=== PATIENT | female | born 1950 | race Caucasian/White ===

== ENCOUNTER 2017-05-05 04:56 | Inpatient (IN) | payer BC, OTHER ==
[2017-05-05 05:31] VITALS: BMI 32.3
--- NOTE | 2017-05-05 05:32 | PDOC ---
Attending Attestation - Resident Resident Name: Adin Stewart - ED Attending Attestation I have performed the following: I have examined & evaluated the patient, The case was reviewed & discussed with the resident, I agree w/resident's findings & plan, Exceptions are as noted - HPI HPI: 05/05/17 05:26 66 yo F h/o HTN, HLD, CAD s/p stent (most recent one several weeks ago) presenting to the ER with a complaint of shortness of breath PT s/p recent drive to [place] from [place] While admitted, pt reported leg pain 05/05/17 05:32 - Physicial Exam PE: 05/05/17 05:26 Intermittently tachycardiac CTA No abd tenderness to palpation - Medical Decision Making 05/05/17 05:27 A/P Chest pain, shortness of breath Will do labs, EKG, CXR Will plan to admit
--- NOTE | 2017-05-05 05:36 | PDOC ---
History of Present Illness - General Chief Complaint: Shortness of Breath Stated Complaint: DIFFICULTY BREATHING, CHEST PAIN Time Seen by Provider: 05/05/17 05:02 History Source: Patient Exam Limitations: No Limitations - History of Present Illness Initial Comments: 05/05/17 05:30 Patient is a 66F who has history of SC s/p stenting in [place] 3 wks ago , CHF, non-insulin dependent diabetes, HTN, and HLD here today complaining of shortness of breath. She's had increased shortness of breath since her SC, but has been worse the past two days. She states that she drove 15 hours from [place] yesterday, and that she had leg cramping in her legs. She denies recent estrogen use. She denies chest pain, hemoptysis, nausea, vomiting, fevers and abdominal pain. Former smoker. Past History - Past Medical History Allergies/Adverse Reactions: Allergies Allergy/AdvReac Type Severity Reaction Status Date / Time No Known Allergies Allergy Verified 05/05/17 05:20 - Psycho/Social/Smoking Cessation Hx Suicidal Ideation: No Smoking History: Never smoked Have you smoked in the past 12 months: No Information on smoking cessation initiated: No Hx Alcohol Use: No Drug/Substance Use Hx: No Review of Systems - Review of Systems Comments:: 05/05/17 05:33 GENERAL/CONSTITUTIONAL: No fever. Positive for weakness and chills. HEAD, EYES, EARS, NOSE AND THROAT: No change in vision. No ear pain or discharge. No sore throat. CARDIOVASCULAR: No chest pain. Positive for shortness of breath. RESPIRATORY: No cough, wheezing, or hemoptysis. GASTROINTESTINAL: No nausea, vomiting, diarrhea or constipation. GENITOURINARY: No dysuria, frequency, or change in urination. NEUROLOGIC: No headache, loss of consciousness, or change in strength/sensation. HEMATOLOGIC/LYMPHATIC: No anemia, easy bleeding, or history of blood clots. ALLERGIC/IMMUNOLOGIC: No hives or skin allergy. *Physical Exam - Vital Signs Last Vital Signs Temp Pulse Resp BP Pulse Ox 97.1 F L 76 20 128/77 97 05/05/17 05:02 05/05/17 05:02 05/05/17 05:02 05/05/17 05:02 05/05/17 05:02 - Physical Exam Comments: 05/05/17 05:36 GENERAL: Awake, alert, and fully oriented, in no acute distress HEAD: No signs of trauma, normocephalic, atraumatic EYES: PERRLA, EOMI, sclera anicteric, conjunctiva clear ENT: Auricles normal inspection, hearing grossly normal, nares patent, oropharynx clear without exudates. Moist mucosa LUNGS: No distress, speaks full sentences, clear to auscultation bilaterally HEART: Tachycardic with rate fluctuating between 70 and 120 in <1 min, normal S1 and S2, no murmurs, rubs or gallops, peripheral pulses normal and equal bilaterally. ABDOMEN: Soft, nontender, normoactive bowel sounds. No guarding, no rebound. No masses EXTREMITIES: Normal inspection, Normal range of motion, no edema. No clubbing or cyanosis. NEUROLOGICAL: Cranial nerves II through XII grossly intact. Normal speech, no focal sensorimotor deficits SKIN: Warm, Dry, normal turgor, no rashes or lesions noted. Heart Score/ECG Review - History History: Slightly suspicious - Electrocardiogram EKG: Significant ST-depression - Risk Factors Risk Factors Heart Score: Yes Hx Hypertension, Yes Hx Diabetes, Yes Smoking History Based on the list above the patient has:: >/=3 risk factors or Hx atherosclerotic disease ED Treatment Course - LABORATORY CBC & Chemistry Diagram: 05/05/17 05:29 05/05/17 05:29 - RADIOLOGY Radiology Studies Ordered: Category Date Time Status CHEST X-RAY PORTABLE* [RAD] Stat Radiology 05/05/17 05:16 Ordered Medical Decision Making - Medical Decision Making 05/05/17 05:37 Patient is 66F who was recently hospitalized for SC s/p stenting, CHF, DM, HTN, and HLD here today complaining of shortness of breath. Vital signs show tachycardia and satting 93%. Vital signs otherwise stable and normal. Patient has multiple PE risk factors. Differential diagnosis includes: PE, ACS, arrhythmia, COPD exacerbation, CHF exacerbation. Workup includes ACS workup plus BNP and CTA Chest. 05/05/17 05:43 EKG shows sinus tachycardia with 1st av block. Left axis. ST depressions in I, avL. Flattened t-waves. QTc = 609. QRS = 140 05/05/17 06:44 Patient has a known discordance in BP between arms. Right arm shows SBP of 88. Left arm shows SBP of 111. This is pre-existing per patient. 05/05/17 06:49 Laboratory Tests 05/05/17 05/05/17 05:29 05:29 WBC 9.8 Hgb 13.1 Hct 40.1 Plt Count 275 BUN 49 H Creatinine 1.3 H Troponin I 0.11 H B-Natriuretic Peptide 3078.34 H CBC unremarkable. CMP shows BUN 49, Cr 1.3. Trop .11, BNP 3k. Will order CTA Chest. CXR shows cardiomegaly with right sided lung opacity. *DC/Admit/Observation/Transfer Diagnosis at time of Disposition: Shortness of breath
[2017-05-05 05:39] LABS: BASOPHIL 1.2 % (0-2.0); MCH 29.1 pg (25.7-33.7); MCHC 32.7 g/dl (32.0-36.0); MEAN CELL VOLUME 89.2 fl (80-96); MEAN PLT VOLUME 10.2 fl (7.5-11.1); PLATELET COUNT 275 K/MM3 (134-434); RDW 15.4 % (11.6-15.6); WHITE BLOOD COUNT 9.8 K/mm3 (4.0-10.0)
[2017-05-05 05:57] LABS: INR 1.14 (0.82-1.09); PROTHROMBIN TIME (PATIENT) 12.6 SEC (9.98-11.88)
[2017-05-05] MEDS ORDERED: SODIUM CHLORIDE 0.9% 1000 ML INFUS.BAG IV ONE (06:13)
[2017-05-05 06:37] LABS: ANION GAP 13 (8-16); CO2 26 mmol/L (21-32); CREATININE 1.3 mg/dL (0.55-1.02); GLUCOSE,RANDOM 128 mg/dL (74-106)
[2017-05-05 06:38] LABS: ALBUMIN 3.2 g/dl (3.4-5.0); BILIRUBIN,TOTAL 0.6 mg/dL (0.2-1.0); CALCIUM 8.9 mg/dL (8.5-10.1); SGOT/AST 15 U/L (15-37); TOT PROT 6.5 g/dl (6.4-8.2)
[2017-05-05 06:39] LABS: ALK PHOS 75 U/L (45-117); CPK 48 IU/L (26-192); SGPT/ALT 31 U/L (12-78); TROPONIN I 0.11 ng/ml (0.00-0.05)
[2017-05-05 06:57] LABS: MAGNESIUM 2.1 mg/dL (1.8-2.4)
--- NOTE | 2017-05-05 07:21 | PDOC ---
*Physical Exam - Vital Signs Last Vital Signs Temp Pulse Resp BP Pulse Ox 97.1 F L 76 20 128/77 97 05/05/17 05:02 05/05/17 05:02 05/05/17 05:02 05/05/17 05:02 05/05/17 05:02 <ChristopherDeep - Last Filed: 05/05/17 09:09> - Vital Signs Last Vital Signs Temp Pulse Resp BP Pulse Ox 97.1 F L 76 20 128/77 97 05/05/17 05:02 05/05/17 05:02 05/05/17 05:02 05/05/17 05:02 05/05/17 05:02 - Physical Exam Comments: 05/05/17 09:11 pt with recent AL, recent hospitalization in [facility]. No with dyspnea and orthopnea and PND. 05/05/17 09:12 pt signed out pending CT chest General Appearance: Yes: Nourished, Appropriately Dressed HEENT: positive: EOMI Neck: positive: Supple Respiratory/Chest: positive: Crackles Cardiovascular: positive: S1, S2, Tachycardia Vascular Pulses: Dorsalis-Pedis (R): 2+, Doralis-Pedis (L): 2+ Gastrointestinal/Abdominal: positive: Normal Bowel Sounds, Soft. negative: Tender Musculoskeletal: positive: Normal Inspection. negative: Decreased Range of Motion Extremity: positive: Normal Capillary Refill, Normal Range of Motion. negative : Pedal Edema, Swelling, Calf Tenderness Integumentary: positive: Normal Color, Dry, Warm Neurologic: positive: mail inserter II-XII NML intact, Fully Oriented, Alert, Normal Mood/ Affect, Normal Response, Motor Strength 5/5 <Bridget Dominguez - Last Filed: 05/05/17 09:17> Heart Score/ECG Review - ECG Intrepretation Comment:: 05/05/17 09:13 repeat ekg: sinus kat at 50, t wave inversions V2-v6, I, avl with intermittent interventricular conduction delay <Bridget Dominguez - Last Filed: 05/05/17 09:17> ED Treatment Course - LABORATORY CBC & Chemistry Diagram: 05/05/17 05:29 05/05/17 05:29 - ADDITIONAL ORDERS Additional order review: Laboratory Results 05/05/17 05/05/17 05:29 05:29 INR 1.14 Sodium 141 Potassium 3.8 Chloride 102 Carbon Dioxide 26 Anion Gap 13 BUN 49 H Creatinine 1.3 H Creat Clearance w eGFR 41.24 Random Glucose 128 H Calcium 8.9 Magnesium 2.1 Total Bilirubin 0.6 AST 15 ALT 31 Alkaline Phosphatase 75 Creatine Kinase 48 Troponin I 0.11 H B-Natriuretic Peptide 3078.34 H Total Protein 6.5 Albumin 3.2 L 05/05/17 05:29 RBC 4.49 MCV 89.2 MCHC 32.7 RDW 15.4 MPV 10.2 Neutrophils % 59.0 Lymphocytes % 30.4 Monocytes % 6.4 Eosinophils % 3.0 Basophils % 1.2 - Medications Given in the ED: ED Medications Discontinued Medications Generic Name Dose Route Start Last Admin Trade Name Freq PRN Reason Stop Dose Admin Sodium Chloride 250 ml 05/05/17 06:13 05/05/17 06:41 Normal Saline - IV 05/05/17 06:14 250 ml ONCE ONE Administration <Deep White - Last Filed: 05/05/17 09:09> - LABORATORY CBC & Chemistry Diagram: 05/05/17 05:29 05/05/17 05:29 - ADDITIONAL ORDERS Additional order review: Laboratory Results 05/05/17 05/05/17 05:29 05:29 INR 1.14 Sodium 141 Potassium 3.8 Chloride 102 Carbon Dioxide 26 Anion Gap 13 BUN 49 H Creatinine 1.3 H Creat Clearance w eGFR 41.24 Random Glucose 128 H Calcium 8.9 Magnesium 2.1 Total Bilirubin 0.6 AST 15 ALT 31 Alkaline Phosphatase 75 Creatine Kinase 48 Troponin I 0.11 H B-Natriuretic Peptide 3078.34 H Total Protein 6.5 Albumin 3.2 L 05/05/17 05:29 RBC 4.49 MCV 89.2 MCHC 32.7 RDW 15.4 MPV 10.2 Neutrophils % 59.0 Lymphocytes % 30.4 Monocytes % 6.4 Eosinophils % 3.0 Basophils % 1.2 - Medications Given in the ED: ED Medications Discontinued Medications Generic Name Dose Route Start Last Admin Trade Name Freq PRN Reason Stop Dose Admin Sodium Chloride 250 ml 05/05/17 06:13 05/05/17 06:41 Normal Saline - IV 05/05/17 06:14 250 ml ONCE ONE Administration <Bridget Dominguez - Last Filed: 05/05/17 09:17> Medical Decision Making - Medical Decision Making 05/05/17 09:02 Called Hospitalist production support analyst DR. Grimes @8:58am. Case discussed. Called Dr. Douglass. Dr. Lopez richard @9:06am. Awaiting Call back. <Deep White - Last Filed: 05/05/17 09:09> - Medical Decision Making 05/05/17 09:14 pt signed out pending cta chest and elevated trop. 05/05/17 09:14 pt with pulmonary edema on cxr 05/05/17 09:14 cta negative for PE 05/05/17 09:[address] Grimes who accepts pt to service Pt updated on status and agrees to stay for further eval. Call placed to Dr. Douglass cardiology - case discussed with Dr. Moss who will see the patient in consult. <Bridget Dominguez - Last Filed: 05/05/17 09:17> *DC/Admit/Observation/Transfer - Attestations Scribe Attestion: 05/05/17 09:02 Documentation prepared by Deep White, acting as quality engineer medical device for Bridget Dominguez DO, MD. <Deep White - Last Filed: 05/05/17 09:09> - Discharge Dispostion Admit: Yes <Bridget Dominguez - Last Filed: 05/05/17 09:17> Diagnosis at time of Disposition: Shortness of breath Congestive heart failure Qualifiers: Congestive heart failure chronicity: unspecified congestive heart failure chronicity
[2017-05-05] MEDS ORDERED: FUROSEMIDE 40 MG/4 ML INJECTABLE VIAL IVPUSH ONE ×2 (09:17→10:20)
[2017-05-05] MEDS ORDERED: FUROSEMIDE 40 MG/4 ML INJECTABLE VIAL ONE (09:36)
--- NOTE | 2017-05-05 10:29 | CON.CARD ---
Cardiology Consult (text) - Consultation Consultation Note: cc: sob hpi: 66 f hx dm, htn, hld, cad s/p NV 04/2017 with pci x2 (osh in [place]), chf here with sob. Pt was in [place] and feeling well until about 4 days ago when had sob and went to hospital there. Was told she had chf and given iv lasix for a few days and discharged yesterday. She drove back up to [place] and this AM noticed same type of sob again. No chest pain/pressure like she had with recent NV. No dizzy, loc, palps, pnd, orthopnea, le edema. pmh: per hpi psh: pci social: ex tob fam: no premature cad/scd ros: per hpi; no nvd, fever, esparza, vision changes, rash, gib, hematuria, dysuria, muscle pains meds: Home Medications Medication Instructions Recorded Aspirin [Aspirin EC] 81 mg PO DAILY 05/05/17 Atorvastatin Ca [Lipitor] 40 mg PO HS 05/05/17 Chlorthalidone 25 mg PO DAILY 05/05/17 Diazepam 2 mg PO BID PRN 05/05/17 Lisinopril 10 mg PO DAILY 05/05/17 Metformin HCl [Metformin HCl ER] 500 mg PO TID 05/05/17 Metoprolol Tartrate 12.5 mg PO BID 05/05/17 Nicotine Patch [Nicoderm Patch -] 1 patch TD DAILY 05/05/17 Omeprazole 40 mg PO DAILY 05/05/17 Ticagrelor [Brilinta] 90 mg PO BID 05/05/17 Zolpidem Tartrate [Ambien] 10 mg PO HS 05/05/17 pe: Vital Signs Period Temp Pulse Resp BP Sys/Raymond Pulse Ox Last 24 Hr 97.1 F 76-110 16-20 92-128/77-79 95-97 nad no jvd rrr s1s2 no mrg cta bl nl eff aaox3 no le edema c/c abd nt nd pos bs no jaundice diaphoresis pos dp pt no carotid bruits Laboratory Last Values WBC 9.8 K/mm3 (4.0-10.0) 05/05/17 05:29 RBC 4.49 M/mm3 (3.60-5.2) 05/05/17 05:29 Hgb 13.1 GM/dL (10.7-15.3) 05/05/17 05:29 Hct 40.1 % (32.4-45.2) 05/05/17 05:29 MCV 89.2 fl (80-96) 05/05/17 05:29 MCH 29.1 pg (25.7-33.7) 05/05/17 05:29 MCHC 32.7 g/dl (32.0-36.0) 05/05/17 05:29 RDW 15.4 % (11.6-15.6) 05/05/17 05:29 Plt Count 275 K/MM3 (134-434) 05/05/17 05:29 MPV 10.2 fl (7.5-11.1) 05/05/17 05:29 Neutrophils % 59.0 % (42.8-82.8) 05/05/17 05:29 Lymphocytes % 30.4 % (8-40) 05/05/17 05:29 Monocytes % 6.4 % (3.8-10.2) 05/05/17 05:29 Eosinophils % 3.0 % (0-4.5) 05/05/17 05:29 Basophils % 1.2 % (0-2.0) 05/05/17 05:29 INR 1.14 (0.82-1.09) 05/05/17 05:29 Sodium 141 mmol/L (136-145) 05/05/17 05:29 Potassium 3.8 mmol/L (3.5-5.1) 05/05/17 05:29 Chloride 102 mmol/L (98-107) 05/05/17 05:29 Carbon Dioxide 26 mmol/L (21-32) 05/05/17 05:29 Anion Gap 13 (8-16) 05/05/17 05:29 BUN 49 mg/dL (7-18) H 05/05/17 05:29 Creatinine 1.3 mg/dL (0.55-1.02) H 05/05/17 05:29 Creat Clearance w eGFR 41.24 (>60) 05/05/17 05:29 Random Glucose 128 mg/dL (74-106) H 05/05/17 05:29 Calcium 8.9 mg/dL (8.5-10.1) 05/05/17 05:29 Magnesium 2.1 mg/dL (1.8-2.4) 05/05/17 05:29 Total Bilirubin 0.6 mg/dL (0.2-1.0) 05/05/17 05:29 AST 15 U/L (15-37) 05/05/17 05:29 ALT 31 U/L (12-78) 05/05/17 05:29 Alkaline Phosphatase 75 U/L (45-117) 05/05/17 05:29 Creatine Kinase 48 IU/L (26-192) 05/05/17 05:29 Troponin I 0.11 ng/ml (0.00-0.05) H 05/05/17 05:29 B-Natriuretic Peptide 3078.34 pg/ml (5-125) H 05/05/17 05:29 Total Protein 6.5 g/dl (6.4-8.2) 05/05/17 05:29 Albumin 3.2 g/dl (3.4-5.0) L 05/05/17 05:29 cta chest: no pe, no chf, ?infiltrates vs atx ecg 05/05/17: sr 113, 1st avb, nonspec IVCD with nonspec st-tw changes, no amber a/p: 66 f hx dm, htn, hld, cad s/p NV 04/2017 with pci x2 (osh in [place]), chf here with sob. sob, acute chf: -unclear if dchf or syst chf, will check echo -pt with elevated bnp and mild chf symptoms, would start lasix 40 iv qd and monitor daily chem7, wt, sxs -no signs acs thus far, continue julio, monitor on tele htn: -cont home chichi, bb hld: -cont home statin cad s/p mi, pci: -recent mi/pci, cont asa, brilinta uninterrupted -cont chichi, bb, statin -check echo to see lvef -finish julio -ecg with nonspecific IVCD, no baseline to compare, but currently no cp symptoms which she had with her recent NV
[2017-05-05 10:33] LABS: TROPONIN I 0.09 ng/ml (0.00-0.05)
--- NOTE | 2017-05-05 11:04 | HP ---
CHIEF COMPLAINT: SOB PCP: Dr. Reagan (Douglas) HISTORY OF PRESENT ILLNESS: 66 y/o F w/PMH of HTN, HLD, DM, CAD s/p stent placement x2 (04/18/2017), recent hospitalization (in [place] - discharged Saturday05/03/17 for SOB) presents to the ER w/SOB that woke her up this AM. She immediately called her niece to bring her to the hospital. Pt is unsure if exertion worsens SOB as she did not try to exert herself after she had the SOB. She recently travelled up from [place] via car and during her hospitalization in [place] she had a chest CT , echo, and CXR done all of which she remembers being negative. She denies any cough, sputum production, chest congestion, chest pain, palpitations, N/V/F/C, light-headedness, dizziness, swelling in legs, pain in legs, pain with ambulating, dysuria, diarrhea, loss of appetite, blood in stool, black stool. Recent sick contact with niece who has a cold but pt denies any cold symptoms herself. She is currently trying to quit smoking by using patch but had quit once in the past and started smoking again in December 2016 and smoked 1/2 ppd until attempting to quit again recently. ER course was notable for: (1) EKG, Lasix, CXR, Chest CTA (2) (3) Recent Travel: Car trip from [place] to [place] 1-2 days ago PAST MEDICAL HISTORY: HTN, HLD,DM, CAD s/p stent placement x2 (04/18/2017) PAST SURGICAL HISTORY: x2, Wrist surgery, cardiac cath w/stent placement 04/18/17 Social History: Smoking: Currently on patch, has hx of smoking - most recently restarted smoking in December 2016 (1/2 ppd) until trying to quit recently. Alcohol: Social Drugs: Denies Family History: Mother passed from LA at 60. Sister had LA. Father had LA. Allergies No Known Allergies Allergy (Verified 05/05/17 05:20) HOME MEDICATIONS: Home Medications Medication Instructions Recorded Aspirin [Aspirin EC] 81 mg PO DAILY 05/05/17 Atorvastatin Ca [Lipitor] 40 mg PO HS 05/05/17 Chlorthalidone 25 mg PO DAILY 05/05/17 Diazepam 2 mg PO BID PRN 05/05/17 Lisinopril 10 mg PO DAILY 05/05/17 Metformin HCl [Metformin HCl ER] 500 mg PO TID 05/05/17 Metoprolol Tartrate 12.5 mg PO BID 05/05/17 Nicotine Patch [Nicoderm Patch -] 1 patch TD DAILY 05/05/17 Omeprazole 40 mg PO DAILY 05/05/17 Ticagrelor [Brilinta] 90 mg PO BID 05/05/17 Zolpidem Tartrate [Ambien] 10 mg PO HS 05/05/17 REVIEW OF SYSTEMS CONSTITUTIONAL: Absent: fever, chills, loss of appetite, weight change HEENT: Absent: rhinorrhea, nasal congestion CARDIOVASCULAR: Absent: chest pain, palpitations, irregular heart rate, lightheadedness, peripheral edema RESPIRATORY: +SOB Absent: cough, orthopnea, wheezing GASTROINTESTINAL: Absent: abdominal pain, abdominal distension, nausea, vomiting, diarrhea, melena , hematochezia GENITOURINARY: Absent: dysuria ENDOCRINE: Absent: unexplained weight gain, unexplained weight loss NEUROLOGIC: Absent: headache, dizziness, unsteady gait PHYSICAL EXAMINATION Vital Signs - 24 hr 05/05/17 05/05/17 09:32 09:35 Pulse Rate [ 110 H Apical] Respiratory 16 Rate Blood Pressure 92/78 [Left Arm] Blood Pressure 98/79 [Right Arm] O2 Sat by Pulse 95 Oximetry (%) GENERAL: Awake, alert, and fully oriented, in no acute distress. HEAD: Normal with no signs of trauma. EYES: extraocular movements intact, sclera anicteric, conjunctiva clear. No lid lag. EARS, NOSE, THROAT: Ears normal, nares patent NECK: Normal range of motion, supple LUNGS: Breath sounds equal, clear to auscultation bilaterally. No wheezes, and no crackles. No accessory muscle use. HEART: Alternating Arley and Tachy, normal S1 and S2 ABDOMEN: Soft, obese, nontender, not distended, normoactive bowel sounds, no guarding LOWER EXTREMITIES: 2+ pulses, warm, well-perfused. No peripheral edema. NEUROLOGICAL: Normal speech. Gait not observed. PSYCHIATRIC: Cooperative. Good eye contact. Appropriate mood and affect. SKIN: Warm, dry, no rashes or lesions noted CBCD WBC 9.8 K/mm3 (4.0-10.0) 05/05/17 05:29 RBC 4.49 M/mm3 (3.60-5.2) 05/05/17 05:29 Hgb 13.1 GM/dL (10.7-15.3) 05/05/17 05:29 Hct 40.1 % (32.4-45.2) 05/05/17 05:29 MCV 89.2 fl (80-96) 05/05/17 05:29 MCHC 32.7 g/dl (32.0-36.0) 05/05/17 05:29 RDW 15.4 % (11.6-15.6) 05/05/17 05:29 Plt Count 275 K/MM3 (134-434) 05/05/17 05:29 MPV 10.2 fl (7.5-11.1) 05/05/17 05:29 CMP Sodium 141 mmol/L (136-145) 05/05/17 05:29 Potassium 3.8 mmol/L (3.5-5.1) 05/05/17 05:29 Chloride 102 mmol/L (98-107) 05/05/17 05:29 Carbon Dioxide 26 mmol/L (21-32) 05/05/17 05:29 Anion Gap 13 (8-16) 05/05/17 05:29 BUN 49 mg/dL (7-18) H 05/05/17 05:29 Creatinine 1.3 mg/dL (0.55-1.02) H 05/05/17 05:29 Creat Clearance w eGFR 41.24 (>60) 05/05/17 05:29 Random Glucose 128 mg/dL (74-106) H 05/05/17 05:29 Calcium 8.9 mg/dL (8.5-10.1) 05/05/17 05:29 Total Bilirubin 0.6 mg/dL (0.2-1.0) 05/05/17 05:29 AST 15 U/L (15-37) 05/05/17 05:29 ALT 31 U/L (12-78) 05/05/17 05:29 Alkaline Phosphatase 75 U/L (45-117) 05/05/17 05:29 Total Protein 6.5 g/dl (6.4-8.2) 05/05/17 05:29 Albumin 3.2 g/dl (3.4-5.0) L 05/05/17 05:29 CARDIAC ENZYMES Creatine Kinase 48 IU/L (26-192) 05/05/17 05:29 Troponin I 0.11 ng/ml (0.00-0.05) H 05/05/17 05:29 Laboratory Tests 05/05/17 05:29 B-Natriuretic Peptide 3078.34 H Laboratory Tests 05/05/17 05:29 Magnesium 2.1 EKG: sinus tachycardia with 1st av block. Left axis. ST depressions in I, avL. Flattened t-waves. QTc = 609. QRS = 140 Imaging: CXR: Impression: Large heart. Degenerative changes. Congestive changes. Chest CTA: Impression: No evidence of PE w/in the main pulmonary artery and its proximal branches bilaterally. B/L airspace opacities suggestive of atelectasis . Cannot rule out superimposed pna infiltrates. ASSESSMENT/PLAN: 66 y/o F w/PMH of HTN, HLD, DM, CAD s/p stent placement (04/18/2017), recent hospitalization (in [place] - discharged Saturday05/03/17 for chest pain) presents to the ER w/SOB that woke her up this AM. Found to have alternating bradycardia and wide QRS tachycardia. Admitted for SOB due to most likely cardiac etiology. -SOB secondary to Acute CHF exacerbation vs other cardiac etiology vs less likely PNA -Pt given lasix in ER -Pt with no clinical signs of respiratory infection at this time. No fevers, cough, sputum production, pleuritic chest pain. Will monitor -Tele monitoring shows alternation of bradycardia and wide complex QRS tachycardia. -Cardiology consulted -will place on lasix 40 mg iv qd for CHF exacerbation. Monitor daily weights. -Will need to get previous hospitalization records. Pt states niece will bring them in today. (ECHO, Chest CT) -I have also sent a request to [facility] medical requests for medical records and cardiac cath and stent records. -CAD -w/recent hx of stent placement x2 (04/18/17) -c/w asa 81 mg po qd, ticagrelor 90 mg po bid, lipitor 40 mg po qhs, metoprolol 12.5 mg po bid -CARITO vs CKD -Cr 1.3, no baseline Cr, will monitor -DM -ISS, BGMs -HTN -c/w lisinopril 10 mg po qd, chlorthalidone 25 mg po qd, metoprolol 12.5 mg po bid -HLD -c/w lipitor 40 mg po qhs -GERD -protonix 40 mg po qd -Nicotine dependance -Nicotine patch 14 mg TD qd -Insomonia -ambien 10 mg po qhs prn for insomnia -DVT ppx -Heparin 5000 units SQ TID -FEN -No fluids -monitor lytes -Cardiac/Diabetic/Low sodium diet -Dispo: -Admit to tele Visit type - Emergency Visit Emergency Visit: Yes ED Registration Date: 05/05/17 Care time: The patient presented to the Emergency Department on the above date and was hospitalized for further evaluation of their emergent condition. - New Patient This patient is new to me today: Yes Date on this admission: 05/06/17 - Critical Care Critical Care patient: No
--- NOTE | 2017-05-05 11:24 | PN ---
Teaching Attending Note Name of Resident: Hong Garcia ATTENDING PHYSICIAN STATEMENT I saw and evaluated the patient. I reviewed the resident's note and discussed the case with the resident. I agree with the resident's findings and plan as documented. SUBJECTIVE: This is a 66 year old woman with a history of HTN, hyperlipidemia, CAD, type 2 DM who comes to the ER complaining of SOB. She has a history of CAD and underwent stent placement on 04/18 at [facility] in [place]. She was doing well after and went to [place] last week for vacation. While there, she was hospitalized for SOB. She says she was told she was being treated for CHF. She was discharged yesterday and was driven back to [place]. She says she got home around 1 am and at 4 am she was awakened from sleep by SOB. She denies chest pain, palpitations. OBJECTIVE: Vital Signs Period Temp Pulse Resp BP Sys/Raymond Pulse Ox Last 24 Hr 97.1 F 58-110 16-20 92-128/72-79 95-97 HEART: S1S2, tachycardic LUNGS: Clear ABDOMEN: Obese, soft, non-tender, non-distended, normal BS EXTREMITIES: No edema ASSESSMENT AND PLAN: This is a 66 year old woman with a history of HTN, hyperlipidemia, CAD, recent PCI/stents, type 2 DM who presented to the ER with SOB that awoke her from sleep after returning to [place] from [place] by car. 1. Acute heart failure, unclear if systolic or diastolic - Lasix given in ER - Monitor on telemetry - Chest CTA negative for PE - Serial troponins - Echocardiogram - Continue Lasix iV - Low sodium diet - Monitor I&O, weight - Obtain records from recent hospitalizations - Cardiology consult 2. Cardiac arrhythmia - Sinus bradycardia and wide complex tachycardia noted on monitor and EKG - Monitor on telemetry - Cardiology consult 3. Probable stage 3 CKD - Monitor creatinine (baseline unknown) 4. CAD, recent PCI/stents - Continue aspirin, Brilinta, Lopressor, Lisinopril, Lipitor 5. HTN - Continue Lopressor, Lisinopril, Chlorthalidone - Lasix started for CHF 6. Hyperlipidemia - Continue Lipitor 7. Type 2 DM - Hold Metformin - Fingersticks with Novolog sliding scale 8. Nicotine dependence - Continue nicotine patch
[2017-05-05] MEDS ORDERED: ZOLPIDEM TARTRATE 5 MG TABLET PO PRN (12:19)
--- NOTE | 2017-05-05 12:39 | EKG ---
Test Reason : Blood Pressure : / mmHG Vent. Rate : 050 BPM Atrial Rate : 050 BPM P-R Int : 166 ms QRS Dur : 078 ms QT Int : 442 ms P-R-T Axes : 031 -04 176 degrees QTc Int : 402 ms SINUS BRADYCARDIA ACUTE AND/OR RECENT INFERIOR MYOCARDIAL INFARCTION NEEDS TO BE EXCLUDED DIFFUSE ST-T ABNORMALITIES COMPATIBLE WITH ISCHEMIA OR NSTEMI CLINICAL CORRELATION AND FOLLOW UP TRACING IS RECOMMENDED 4S STAFF [id number] Confirmed by JANNETTE BELTRAN MD ([id number]) on 05/05/2017 12:39:12 PM Referred By: Confirmed By:JANNETTE BELTRAN MD
--- NOTE | 2017-05-05 12:52 | EKG ---
Test Reason : Blood Pressure : / mmHG Vent. Rate : 097 BPM Atrial Rate : 093 BPM P-R Int : 000 ms QRS Dur : 132 ms QT Int : 438 ms P-R-T Axes : 000 -18 161 degrees QTc Int : 556 ms WIDE COMPLEX RHYTHM COMPATIBLE WITH ACCELERATED IDIOVENTRICULAR RHYTHM WITH VA CONDUCTION. RHYTHM REVERTS TO SINUS BRADYCARDIA AFTER A PREMATURE WIDE COMPLEX BEAT FOLLOWED BY A COMPENSATORY PAUSE IN LEADS V4-V6 AND LL II DIFUSE ST-T ABNORMALITIES INLL II,V4-V6 FOLLOW UP TRACING ARE RECOMMENDED Confirmed by JANNETTE BELTRAN MD ([id number]) on 05/05/2017 12:52:08 PM Referred By: Confirmed By:JANNETTE BELTRAN MD
--- NOTE | 2017-05-05 13:00 | EKG ---
Test Reason : Blood Pressure : / mmHG Vent. Rate : 115 BPM Atrial Rate : 053 BPM P-R Int : 000 ms QRS Dur : 132 ms QT Int : 436 ms P-R-T Axes : 000 -20 162 degrees QTc Int : 603 ms WIDE COMPLEX TACHYCARDIA WITH VA CONDUCTION COMPATIBLE WITH ACCELERATED IDIOVENTRICULA RHYTHM DIFFUSE ST-T ABNORMALITIES INFERIOR INFARCT , AGE UNDETERMINED ABNORMAL ECG WHEN COMPARED WITH ECG OF 05-MAY-2017 05:25, RHYTHM REMAINS UNCHANGED STAFF ON 4S WAS NOTIFIED AND ADVISED TO NOTIFY PCP. Confirmed by JANNETTE BELTRAN MD ([id number]) on 05/05/2017 1:00:10 PM Referred By: Confirmed By:JANNETTE BELTRAN MD
--- NOTE | 2017-05-05 13:06 | EKG ---
Test Reason : Blood Pressure : / mmHG Vent. Rate : 113 BPM Atrial Rate : 113 BPM P-R Int : 000 ms QRS Dur : 140 ms QT Int : 444 ms P-R-T Axes : 000 -17 169 degrees QTc Int : 609 ms WIDE COMPLEX TACHYCARDIA WITH PROBABLEVA CONDUCTION,SUGGESTING ACCELERATED IDIOVENTRICULAR RTYTHM. DIFFUSE ST-T ABNORMALITIES NO PREVIOUS TRACING IS AVAILABLE CLINICAL CORRELATION AND FOLLOW UP TRACING IS RECOMMENDED 4S STAFF NOTIFIED Confirmed by JANNETTE BELTRAN MD ([id number]) on 05/05/2017 1:06:13 PM Referred By: Confirmed By:JANNETTE BELTRAN MD
[2017-05-05] MEDS: CHLORTHALIDONE 25 MG TABLET PO SCH (17:01)
[2017-05-05] MEDS: INSULIN SLIDING SCALE (NOVOLOG) 1 VIAL SQ SCH ×2 (17:02→22:15)
[2017-05-05 18:39] LABS: TROPONIN I 0.08 ng/ml (0.00-0.05)
[2017-05-05] MEDS ORDERED: PT OWN MED DRAWER 7, Y5N ONE ×2 (19:29→21:38)
[2017-05-05] MEDS: TICAGRELOR 90 MG TABLET PO SCH (22:15)
[2017-05-05] MEDS: HEPARIN NA (PORCINE) 5,000 UNITS/ML 1ML VIAL SQ SCH (22:15)
[2017-05-05] MEDS: ATORVASTATIN CA 40 MG TABLET (FP) PO SCH (22:15)
[2017-05-06] MEDS: HEPARIN NA (PORCINE) 5,000 UNITS/ML 1ML VIAL SQ SCH ×3 (06:37→22:58)
[2017-05-06] MEDS: INSULIN SLIDING SCALE (NOVOLOG) 1 VIAL SQ SCH ×4 (06:37→22:59)
[2017-05-06] MEDS: METOPROLOL TARTRATE 25 MG TABLET (FP) PO SCH ×2 (07:22→22:57)
[2017-05-06 07:54] LABS: BASOPHIL 0.6 % (0-2.0); EOSINOPHIL 3.4 % (0-4.5); MCHC 32.3 g/dl (32.0-36.0); MEAN CELL VOLUME 89.7 fl (80-96); MEAN PLT VOLUME 10.4 fl (7.5-11.1); NEUTROPHILS 59.4 % (42.8-82.8); PLATELET COUNT 200 K/MM3 (134-434); RDW 15.7 % (11.6-15.6); WHITE BLOOD COUNT 6.6 K/mm3 (4.0-10.0)
[2017-05-06 08:55] LABS: ALBUMIN 2.9 g/dl (3.4-5.0); ANION GAP 8 (8-16); CALCIUM 8.7 mg/dL (8.5-10.1); CO2 30 mmol/L (21-32); CREATININE 1.1 mg/dL (0.55-1.02); GLUCOSE,RANDOM 119 mg/dL (74-106); MAGNESIUM 2.1 mg/dL (1.8-2.4)
[2017-05-06 08:59] LABS: TROPONIN I 0.07 ng/ml (0.00-0.05)
--- NOTE | 2017-05-06 09:16 | PN ---
Progress Note (short form) - Note Progress Note: s: feeling better, less sob, almost at baseline. no cp palps dizzy o: Vital Signs Period Temp Pulse Resp BP Sys/Raymond Pulse Ox Last 24 Hr 97.5 F-98.6 F 56-128 16-19 92-136/53-83 4-100 nad no jvd rrr s1s2 no mrg cta bl nl eff aaox3 no le edema c/c abd nt nd pos bs no jaundice diaphoresis Current Medications Generic Name Dose Route Start Last Admin Trade Name Freq PRN Reason Stop Dose Admin Aspirin 81 mg 05/06/17 10:00 Ecotrin - PO DAILY [facility] Atorvastatin Calcium 40 mg 05/05/17 22:00 05/05/17 22:15 Lipitor - PO 40 mg HS [facility] Administration Chlorthalidone 25 mg 05/05/17 12:15 05/05/17 17:01 Hygroton - PO 25 mg DAILY [facility] Administration Furosemide 40 mg 05/06/17 10:00 Lasix Injection - IVPUSH DAILY [facility] Heparin Sodium (Porcine) 5,000 unit 05/05/17 22:00 05/06/17 06:37 Heparin - SQ 5,000 unit TID [facility] Administration Insulin Aspart 1 vial 05/05/17 16:30 05/06/17 06:37 Novolog Vial Sliding Scale - SQ Not Given ACHS [facility] Protocol Lisinopril 10 mg 05/06/17 10:00 Prinivil PO DAILY [facility] Metoprolol Tartrate 12.5 mg 05/05/17 22:00 05/06/17 07:22 Lopressor - PO 12.5 mg BID [facility] Administration Nicotine 14 mg 05/06/17 10:00 Nicoderm Patch - TD DAILY [facility] Pantoprazole Sodium 20 mg 05/06/17 10:00 Protonix - PO DAILY [facility] Ticagrelor 90 mg 05/05/17 22:00 05/05/17 22:15 Brilinta - PO 90 mg BID [facility] Administration Zolpidem Tartrate 10 mg 05/05/17 12:19 Ambien - PO HS PRN INSOMNIA CBC, BMP 05/06/17 06:00 05/06/17 06:00 cta chest: no pe, no chf, ?infiltrates vs atx ecg 05/05/17: sr 113, 1st avb, nonspec IVCD with nonspec st-tw changes, no amber tele: sr, brief svt 120s, likely PAT a/p: 66 f hx dm, htn, hld, cad s/p [place] 04/2017 with pci x2 (osh in [place]), chf here with sob. sob, acute chf: -unclear if dchf or syst chf, will check echo -pt with elevated bnp and mild chf symptoms, cont with lasix 40 iv qd and monitor daily chem7, wt, sxs -no signs acs, ce's negx3, -will likely need po lasix upon dc to maintain vol status htn: -cont home chichi, bb hld: -cont home statin cad s/p mi, pci: -recent mi/pci, cont asa, brilinta uninterrupted -cont chichi, bb, statin -check echo to see lvef -no signs acs -ecg with nonspecific IVCD, no baseline to compare, but currently no cp symptoms which she had with her recent [place] and ce's negx3.
[2017-05-06] MEDS ORDERED: PT OWN MED DRAWER 7, Y5N ONE ×2 (09:18→22:56)
[2017-05-06] MEDS: ASPIRIN COATED 81 MG TABLET.EC PO SCH (09:18)
[2017-05-06] MEDS: FUROSEMIDE 40 MG/4 ML INJECTABLE VIAL IVPUSH SCH (09:18)
[2017-05-06] MEDS: CHLORTHALIDONE 25 MG TABLET PO SCH (09:19)
[2017-05-06] MEDS: LISINOPRIL 10 MG TABLET (FP) PO SCH (09:19)
[2017-05-06] MEDS: NICOTINE 14 MG/24 HOURS TOPICAL PATCH TD SCH (09:19)
[2017-05-06] MEDS: PANTOPRAZOLE 20 MG TABLET (FP) PO SCH (09:19)
[2017-05-06] MEDS: TICAGRELOR 90 MG TABLET PO SCH ×2 (09:20→22:58)
--- NOTE | 2017-05-06 11:48 | PN ---
Physical Exam: SUBJECTIVE: Patient seen and examined. She feels better. Ambulating without SOB. OBJECTIVE: Vital Signs Period Temp Pulse Resp BP Sys/Raymond Pulse Ox Last 24 Hr 97.5 F-99.1 F 54-130 16-20 105-134/53-73 4-100 GENERAL: The patient is awake, alert, and fully oriented, in no acute distress. LUNGS: Breath sounds equal, clear to auscultation bilaterally, no wheezes, no crackles, no accessory muscle use. HEART: Regular rate and rhythm, S1, S2 without murmur, rub or gallop. ABDOMEN: Soft, nontender, nondistended, normoactive bowel sounds, no guarding, no rebound, no hepatosplenomegaly, no masses. EXTREMITIES: 2+ pulses, warm, well-perfused, no edema. Laboratory Results - last 24 hr 05/05/17 05/05/17 05/05/17 17:01 17:50 21:14 WBC RBC Hgb Hct MCV MCH MCHC RDW Plt Count MPV Neutrophils % Lymphocytes % Monocytes % Eosinophils % Basophils % Sodium Potassium Chloride Carbon Dioxide Anion Gap BUN Creatinine POC Glucometer 116 115 Random Glucose Calcium Magnesium Creatine Kinase 36 Troponin I 0.08 H Albumin 05/06/17 05/06/17 05/06/17 06:00 06:00 06:00 WBC 6.6 D RBC 4.12 Hgb 12.0 Hct 37.0 MCV 89.7 MCH 29.0 MCHC 32.3 RDW 15.7 H Plt Count 200 D MPV 10.4 Neutrophils % 59.4 Lymphocytes % 30.2 Monocytes % 6.4 Eosinophils % 3.4 Basophils % 0.6 Sodium 141 Potassium 3.7 Chloride 103 Carbon Dioxide 30 Anion Gap 8 BUN 41 H Creatinine 1.1 H POC Glucometer Random Glucose 119 H Calcium 8.7 Magnesium 2.1 Creatine Kinase 27 Troponin I 0.07 H Albumin 2.9 L 05/06/17 06:23 WBC RBC Hgb Hct MCV MCH MCHC RDW Plt Count MPV Neutrophils % Lymphocytes % Monocytes % Eosinophils % Basophils % Sodium Potassium Chloride Carbon Dioxide Anion Gap BUN Creatinine POC Glucometer 129 Random Glucose Calcium Magnesium Creatine Kinase Troponin I Albumin Active Medications Generic Name Dose Route Start Last Admin Trade Name Freq PRN Reason Stop Dose Admin Aspirin 81 mg 05/06/17 10:00 05/06/17 09:18 Ecotrin - PO 81 mg DAILY [facility] Administration Atorvastatin Calcium 40 mg 05/05/17 22:00 05/05/17 22:15 Lipitor - PO 40 mg HS [facility] Administration Chlorthalidone 25 mg 05/05/17 12:15 05/06/17 09:19 Hygroton - PO 25 mg DAILY [facility] Administration Furosemide 40 mg 05/06/17 10:00 05/06/17 09:18 Lasix Injection - IVPUSH 40 mg DAILY [facility] Administration Heparin Sodium (Porcine) 5,000 unit 05/05/17 22:00 05/06/17 06:37 Heparin - SQ 5,000 unit TID [facility] Administration Insulin Aspart 1 vial 05/05/17 16:30 05/06/17 06:37 Novolog Vial Sliding Scale - SQ Not Given ACHS [facility] Protocol Lisinopril 10 mg 05/06/17 10:00 05/06/17 09:19 Prinivil PO 10 mg DAILY [facility] Administration Metoprolol Tartrate 12.5 mg 05/05/17 22:00 05/06/17 07:22 Lopressor - PO 12.5 mg BID [facility] Administration Nicotine 14 mg 05/06/17 10:00 05/06/17 09:19 Nicoderm Patch - TD 14 mg DAILY [facility] Administration Pantoprazole Sodium 20 mg 05/06/17 10:00 05/06/17 09:19 Protonix - PO 20 mg DAILY [facility] Administration Ticagrelor 90 mg 05/05/17 22:00 05/06/17 09:20 Brilinta - PO 90 mg BID [facility] Administration Zolpidem Tartrate 10 mg 05/05/17 12:19 Ambien - PO HS PRN INSOMNIA ASSESSMENT/PLAN: This is a 66 year old woman with a history of HTN, hyperlipidemia, CAD, recent PCI/stents, type 2 DM who presented to the ER with SOB that awoke her from sleep after returning to [place] from [place] by car. 1. Acute on chronic diastolic heart failure - Patient's discharge papers from [place] show she was treated for acute diastolic heart and NSTEMI (troponin 0.9) - Continue Lasix IV, discontinue Chlorthalidone - Troponin 0.11 -> 0.09 -> 0.08 -> 0.07 - Echocardiogram ordered - Low sodium diet - Monitor I&O, weight 2. Cardiac arrhythmia - sinus bradycardia, SVT likely PAT - Continue to monitor on telemetry 3. Probable stage 3 CKD - Continue to monitor creatinine (baseline unknown) 4. CAD, recent NSTEMI, PCI/stents (04/18/2017) - Continue aspirin, Brilinta, Lopressor, Lisinopril, Lipitor - Awaiting records from [facility] 5. HTN - Continue Lopressor, Lisinopril, Lasix 6. Hyperlipidemia - Continue Lipitor 7. Type 2 DM - Metformin held - Continue Novolog sliding scale 8. Nicotine dependence - Continue nicotine patch Visit type - Emergency Visit Emergency Visit: Yes ED Registration Date: 05/05/17 Care time: The patient presented to the Emergency Department on the above date and was hospitalized for further evaluation of their emergent condition. - New Patient This patient is new to me today: No - Critical Care Critical Care patient: No - Discharge Referral Referred to [facility] No
--- NOTE | 2017-05-06 22:01 | EKG ---
Test Reason : Blood Pressure : / mmHG Vent. Rate : 057 BPM Atrial Rate : 057 BPM P-R Int : 130 ms QRS Dur : 086 ms QT Int : 478 ms P-R-T Axes : 042 013 268 degrees QTc Int : 465 ms SINUS BRADYCARDIA T WAVE ABNORMALITY, CONSIDER INFERIOR ISCHEMIA T WAVE ABNORMALITY, CONSIDER ANTEROLATERAL ISCHEMIA ABNORMAL ECG WHEN COMPARED WITH ECG OF 06-MAY-2017 07:17, SINUS RHYTHM HAS REPLACED WIDE QRS TACHYCARDIA VENT. RATE HAS DECREASED BY 78 BPM Confirmed by AMERICA DYE MD ([id number]) on 05/06/2017 10:00:30 PM Referred By: Josh SOFIA Confirmed By:AMERICA DYE MD
--- NOTE | 2017-05-06 22:09 | EKG ---
Test Reason : Blood Pressure : / mmHG Vent. Rate : 135 BPM Atrial Rate : 138 BPM P-R Int : 000 ms QRS Dur : 138 ms QT Int : 404 ms P-R-T Axes : 000 -20 160 degrees QTc Int : 606 ms WIDE QRS TACHYCARDIA CANNOT RULE OUT ACCELERATED IDIOVENTRICULAR RHYTHM VS. SVT WITH ABERRANCY ABNORMAL ECG WHEN COMPARED WITH ECG OF 05-MAY-2017 08:57, WIDE QRS TACHYCARDIA HAS REPLACED SINUS RHYTHM VENT. RATE HAS INCREASED BY 85 BPM CLINICAL CORRELATION IS RECOMMENDED Confirmed by AMERICA DYE MD ([id number]) on 05/06/2017 10:08:49 PM Referred By: Confirmed By:AMERICA DYE MD
[2017-05-06] MEDS ORDERED: CALAMINE 8% TOPICAL LOTION 177 ML BOTTLE TP PRN (22:10)
[2017-05-06] MEDS: ATORVASTATIN CA 40 MG TABLET (FP) PO SCH (22:57)
[2017-05-07] MEDS: HEPARIN NA (PORCINE) 5,000 UNITS/ML 1ML VIAL SQ SCH ×3 (06:50→21:07)
[2017-05-07] MEDS: INSULIN SLIDING SCALE (NOVOLOG) 1 VIAL SQ SCH ×4 (06:51→21:07)
[2017-05-07 07:27] LABS: ANION GAP 10 (8-16); CALCIUM 9.2 mg/dL (8.5-10.1); CO2 29 mmol/L (21-32); CREATININE 1.3 mg/dL (0.55-1.02); GLUCOSE,RANDOM 134 mg/dL (74-106); MAGNESIUM 2.2 mg/dL (1.8-2.4)
[2017-05-07] MEDS ORDERED: PT OWN MED DRAWER 7, Y5N ONE ×2 (10:02→21:00)
[2017-05-07] MEDS: METOPROLOL TARTRATE 25 MG TABLET (FP) PO SCH ×2 (10:09→21:06)
[2017-05-07] MEDS: NICOTINE 14 MG/24 HOURS TOPICAL PATCH TD SCH (10:09)
[2017-05-07] MEDS: ASPIRIN COATED 81 MG TABLET.EC PO SCH (10:10)
[2017-05-07] MEDS: FUROSEMIDE 40 MG/4 ML INJECTABLE VIAL IVPUSH SCH (10:10)
[2017-05-07] MEDS: PANTOPRAZOLE 20 MG TABLET (FP) PO SCH (10:10)
[2017-05-07] MEDS: TICAGRELOR 90 MG TABLET PO SCH ×2 (10:10→21:07)
[2017-05-07] MEDS: LISINOPRIL 10 MG TABLET (FP) PO SCH (10:10)
[2017-05-07] MEDS ORDERED: INSULIN (NOVOLOG) ASPART 100 UNITS/ML 10ML VIAL ONE (11:48)
--- NOTE | 2017-05-07 11:52 | PN ---
Progress Note (short form) - Note Progress Note: CC: sob s: feeling better, no cp palps sob dizzy. complaining of pruritis. wants to take a shower. o: Current Medications Aspirin (Ecotrin -) 81 mg PO DAILY [facility] Last Admin: 05/07/17 10:10 Dose: 81 mg Atorvastatin Calcium (Lipitor -) 40 mg PO HS [facility] Last Admin: 05/06/17 22:57 Dose: 40 mg Calamine (Calamine 8% Topical Lotion -) 1 applic TP DAILY PRN PRN Reason: FOR ITCHING Last Admin: 05/06/17 23:52 Dose: 1 applic Furosemide (Lasix Injection -) 40 mg IVPUSH DAILY [facility] Last Admin: 05/07/17 10:10 Dose: 40 mg Heparin Sodium (Porcine) (Heparin -) 5,000 unit SQ TID [facility] Last Admin: 05/07/17 06:50 Dose: 5,000 unit Insulin Aspart (Novolog Vial Sliding Scale -) 1 vial SQ ACHS [facility] PRN Reason: Protocol Last Admin: 05/07/17 06:51 Dose: Not Given Lisinopril (Prinivil) 10 mg PO DAILY [facility] Last Admin: 05/07/17 10:10 Dose: 10 mg Metoprolol Tartrate (Lopressor -) 12.5 mg PO BID [facility] Last Admin: 05/07/17 10:09 Dose: 12.5 mg Nicotine (Nicoderm Patch -) 14 mg TD DAILY [facility] Last Admin: 05/07/17 10:09 Dose: 14 mg Pantoprazole Sodium (Protonix -) 20 mg PO DAILY [facility] Last Admin: 05/07/17 10:10 Dose: 20 mg Ticagrelor (Brilinta -) 90 mg PO BID [facility] Last Admin: 05/07/17 10:10 Dose: 90 mg Zolpidem Tartrate (Ambien -) 10 mg PO HS PRN PRN Reason: INSOMNIA Vital Signs - 24 hr 05/06/17 05/06/17 05/06/17 13:30 14:30 17:55 Temperature 98.2 F 96.7 F L Pulse Rate 108 H 51 L 60 Respiratory 20 20 18 Rate Blood Pressure 92/50 95/55 100/47 O2 Sat by Pulse Oximetry (%) 05/06/17 05/07/17 05/07/17 21:00 02:00 06:42 Temperature 98.8 F 98.0 F 97.8 F Pulse Rate 60 54 L 51 L Respiratory 18 18 18 Rate Blood Pressure 146/78 117/66 131/75 O2 Sat by Pulse 93 L Oximetry (%) 05/07/17 10:05 Temperature 98.1 F Pulse Rate 61 Respiratory 17 Rate Blood Pressure 105/59 O2 Sat by Pulse Oximetry (%) Intake & Output 05/05/17 05/06/17 05/07/17 05/08/17 07:59 07:59 07:59 07:59 Intake Total 400 120 Balance 400 120 Weight 160 lb 159 lb 159 lb 3.2 oz nad no jvd rrr s1s2 no mrg cta bl nl eff aaox3 no le edema c/c abd nt nd pos bs no jaundice diaphoresis BMP 05/07/17 06:30 cta chest: no pe, no chf, ?infiltrates vs atx ecg 05/05/17: sr 113, 1st avb, nonspec IVCD with nonspec st-tw changes, no amber tele: sr, intermittent wide complex rhythm consistent with SVT with aberrancy. a/p: 66 f hx dm, htn, hld, cad s/p [place] 04/2017 with pci x2 (osh in [place]), chf here with sob. sob, acute chf: -unclear if dchf or syst chf, echo pending -pt with elevated bnp and mild chf symptoms, initially diuresed with lasix 40 iv qd -no signs acs, ce's negx3, -will likely need po lasix instead of chlorthalidone upon dc to maintain vol status - 9/5 Cr bump today. repeat cxr today without signs of congestion. will transition to po regimen tomorrow or the day after, once Cr trends back down. monitor daily chem7, wt, sxs. echo pending. htn: -cont home chichi, bb. bp labile/running low, will lower dose of acei to make room to uptitrate bb. hld: -cont home statin cad s/p mi, pci: -recent mi/pci this month, cont asa, brilinta uninterrupted -cont chichi, bb, statin -check echo to see lvef --> pending -no signs acs -ecg with nonspecific IVCD, no baseline to compare, but currently no cp symptoms which she had with her recent NH and ce's negx3. - wide complex rhythm with features most consistent with svt with aberrancy, not likely to be 2/2 ischemia. SVT - wide complex rhythm with features most consistent with svt with aberrancy. Discussed with Dr. Lewis who felt rhythm over the weekend also consistent with aberrancy. Pt asx. Can uptitrate BB when there is bp room. - lyte repletion prn. - echo pending.
[2017-05-07] MEDS ORDERED: POTASSIUM CHLORIDE TABS 20 MEQ TABLET.ER (FP) PO ONE ×2 (11:53→15:07)
--- NOTE | 2017-05-07 19:11 | PN ---
Teaching Attending Note Name of Resident: Ty Trevino ATTENDING PHYSICIAN STATEMENT I saw and evaluated the patient. I reviewed the resident's note and discussed the case with the resident. I agree with the resident's findings and plan as documented. SUBJECTIVE:c/o intermittent cough for several weeks, non productive can not relate to certain position or time of day. states she experiences no symptoms during bradycardia or tachycardia. denies CP, fever, chills, N/V/C/D, orthopnea OBJECTIVE: Last Vital Signs Temp Pulse Resp BP Pulse Ox 98.4 F 57 L 18 110/69 93 L 05/07/17 14:24 05/07/17 14:24 05/07/17 14:24 05/07/17 14:24 05/07/17 10:00 General NAD CV S1 S2 RRR no murmur/rub/gallop Lungs CTA B/L no wheezing/rales/rhonchi Extremities no pedal edema ASSESSMENT AND PLAN: 66 yo F with PMH HTN, hyperlipidemia, CAD, recent PCI/stents, type 2 DM who presented to the ER with SOB that awoke her from sleep after returning to [place] from [place] by car. 1. Acute on chronic diastolic heart failure- no known hx of CHF. does not appear volume overloaded. echo done showing normal EF. EF during recent hospital stay showed depressed EF of 40% but no longer present. will hold off on starting lasix po at this time due to kidney function and no signs of volume overload. will need lasix po on discharge. strict I&O, daily weights. 2. Tropnin leak vs trending down from STEMI from recent hospitalization last month- 0.11 on admission and trending down. awaiting reports to be faxed from [facility]. Continue aspirin, Brilinta, Lopressor, Lisinopril, Lipitor 3. Cardiac arrhythmia -wide complex tachycardia with periods of bradycardia. remains asymptomatic. spoke with cardiology. will increase lopressor and monitor to see how HR tolerates. d/c acei. no indication for EP study at this time per cardio as pt is asymptomatic. will need to re-consider if becomes symptomatic. cardiology on board 4. CARITO- possible medication induced. baseline Cr 1.2-1.3. will hold lasix and monitor. avoid nephrotoxic agents. 5. HTN-controlled. acei d/c. Continue Lopressor, 6. Hyperlipidemia- Continue Lipitor 7. Type 2 DM- controlled. hold oral agents. iss, bgm 8. Nicotine dependence- Continue nicotine patch 9. DVT ppx- hep sq
--- NOTE | 2017-05-07 20:43 | PN ---
Physical Exam: SUBJECTIVE: Patient seen and examined OBJECTIVE: Vital Signs Period Temp Pulse Resp BP Sys/Raymond Pulse Ox Last 24 Hr 97.8 F-98.8 F 51-61 17-18 105-146/59-78 93-93 GENERAL: The patient is awake, alert, and fully oriented, in no acute distress. HEAD: Normal with no signs of trauma. EYES: PERRL, extraocular movements intact, sclera anicteric, conjunctiva clear. No ptosis. ENT: Ears normal, nares patent, oropharynx clear without exudates, moist mucous membranes. NECK: Trachea midline, full range of motion, supple. LUNGS: Breath sounds equal, clear to auscultation bilaterally, no wheezes, no crackles, no accessory muscle use. HEART: Regular rate and rhythm, S1, S2 without murmur, rub or gallop. ABDOMEN: Soft, nontender, nondistended, normoactive bowel sounds, no guarding, no rebound, no hepatosplenomegaly, no masses. EXTREMITIES: 2+ pulses, warm, well-perfused, no edema. NEUROLOGICAL: Cranial nerves II through XII grossly intact. Normal speech, gait not observed. PSYCH: Normal mood, normal affect. SKIN: Warm, dry, normal turgor, no rashes or lesions noted Laboratory Results - last 24 hr 05/06/17 05/07/17 05/07/17 20:55 05:52 06:30 Sodium 139 Potassium 3.4 L Chloride 100 Carbon Dioxide 29 Anion Gap 10 BUN 42 H Creatinine 1.3 H POC Glucometer 127 127 Random Glucose 134 H Calcium 9.2 Magnesium 2.2 05/07/17 05/07/17 05/07/17 11:40 16:43 18:50 Sodium Potassium 5.0 D Chloride Carbon Dioxide Anion Gap BUN Creatinine POC Glucometer 152 129 Random Glucose Calcium Magnesium Active Medications Generic Name Dose Route Start Last Admin Trade Name Freq PRN Reason Stop Dose Admin Aspirin 81 mg 05/06/17 10:00 05/07/17 10:10 Ecotrin - PO 81 mg DAILY [facility] Administration Atorvastatin Calcium 40 mg 05/05/17 22:00 05/06/17 22:57 Lipitor - PO 40 mg HS [facility] Administration Calamine 1 applic 05/06/17 22:10 05/06/17 23:52 Calamine 8% Topical Lotion - TP 1 applic DAILY PRN Administration FOR ITCHING Heparin Sodium (Porcine) 5,000 unit 05/05/17 22:00 05/07/17 13:50 Heparin - SQ 5,000 unit TID [facility] Administration Insulin Aspart 1 vial 05/05/17 16:30 05/07/17 16:53 Novolog Vial Sliding Scale - SQ Not Given ACHS [facility] Protocol Lisinopril 5 mg 05/08/17 10:00 Prinivil PO DAILY [facility] Metoprolol Tartrate 12.5 mg 05/05/17 22:00 05/07/17 10:09 Lopressor - PO 12.5 mg BID [facility] Administration Nicotine 14 mg 05/06/17 10:00 05/07/17 10:09 Nicoderm Patch - TD 14 mg DAILY [facility] Administration Pantoprazole Sodium 20 mg 05/06/17 10:00 05/07/17 10:10 Protonix - PO 20 mg DAILY [facility] Administration Ticagrelor 90 mg 05/05/17 22:00 05/07/17 10:10 Brilinta - PO 90 mg BID [facility] Administration Zolpidem Tartrate 10 mg 05/05/17 12:19 Ambien - PO HS PRN INSOMNIA ASSESSMENT/PLAN: 66 y/o F w/PMH of HTN, HLD, DM, CAD s/p stent placement (04/18/2017), recent hospitalization (in [place] - discharged Saturday05/03/17 for chest pain) presents to the ER w/SOB that woke her up this AM. Found to have alternating bradycardia and wide QRS tachycardia. Admitted for SOB due to most likely cardiac etiology. #SOB secondary to Acute CHF exacerbation vs other cardiac etiology vs less likely PNA -Pt with no clinical signs of respiratory infection at this time. -Tele monitoring shows alternation of bradycardia and wide complex QRS tachycardia. -Cardiology awaiting Echo results to guide further management. -d/c'd lasix as patient's lungs are clear to auscultation and CXR improving. #hypokalemia- resolved -repleted with 40meq KCl; rpt K 5 #CARITO vs CKD -Cr 1.3 -as per primary, patient's baseline is around 1.3 -will monitor -d/c'd lasix; avoid nephrotoxic agents #CAD -w/recent hx of stent placement x2 (04/18/17) -c/w asa 81 mg po qd, ticagrelor 90 mg po bid, lipitor 40 mg po qhs, metoprolol 12.5 mg po bid #DM -ISS, BGMs #HTN -c/w lisinopril 10 mg po qd, chlorthalidone 25 mg po qd, metoprolol 12.5 mg po bid #HLD -c/w lipitor 40 mg po qhs #GERD -protonix 40 mg po qd #Nicotine dependance -Nicotine patch 14 mg TD qd #Insomonia -ambien 10 mg po qhs prn for insomnia #DVT ppx -Heparin 5000 units SQ TID #FEN -No fluids -monitor lytes -Cardiac/Diabetic/Low sodium diet #Dispo: -Admit to tele Problem List - Problems (1) CHF (congestive heart failure) Code(s): I50.9 - HEART FAILURE, UNSPECIFIED Qualifiers: Congestive heart failure chronicity: unspecified congestive heart failure chronicity (2) Tachyarrhythmia Code(s): R00.0 - TACHYCARDIA, UNSPECIFIED Visit type - Emergency Visit Emergency Visit: Yes ED Registration Date: 05/05/17 Care time: The patient presented to the Emergency Department on the above date and was hospitalized for further evaluation of their emergent condition. - New Patient This patient is new to me today: No - Critical Care Critical Care patient: No
[2017-05-07] MEDS: ATORVASTATIN CA 40 MG TABLET (FP) PO SCH (21:06)
[2017-05-08] MEDS ORDERED: PT OWN MED DRAWER 7, Y5N ONE ×7 (05:57→22:36)
[2017-05-08] MEDS: HEPARIN NA (PORCINE) 5,000 UNITS/ML 1ML VIAL SQ SCH ×3 (06:14→22:44)
[2017-05-08] MEDS: INSULIN SLIDING SCALE (NOVOLOG) 1 VIAL SQ SCH ×4 (06:15→22:52)
[2017-05-08 09:18] LABS: ANION GAP 8 (8-16); CALCIUM 9.6 mg/dL (8.5-10.1); CO2 31 mmol/L (21-32); CREATININE 1.4 mg/dL (0.55-1.02); GLUCOSE,RANDOM 131 mg/dL (74-106)
[2017-05-08] MEDS: NICOTINE 14 MG/24 HOURS TOPICAL PATCH TD SCH (09:42)
[2017-05-08] MEDS: ASPIRIN COATED 81 MG TABLET.EC PO SCH (09:43)
[2017-05-08] MEDS: TICAGRELOR 90 MG TABLET PO SCH ×2 (09:43→22:44)
[2017-05-08] MEDS: METOPROLOL TARTRATE 25 MG TABLET (FP) PO SCH ×3 (09:43→23:30)
[2017-05-08] MEDS: PANTOPRAZOLE 20 MG TABLET (FP) PO SCH (09:43)
[2017-05-08] MEDS ORDERED: LISINOPRIL 5 MG TABLET (FP) PO SCH (10:00)
--- NOTE | 2017-05-08 10:35 | PN ---
Progress Note (short form) - Note Progress Note: s: no sob, cp palps dizzy o: Vital Signs Period Temp Pulse Resp BP Sys/Raymond Pulse Ox Last 24 Hr 97.4 F-98.6 F 52-130 18-20 94-133/61-69 90-94 nad no jvd rrr s1s2 no mrg cta bl nl eff aaox3 no le edema c/c abd nt nd pos bs no jaundice diaphoresis Current Medications Generic Name Dose Route Start Last Admin Trade Name Freq PRN Reason Stop Dose Admin Aspirin 81 mg 05/06/17 10:00 05/08/17 09:43 Ecotrin - PO 81 mg DAILY [facility] Administration Atorvastatin Calcium 40 mg 05/05/17 22:00 05/07/17 21:06 Lipitor - PO 40 mg HS [facility] Administration Calamine 1 applic 05/06/17 22:10 05/06/17 23:52 Calamine 8% Topical Lotion - TP 1 applic DAILY PRN Administration FOR ITCHING Heparin Sodium (Porcine) 5,000 unit 05/05/17 22:00 05/08/17 06:14 Heparin - SQ 5,000 unit TID [facility] Administration Insulin Aspart 1 vial 05/05/17 16:30 05/08/17 06:15 Novolog Vial Sliding Scale - SQ 2 units ACHS [facility] Administration Protocol Lisinopril 5 mg 05/08/17 10:00 05/08/17 09:42 Prinivil PO 5 mg DAILY [facility] Administration Metoprolol Tartrate 12.5 mg 05/05/17 22:00 05/08/17 09:43 Lopressor - PO 12.5 mg BID [facility] Administration Nicotine 14 mg 05/06/17 10:00 05/08/17 09:42 Nicoderm Patch - TD 14 mg DAILY [facility] Administration Pantoprazole Sodium 20 mg 05/06/17 10:00 05/08/17 09:43 Protonix - PO 20 mg DAILY [facility] Administration Ticagrelor 90 mg 05/05/17 22:00 05/08/17 09:43 Brilinta - PO 90 mg BID [facility] Administration Zolpidem Tartrate 10 mg 05/05/17 12:19 Ambien - PO HS PRN INSOMNIA CBC, BMP 05/06/17 06:00 05/08/17 08:15 cta chest: no pe, no chf, ?infiltrates vs atx ecg 05/05/17: sr 113, 1st avb, nonspec IVCD with nonspec st-tw changes, no amber tele: sr, brief runs of svt 120s, likely PAT with aberrancy a/p: 66 f hx dm, htn, hld, cad s/p [place] 04/2017 with pci x2 (osh in [place]), chf here with sob. sob, acute chf: -unclear if dchf or syst chf, echo pending -pt with elevated bnp and mild chf symptoms, initially diuresed with lasix 40 iv qd -no signs acs, ce's negx3, -will likely need po lasix instead of chlorthalidone upon dc to maintain vol status - 05/07 Cr bump today. repeat cxr today without signs of congestion. will transition to po regimen tomorrow or the day after, once Cr trends back down. -05/08: vol stable, cr still up so will hold off on resuming po lasix until tomorrow. monitor daily chem7, wt, sxs. echo done, results pending. htn: -cont home chichi, bb. hld: -cont home statin cad s/p mi, pci: -recent mi/pci 04/2017, cont asa, brilinta uninterrupted -cont chichi, bb, statin -check echo to see lvef --> pending -no signs acs -ecg with nonspecific IVCD, no baseline to compare, but currently no cp symptoms which she had with her recent NE and ce's negx3. -wide complex rhythm with features most consistent with svt with aberrancy, not likely to be 2/2 ischemia. SVT - wide complex rhythm with features most consistent with svt with aberrancy. Pt asx. - echo pending, if lvef normal would consider holding chichi to allow for bp room to increase bb to suppress svt.
[2017-05-08] MEDS ORDERED: INSULIN (NOVOLOG) ASPART 100 UNITS/ML 10ML VIAL ONE ×4 (11:42→17:15)
--- NOTE | 2017-05-08 13:36 | MSN ---
Progress Note (SOAP) - Subjective Chief Complaint: SOB History of Present Illness: No overnight events. Pt states that she feels "ok" and has not experienced SOB. She reports a slight cough and sneezing for the past 2 days. Cough is intermittent and nonproductive. Pt denies fever, nausea, vomiting, headache, chest pain, palpitations, pain on inspiration, wheezing, dysuria, and urinary urgency. - Current Medications Current Medications: Active Medications Aspirin (Ecotrin -) 81 mg PO DAILY [facility] Last Admin: 05/08/17 09:43 Dose: 81 mg Atorvastatin Calcium (Lipitor -) 40 mg PO HS [facility] Last Admin: 05/07/17 21:06 Dose: 40 mg Calamine (Calamine 8% Topical Lotion -) 1 applic TP DAILY PRN PRN Reason: FOR ITCHING Last Admin: 05/06/17 23:52 Dose: 1 applic Heparin Sodium (Porcine) (Heparin -) 5,000 unit SQ TID [facility] Last Admin: 05/08/17 06:14 Dose: 5,000 unit Insulin Aspart (Novolog Vial Sliding Scale -) 1 vial SQ ACHS [facility] PRN Reason: Protocol Last Admin: 05/08/17 11:43 Dose: 2 units Metoprolol Tartrate (Lopressor -) 25 mg PO BID [facility] Nicotine (Nicoderm Patch -) 14 mg TD DAILY [facility] Last Admin: 05/08/17 09:42 Dose: 14 mg Pantoprazole Sodium (Protonix -) 20 mg PO DAILY [facility] Last Admin: 05/08/17 09:43 Dose: 20 mg Ticagrelor (Brilinta -) 90 mg PO BID [facility] Last Admin: 05/08/17 09:43 Dose: 90 mg - Objective Vital Signs: Vital Signs Temperature 97.4 F L 05/08/17 10:00 Pulse Rate 130 H 05/08/17 10:00 Respiratory Rate 20 05/08/17 10:00 Blood Pressure 110/61 05/08/17 10:00 O2 Sat by Pulse Oximetry (%) 90 L 05/08/17 10:26 Constitutional: Yes: Well Nourished, No Distress, Calm HENT: Yes: WNL, Atraumatic, Normocephalic Cardiovascular: Yes: WNL, Tachycardia Respiratory: Yes: WNL, Regular, CTA Bilaterally Gastrointestinal: Yes: WNL, Soft Extremities: Yes: WNL Neurological: Yes: WNL, Alert, Oriented Labs Lab Results: CBC, BMP 05/06/17 06:00 05/08/17 08:15 Assessment/Plan 67 y/o female with PMH of HTN, HLD, DM, CAD s/p placement of 2 stents on presented to the ER with SOB. #SVT - cont. monitor HR - increase lopressor #CARITO - baseline Cr 1.2-1.3 - hold Lasix - repeat Cr #SOB - resolved #CAD - cont. asa 81 mg po qd, ticagrelor 90 mg po bid, lipitor 40 mg po qhs, metoprolol 12.5 mg po bid #DM -BGMs #HTN - cont. lisinopril 10 mg po qd, chorthalidone 25 mg po qd, metoprolol 12.5 mg po bid #HLD - cont. lipitor 40 mg po qhs #GERD - cont. protonix 40 mg po qd #Nicotine dependence - nicotine patch 14 mg td qd #Insomnia - ambien 10 mg po qhs for insomnia #DVT ppx - heparin 5000 units sq tid Ruth Mayer, OMS-III
--- NOTE | 2017-05-08 14:43 | PN ---
Physical Exam: SUBJECTIVE: Patient seen and examined at bedside. No new complaints. Monitor showed continued runs of Tachy and kat arrhythmias alternating overnight. Patient denies shortness of breath, chest pain, abdominal pain. OBJECTIVE: Vital Signs Period Temp Pulse Resp BP Sys/Raymond Pulse Ox Last 24 Hr 97.4 F-98.6 F 52-130 18-20 94-133/61-68 90-94 GENERAL: The patient is awake, alert, and fully oriented, in no acute distress. HEAD: Normal with no signs of trauma. EYES: extraocular movements intact, sclera anicteric, conjunctiva clear. No ptosis. NECK: Trachea midline, full range of motion, supple. LUNGS: Breath sounds equal, clear to auscultation bilaterally, no wheezes, no crackles, no accessory muscle use. HEART: Regular rate and rhythm, S1, S2 without murmur, rub or gallop. ABDOMEN: Soft, nontender, nondistended, normoactive bowel sounds, no guarding, no rebound. EXTREMITIES: 2+ pulses, warm, well-perfused, no edema. NEUROLOGICAL: Cranial nerves II through X grossly intact. Normal speech, gait not observed. PSYCH: Normal mood, normal affect. SKIN: Warm, dry, normal turgor, no rashes or lesions noted Laboratory Results - last 24 hr 05/07/17 05/07/17 05/07/17 16:43 18:50 20:54 Sodium Potassium 5.0 D Chloride Carbon Dioxide Anion Gap BUN Creatinine POC Glucometer 129 201 Random Glucose Calcium 05/08/17 05/08/17 05/08/17 05:47 08:15 11:35 Sodium 137 Potassium 4.0 Chloride 98 Carbon Dioxide 31 Anion Gap 8 BUN 48 H Creatinine 1.4 H POC Glucometer 151 186 Random Glucose 131 H Calcium 9.6 Active Medications Generic Name Dose Route Start Last Admin Trade Name Freq PRN Reason Stop Dose Admin Aspirin 81 mg 05/06/17 10:00 05/08/17 09:43 Ecotrin - PO 81 mg DAILY [facility] Administration Atorvastatin Calcium 40 mg 05/05/17 22:00 05/07/17 21:06 Lipitor - PO 40 mg HS [facility] Administration Calamine 1 applic 05/06/17 22:10 05/06/17 23:52 Calamine 8% Topical Lotion - TP 1 applic DAILY PRN Administration FOR ITCHING Heparin Sodium (Porcine) 5,000 unit 05/05/17 22:00 05/08/17 13:40 Heparin - SQ 5,000 unit TID [facility] Administration Insulin Aspart 1 vial 05/05/17 16:30 05/08/17 11:43 Novolog Vial Sliding Scale - SQ 2 units ACHS [facility] Administration Protocol Metoprolol Tartrate 25 mg 05/08/17 22:00 Lopressor - PO BID [facility] Nicotine 14 mg 05/06/17 10:00 05/08/17 09:42 Nicoderm Patch - TD 14 mg DAILY [facility] Administration Pantoprazole Sodium 20 mg 05/06/17 10:00 05/08/17 09:43 Protonix - PO 20 mg DAILY [facility] Administration Ticagrelor 90 mg 05/05/17 22:00 05/08/17 09:43 Brilinta - PO 90 mg BID [facility] Administration ASSESSMENT/PLAN: 66 y/o F w/PMH of HTN, HLD, DM, CAD s/p stent placement (04/18/2017), presents to the ER w/SOB that woke her up this AM. Found to have alternating bradycardia and wide QRS tachycardia. Admitted for SOB due to most likely cardiac etiology. #SOB 2/2 Acute fluid overload likely 2/2 tachyarrythmia -Tele monitoring shows alternation of bradycardia and wide complex QRS tachycardia. -Echo WNL; Cardiology increased the metoprolol to 25mg BID and d/c'd the lisinopril. -attempting rate control with d/c of ACEI to allow for increase of betablocker dose while maintaining BP -d/c'd lasix as patient's lungs are clear to auscultation and CXR improving. -repeat BMP in AM #hypokalemia- resolved -repleted with 40meq KCl; rpt K 5 #CARITO vs CKD -Cr 1.4 today -as per primary, patient's baseline is around 1.3 -will monitor -d/c'd lasix; avoid nephrotoxic agents #CAD -w/recent hx of stent placement x2 (04/18/17) -c/w asa 81 mg po qd, ticagrelor 90 mg po bid, lipitor 40 mg po qhs #DM -ISS, BGMs #HTN -c/w chlorthalidone 25 mg po qd, #HLD -c/w lipitor 40 mg po qhs #GERD -protonix 40 mg po qd #Nicotine dependance -Nicotine patch 14 mg TD qd #Insomonia -ambien 10 mg po qhs prn for insomnia #Prophylaxsis -Heparin 5000 units SQ TID -incentive spirometry #FEN -No fluids -monitor lytes -Cardiac/Diabetic/Low sodium diet #Dispo: -Admitted for rate control; possible discharge tomorrow if patient remains stable on current medications Problem List - Problems (1) CHF (congestive heart failure) Code(s): I50.9 - HEART FAILURE, UNSPECIFIED Qualifiers: Congestive heart failure chronicity: unspecified congestive heart failure chronicity (2) Tachyarrhythmia Code(s): R00.0 - TACHYCARDIA, UNSPECIFIED Visit type - Emergency Visit Emergency Visit: Yes ED Registration Date: 05/05/17 Care time: The patient presented to the Emergency Department on the above date and was hospitalized for further evaluation of their emergent condition. - New Patient This patient is new to me today: No - Critical Care Critical Care patient: No
[2017-05-08] MEDS: ATORVASTATIN CA 40 MG TABLET (FP) PO SCH (22:44)
[2017-05-09] MEDS: HEPARIN NA (PORCINE) 5,000 UNITS/ML 1ML VIAL SQ SCH (06:54)
[2017-05-09] MEDS: INSULIN SLIDING SCALE (NOVOLOG) 1 VIAL SQ SCH ×2 (06:54→11:57)
[2017-05-09 07:27] LABS: ANION GAP 9 (8-16); CALCIUM 8.8 mg/dL (8.5-10.1); CO2 28 mmol/L (21-32); CREATININE 1.3 mg/dL (0.55-1.02); GLUCOSE,RANDOM 119 mg/dL (74-106); MAGNESIUM 2.1 mg/dL (1.8-2.4)
[2017-05-09] MEDS ORDERED: PT OWN MED DRAWER 7, Y5N ONE (09:35)
[2017-05-09] MEDS: TICAGRELOR 90 MG TABLET PO SCH (09:43)
[2017-05-09] MEDS: METOPROLOL TARTRATE 25 MG TABLET (FP) PO SCH (09:44)
[2017-05-09] MEDS: PANTOPRAZOLE 20 MG TABLET (FP) PO SCH (09:44)
[2017-05-09] MEDS: NICOTINE 14 MG/24 HOURS TOPICAL PATCH TD SCH (09:44)
[2017-05-09] MEDS: ASPIRIN COATED 81 MG TABLET.EC PO SCH (09:44)
[2017-05-09] MEDS ORDERED: FUROSEMIDE 40 MG TABLET (FP) PO SCH (10:00)
--- NOTE | 2017-05-09 10:22 | PN ---
Progress Note (short form) - Note Progress Note: s: no sob, cp palps dizzy, feels back to baseline, ready to go home o: Vital Signs Period Temp Pulse Resp BP Sys/Raymond Pulse Ox Last 24 Hr 97.8 F-98.6 F 54-63 20-20 101-142/51-69 90-94 nad no jvd rrr s1s2 no mrg cta bl nl eff aaox3 no le edema c/c abd nt nd pos bs no jaundice diaphoresis Current Medications Generic Name Dose Route Start Last Admin Trade Name Freq PRN Reason Stop Dose Admin Aspirin 81 mg 05/06/17 10:00 05/09/17 09:44 Ecotrin - PO 81 mg DAILY [facility] Administration Atorvastatin Calcium 40 mg 05/05/17 22:00 05/08/17 22:44 Lipitor - PO 40 mg HS [facility] Administration Calamine 1 applic 05/06/17 22:10 05/06/17 23:52 Calamine 8% Topical Lotion - TP 1 applic DAILY PRN Administration FOR ITCHING Furosemide 40 mg 05/09/17 10:00 Lasix - PO DAILY [facility] Heparin Sodium (Porcine) 5,000 unit 05/05/17 22:00 05/09/17 06:54 Heparin - SQ 5,000 unit TID [facility] Administration Insulin Aspart 1 vial 05/05/17 16:30 05/09/17 06:54 Novolog Vial Sliding Scale - SQ Not Given ACHS [facility] Protocol Metoprolol Tartrate 25 mg 05/08/17 22:00 05/09/17 09:44 Lopressor - PO 25 mg BID [facility] Administration Nicotine 14 mg 05/06/17 10:00 05/09/17 09:44 Nicoderm Patch - TD 14 mg DAILY [facility] Administration Pantoprazole Sodium 20 mg 05/06/17 10:00 05/09/17 09:44 Protonix - PO 20 mg DAILY [facility] Administration Ticagrelor 90 mg 05/05/17 22:00 05/09/17 09:43 Brilinta - PO 90 mg BID [facility] Administration CBC, BMP 05/06/17 06:00 05/09/17 06:00 cta chest: no pe, no chf, ?infiltrates vs atx ecg 05/05/17: sr 113, 1st avb, nonspec IVCD with nonspec st-tw changes, no amber tele: sr/sb, no pathologic bradycardia, only one brief episode svt last night. echo 05/2017: nl lv/rv, no sig valve path a/p: 66 f hx dm, htn, hld, cad s/p [place] 04/2017 with pci x2 (osh in [place]), chf here with sob. sob, acute diastolic chf: -echo here unremarkable -no signs acs, ce's negx3 -pt with elevated bnp and mild chf symptoms, initially diuresed with lasix 40 iv qd, now vol status improved and cr at baseline so will start lasix 40 po qd for maintenance (prior chlorthalidone has been stopped). htn: -cont bb. chichi stopped due to low bp and need to increase bb for svt. hld: -cont home statin cad s/p mi, pci: -recent mi/pci 04/2017, cont asa, brilinta uninterrupted -cont bb, statin -echo here unremarkable -no signs acs -ecg with nonspecific IVCD, no baseline to compare, but currently no cp symptoms which she had with her recent [place] and ce's negx3. -wide complex rhythm with features most consistent with svt with aberrancy, not likely to be 2/2 ischemia. SVT - wide complex rhythm with features most consistent with svt with aberrancy. Pt asx. - bb dose was increased for svt suppression and overnight has had much less episodes. Has resting sinus bradycardia with this bb dose but she is asymptomatic with normal bp and adequate HR rise with minimal exertion in her room. cardiac flores stable for dc, should have outpt f/u 2 weeks
[2017-05-09 11:00] VITALS: TEMP 97.5
[2017-05-09 12:23] VITALS: BP 136/52; PULSE 50
--- NOTE | 2017-05-09 12:58 | PN ---
Teaching Attending Note Name of Resident: Ty Trevino ATTENDING PHYSICIAN STATEMENT I saw and evaluated the patient. I reviewed the resident's note and discussed the case with the resident. I agree with the resident's findings and plan as documented. SUBJECTIVE:asymptomatic. continues to not experience any symptoms assoc with bradycardia. HR improves with exertion. denies CP, SOB, fever, chills, N/V/C?D OBJECTIVE: Last Vital Signs Temp Pulse Resp BP Pulse Ox 97.5 F L 50 L 20 136/52 94 L 05/09/17 10:00 05/09/17 12:22 05/09/17 10:00 05/09/17 12:22 05/08/17 22:58 General NAD CV S1 S2 RRR no murmur/rub/gallop Lungs CTA B/L no wheezing/rales/rhonchi Extremities no pedal edema ASSESSMENT AND PLAN: 66 yo F with PMH HTN, hyperlipidemia, CAD, recent PCI/stents, type 2 DM who presented to the ER with SOB that awoke her from sleep after returning to [place] from [place] by car. 1. Acute on chronic diastolic heart failure- no known hx of CHF. does not appear volume overloaded. appears chlorthiadone was on previously was not sufficient to maintain euvolemia. will d/c on lasix 40mg. informed pt she should weight herself daily to monitor for fluid flucuations. inform cardio if she gains >2lbs. 2. Tropnin leak vs trending down from STEMI from recent hospitalization last month- . Continue aspirin, Brilinta, Lopressor, Lisinopril, Lipitor 3. Cardiac arrhythmia -wide complex tachycardia with periods of bradycardia. remains asymptomatic. increase betablocker with suppression of tachycardia. asympatomatic bradycardia. will need close monitoring with cardio. 4. CARITO- possible medication induced. baseline Cr 1.2-1.3. will hold lasix and monitor. avoid nephrotoxic agents. 5. HTN-controlled. acei d/c. Continue Lopressor, 6. Hyperlipidemia- Continue Lipitor 7. Type 2 DM- controlled. hold oral agents. iss, bgm 8. Nicotine dependence- Continue nicotine patch 9. DVT ppx- hep sq 10. d/c home with close cardiology follow up. originally from [place] but will be staying in [facility]. As per daniel will be establishing primary care with Dr Mccartney
--- NOTE | 2017-05-09 21:39 | DS ---
Physical Exam: SUBJECTIVE: Patient seen and examined. no more runs of tachycardia overnight. Patient with HR in 50's and asymptomatic. OBJECTIVE: Vital Signs Period Temp Pulse Resp BP Sys/Raymond Pulse Ox Last 24 Hr 97.5 F-98.6 F 50-63 20-20 121-142/52-69 94 PHYSICAL EXAM GENERAL: The patient is awake, alert, and fully oriented, in no acute distress. HEAD: Normal with no signs of trauma. EYES: extraocular movements intact, sclera anicteric, conjunctiva clear. NECK: Trachea midline, full range of motion, supple. LUNGS: Breath sounds equal, clear to auscultation bilaterally, no wheezes, no crackles, no accessory muscle use. HEART: Regular rate and rhythm, S1, S2 without murmur, rub or gallop. ABDOMEN: Soft, nontender, nondistended, normoactive bowel sounds, no guarding, no rebound. EXTREMITIES: 2+ pulses, warm, well-perfused, no edema. NEUROLOGICAL: Cranial nerves II through X grossly intact. Normal speech, gait not observed. PSYCH: Normal mood, normal affect. SKIN: Warm, dry, normal turgor, no rashes or lesions noted. LABS Laboratory Results - last 24 hr 05/08/17 05/08/17 05/09/17 16:42 22:50 06:00 Sodium 140 Potassium 4.1 Chloride 103 Carbon Dioxide 28 Anion Gap 9 BUN 46 H Creatinine 1.3 H POC Glucometer 162 152 Random Glucose 119 H Calcium 8.8 Magnesium 2.1 05/09/17 05/09/17 06:52 11:40 Sodium Potassium Chloride Carbon Dioxide Anion Gap BUN Creatinine POC Glucometer 126 107 Random Glucose Calcium Magnesium HOSPITAL COURSE: Date of Admission:05/05/17 66 y/o F w/PMH of HTN, HLD, DM, CAD s/p stent placement x2 (04/18/2017), recent hospitalization (in [place] - discharged Saturday05/03/17 for SOB) presented to the ER w/SOB that woke her up this AM. The patient was unsure if exertion worsened her SOB as she did not try to exert herself. She had recently travelled up from [place] via car and during her hospitalization in [place] she had a chest CT, echo, and CXR done all of which she remembered being negative. She denied any cough, sputum production, chest congestion, chest pain , palpitations, N/V/F/C, light-headedness, dizziness, swelling in legs, pain in legs, pain with ambulating, dysuria, diarrhea, loss of appetite, blood in stool , black stool. In the ED, she was afebrile with a stable blood pressure and a heart rate fluctuating between bradycardia in the 50's to tachycardia to the 110 's. A chest xray showed a large heart and congestive changes. An EKG showed a wide complex tachycardia. A CTA of the chest was negative for pulmonary embolus. The patient was given lasix in the ED. She was admitted to the telemetry unit for volume overload and a persistent wide complex tachyarrythmia. Dr. Lewis from cardiology was consulted. She was treated with lasix, metoprolol and an insulin sliding scale. Her home medications were continued. She improved clinically and a repeat chest xray showed clearing of the congestive changes. Her heart rate continued to fluctuate between bradycardia and tachycardia throughout her admission. An echocardiogram was conducted which showed normal movement of all 4 heart chambers. Her metoprolol was increased to 25mg BID and her lisinopril was discontinued. She was monitored for 24 hours on the new medications without any more runs of tachycardia. Her vital signs remained stable with a heart rate in the 50's. She was discharged home on the increased metoprolol dose of 25mg BID and Lasix 40mg daily. She was instructed to stop taking her lisinopril and her chlorthalidone, but to continue all of her other home medications. She was advised to follow up with Dr. Lewis within one week of discharge and to also follow up with her primary care doctor, Dr. Mccartney. She was instructed to call her doctor or to come back to the ER if she experienced fever, chills, dizziness, lightheadedness or if any of her symptoms got worse. Date of Discharge: 05/09/17 Minutes to complete discharge: 40 Discharge Summary Reason For Visit: SOB CHF Condition: Improved - Instructions Diet, Activity, Other Instructions: You may resume activities as tolerated. Some of your home medications have changed. You should stop taking your lisinopril and your chlorthalidone. We have given you a new medication, Lasix. You should take 40mg of this medication every day. We have also increased your dose of metoprolol. You should take 25 mg of this medicine twice a day for a total of 50 mg. You should resume all of your other medications starting tomorrow. You should follow up with a tile setter supervisor, Dr. Lewis, within one week of going home. You should also follow up with a primary care doctor within one week, Dr Mccartney. If you experience fever, chills, dizziness, lightheadedness or if any of your symptoms get worse, please call your doctor or return to the ER. Referrals: John Lewis MD [Staff Physician] - Karyn Mccartney MD [Non Staff, Medical] - Disposition: HOME - Home Medications Comprehensive Discharge Medication List: Ambulatory Orders Aspirin [Aspirin EC] 81 mg PO DAILY 05/05/17 Atorvastatin Ca [Lipitor] 40 mg PO HS 05/05/17 Diazepam 2 mg PO BID PRN 05/05/17 Metformin HCl [Metformin HCl ER] 500 mg PO TID 05/05/17 Omeprazole 40 mg PO DAILY 05/05/17 Ticagrelor [Brilinta -] 90 mg PO BID 05/05/17 Zolpidem Tartrate [Ambien] 10 mg PO HS 05/05/17 Furosemide [Lasix] 40 mg PO DAILY #30 tablet 05/09/17 Metoprolol Tartrate [Lopressor -] 25 mg PO BID #60 tablet 05/09/17 Problem List - Problems (1) CHF (congestive heart failure) Code(s): I50.9 - HEART FAILURE, UNSPECIFIED Qualifiers: Congestive heart failure chronicity: unspecified congestive heart failure chronicity (2) Tachyarrhythmia Code(s): R00.0 - TACHYCARDIA, UNSPECIFIED This patient is new to me today: No Emergency Visit: Yes ED Registration Date: 05/05/17 Care time: The patient presented to the Emergency Department on the above date and was hospitalized for further evaluation of their emergent condition. Critical Care patient: No - Discharge Referral Referred to [facility] No
[2017-05-14] MEDS ORDERED: diazePAM 2 MG TABLET PO PRN (18:41)
== END 2017-05-09 13:55 | disposition home or self-care (01) | DRG 291 ==
LOC: JER 04:56 → JERBED 09:23 → J4S 12:40
PROVIDERS: ADMIT Internal Medicine; ATTEND Internal Medicine
DX: I13.0 Hypertensive heart and chronic kidney disease with heart failure and stage 1 through stage 4 chronic kidney disease, or unspecified chronic kidney disease (principal); I50.33 Acute on chronic diastolic (congestive) heart failure; I47.1 Supraventricular tachycardia; N17.9 Acute kidney failure, unspecified; I25.10 Atherosclerotic heart disease of native coronary artery without angina pectoris; E78.5 Hyperlipidemia, unspecified; F17.210 Nicotine dependence, cigarettes, uncomplicated; G47.00 Insomnia, unspecified; E11.22 Type 2 diabetes mellitus with diabetic chronic kidney disease; N18.3 Chronic kidney disease, stage 3 (moderate); Z79.84 Long term (current) use of oral hypoglycemic drugs; I25.2 Old myocardial infarction; Z95.5 Presence of coronary angioplasty implant and graft; E87.6 Hypokalemia
CPT/HCPCS: 36415; 71010-TC; 71020-TC; 71275-TC; 80048; 80053; 82040; 83735; 83880; 84132; 84484; 85025; 85610; 93005; 93010; 93306-TC; 94010; 97116-GP; 97161-GP; 99285-25; J1644; Q9967

== ENCOUNTER 2017-05-14 13:19 | Observation (INO) | payer BC ==
--- NOTE | 2017-05-14 15:10 | PDOC ---
Attending Attestation - HPI HPI: 05/14/17 15:48 The patient is a 67 year old female, with a significant past medical history of CAD (s/p cardiac stent in Apr 2017), [place], CHF, DM who presents to the emergency department with 3 lb weight gain. Patient states she was seen by VNS who noted weight increase. Patient was advised by Sales Support Administrator to come to ED for this issue. Patient was seen in the ED earlier this month and had negative workup for PE. Patient was admitted and her medications were reconciled. She denies chest pain, headache or dizziness. She denies fever, chills, abdominal pain, nausea, vomit, diarrhea or constipation. She denies dysuria, frequency, urgency or hematuria. - Physicial Exam PE: 05/14/17 15:48 GENERAL: Awake, alert, and fully oriented, in no acute distress HEAD: No signs of trauma EYES: PERRLA, EOMI, sclera anicteric, conjunctiva clear ENT: Auricles normal inspection, hearing grossly normal, nares patent, oropharynx clear without exudates. Moist mucosa NECK: Normal ROM, supple, no lymphadenopathy, JVD, or masses LUNGS: Breath sounds equal, clear to auscultation bilaterally. No wheezes, and no crackles HEART: Regular rate and rhythm, normal S1 and S2, no murmurs, rubs or gallops ABDOMEN: Soft, nontender, normoactive bowel sounds. No guarding, no rebound. No masses EXTREMITIES: Normal range of motion, no edema. No clubbing or cyanosis. No cords, erythema, or tenderness NEUROLOGICAL: Cranial nerves II through XII grossly intact. Normal speech, normal gait SKIN: Warm, Dry, normal turgor, no rashes or lesions noted. - Medical Decision Making 05/14/17 15:48 Documentation prepared by Celsa Morocho, acting as medical imaging technologist for Jacobo Dover MD <Celsa Morocho - Last Filed: 05/14/17 15:48> - Resident Resident Name: Adin Stewart - ED Attending Attestation I have performed the following: I have examined & evaluated the patient, The case was reviewed & discussed with the resident, I agree w/resident's findings & plan, Exceptions are as noted - Medical Decision Making 05/14/17 15:10 A portion of this note was written by my scribe, under my supervision. Vital Signs Temp Pulse Resp BP Pulse Ox 98.4 F 47 L 19 139/72 98 05/14/17 13:21 05/14/17 13:21 05/14/17 13:21 05/14/17 13:21 05/14/17 13:21 67 year old F patient with hx of CAD, CHF, DM, and recent cardiac stent p/w 3 lb weight gain. Pt was recently admitted for CHF exacerbation. Pt has no complaints. Stated that her visiting nurses had instructed her to check her weight daily. If she gained more than 2 lbs, then she is to go to the ER. She weighed herself today and noted a 3 lb weight gain. Denies CP/SOB/palpitations. Denies lower extremities swelling. At this point, will draw labs including trop and BNP. ECG is unchanged. Given no symptoms, less concerning for CHF at this time. If workup is unremarkable, pt can be discharged with PMD and cardiology follow up. Pt's taxi driver is Dr. Harding. 05/14/17 16:26 Chest xray reviewed. Cardiomegaly but no acute changes. CBC, BMP 05/14/17 14:33 05/14/17 14:33 CMP Sodium 140 mmol/L (136-145) 05/14/17 14:33 Potassium 4.0 mmol/L (3.5-5.1) 05/14/17 14:33 Chloride 98 mmol/L (98-107) 05/14/17 14:33 Carbon Dioxide 29 mmol/L (21-32) 05/14/17 14:33 Anion Gap 13 (8-16) 05/14/17 14:33 BUN 36 mg/dL (7-18) H D 05/14/17 14:33 Creatinine 1.3 mg/dL (0.55-1.02) H 05/14/17 14:33 Creat Clearance w eGFR 41.11 (>60) 05/14/17 14:33 Random Glucose 105 mg/dL (74-106) 05/14/17 14:33 Calcium 9.0 mg/dL (8.5-10.1) 05/14/17 14:33 Magnesium 1.6 mg/dL (1.8-2.4) L D 05/14/17 14:33 Total Bilirubin 0.6 mg/dL (0.2-1.0) 05/14/17 14:33 AST 16 U/L (15-37) 05/14/17 14:33 ALT 39 U/L (12-78) D 05/14/17 14:33 Alkaline Phosphatase 88 U/L (45-117) 05/14/17 14:33 Creatine Kinase 50 IU/L (26-192) 05/14/17 14:33 Troponin I 0.19 ng/ml (0.00-0.05) H 05/14/17 14:33 B-Natriuretic Peptide 2514.81 pg/ml (5-125) H 05/14/17 14:33 Total Protein 6.7 g/dl (6.4-8.2) 05/14/17 14:33 Albumin 3.5 g/dl (3.4-5.0) D 05/14/17 14:33 Trop 0.19. Given trop that is more elevated than prior, will admit the patient for further evaluation. <Jacobo Dover - Last Filed: 05/14/17 16:26> Heart Score/ECG Review #1 ECG reviewed & interpreted by me at: 14:50 05/14/17 15:07 NSR 43, TWI II, avF, V3-V6, no std/amber,, QTC 471 msec. <Jacobo Dover - Last Filed: 05/14/17 16:26>
--- NOTE | 2017-05-14 15:16 | PDOC ---
History of Present Illness - General Chief Complaint: Shortness of Breath Stated Complaint: SOB Time Seen by Provider: 05/14/17 14:04 History Source: Patient Exam Limitations: No Limitations - History of Present Illness Initial Comments: 05/14/17 15:05 Patient is a 67F with history of CHF, [place] s/p stenting in March, DM, and anxiety here today complaining of abnormal weight changed. She was seen by myself 9 days ago where she received a thorough workup including heart labs and chest cta. The workup showed an acute CHF exacerbation. She was admitted and her medications were adjusted as an inpatient, then discharged 4 days later. She was told to come in if her weight changed by more than 3 pounds in a day. She states that she took her weight a little bit later time today. She denies now any shortness of breath, chest pain and decreased exercise tolerance. She says that she got really nervous when she saw she had gained weight, which made her short of breath. That has resolved. Past History - Past Medical History Allergies/Adverse Reactions: Allergies Allergy/AdvReac Type Severity Reaction Status Date / Time acetaminophen [From Tylenol] Allergy Verified 05/14/17 13:23 diphenhydramine HCl Allergy Verified 05/14/17 13:23 [From Benadryl] Penicillins Allergy Verified 05/14/17 13:23 Sulfa (Sulfonamide Allergy Verified 05/14/17 13:23 Antibiotics) Home Medications: Ambulatory Orders Aspirin [Aspirin EC] 81 mg PO DAILY 05/05/17 Atorvastatin Ca [Lipitor] 40 mg PO HS 05/05/17 Diazepam 2 mg PO BID PRN 05/05/17 Metformin HCl [Metformin HCl ER] 500 mg PO TID 05/05/17 Omeprazole 40 mg PO DAILY 05/05/17 Ticagrelor [Brilinta -] 90 mg PO BID 05/05/17 Zolpidem Tartrate [Ambien] 10 mg PO HS 05/05/17 Furosemide [Lasix] 40 mg PO DAILY #30 tablet 05/09/17 Metoprolol Tartrate [Lopressor -] 25 mg PO BID #60 tablet 05/09/17 Cardiac Disorders: Yes (2 stents, CHF) Diabetes: Yes HTN: Yes - Surgical History Cardiac Surgery: Yes (2 STENTS) - Immunization History Immunization Up to Date: No - Psycho/Social/Smoking Cessation Hx Anxiety: No Suicidal Ideation: No Smoking History: Never smoked Have you smoked in the past 12 months: No Information on smoking cessation initiated: No Hx Alcohol Use: No Drug/Substance Use Hx: No Substance Use Type: None Review of Systems - Review of Systems Comments:: 05/14/17 15:18 GENERAL/CONSTITUTIONAL: No fever or chills. No weakness. HEAD, EYES, EARS, NOSE AND THROAT: No change in vision. No sore throat. CARDIOVASCULAR: No chest pain or shortness of breath RESPIRATORY: No cough, wheezing, or hemoptysis. GASTROINTESTINAL: No nausea, vomiting, diarrhea or constipation. GENITOURINARY: No dysuria, frequency, or change in urination. SKIN: No rash NEUROLOGIC: No headache, loss of consciousness, or change in strength/sensation. ENDOCRINE: No increased thirst. Positive for 3 pound weight gain in one day HEMATOLOGIC/LYMPHATIC: No anemia, easy bleeding, or history of blood clots. ALLERGIC/IMMUNOLOGIC: No hives or skin allergy. *Physical Exam - Vital Signs Last Vital Signs Temp Pulse Resp BP Pulse Ox 98.4 F 47 L 19 139/72 98 05/14/17 13:21 05/14/17 13:21 05/14/17 13:21 05/14/17 13:21 05/14/17 13:21 - Physical Exam Comments: 05/14/17 15:19 GENERAL: Awake, alert, and fully oriented, in no acute distress HEAD: No signs of trauma, normocephalic, atraumatic EYES: PERRLA, EOMI, sclera anicteric, conjunctiva clear ENT: Auricles normal inspection, hearing grossly normal, nares patent, oropharynx clear without exudates. Moist mucosa LUNGS: No distress, speaks full sentences, clear to auscultation bilaterally HEART: Regular rate and rhythm, normal S1 and S2, no murmurs, rubs or gallops, peripheral pulses normal and equal bilaterally. ABDOMEN: Soft, nontender, normoactive bowel sounds. No guarding, no rebound. No masses EXTREMITIES: Normal inspection, Normal range of motion, no edema. No clubbing or cyanosis. NEUROLOGICAL: Cranial nerves II through XII grossly intact. Normal speech, normal gait, no focal sensorimotor deficits SKIN: Warm, Dry, normal turgor, no rashes or lesions noted. ED Treatment Course - LABORATORY CBC & Chemistry Diagram: 05/14/17 14:33 05/14/17 14:33 - RADIOLOGY Radiology Studies Ordered: Category Date Time Status CHEST - PA [RAD] Stat Radiology 05/14/17 14:16 Completed Medical Decision Making - Medical Decision Making 05/14/17 15:19 Patient is 67F with history of DM, CHF, and CAD s/p stenting here today complaining of 3 pound weight change in one day. Denies any active symptoms now. Appears well. Vital signs notable for bradycardia to 48, but again, asymptomatic. Vital signs otherwise normal and stable. Will evaluate with labs and cxr. After workup will contact museum librarian and most likely discharge. EKG shows bradycardia to 43 bpm, QTc 471, no ST elevations, T wave inversions in V2-V6, II and III, unchanged from prior. 05/14/17 16:40 Laboratory Tests 05/14/17 05/14/17 14:33 14:33 WBC 8.6 D Hgb 12.3 Hct 36.8 Plt Count 179 BUN 36 H D Creatinine 1.3 H Magnesium 1.6 L D Troponin I 0.19 H B-Natriuretic Peptide 2514.81 H CBC normal. BNP elevated but below her initial BNP from her prior admission. Trop of .19 is highest level in the hospital. Will give asa 162. No active chest pain. Cr at baseline. Will admit to symphony. 05/14/17 17:02 Spoke with Candy, will admit to tele obs. *DC/Admit/Observation/Transfer Diagnosis at time of Disposition: Elevated troponin level - Discharge Dispostion Condition at time of disposition: Stable Admit: Yes
[2017-05-14 15:17] LABS: BASOPHIL 0.8 % (0-2.0); EOSINOPHIL 1.9 % (0-4.5); MCHC 33.4 g/dl (32.0-36.0); MEAN CELL VOLUME 89.8 fl (80-96); MEAN PLT VOLUME 11.2 fl (7.5-11.1); NEUTROPHILS 71.5 % (42.8-82.8); PLATELET COUNT 179 K/MM3 (134-434); RDW 15.9 % (11.6-15.6); WHITE BLOOD COUNT 8.6 K/mm3 (4.0-10.0)
[2017-05-14 15:46] LABS: ALBUMIN 3.5 g/dl (3.4-5.0); ANION GAP 13 (8-16); BILIRUBIN,TOTAL 0.6 mg/dL (0.2-1.0); CO2 29 mmol/L (21-32); CREATININE 1.3 mg/dL (0.55-1.02); GLUCOSE,RANDOM 105 mg/dL (74-106); MAGNESIUM 1.6 mg/dL (1.8-2.4); SGOT/AST 16 U/L (15-37); SGPT/ALT 39 U/L (12-78); TOT PROT 6.7 g/dl (6.4-8.2)
[2017-05-14 15:48] LABS: ALK PHOS 88 U/L (45-117); CPK 50 IU/L (26-192); TROPONIN I 0.19 ng/ml (0.00-0.05)
[2017-05-14 15:56] LABS: INR 1.03 (0.82-1.09); PROTHROMBIN TIME (PATIENT) 11.3 SEC (9.98-11.88)
[2017-05-14] MEDS ORDERED: ASPIRIN 81 MG CHEWABLE TABLETS PO ONE (16:35)
--- NOTE | 2017-05-14 17:12 | HP ---
CHIEF COMPLAINT: weight gain, shortness of breath PCP: Dr. Douglass, phytochemistry professor HISTORY OF PRESENT ILLNESS: Patient is a 66 yr old female with a significant past medical history of HTN, HLD, DM, CAD s/p stent placement x2 on 04/18/2017 and anxiety. She was recently admitted between 05/05/2017-05/09/17 for shortness of breath and CHF exacerbation. On this last admission a Chest CTA was performed. She comes to the ED today when she noticed that she gain more than 3 pounds in one day. She stakes that she took her weight at home using the same scale but weight herself at a later time. She denies any shortness of breath, leg edema, chest pain and dyspnea on exertion. She states she became very anxious when she noticed the weight change and came to the ER after her anxiety made her short of breath. On exam in ER she is sitting up eating her dinner in no acute distress. She states her shortness of breath has resolved. In the ED her troponin was also noted to be 0.19 which is higher than her most recent admission. ER course was notable for: (1) trop 0.19 (2) Mag 1.6 (3) BNP 2514 today/BNP 05/05 3078 (4) Chest xray shows cardiomegaly, no significant changes since 05/07/2017 Recent Travel: PAST MEDICAL HISTORY: HTN, HLD, DM, CAD s/p stent placement x2 on 04/18/2017 and anxiety PAST SURGICAL HISTORY: CAD s/p stent placement x2 on 04/18/2017 Social History: Smoking: Currently on patch, has hx of smoking - most recently restarted smoking in December 2016 Alcohol: social Drugs: denies Family History: Allergies acetaminophen [From Tylenol] Allergy (Verified 05/14/17 13:23) diphenhydramine HCl [From Benadryl] Allergy (Verified 05/14/17 13:23) Penicillins Allergy (Verified 05/14/17 13:23) Sulfa (Sulfonamide Antibiotics) Allergy (Verified 05/14/17 13:23) HOME MEDICATIONS: Home Medications Medication Instructions Recorded Aspirin [Aspirin EC] 81 mg PO DAILY 05/05/17 Atorvastatin Ca [Lipitor] 40 mg PO HS 05/05/17 Diazepam 2 mg PO BID PRN 05/05/17 Metformin HCl [Metformin HCl ER] 500 mg PO TID 05/05/17 Omeprazole 40 mg PO DAILY 05/05/17 Ticagrelor [Brilinta -] 90 mg PO BID 05/05/17 Zolpidem Tartrate [Ambien] 10 mg PO HS 05/05/17 Furosemide [Lasix] 40 mg PO DAILY #30 tablet 05/09/17 Metoprolol Tartrate [Lopressor -] 25 mg PO BID #60 tablet 05/09/17 REVIEW OF SYSTEMS CONSTITUTIONAL: Absent: fever, chills, diaphoresis, generalized weakness, malaise, loss of appetite HEENT: Absent: rhinorrhea, nasal congestion, throat pain, throat swelling, difficulty swallowing, mouth swelling, ear pain, eye pain, visual changes CARDIOVASCULAR: Absent: chest pain, syncope, palpitations, irregular heart rate, lightheadedness , peripheral edema RESPIRATORY: Absent: cough, shortness of breath, dyspnea with exertion, orthopnea, wheezing, stridor, hemoptysis GASTROINTESTINAL: Absent: abdominal pain, abdominal distension, nausea, vomiting, diarrhea, constipation, melena, hematochezia GENITOURINARY: Absent: dysuria, frequency, urgency, hesitancy, hematuria, flank pain, genital pain MUSCULOSKELETAL: Absent: myalgia, arthralgia, joint swelling, back pain, neck pain SKIN: Absent: rash, itching, pallor HEMATOLOGIC/IMMUNOLOGIC: Absent: easy bleeding, easy bruising, lymphadenopathy, frequent infections ENDOCRINE: Absent: unexplained weight gain, unexplained weight loss, heat intolerance, cold intolerance NEUROLOGIC: Absent: headache, focal weakness or paresthesias, dizziness, unsteady gait, seizure, mental status changes, bladder or bowel incontinence PSYCHIATRIC: Absent: suicidal or homicidal ideation, hallucinations. PHYSICAL EXAMINATION Vital Signs - 24 hr 05/14/17 13:21 Temperature 98.4 F Pulse Rate 47 L Respiratory 19 Rate Blood Pressure 139/72 O2 Sat by Pulse 98 Oximetry (%) GENERAL: Awake, alert, and fully oriented, in no acute distress. HEAD: Normal with no signs of trauma. EYES: Pupils equal, round and reactive to light, extraocular movements intact, sclera anicteric, conjunctiva clear. No lid lag. EARS, NOSE, THROAT: Ears normal, nares patent, oropharynx clear without exudates. Moist mucous membranes. NECK: Normal range of motion, supple without lymphadenopathy, JVD, or masses. LUNGS: Right lung clear, left lung diminished at the bases, no crackles, no wheezing, no accessory muscle use HEART: Regular rate and rhythm, normal S1 and S2 without murmur, rub or gallop. ABDOMEN: Soft, nontender, not distended, normoactive bowel sounds, no guarding, no rebound, no masses. No hepatomegaly or splenomegaly. MUSCULOSKELETAL: Normal range of motion at all joints. No bony deformities or tenderness. No CVA tenderness. UPPER EXTREMITIES: No peripheral edema. LOWER EXTREMITIES: No peripheral edema. NEUROLOGICAL: Normal speech. Normal gait. PSYCHIATRIC: Cooperative. Good eye contact. Appropriate mood and affect. SKIN: Warm, dry, normal turgor, no rashes or lesions noted, normal capillary refill. Laboratory Results - last 24 hr 05/14/17 05/14/17 05/14/17 14:33 14:33 14:33 WBC 8.6 D RBC 4.10 Hgb 12.3 Hct 36.8 MCV 89.8 MCH 30.0 MCHC 33.4 RDW 15.9 H Plt Count 179 MPV 11.2 H Neutrophils % 71.5 D Lymphocytes % 21.5 D Monocytes % 4.3 Eosinophils % 1.9 Basophils % 0.8 INR 1.03 Sodium 140 Potassium 4.0 Chloride 98 Carbon Dioxide 29 Anion Gap 13 BUN 36 H D Creatinine 1.3 H Creat Clearance w eGFR 41.11 Random Glucose 105 Calcium 9.0 Magnesium 1.6 L D Total Bilirubin 0.6 AST 16 ALT 39 D Alkaline Phosphatase 88 Creatine Kinase 50 Troponin I 0.19 H B-Natriuretic Peptide 2514.81 H Total Protein 6.7 Albumin 3.5 D ASSESSMENT/PLAN: Patient is a 66 yr old female with a significant past medical history of HTN, HLD, DM, CAD s/p stent placement x2 on 04/18/2017 and anxiety. She was recently admitted between 05/05/2017-05/09/17 for shortness of breath and CHF exacerbation. On this last admission a Chest CTA was performed which was negative. She comes to the ED today when she noticed that she gain more than 3 pounds in one day. She states that she took her weight at home using the same scale but weight herself at a later time. She denies any shortness of breath, leg edema, chest pain and dyspnea on exertion. She states she became very anxious when she noticed the weight change and came to the ER after her anxiety made her short of breath. On exam in ER she is sitting up eating her dinner in no acute distress. She states her shortness of breath has resolved. In the ED her troponin was also noted to be 0.19 which is higher than her most recent admission. Cardiology: Elevated Troponin - acute Trop @0.19 which is higher than recent admission Denies chest pain, now denies shortness of breath No edema on bilateral lower ext, lungs mostly clear, diminished on right lung base Trend troponins Reports compliance with home medications Monitor on tele Daily weight Cardiology consult Hypertension: Monitor BP, continue home meds Endocrine: Diabetes Sliding scale, Novolog Pulmonary: Shortness of breath A/P: Denies shortness of breath on exam BNP elevated @ 2514, BNP 3078 on 05/05/2017 Monitor oxygen saturations CTA last admission negative F.E.N. Fluids: tolerating PO Electrolytes: Replete magnesium Nutrition: diabetic diet Disposition: Full code. Observation.
[2017-05-14] MEDS ORDERED: ASPIRIN 81 MG CHEWABLE TABLETS ONE (18:37)
[2017-05-14] MEDS ORDERED: diazePAM 2 MG TABLET PO PRN (18:51)
[2017-05-14] MEDS ORDERED: MAGNESIUM SULF 50% (8.12 MEQ/2 ML-1 GM VIAL) IVPB ONE (19:09)
[2017-05-14] MEDS ORDERED: ATORVASTATIN CA 40 MG TABLET (FP) PO SCH (22:00)
[2017-05-14] MEDS ORDERED: ZOLPIDEM TARTRATE 5 MG TABLET PO PRN (22:00)
--- NOTE | 2017-05-14 22:41 | PDOC ---
*Physical Exam - Vital Signs Last Vital Signs Temp Pulse Resp BP Pulse Ox 98.4 F 49 L 17 147/59 100 05/14/17 13:21 05/14/17 20:08 05/14/17 20:08 05/14/17 20:08 05/14/17 20:08 ED Treatment Course - LABORATORY CBC & Chemistry Diagram: 05/14/17 14:33 05/14/17 14:33 - ADDITIONAL ORDERS Additional order review: Laboratory Results 05/14/17 05/14/17 05/14/17 19:40 14:33 14:33 INR 1.03 Sodium 140 Potassium 4.0 Chloride 98 Carbon Dioxide 29 Anion Gap 13 BUN 36 H D Creatinine 1.3 H Creat Clearance w eGFR 41.11 Random Glucose 105 Calcium 9.0 Magnesium 1.6 L D Total Bilirubin 0.6 AST 16 ALT 39 D Alkaline Phosphatase 88 Creatine Kinase 50 Troponin I 0.20 H 0.19 H B-Natriuretic Peptide 2514.81 H Total Protein 6.7 Albumin 3.5 D 05/14/17 14:33 RBC 4.10 MCV 89.8 MCHC 33.4 RDW 15.9 H MPV 11.2 H Neutrophils % 71.5 D Lymphocytes % 21.5 D Monocytes % 4.3 Eosinophils % 1.9 Basophils % 0.8 - Medications Given in the ED: ED Medications Discontinued Medications Generic Name Dose Route Start Last Admin Trade Name Freq PRN Reason Stop Dose Admin Aspirin 162 mg 05/14/17 16:35 05/14/17 18:37 Asa - PO 05/14/17 16:36 162 mg ONCE ONE Administration *DC/Admit/Observation/Transfer Diagnosis at time of Disposition: Troponin level elevated - Discharge Dispostion Condition at time of disposition: Stable Admit: Yes
[2017-05-14] MEDS ORDERED: metFORMIN HCL 500 MG TABLET (FP) PO ONE (22:47)
[2017-05-14] MEDS ORDERED: TICAGRELOR 90 MG TABLET PO ONE (22:48)
[2017-05-14] MEDS ORDERED: FUROSEMIDE 40 MG TABLET (FP) ONE (22:48)
[2017-05-14] MEDS ORDERED: MAGNESIUM SULF 50% (8.12 MEQ/2 ML-1 GM VIAL) ONE (22:49)
[2017-05-14] MEDS ORDERED: metFORMIN HCL 500 MG TABLET (FP) ONE (22:49)
[2017-05-14] MEDS ORDERED: ATORVASTATIN CA 40 MG TABLET (FP) ONE (22:49)
[2017-05-14] MEDS ORDERED: METOPROLOL TARTRATE 25 MG TABLET (FP) ONE (22:49)
[2017-05-14] MEDS: TICAGRELOR 90 MG TABLET PO SCH (22:59)
[2017-05-14] MEDS: METOPROLOL TARTRATE 25 MG TABLET (FP) PO SCH (23:00)
[2017-05-15] MEDS: INSULIN SLIDING SCALE (NOVOLOG) 1 VIAL SQ SCH ×3 (00:25→12:05)
[2017-05-15 02:09] VITALS: BMI 32.7
[2017-05-15 09:53] LABS: ANION GAP 8 (8-16); CO2 32 mmol/L (21-32); CREATININE 1.4 mg/dL (0.55-1.02); GLUCOSE,RANDOM 196 mg/dL (74-106)
[2017-05-15] MEDS ORDERED: FUROSEMIDE 40 MG TABLET (FP) PO SCH (10:00)
[2017-05-15] MEDS ORDERED: ASPIRIN COATED 81 MG TABLET.EC PO SCH (10:00)
[2017-05-15] MEDS: TICAGRELOR 90 MG TABLET PO SCH (10:23)
[2017-05-15] MEDS: METOPROLOL TARTRATE 25 MG TABLET (FP) PO SCH (10:23)
--- NOTE | 2017-05-15 10:55 | DS ---
Physical Exam: SUBJECTIVE: Patient seen and examined on tele. She denies sob, palpitations, dypsnea on exertion. The only reason she came in is she noted the weight gain OBJECTIVE: Vital Signs Period Temp Pulse Resp BP Sys/Raymond Pulse Ox Last 24 Hr 97.6 F-98.4 F 42-48 18-19 118-128/47-70 98-98 PE Neuro: alert, awake, cn 2-12intact HEENT: no jvd Pulm: CTAB CV: s1 s2 rrr no mrg Abd: s nd nt + bs Ext: no le edema, warm Laboratory Results - last 24 hr 05/15/17 05/15/17 05/15/17 01:49 05:36 08:42 Sodium Potassium Chloride Carbon Dioxide Anion Gap BUN Creatinine POC Glucometer 102 124 Random Glucose Calcium Magnesium Troponin I 0.18 H 05/15/17 09:20 Sodium 139 Potassium 4.2 Chloride 99 Carbon Dioxide 32 Anion Gap 8 BUN 33 H Creatinine 1.4 H POC Glucometer Random Glucose 196 H D Calcium 9.0 Magnesium 2.0 D Troponin I HOSPITAL COURSE: Date of Admission:05/14/17 Date of Discharge: 05/15/17 Minutes to complete discharge: 36 Discharge Summary Reason For Visit: CONGESTIVE HEART FAILURE/ELEVATED TROPONIN LEVEL Current Active Problems Troponin level elevated (Acute) Hospital Course: Initial Hospital Course: Briefly, this is a 67 year old female, with a significant past medical history of CAD (s/p cardiac stent in Apr 2017 [facility]), [place], CHF, DM II presented to the emergency department with 3 lb weight gain. Patient was seen by VNS who noted weight increase. Patient was advised by Material Controller to come to ED for this issue. Patient was seen in the ED earlier this month and had negative workup for PE. Subsequent Hospital Course/Progress Note/Discharge Summary: Plan: Chronic Diastolic CHF - Not in exacerbation - Pt is at dry weight 160lb, per pt she rarely fluctuates - Serial trops negative - Per ECHO unremarkable per cards - Lasix 40mg daily - Instructed to take an additional lasix 20mg po x1 if weight increases up 3lbs and call office with questions, pt aware and agrees CAD, runs of SVT on pervious admission - continue BB current dose - ASA, Brilinta DMII - Metformin 500mg BID Dispo: - Home with above plan Condition: Stable - Instructions Diet, Activity, Other Instructions: Please return to the ED for any new, persistent, or worsening symptoms. Follow up with your PCP in 1 week Take home medications as directed on home medication list Follow up with cardiology in 1 week, if you notice your weight rises you can take an extra dose of Lasix 20mg x1 as discussed with hook tender Referrals: Fausto Douglass MD [Staff Physician] - Disposition: HOME - Home Medications Comprehensive Discharge Medication List: Ambulatory Orders Aspirin [Aspirin EC] 81 mg PO DAILY 05/05/17 Atorvastatin Ca [Lipitor] 40 mg PO HS 05/05/17 Diazepam 2 mg PO BID PRN 05/05/17 Metformin HCl [Metformin HCl ER] 500 mg PO TID 05/05/17 Omeprazole 40 mg PO DAILY 05/05/17 Ticagrelor [Brilinta -] 90 mg PO BID 05/05/17 Zolpidem Tartrate [Ambien] 10 mg PO HS 05/05/17 Furosemide [Lasix] 40 mg PO DAILY #30 tablet 05/09/17 Metoprolol Tartrate [Lopressor -] 25 mg PO BID #60 tablet 05/09/17 This patient is new to me today: Yes Date on this admission: 05/15/17 Emergency Visit: Yes ED Registration Date: 05/14/17 Care time: The patient presented to the Emergency Department on the above date and was hospitalized for further evaluation of their emergent condition. Critical Care patient: No - Discharge Referral Referred to [facility] Med [facility] No
[2017-05-15 11:02] VITALS: BP 112/73; PULSE 48; TEMP 98
--- NOTE | 2017-05-15 11:08 | EKG ---
Test Reason : Blood Pressure : / mmHG Vent. Rate : 043 BPM Atrial Rate : 043 BPM P-R Int : 158 ms QRS Dur : 076 ms QT Int : 558 ms P-R-T Axes : 042 007 -23 degrees QTc Int : 471 ms MARKED SINUS BRADYCARDIA T WAVE ABNORMALITY, CONSIDER INFERIOR ISCHEMIA T WAVE ABNORMALITY, CONSIDER ANTEROLATERAL ISCHEMIA PROLONGED QT ABNORMAL ECG WHEN COMPARED WITH ECG OF 06-MAY-2017 12:45, NO SIGNIFICANT CHANGE WAS FOUND Confirmed by LACEY GOODMAN MD ([id number]) on 05/15/2017 11:08:18 AM Referred By: Confirmed By:LACEY GOODMAN MD
--- NOTE | 2017-05-15 11:13 | CON.CARD ---
Cardiology Consult (text) - Consultation Consultation Note: cc: wt up at home hpi: 67 f hx dm, htn, hld, cad s/p ND 04/2017 with pci x2 (osh in [place]), chf here due to elevated wt at home. Recently admitted here for chf exacerbation, diuresed and sent home on lasix 40 qd. Has vns at home and was noted to have wt increase of 3 lbs and was told to speak with her doctor but instead pt just came to ER. She has no cp, sob, palps, dizzy, loc, pnd, orthopnea, le edema. Feels well. pmh: per hpi psh: pci social: ex tob fam: no premature cad/scd ros: per hpi; no nvd, fever, esparza, vision changes, rash, gib, hematuria, dysuria, muscle pains meds: Home Medications Medication Instructions Recorded Aspirin [Aspirin EC] 81 mg PO DAILY 05/05/17 Atorvastatin Ca [Lipitor] 40 mg PO HS 05/05/17 Diazepam 2 mg PO BID PRN 05/05/17 Omeprazole 40 mg PO DAILY 05/05/17 Ticagrelor [Brilinta -] 90 mg PO BID 05/05/17 Zolpidem Tartrate [Ambien] 10 mg PO HS 05/05/17 Furosemide [Lasix] 40 mg PO DAILY #30 tab 05/15/17 Metformin HCl [Metformin HCl ER] 500 mg PO BID #60 tab 05/15/17 Metoprolol Tartrate [Lopressor -] 25 mg PO BID #60 tab 05/15/17 pe: Vital Signs Period Temp Pulse Resp BP Sys/Raymond Pulse Ox Last 24 Hr 97.6 F-98.4 F 42-49 17-19 112-147/47-73 98-100 nad no jvd rrr s1s2 no mrg cta bl nl eff aaox3 no le edema c/c abd nt nd pos bs no jaundice diaphoresis pos dp pt no carotid bruits Laboratory Last Values WBC 8.6 K/mm3 (4.0-10.0) D 05/14/17 14:33 RBC 4.10 M/mm3 (3.60-5.2) 05/14/17 14:33 Hgb 12.3 GM/dL (10.7-15.3) 05/14/17 14:33 Hct 36.8 % (32.4-45.2) 05/14/17 14:33 MCV 89.8 fl (80-96) 05/14/17 14:33 MCH 30.0 pg (25.7-33.7) 05/14/17 14:33 MCHC 33.4 g/dl (32.0-36.0) 05/14/17 14:33 RDW 15.9 % (11.6-15.6) H 05/14/17 14:33 Plt Count 179 K/MM3 (134-434) 05/14/17 14:33 MPV 11.2 fl (7.5-11.1) H 05/14/17 14:33 Neutrophils % 71.5 % (42.8-82.8) D 05/14/17 14:33 Lymphocytes % 21.5 % (8-40) D 05/14/17 14:33 Monocytes % 4.3 % (3.8-10.2) 05/14/17 14:33 Eosinophils % 1.9 % (0-4.5) 05/14/17 14:33 Basophils % 0.8 % (0-2.0) 05/14/17 14:33 INR 1.03 (0.82-1.09) 05/14/17 14:33 Sodium 139 mmol/L (136-145) 05/15/17 09:20 Potassium 4.2 mmol/L (3.5-5.1) 05/15/17 09:20 Chloride 99 mmol/L (98-107) 05/15/17 09:20 Carbon Dioxide 32 mmol/L (21-32) 05/15/17 09:20 Anion Gap 8 (8-16) 05/15/17 09:20 BUN 33 mg/dL (7-18) H 05/15/17 09:20 Creatinine 1.4 mg/dL (0.55-1.02) H 05/15/17 09:20 Creat Clearance w eGFR 41.11 (>60) 05/14/17 14:33 POC Glucometer 124 UNITS (()) 05/15/17 08:42 Random Glucose 196 mg/dL (74-106) H D 05/15/17 09:20 Calcium 9.0 mg/dL (8.5-10.1) 05/15/17 09:20 Magnesium 2.0 mg/dL (1.8-2.4) D 05/15/17 09:20 Total Bilirubin 0.6 mg/dL (0.2-1.0) 05/14/17 14:33 AST 16 U/L (15-37) 05/14/17 14:33 ALT 39 U/L (12-78) D 05/14/17 14:33 Alkaline Phosphatase 88 U/L (45-117) 05/14/17 14:33 Creatine Kinase 50 IU/L (26-192) 05/14/17 14:33 Troponin I 0.18 ng/ml (0.00-0.05) H 05/15/17 01:49 B-Natriuretic Peptide 2514.81 pg/ml (5-125) H 05/14/17 14:33 Total Protein 6.7 g/dl (6.4-8.2) 05/14/17 14:33 Albumin 3.5 g/dl (3.4-5.0) D 05/14/17 14:33 cta chest 05/2017: no pe, no chf, ?infiltrates vs atx cxr: clear lungs ecg 05/14/17: sb, nl intervals, diff twis, no st changes, similar to prior ecg tele: sr/sb, no pathologic bradycardia echo 05/2017: nl lv/rv, no sig valve path a/p: 67 f hx dm, htn, hld, cad s/p ND 04/2017 with pci x2 (osh in [place]), chf here due to elevated wt at home. chronic diastolic chf: -recent echo unremarkable -no signs acs, ce's negx3 -no signs chf, vol stable, wt at dry wt of 160 lbs -cont same home cardiac meds. cont lasix 40 po qd. Pt instructed to take extra 20 mg qd if wt goes up 3 lbs in a day at home and to call office if has questions. htn: -stable on home meds hld: -cont home statin cad s/p mi, pci: -recent mi/pci 04/2017, cont asa, brilinta uninterrupted -cont bb, statin -echo here unremarkable -no signs acs SVT - on prior admit had wide complex rhythm with features most consistent with svt with aberrancy. Pt asx. - bb dose was increased for svt suppression last visit and has had much less episodes. Has resting sinus bradycardia with this bb dose but she is asymptomatic with normal bp and adequate HR rise with minimal exertion in her room. cardiac flores stable for dc, should have outpt f/u 2 weeks
== END 2017-05-15 13:29 | disposition home or self-care (01) ==
LOC: JER 13:19 → JERBED 22:41 → J4W 05-15 01:40
PROVIDERS: ADMIT Internal Medicine; ATTEND Nurse Practitioner Acute Care
PROC: 3E013VG Introduction of Insulin into Subcutaneous Tissue, Percutaneous Approach (ICD-10-PCS; principal; 2017-05-14)
PROC: 3E033GC Introduction of Other Therapeutic Substance into Peripheral Vein, Percutaneous Approach (ICD-10-PCS; 2017-05-14)
DX: R77.8 Other specified abnormalities of plasma proteins (principal); I50.9 Heart failure, unspecified; I10 Essential (primary) hypertension; I25.10 Atherosclerotic heart disease of native coronary artery without angina pectoris; I25.2 Old myocardial infarction; E11.9 Type 2 diabetes mellitus without complications; E78.5 Hyperlipidemia, unspecified; F41.9 Anxiety disorder, unspecified; Z95.5 Presence of coronary angioplasty implant and graft; Z88.8 Allergy status to other drugs, medicaments and biological substances; Z88.2 Allergy status to sulfonamides; Z88.0 Allergy status to penicillin; Z79.82 Long term (current) use of aspirin; Z79.84 Long term (current) use of oral hypoglycemic drugs; Z87.891 Personal history of nicotine dependence
CPT/HCPCS: 36415; 71010-TC; 80048; 80053; 83735; 83880; 84484; 85025; 85610; 93005; 93010; 99285-25; G0378

== ENCOUNTER 2017-06-03 20:57 | Observation (INO) | payer BC, OTHER ==
--- NOTE | 2017-06-03 21:31 | PDOC ---
History of Present Illness - General History Source: Patient Exam Limitations: No Limitations - History of Present Illness Initial Comments: 06/03/17 21:38 The patient is a 67-year-old female, with a significant past medical history of diabetes, HTN, hyperlipidemia, CHF, cardiac disease (2 stents placed in April) , who presents to the ED with dizziness and shortness of breath that began 2 hours ago. The pt received a phone call from her Cnmt, Dr. Hess, to inform her that she had positive cardiac enzymes. She was advised to have a cardiac workup at [facility] on Saturday to see if one of her stents is out of place. On exam, the pt does not feel dizzy or short of breath. She denies feeling any chest pain at this time. She does report that she is experiencing palpitations and has a nonproductive cough that has been getting progressively worse over the past week. The patient denies any fever, chills, nausea, vomiting, diarrhea, or abdominal pain. PCP: Dr. Leah Mott Cnmt: Dr. Hess <Mary Ortiz - Last Filed: 06/04/17 00:09> <Ana Paula Oakley - Last Filed: 06/04/17 00:19> - General Chief Complaint: Shortness of Breath Stated Complaint: Shortness of Breath Time Seen by Provider: 06/03/17 21:05 Past History <Mary Ortiz - Last Filed: 06/04/17 00:09> - Past Medical History Cardiac Disorders: Yes (2 stents, CHF,[place]) CHF: Yes Diabetes: Yes HTN: Yes - Surgical History Cardiac Surgery: Yes - Immunization History Immunization Up to Date: No - Suicide/Smoking/Psychosocial Hx Smoking History: Never smoked Have you smoked in the past 12 months: No Number of Cigarettes Smoked Daily: 10 If you are a former smoker, when did you quit?: 1month Information on smoking cessation initiated: No 'Breaking Loose' booklet given: 05/15/17 Hx Alcohol Use: No Drug/Substance Use Hx: No Substance Use Type: None Hx Substance Use Treatment: No <Ana Paula Oakley - Last Filed: 06/04/17 00:19> - Past Medical History Allergies/Adverse Reactions: Allergies Allergy/AdvReac Type Severity Reaction Status Date / Time acetaminophen [From Tylenol] Allergy Verified 06/03/17 21:11 diphenhydramine HCl Allergy Verified 06/03/17 21:11 [From Benadryl] Penicillins Allergy Verified 06/03/17 21:11 Sulfa (Sulfonamide Allergy Verified 06/03/17 21:11 Antibiotics) Home Medications: Ambulatory Orders Aspirin [Aspirin EC] 81 mg PO DAILY 05/05/17 Atorvastatin Ca [Lipitor] 40 mg PO HS 05/05/17 Diazepam 2 mg PO BID PRN 05/05/17 Omeprazole 40 mg PO DAILY 05/05/17 Ticagrelor [Brilinta -] 90 mg PO BID 05/05/17 Zolpidem Tartrate [Ambien] 10 mg PO HS 05/05/17 Furosemide [Lasix] 40 mg PO DAILY #30 tab 05/15/17 Metformin HCl [Metformin HCl ER] 500 mg PO BID #60 tab 05/15/17 Metoprolol Tartrate [Lopressor -] 25 mg PO BID #60 tab 05/15/17 Review of Systems - Review of Systems Able to Perform ROS?: Yes Comments:: 06/03/17 21:40 CONSTITUTIONAL: Absent: fever, chills, diaphoresis, generalized weakness, malaise, loss of appetite HEENT: Absent: rhinorrhea, nasal congestion, throat pain, throat swelling, difficulty swallowing, mouth swelling, ear pain, eye pain, visual Changes CARDIOVASCULAR: Present: palpitations Absent: chest pain, syncope, irregular heart rate, lightheadedness, peripheral edema RESPIRATORY: Present: cough Absent: dyspnea with exertion, orthopnea, wheezing, stridor, hemoptysis GASTROINTESTINAL: Absent: abdominal pain, abdominal distension, nausea, vomiting, diarrhea, constipation, melena, hematochezia GENITOURINARY: Absent: dysuria, frequency, urgency, hesitancy, hematuria, flank pain, genital pain MUSCULOSKELETAL: Absent: myalgia, arthralgia, joint swelling SKIN: Absent: rash, itching, pallor HEMATOLOGIC/IMMUNOLOGIC: Absent: easy bleeding, easy bruising, lymphadenopathy, frequent infections ENDOCRINE: Absent: unexplained weight gain, unexplained weight loss, heat intolerance, cold intolerance NEUROLOGIC: Absent: headache, focal weakness or paresthesias, dizziness, unsteady gait, seizure, mental status changes, bladder or bowel incontinence PSYCHIATRIC: Absent: anxiety, depression, suicidal or homicidal ideation, hallucinations. <Mary Ortiz - Last Filed: 06/04/17 00:09> *Physical Exam - Vital Signs Last Vital Signs Temp Pulse Resp BP Pulse Ox 97.1 F L 64 14 121/70 95 06/03/17 21:11 06/03/17 21:11 06/03/17 21:11 06/03/17 21:11 06/03/17 21:11 - Physical Exam Comments: 06/03/17 21:42 GENERAL: Well developed, well nourished. Awake and alert. No acute distress. HEENT: Normocephalic, atraumatic. PERRLA, EOMI. No conjunctival pallor. Sclera are non- icteric. Moist mucous membranes. Oropharynx is clear. NECK: Supple. Full ROM. No JVD. Carotid pulses 2+ and symmetric, without bruits. No thyromegaly. No lymphadenopathy. CARDIOVASCULAR: No chest pain. Regular rate and rhythm. No murmurs, rubs, or gallops. Distal pulses are 2+ and symmetric. PULMONARY: Not hypoxic. No evidence of respiratory distress. Lungs clear to auscultation bilaterally. No wheezing, rales or rhonchi. ABDOMINAL: Soft. Non-tender. Non-distended. No rebound or guarding. No organomegaly. Normoactive bowel sounds. MUSCULOSKELETAL Normal range of motion at all joints. No bony deformities or tenderness. No CVA tenderness. EXTREMITIES: No cyanosis. No clubbing. No pitting edema. No calf tenderness. SKIN: Warm and dry. Normal capillary refill. No rashes. No jaundice. NEUROLOGICAL: Alert, awake, appropriate. PSYCHIATRIC: Cooperative. Good eye contact. Appropriate mood and affect. <Mary Ortiz - Last Filed: 06/04/17 00:09> - Vital Signs Last Vital Signs Temp Pulse Resp BP Pulse Ox 97.1 F L 64 14 121/70 95 06/03/17 21:11 06/03/17 21:11 06/03/17 21:11 06/03/17 21:11 06/03/17 21:11 <Ana Paula Oakley - Last Filed: 06/04/17 00:19> ED Treatment Course - LABORATORY CBC & Chemistry Diagram: 06/03/17 21:50 06/03/17 21:50 - Medications Given in the ED: ED Medications Discontinued Medications Generic Name Dose Route Start Last Admin Trade Name Freq PRN Reason Stop Dose Admin Aspirin 162 mg 06/03/17 21:32 06/03/17 21:35 Asa - PO 06/03/17 21:33 162 mg ONCE ONE Administration <Mary Ortiz - Last Filed: 06/04/17 00:09> - LABORATORY CBC & Chemistry Diagram: 06/03/17 21:50 06/03/17 21:50 <Ana Paula Oakley - Last Filed: 06/04/17 00:19> Medical Decision Making - Medical Decision Making 06/03/17 23:22 Dr. Douglass was paged and notified via phone service. 06/04/17 00:08 Dr. Ferris was paged and notified via phone service. Call was returned by Dr. Ferris at 00:09. <Mary Ortiz - Last Filed: 06/04/17 00:09> - Medical Decision Making 06/04/17 00:14 67-year-old female was told by her mds manager troponin was positive and she needs to be admitted to the hospital. Patient had outpatient labs that were resulted today. Patient brought in by ambulance because she had transient shortness of breath and dizziness. -these symptoms quickly resolved -She denies any nausea, vomiting, fever, anterior chest pain EKG today is normal sinus rhythm without any significant change of her prior EKG of May 2017. There is T-wave abnormality. There was seen on her prior EKG. Patient will be admitted Discussed with Dr. Kapoor covering for Dr. Harding. Patient to be admitted to telemetry Spoke with Dr. Ferris and he is aware of the patient <Ana Paula Oakley - Last Filed: 06/04/17 00:19> *DC/Admit/Observation/Transfer - Attestations Scribe Attestion: 06/03/17 21:43 Documentation prepared by Mary Ortiz, acting as medical secretary teacher for Ana Paula Oakley MD. <Mary Ortiz - Last Filed: 06/04/17 00:09> - Discharge Dispostion Admit: Yes <Ana Paula Oakley - Last Filed: 06/04/17 00:19> Diagnosis at time of Disposition: Troponin level elevated
[2017-06-03] MEDS ORDERED: ASPIRIN 81 MG CHEWABLE TABLETS PO ONE (21:32)
[2017-06-03] MEDS ORDERED: ASPIRIN 81 MG CHEWABLE TABLETS ONE (21:38)
[2017-06-03 22:08] LABS: BASOPHIL 0.2 % (0-2.0); MCH 29.9 pg (25.7-33.7); MCHC 33.3 g/dl (32.0-36.0); MEAN CELL VOLUME 89.8 fl (80-96); NEUTROPHILS 57.1 % (42.8-82.8); PLATELET COUNT 213 K/MM3 (134-434); RDW 15.9 % (11.6-15.6); WHITE BLOOD COUNT 7.7 K/mm3 (4.0-10.0)
[2017-06-03 22:21] LABS: INR 1.05 (0.82-1.09); PROTHROMBIN TIME (PATIENT) 11.6 SEC (9.98-11.88)
[2017-06-03 22:32] LABS: ALBUMIN 3.4 g/dl (3.4-5.0); ANION GAP 6 (8-16); BILIRUBIN,TOTAL 0.3 mg/dL (0.2-1.0); CALCIUM 8.9 mg/dL (8.5-10.1); CO2 32 mmol/L (21-32); CREATININE 1.4 mg/dL (0.55-1.02); GLUCOSE,RANDOM 90 mg/dL (74-106); SGPT/ALT 30 U/L (12-78); TOT PROT 6.8 g/dl (6.4-8.2)
[2017-06-03 22:34] LABS: ALK PHOS 101 U/L (45-117); TROPONIN I 0.13 ng/ml (0.00-0.05)
[2017-06-03 22:44] LABS: CPK 89 IU/L (26-192); MAGNESIUM 1.9 mg/dL (1.8-2.4); SGOT/AST 24 U/L (15-37)
[2017-06-04 06:19] VITALS: BMI 33.1
[2017-06-04] MEDS ORDERED: diazePAM 2 MG TABLET PO PRN (07:18)
[2017-06-04 08:15] LABS: BASOPHIL 0.5 % (0-2.0); EOSINOPHIL 3.3 % (0-4.5); MCH 29.4 pg (25.7-33.7); MCHC 32.8 g/dl (32.0-36.0); MEAN CELL VOLUME 89.8 fl (80-96); MEAN PLT VOLUME 9.7 fl (7.5-11.1); NEUTROPHILS 52.6 % (42.8-82.8); PLATELET COUNT 169 K/MM3 (134-434); RDW 15.5 % (11.6-15.6); WHITE BLOOD COUNT 6.4 K/mm3 (4.0-10.0)
[2017-06-04 08:35] LABS: ANION GAP 6 (8-16); CALCIUM 8.5 mg/dL (8.5-10.1); CO2 31 mmol/L (21-32); GLUCOSE,RANDOM 116 mg/dL (74-106); MAGNESIUM 1.8 mg/dL (1.8-2.4)
[2017-06-04 08:40] LABS: CREATININE 1.1 mg/dL (0.55-1.02); PHOSPHOROUS 3.4 mg/dL (2.5-4.9); TROPONIN I 0.12 ng/ml (0.00-0.05)
[2017-06-04] MEDS ORDERED: ZOLPIDEM TARTRATE 5 MG TABLET PO PRN (09:07)
[2017-06-04] MEDS: ASPIRIN COATED 81 MG TABLET.EC PO SCH (09:47)
[2017-06-04] MEDS: PANTOPRAZOLE 40 MG TABLET (FP) PO SCH (09:47)
--- NOTE | 2017-06-04 09:53 | EKG ---
Test Reason : Blood Pressure : / mmHG Vent. Rate : 055 BPM Atrial Rate : 055 BPM P-R Int : 144 ms QRS Dur : 074 ms QT Int : 460 ms P-R-T Axes : 031 -02 -13 degrees QTc Int : 440 ms SINUS BRADYCARDIA T WAVE ABNORMALITY, CONSIDER ANTERIOR ISCHEMIA ABNORMAL ECG WHEN COMPARED WITH ECG OF 14-MAY-2017 14:49, T WAVE INVERSION APPEARS LESS EVIDENT T WAVE VARIATION Confirmed by AMERICA DYE MD ([id number]) on 06/04/2017 9:52:53 AM Referred By: Confirmed By:AMERICA DYE MD
[2017-06-04] MEDS ORDERED: METOPROLOL TARTRATE 25 MG TABLET (FP) PO SCH (10:00)
[2017-06-04] MEDS ORDERED: TICAGRELOR 90 MG TABLET PO SCH (10:00)
[2017-06-04] MEDS ORDERED: CARVEDILOL 3.125 MG TABLET (FP) PO SCH ×2 (10:00→10:19)
[2017-06-04] MEDS ORDERED: TORSEMIDE 20 MG TABLET (FP) PO SCH (10:00)
[2017-06-04] MEDS ORDERED: LOSARTAN POTASSIUM 50 MG TABLET (FP) PO SCH (10:00)
--- NOTE | 2017-06-04 10:43 | HP ---
Admitting History and Physical - Primary Care Physician PCP: Leah Mott - Admission Chief Complaint: I was not feeling well History of Present Illness: Ms Martins is a 67 year old female who comes in with palpitations. She has a history of CAD with 3 stents placed back in April. She says yesterday she began to have palpitations. She said they lasted "a long time". She also had lightheadedness when she stood up. She did not pass out. She denies fevers, chills, chest pain, shortness of breath, nausea, vomiting, diarrhea, constipation, difficulty or pain on urination, or swelling. Currently the symptoms has resolved. History Source: Patient Limitations to Obtaining History: No Limitations - Past Medical History Cardiovascular: Yes: CAD, CHF, HTN, Hyperlipdemia Endocrine: Yes: Diabetes Mellitus - Past Surgical History Past Surgical History: Yes: - Smoking History Smoking history: Former smoker Have you smoked in the past 12 months: Yes Aproximately how many cigarettes per day: 10 If you are a former smoker, when did you quit?: 1month - Alcohol/Substance Use Hx Alcohol Use: Yes History of Substance Use: reports: None - Social History ADL: Independent History of Recent Travel: No Home Medications - Allergies Allergies/Adverse Reactions: Allergies Allergy/AdvReac Type Severity Reaction Status Date / Time acetaminophen [From Tylenol] Allergy Verified 06/03/17 21:11 diphenhydramine HCl Allergy Verified 06/03/17 21:11 [From Benadryl] Penicillins Allergy Verified 06/03/17 21:11 Sulfa (Sulfonamide Allergy Verified 06/03/17 21:11 Antibiotics) - Home Medications Home Medications: Ambulatory Orders Aspirin [Aspirin EC] 81 mg PO DAILY 05/05/17 Atorvastatin Ca [Lipitor] 40 mg PO HS 05/05/17 Diazepam 2 mg PO BID PRN 05/05/17 Omeprazole 40 mg PO DAILY 05/05/17 Zolpidem Tartrate [Ambien] 10 mg PO HS 05/05/17 Metformin HCl [Metformin HCl ER] 500 mg PO BID #60 tab 05/15/17 Carvedilol [Coreg -] 3.125 mg PO BID 06/04/17 Clopidogrel Bisulfate [Plavix -] 75 mg PO DAILY 06/04/17 Losartan Potassium 100 mg PO DAILY 06/04/17 Torsemide 40 mg PO DAILY 06/04/17 Family Disease History - Family Disease History Other Family History: niece has diabetes Review of Systems Findings/Remarks: Full review of systems obtained, as per HPI and otherwise negative Physical Examination Vital Signs: Vital Signs Temperature 36.6 C 06/04/17 06:01 Pulse Rate 64 06/04/17 06:01 Respiratory Rate 20 06/04/17 06:01 Blood Pressure 153/72 06/04/17 06:01 O2 Sat by Pulse Oximetry (%) 97 06/04/17 06:00 Constitutional: Yes: Well Nourished, No Distress, Calm Eyes: Yes: Conjunctiva Clear, EOM Intact, PERRL HENT: Yes: Atraumatic, Normocephalic Cardiovascular: Yes: Regular Rate and Rhythm. No: Gallop, Murmur, Rub Respiratory: Yes: Regular, CTA Bilaterally. No: Rales, Rhonchi, Wheezes Gastrointestinal: Yes: Normal Bowel Sounds, Soft. No: Distention, Tenderness Extremities: Yes: WNL Edema: No Labs: CBC, BMP 06/04/17 07:40 06/04/17 07:40 Imaging - Results Chest X-ray: Report Reviewed, Image Reviewed EKG: Report Reviewed, Image Reviewed Problem List - Problems (1) Troponin level elevated Assessment/Plan: -patient with borderline troponins -case d/w cardiology, decreased from the outpatient -since was planning on outpatient cath and became symptomatic, plan for transfer to [facility] for cath Code(s): R74.8 - ABNORMAL LEVELS OF OTHER SERUM ENZYMES (2) CAD (coronary artery disease) Assessment/Plan: -with recent stents in April -continue aspirin and plavix -continue coreg and losartan Code(s): I25.10 - ATHSCL HEART DISEASE OF [place] CORONARY ARTERY W/O ANG PCTRS (3) CHF (congestive heart failure) Assessment/Plan: -not in exacerbation -continue torsemide Code(s): I50.9 - HEART FAILURE, UNSPECIFIED Qualifiers: Congestive heart failure type: diastolic Congestive heart failure chronicity: chronic Qualified Code(s): I50.32 - Chronic diastolic ( congestive) heart failure; I50.32 - Chronic diastolic (congestive) heart failure ; I50.32 - Chronic diastolic (congestive) heart failure; I50.32 - Chronic diastolic (congestive) heart failure (4) HTN (hypertension) Assessment/Plan: -elevated today, ? if white coat hypertension -continue coreg, losartan, and torsemide -if remains elevated, may need further adjustment Code(s): I10 - ESSENTIAL (PRIMARY) HYPERTENSION (5) HLD (hyperlipidemia) Assessment/Plan: -continue statin Code(s): E78.5 - HYPERLIPIDEMIA, UNSPECIFIED (6) GERD (gastroesophageal reflux disease) Assessment/Plan: -continue PPI -on omeprazole as an outpatient Code(s): K21.9 - GASTRO-ESOPHAGEAL REFLUX DISEASE WITHOUT ESOPHAGITIS Qualifiers: Esophagitis presence: without esophagitis Qualified Code(s): K21.9 - Gastro-esophageal reflux disease without esophagitis; K21.9 - Gastro- esophageal reflux disease without esophagitis; K21.9 - Gastro-esophageal reflux disease without esophagitis (7) Anxiety Assessment/Plan: -valium bid prn Code(s): F41.9 - ANXIETY DISORDER, UNSPECIFIED (8) Diabetes Assessment/Plan: -on metformin as an outpatient -holding since planning for cath -currently npo as may be transferred today -if not transferred for cath, diabetic diet Code(s): E11.9 - TYPE 2 DIABETES MELLITUS WITHOUT COMPLICATIONS Qualifiers: Diabetes mellitus type: type 2 Diabetes mellitus complication status: with kidney complications Diabetes mellitus complication detail: with chronic kidney disease Diabetes mellitus lobsterman insulin use: without lobsterman use Chronic kidney disease stage: stage 2 (mild) Qualified Code(s): E11.22 - Type 2 diabetes mellitus with diabetic chronic kidney disease ; E11.22 - Type 2 diabetes mellitus with diabetic chronic kidney disease; E11.22 - Type 2 diabetes mellitus with diabetic chronic kidney disease; E11.22 - Type 2 diabetes mellitus with diabetic chronic kidney disease; E11.22 - Type 2 diabetes mellitus with diabetic chronic kidney disease; N18.2 - Chronic kidney disease, stage 2 (mild); N18.2 - Chronic kidney disease, stage 2 (mild)
[2017-06-04] MEDS: CLOPIDOGREL BISULFATE 75 MG TABLET (FP) PO SCH (10:56)
[2017-06-04] MEDS: CARVEDILOL 3.125 MG TABLET (FP) PO SCH ×3 (11:59→21:50)
--- NOTE | 2017-06-04 16:47 | CON.CARD ---
Cardiology Consult (text) - Consultation Consultation Note: cc: palps hpi: 67 f hx dm, htn, hld, cad s/p inferior [place] 04/2017 with pci x2 (osh in [place]), dchf, svt here due to palps. Since last admit ticagrelor replaced with plavix with resolution of sob. lasix changed to torsemide 20 mg/daily and metoprolol switched to coreg in the setting of HR's in 40's. (Also with h/o transient heart block during inferior [place]) Had persistently elevated troponin (up to 0.9 last week) and has had plan for repeat cath as outpatient this saturday. yesterday had acute onset of palpitation, sensation of pounding rapid heart beat. sx's lasted for 3-4 hours. Initially associated with significant weakness and dizziness which improved after 30 min. No recurrence since yesterday. She has no cp, sob, loc, pnd, orthopnea, le edema. pmh: per hpi psh: pci social: ex tob fam: no premature cad/scd ros: per hpi; no nvd, f/c/s, esparza, vision changes, rash, gib, muscle pains meds: Ambulatory Orders Aspirin [Aspirin EC] 81 mg PO DAILY 05/05/17 Atorvastatin Ca [Lipitor] 40 mg PO HS 05/05/17 Diazepam 2 mg PO BID PRN 05/05/17 Omeprazole 40 mg PO DAILY 05/05/17 Zolpidem Tartrate [Ambien] 10 mg PO HS 05/05/17 Metformin HCl [Metformin HCl ER] 500 mg PO BID #60 tab 05/15/17 Carvedilol [Coreg -] 3.125 mg PO BID 06/04/17 Clopidogrel Bisulfate [Plavix -] 75 mg PO DAILY 06/04/17 Losartan Potassium 100 mg PO DAILY 06/04/17 --> on 25 mg/day Torsemide 40 mg PO DAILY 06/04/17 --> on 20 mg/day Current Medications Aspirin (Ecotrin -) 81 mg PO DAILY [facility] Last Admin: 06/04/17 09:47 Dose: 81 mg Atorvastatin Calcium (Lipitor -) 40 mg PO [facility] Carvedilol (Coreg -) 3.125 mg PO BID [facility] Last Admin: 06/04/17 11:59 Dose: Not Given Clopidogrel Bisulfate (Plavix -) 75 mg PO DAILY [facility] Last Admin: 06/04/17 10:56 Dose: 75 mg Diazepam (Valium -) 2 mg PO BID PRN PRN Reason: ANXEITY Losartan Potassium (Cozaar -) 100 mg PO DAILY [facility] Last Admin: 06/04/17 09:47 Dose: 100 mg Pantoprazole Sodium (Protonix -) 40 mg PO DAILY [facility] Last Admin: 06/04/17 09:47 Dose: 40 mg Torsemide (Demadex -) 40 mg PO DAILY [facility] Last Admin: 06/04/17 09:47 Dose: 40 mg Zolpidem Tartrate (Ambien -) 5 mg PO HS PRN Vital Signs - 24 hr 06/03/17 06/04/17 06/04/17 21:11 00:45 06:00 Temperature 97.1 F L 97.8 F Pulse Rate 64 64 Pulse Rate [ 58 L Apical] Respiratory 14 18 20 Rate Blood Pressure 121/70 153/72 Blood Pressure 119/45 [Left Arm] O2 Sat by Pulse 95 96 97 Oximetry (%) 06/04/17 06/04/17 06/04/17 06:01 07:20 14:00 Temperature 97.8 F 98.3 F 97.8 F Pulse Rate 64 58 L 50 L Pulse Rate [ Apical] Respiratory 20 18 Rate Blood Pressure 153/72 154/57 145/81 Blood Pressure [Left Arm] O2 Sat by Pulse 98 Oximetry (%) Intake & Output 06/02/17 06/03/17 06/04/17 06/05/17 07:59 07:59 07:59 07:59 Intake Total 240 Balance 240 Weight 164 lb 2 oz nad no jvd rrr s1s2 no mrg pmi nd cta bl nl eff aaox3 no le edema c/c abd nt nd pos bs no jaundice diaphoresis pos dp pt no carotid bruits CBC, BMP 06/04/17 07:40 06/04/17 07:40 Laboratory Tests 06/03/17 06/03/17 06/04/17 21:50 21:50 07:40 Troponin I 0.13 H 0.12 H B-Natriuretic Peptide 3226.15 H cta chest 05/2017: no pe, no chf, ?infiltrates vs atx ecg SB 55 bpm. diffuse twi, slightly less prominent than priors. tele: sr/sb, 50's-60's echo 05/2017: nl lv/rv, no sig valve path a/p: 67 f hx dm, htn, hld, cad s/p inferior [place] 04/2017 with pci x2 (osh in [place]), dchf, svt here due to palps. SVT - on prior admit had wide complex rhythm with features most consistent with svt with aberrancy. Asx at that time. Now with recurrence of palps - this time with sx's in setting of chronically elevated troponin. - May have been triggered by recently switching metoprolol to coreg (due to SB in the 40s -asx, but patient also with transient heart block during recent inferior [place]) - Would monitor on telemetry for 24 hours to evaluate for recurrence of SVT. If no recurrence, OK to d/c tomorrow am. patient has cath scheduled for Saturday and can be set up to see EP as outpatient. However, if pt shows significant burden of SVT, would recommend continued inpatient mgm't. chronic diastolic chf: -recent echo unremarkable - ticagrelor may have been exacerbating sob on recent admits for chf exacerbation. -currently no signs chf, vol stable. Ok to decrease torsemide dose to outpatient dose of 20 mg. htn: -uptitration of regimen as needed. hld: -cont home statin cad s/p mi, pci: -recent mi/pci 04/2017, cont asa, plavix uninterrupted - recently ticagrelor replaced with plavix with resolution of prior sob sx's. - Despite being asx, has had persistent troponin elevation (up to 0.9 as outpatient last week). Has plan for further evaluation with cath as outpatient on saturday. Currently troponins at baseline and improved in comparison to last week. No acute ischemic changes on ekg. -cont bb, statin -recent echo here unremarkable
[2017-06-04] MEDS ORDERED: METOPROLOL TARTRATE 5 MG/5 ML VIAL IVPUSH PRN (21:59)
[2017-06-04] MEDS ORDERED: ATORVASTATIN CA 40 MG TABLET (FP) PO SCH (22:00)
[2017-06-05 07:18] LABS: EOSINOPHIL 2.8 % (0-4.5); MCH 29.4 pg (25.7-33.7); MCHC 32.7 g/dl (32.0-36.0); MEAN PLT VOLUME 9.6 fl (7.5-11.1); NEUTROPHILS 56.6 % (42.8-82.8); PLATELET COUNT 192 K/MM3 (134-434); RDW 15.4 % (11.6-15.6); WHITE BLOOD COUNT 6.4 K/mm3 (4.0-10.0)
[2017-06-05 07:53] LABS: ANION GAP 7 (8-16); CALCIUM 8.7 mg/dL (8.5-10.1); CO2 32 mmol/L (21-32); CREATININE 1.1 mg/dL (0.55-1.02); GLUCOSE,RANDOM 127 mg/dL (74-106); MAGNESIUM 2.2 mg/dL (1.8-2.4); PHOSPHOROUS 3.5 mg/dL (2.5-4.9)
[2017-06-05] MEDS ORDERED: LOSARTAN POTASSIUM 50 MG TABLET (FP) PO SCH (10:00)
[2017-06-05] MEDS ORDERED: TORSEMIDE 20 MG TABLET (FP) PO SCH (10:00)
[2017-06-05] MEDS: CLOPIDOGREL BISULFATE 75 MG TABLET (FP) PO SCH (10:05)
[2017-06-05] MEDS: CARVEDILOL 3.125 MG TABLET (FP) PO SCH (10:05)
[2017-06-05] MEDS: PANTOPRAZOLE 40 MG TABLET (FP) PO SCH (10:05)
[2017-06-05] MEDS: ASPIRIN COATED 81 MG TABLET.EC PO SCH (10:11)
--- NOTE | 2017-06-05 11:15 | PN ---
Progress Note (short form) - Note Progress Note: s: no cp sob palps dizzy; pt asking to go home today o: Vital Signs Period Temp Pulse Resp BP Sys/Raymond Pulse Ox Last 24 Hr 97.8 F-98.2 F 50-140 14-18 104-150/56-91 93 nad no jvd rrr s1s2 no mrg pmi nd cta bl nl eff aaox3 no le edema c/c abd nt nd pos bs no jaundice diaphoresis Current Medications Generic Name Dose Route Start Last Admin Trade Name Freq PRN Reason Stop Dose Admin Aspirin 81 mg 06/04/17 10:00 06/05/17 10:11 Ecotrin - PO 81 mg DAILY BRADLEY Administration Atorvastatin Calcium 40 mg 06/04/17 22:00 06/04/17 21:24 Lipitor - PO 40 mg HS BRADLEY Administration Carvedilol 3.125 mg 06/04/17 11:00 06/05/17 10:05 Coreg - PO 3.125 mg BID BRADLEY Administration Clopidogrel Bisulfate 75 mg 06/04/17 10:00 06/05/17 10:05 Plavix - PO 75 mg DAILY BRADLEY Administration Diazepam 2 mg 06/04/17 07:18 Valium - PO BID PRN ANXEITY Losartan Potassium 50 mg 06/05/17 10:00 06/05/17 10:06 Cozaar - PO 50 mg DAILY BRADLEY Administration Metoprolol Tartrate 5 mg 06/04/17 21:59 06/04/17 22:59 Lopressor Injection - IVPUSH 5 mg Q4H PRN Administration HR > 130, SBP > 100 Pantoprazole Sodium 40 mg 06/04/17 10:00 06/05/17 10:05 Protonix - PO 40 mg DAILY BRADLEY Administration Torsemide 20 mg 06/05/17 10:00 06/05/17 10:05 Demadex - PO 20 mg DAILY BRADLEY Administration Zolpidem Tartrate 5 mg 06/04/17 09:07 06/05/17 00:00 Ambien - PO 5 mg HS PRN Administration CBC, BMP 06/05/17 05:10 06/05/17 05:10 cta chest 05/2017: no pe, no chf, ?infiltrates vs atx ecg SB 55 bpm. diffuse twi, slightly less prominent than priors. tele: sr/sb, 50's-60's, episode of svt last evening echo 05/2017: nl lv/rv, no sig valve path a/p: 67 f hx dm, htn, hld, cad s/p inferior DC 04/2017 with pci x2 (osh in [place]), dchf, svt here due to palps. SVT - on prior admit had wide complex rhythm with features most consistent with svt with aberrancy. Asx at that time. Now with recurrence of palps and tele showing episodes of svt - May have been triggered by recently switching metoprolol to coreg (due to SB in the 40's -asx, but patient also with transient heart block during recent inferior DC) - Pt had brief episode of svt last night, hemodynamically stable during. Currently in sr. Would monitor on tele today and if no significant svt recurrence ok for dc later today. - patient has cath scheduled for Saturday and can be set up to see EP as outpatient for svt. chronic diastolic chf: -recent echo unremarkable - ticagrelor may have been exacerbating sob on recent admits for chf exacerbation. -currently no signs chf, vol stable. Ok to decrease torsemide dose to outpatient dose of 20 mg. htn: -uptitration of regimen as needed. hld: -cont home statin cad s/p mi, pci: -recent mi/pci 04/2017, cont asa, plavix uninterrupted - recently ticagrelor replaced with plavix with resolution of prior sob sx's. - Despite being asx, has had persistent troponin elevation (up to 0.9 as outpatient last week). Has plan for further evaluation with cath as outpatient on saturday. Currently troponins at baseline and improved in comparison to last week. No acute ischemic changes on ekg. -cont bb, statin -recent echo here unremarkable
--- NOTE | 2017-06-05 12:32 | DS ---
Physical Examination Vital Signs: Vital Signs Temperature 36.6 C 06/05/17 08:10 Pulse Rate 72 06/05/17 08:10 Respiratory Rate 14 06/05/17 11:59 Blood Pressure 104/66 06/05/17 08:10 O2 Sat by Pulse Oximetry (%) 96 06/05/17 11:59 Constitutional: Yes: Well Nourished, No Distress, Calm Cardiovascular: Yes: Regular Rate and Rhythm. No: Gallop, Murmur, Rub Respiratory: Yes: Regular, CTA Bilaterally. No: Rales, Rhonchi, Wheezes Gastrointestinal: Yes: Normal Bowel Sounds, Soft. No: Distention, Tenderness Extremities: Yes: WNL Edema: No Labs: CBC, BMP 06/05/17 05:10 06/05/17 05:10 Discharge Summary Reason For Visit: TROPONIN LEVEL ELEVATED Current Active Problems Anxiety (Acute) CAD (coronary artery disease) (Acute) Diabetes (Acute) GERD (gastroesophageal reflux disease) (Acute) HLD (hyperlipidemia) (Acute) HTN (hypertension) (Acute) Troponin level elevated (Acute) Hospital Course: Ms Martins is a very pleasant 67 year old female who comes in with palpitations. She was admitted for observation and possible transfer. She had cardiac enzymes checked, her troponin was elevated but lower than when last checked as an outpatient. Her losartan and torsemide were decreased this admission. She is currently asymptomatic and safe for discharge. She has outpatient cardiac catheterization scheduled for Saturday. Condition: Good - Instructions Diet, Activity, Other Instructions: resume previous diet and activity Referrals: Leah Mott MD [Non Staff, Medical] - Alia Hess MD [Staff Physician] - Disposition: HOME - Home Medications Comprehensive Discharge Medication List: Ambulatory Orders Aspirin [Aspirin EC] 81 mg PO DAILY 05/05/17 Atorvastatin Ca [Lipitor] 40 mg PO HS 05/05/17 Diazepam 2 mg PO BID PRN 05/05/17 Omeprazole 40 mg PO DAILY 05/05/17 Zolpidem Tartrate [Ambien] 10 mg PO HS 05/05/17 Metformin HCl [Metformin HCl ER] 500 mg PO BID #60 tab 05/15/17 Carvedilol [Coreg -] 3.125 mg PO BID 06/04/17 Clopidogrel Bisulfate [Plavix -] 75 mg PO DAILY 06/04/17 Losartan Potassium [Cozaar -] 50 mg PO DAILY #30 tablet 06/05/17 Torsemide [Demadex -] 20 mg PO DAILY #30 tablet 06/05/17
[2017-06-05 15:09] VITALS: BP 129/69; PULSE 76; TEMP 98.6
== END 2017-06-05 17:14 | disposition home or self-care (01) ==
LOC: JER 20:57 → INTOOBSV 06-04 00:19 → JERBED 06-04 00:19 → UNDOADMOB 06-04 00:19 → JERBED 06-04 00:26 → UNDOADMIN 06-04 00:26 → JERBED 06-04 03:58 → J4W 06-04 03:58 → JERBED 06-04 07:19 → J4W 06-04 07:19
PROVIDERS: ADMIT Internal Medicine; ATTEND Internal Medicine
DX: R77.8 Other specified abnormalities of plasma proteins (principal); I25.10 Atherosclerotic heart disease of native coronary artery without angina pectoris; I50.32 Chronic diastolic (congestive) heart failure; I25.2 Old myocardial infarction; E78.5 Hyperlipidemia, unspecified; I12.9 Hypertensive chronic kidney disease with stage 1 through stage 4 chronic kidney disease, or unspecified chronic kidney disease; E11.22 Type 2 diabetes mellitus with diabetic chronic kidney disease; N18.2 Chronic kidney disease, stage 2 (mild); K21.9 Gastro-esophageal reflux disease without esophagitis; F41.9 Anxiety disorder, unspecified; Z87.891 Personal history of nicotine dependence; Z79.84 Long term (current) use of oral hypoglycemic drugs; Z88.0 Allergy status to penicillin; Z88.2 Allergy status to sulfonamides; Z88.6 Allergy status to analgesic agent; Z95.5 Presence of coronary angioplasty implant and graft; Z79.82 Long term (current) use of aspirin
CPT/HCPCS: 36415; 71010-TC; 80048; 80053; 83735; 83880; 84100; 84484; 85025; 85610; 93005; 93010; 99285-25; G0378

== ENCOUNTER 2018-02-05 04:05 | Emergency (ER) | payer BC, OTHER ==
[2018-02-05 04:29] VITALS: BMI 36.8
[2018-02-05] MEDS ORDERED: SODIUM CHLORIDE 1,000 ML IV STA (04:36)
[2018-02-05 04:50] LABS: BASO % 0.6 % (0-2.0); EOS % 3.9 % (0-4.5); HEMATOCRIT 38.2 % (32.4-45.2); HEMOGLOBIN 12.8 GM/dL (10.7-15.3); LYMPH % 23.1 % (8-40); MCH 29.4 pg (25.7-33.7); MCHC 33.4 g/dl (32.0-36.0); MEAN PLT VOLUME 9.7 fl (7.5-11.1); NEUT % 65.4 % (42.8-82.8); PLATELET COUNT 244 K/MM3 (134-434); RBC 4.34 M/mm3 (3.60-5.2); RDW 14.5 % (11.6-15.6); WHITE BLOOD COUNT 9.1 K/mm3 (4.0-10.0)
--- NOTE | 2018-02-05 04:51 | PDOC ---
History of Present Illness - General Chief Complaint: Irregular Heart Beat Stated Complaint: RAPID HEART RATE Time Seen by Provider: 02/05/18 04:14 History Source: Patient - History of Present Illness Presenting Symptoms: Other (palpitations) Timing/Duration: reports: constant Past History - Past Medical History Allergies/Adverse Reactions: Allergies Allergy/AdvReac Type Severity Reaction Status Date / Time acetaminophen [From Tylenol] Allergy Verified 02/05/18 04:22 diphenhydramine HCl Allergy Verified 02/05/18 04:22 [From Benadryl] Penicillins Allergy Verified 02/05/18 04:22 Sulfa (Sulfonamide Allergy Verified 02/05/18 04:22 Antibiotics) Home Medications: Ambulatory Orders Aspirin [Aspirin EC] 81 mg PO DAILY 05/05/17 Diazepam 2 mg PO BID PRN 05/05/17 Omeprazole 40 mg PO DAILY 05/05/17 Carvedilol [Coreg -] 3.125 mg PO BID 06/04/17 Clopidogrel Bisulfate [Plavix -] 75 mg PO DAILY 06/04/17 Atorvastatin Ca [Lipitor] 40 mg PO HS #30 tab 06/05/17 Torsemide [Demadex -] 20 mg PO DAILY #30 tablet 06/05/17 Amlodipine Besylate [Norvasc -] 5 mg PO DAILY 02/05/18 Losartan Potassium [Cozaar -] 50 mg PO BID 02/05/18 Metformin HCl [Metformin HCl ER] 1,000 mg PO BID 02/05/18 Metoprolol Succinate [Toprol Xl -] 25 mg PO DAILY 02/05/18 traZODone HCL [Desyrel -] 50 mg PO HS 02/05/18 Cardiac Disorders: Yes (2 stents, CHF,[place]) COPD: No CHF: Yes Diabetes: Yes HTN: Yes - Surgical History Cardiac Surgery: Yes - Immunization History Immunization Up to Date: No - Suicide/Smoking/Psychosocial Hx Smoking History: Never smoked Have you smoked in the past 12 months: No Number of Cigarettes Smoked Daily: 10 If you are a former smoker, when did you quit?: 1month Information on smoking cessation initiated: No 'Breaking Loose' booklet given: 05/15/17 Hx Alcohol Use: No Drug/Substance Use Hx: No Substance Use Type: None Hx Substance Use Treatment: No Review of Systems - Review of Systems Constitutional: No: Chills, Fever Respiratory: No: Shortness of Breath Cardiac (ROS): No: Chest Pain, Lightheadedness, Palpitations, Syncope ABD/GI: No: Nausea, Vomiting *Physical Exam - Vital Signs Last Vital Signs Temp Pulse Resp BP Pulse Ox 97.9 F 60 21 100/70 99 02/05/18 04:22 02/05/18 06:17 02/05/18 06:17 02/05/18 06:17 02/05/18 06:17 - Physical Exam General Appearance: Yes: Appropriately Dressed. No: Apparent Distress HEENT: positive: Normal Voice Neck: positive: Supple Respiratory/Chest: positive: Lungs Clear, Normal Breath Sounds Cardiovascular: positive: Tachycardia Gastrointestinal/Abdominal: positive: Soft. negative: Tender Extremity: negative: Pedal Edema Integumentary: positive: Dry, Warm Neurologic: positive: Fully Oriented, Alert, Normal Mood/Affect ED Treatment Course - LABORATORY CBC & Chemistry Diagram: 02/05/18 04:42 02/05/18 04:42 - ADDITIONAL ORDERS Additional order review: Laboratory Results 02/05/18 02/05/18 04:42 04:42 Sodium 140 Potassium 3.6 Chloride 103 Carbon Dioxide 27 Anion Gap 10 BUN 32 H Creatinine 1.4 H Creat Clearance w eGFR 37.74 Random Glucose 156 H Calcium 8.7 Total Bilirubin 0.3 AST 24 ALT 51 Alkaline Phosphatase 128 H Creatine Kinase 152 Creatine Kinase Index 0.6 CK-MB (CK-2) 0.93 Troponin I < 0.02 B-Natriuretic Peptide 232.64 H Total Protein 6.7 Albumin 3.4 02/05/18 04:42 RBC 4.34 MCV 88.0 MCHC 33.4 RDW 14.5 MPV 9.7 Neutrophils % 65.4 Lymphocytes % 23.1 D Monocytes % 7.0 Eosinophils % 3.9 Basophils % 0.6 - RADIOLOGY Radiology Studies Ordered: Category Date Time Status CHEST X-RAY PORTABLE* [RAD] Stat Radiology 02/05/18 04:35 Ordered - Medications Given in the ED: ED Medications Discontinued Medications Generic Name Dose Route Start Last Admin Trade Name Freq PRN Reason Stop Dose Admin Adenosine 12 mg 02/05/18 05:06 02/05/18 05:08 Adenocard - IVPUSH 02/05/18 05:07 12 mg ONCE ONE Administration Adenosine 12 mg 02/05/18 05:18 02/05/18 05:35 Adenocard - IVPUSH 02/05/18 05:19 12 mg ONCE ONE Administration Sodium Chloride 1,000 mls @ 1,000 mls/hr 02/05/18 04:36 02/05/18 05:00 Normal Saline - IV 02/05/18 05:35 1,000 mls/hr ASDIR STA Administration Labetalol HCl 5 mg 02/05/18 05:40 02/05/18 05:51 Normodyne Injection - IVPUSH 02/05/18 05:41 Not Given ONCE ONE Medical Decision Making - Medical Decision Making 02/05/18 04:47 67 yo F, h/o anxiety, DM, HTN, HLD, CAD s/p inferior [place] (04/18) w/ PCI x 2 (in [place] ), CHF on torsemide, SVT on coreg, ?failed ablation a year ago at [facility] per pt and states she refused a 2nd procedure at [facility], p/w palpitations and sensation of "heart pounding in my throat" this am. States sxs began this am. No sob, CP, dizziness or syncope See exam SVT H/o same On coreg Tachy to 160s on monitor w/ SVT on ekg Vagal maneuver attempted and failed per ED attg -adenosine,reassess -cxr -labs -cars c/s -admit 02/05/18 05:38 Pt s/p 2nd dose of 12mg adenosine and converted to sinus rhythm at 68 BPM. Pt reports feeling better at this time. Labs unremarkable. Will discuss dispo w/ Dr Hess 02/05/18 06:10 02/05/18 06:50 Pt signed out to TAY Zelaya pending call back from Dr. Hess to discuss disposition *DC/Admit/Observation/Transfer Diagnosis at time of Disposition: SVT (supraventricular tachycardia) - Referrals Referrals: Georgia Erwin MD [Primary Care Provider] - - Patient Instructions - Post Discharge Activity
[2018-02-05] MEDS ORDERED: ADENOSINE 6 MG/2 ML VIAL IVPUSH ONE ×4 (05:05→05:22)
[2018-02-05 05:12] LABS: ALBUMIN 3.4 g/dl (3.4-5.0); ANION GAP 10 (8-16); BILIRUBIN,TOTAL 0.3 mg/dL (0.2-1.0); BLOOD UREA NITROGEN 32 mg/dL (7-18); CALCIUM 8.7 mg/dL (8.5-10.1); CHLORIDE 103 mmol/L (98-107); CO2 27 mmol/L (21-32); CREATININE 1.4 mg/dL (0.55-1.02); GLUCOSE,RANDOM 156 mg/dL (74-106); POTASSIUM 3.6 mmol/L (3.5-5.1); SGOT/AST 24 U/L (15-37); SGPT/ALT 51 U/L (12-78); SODIUM 140 mmol/L (136-145); TOT PROT 6.7 g/dl (6.4-8.2)
[2018-02-05 05:14] LABS: ALK PHOS 128 U/L (45-117)
[2018-02-05] MEDS ORDERED: METOPROLOL TARTRATE 5 MG/5 ML VIAL ONE (05:36)
[2018-02-05] MEDS ORDERED: LABETALOL HCL 5 MG/1 ML (100MG/20 ML VIAL) IVPUSH ONE (05:40)
--- NOTE | 2018-02-05 07:35 | PDOC ---
ED Treatment Course - LABORATORY CBC & Chemistry Diagram: 02/05/18 04:42 02/05/18 04:42 - ADDITIONAL ORDERS Additional order review: Laboratory Results 02/05/18 02/05/18 04:42 04:42 Sodium 140 Potassium 3.6 Chloride 103 Carbon Dioxide 27 Anion Gap 10 BUN 32 H Creatinine 1.4 H Creat Clearance w eGFR 37.74 Random Glucose 156 H Calcium 8.7 Total Bilirubin 0.3 AST 24 ALT 51 Alkaline Phosphatase 128 H Creatine Kinase 152 Creatine Kinase Index 0.6 CK-MB (CK-2) 0.93 Troponin I < 0.02 B-Natriuretic Peptide 232.64 H Total Protein 6.7 Albumin 3.4 02/05/18 04:42 RBC 4.34 MCV 88.0 MCHC 33.4 RDW 14.5 MPV 9.7 Neutrophils % 65.4 Lymphocytes % 23.1 D Monocytes % 7.0 Eosinophils % 3.9 Basophils % 0.6 - Medications Given in the ED: ED Medications Discontinued Medications Generic Name Dose Route Start Last Admin Trade Name Freq PRN Reason Stop Dose Admin Adenosine 12 mg 02/05/18 05:06 02/05/18 05:08 Adenocard - IVPUSH 02/05/18 05:07 12 mg ONCE ONE Administration Adenosine 12 mg 02/05/18 05:18 02/05/18 05:35 Adenocard - IVPUSH 02/05/18 05:19 12 mg ONCE ONE Administration Sodium Chloride 1,000 mls @ 1,000 mls/hr 02/05/18 04:36 02/05/18 05:00 Normal Saline - IV 02/05/18 05:35 1,000 mls/hr ASDIR STA Administration Labetalol HCl 5 mg 02/05/18 05:40 02/05/18 05:51 Normodyne Injection - IVPUSH 02/05/18 05:41 Not Given ONCE ONE Progress Note - Progress Note Progress Note: I have received report from TAY Hernandez regarding this patient. Pt's initial chief complaint: palpitations Pt's work up completed prior to sign out: labs, EKG Pt treatment given from prior staff: Adenosine Pt plan to be completed: Call back from Dr. Hess to discuss disposition Dispo: Pending Medical Decision Making - Medical Decision Making A/P: 67 y/o female with PMH anxiety, DM, HTN, HLD, CAD s/p inferior [place] (04/18) with PCI x 2, CHF on torsemide, SVT on coreg with failed ablation c/o palpitations. The patient has been examined by TAY Hernandez. She was in SVT and was given 2 doses of adenosine and SVT was finally broken. Patient is now in NSR. Awaiting for call back from Dr. Hess to discuss disposition. Spoke with Dr. Douglass, certified professional coder for Dr. eHss. He does not feel there is any reason to keep the patient in the hospital, given she has a history of SVT and cannot increase her Coreg dose secondary to low BP issues. She has been in NSR for almost 3 hours now. he suggests she be discharged and call the office this morning to schedule follow up appointment. The patient was given the instructions and is ok with the plan. She states she will call the office today. Patient instructed to continue taking her Coreg and all medications as prescribed and return to the ER with any worsening or concerning symptoms. The patient verbalizes understanding of all instructions, has no further questions and is awaiting discharge. *DC/Admit/Observation/Transfer Diagnosis at time of Disposition: SVT (supraventricular tachycardia) - Discharge Dispostion Disposition: HOME Condition at time of disposition: Improved - Referrals Referrals: Georgia Erwin MD [Primary Care Provider] - Alia Hess MD [Staff Physician] - (Please call the office this morning and schedule a follow up appointment) - Patient Instructions Printed Discharge Instructions: DI for Arrhythmias Additional Instructions: Discharge Instructions: -Continue taking all of your medications as prescribed -Please call Dr. Hess's office THIS MORNING to schedule a follow up appointment -return to the ER immediately with any worsening or concerning symptoms - Post Discharge Activity
[2018-02-05 08:32] VITALS: BP 107/66; PULSE 66; TEMP 98.6
--- NOTE | 2018-02-05 11:52 | EKG ---
Test Reason : Blood Pressure : / mmHG Vent. Rate : 158 BPM Atrial Rate : 082 BPM P-R Int : 000 ms QRS Dur : 130 ms QT Int : 338 ms P-R-T Axes : 000 -06 158 degrees QTc Int : 548 ms UNDETERMINED RHYTHM wide complex tachycardia CANNOT RULE OUT ANTERIOR INFARCT , AGE UNDETERMINED MARKED T-WAVE ABNORMALITY, CONSIDER INFEROLATERAL ISCHEMIA ABNORMAL ECG WHEN COMPARED WITH ECG OF 03-JUN-2017 23:55, SIGNIFICANT CHANGES HAVE OCCURRED Confirmed by MAXINE ROSALES, LACEY ([id number]) on 02/05/2018 11:52:41 AM Referred By: Confirmed By:LACEY GOODMAN MD
--- NOTE | 2018-02-05 11:53 | EKG ---
Test Reason : Blood Pressure : / mmHG Vent. Rate : 068 BPM Atrial Rate : 068 BPM P-R Int : 148 ms QRS Dur : 074 ms QT Int : 396 ms P-R-T Axes : 050 008 069 degrees QTc Int : 421 ms NORMAL SINUS RHYTHM LOW VOLTAGE QRS NONSPECIFIC ST ABNORMALITY ABNORMAL ECG WHEN COMPARED WITH ECG OF 05-FEB-2018 04:25, PREVIOUS ECG HAS UNDETERMINED RHYTHM, NEEDS REVIEW QRS DURATION HAS DECREASED ST NO LONGER DEPRESSED IN LATERAL LEADS T WAVE INVERSION NO LONGER EVIDENT IN LATERAL LEADS Confirmed by MAXINE ROSALES, LACEY ([id number]) on 02/05/2018 11:52:52 AM Referred By: Confirmed By:LACEY GOODMAN MD
== END 2018-02-05 08:29 | disposition home or self-care (01) ==
LOC: JER 04:05
PROC: 3E033GC Introduction of Other Therapeutic Substance into Peripheral Vein, Percutaneous Approach (ICD-10-PCS; principal; 2018-02-05)
PROC: 3E0337Z Introduction of Electrolytic and Water Balance Substance into Peripheral Vein, Percutaneous Approach (ICD-10-PCS; 2018-02-05)
DX: I47.1 Supraventricular tachycardia (principal); E11.9 Type 2 diabetes mellitus without complications; I10 Essential (primary) hypertension; E78.5 Hyperlipidemia, unspecified; I25.10 Atherosclerotic heart disease of native coronary artery without angina pectoris; I25.2 Old myocardial infarction
CPT/HCPCS: 36415; 80053; 82550; 82553; 83880; 84484; 85025; 93005; 93010; 96361; 96374; 96376; 99285-25; J7030

== ENCOUNTER 2018-02-14 23:31 | Inpatient (IN) | payer BC, OTHER ==
[2018-02-14] MEDS ORDERED: SODIUM CHLORIDE 1,000 ML IV STA (23:58)
[2018-02-15 00:22] LABS: BASO % 1.1 % (0-2.0); EOS % 2.1 % (0-4.5); HEMATOCRIT 38.3 % (32.4-45.2); HEMOGLOBIN 12.7 GM/dL (10.7-15.3); LYMPH % 32.4 % (8-40); MCH 29.3 pg (25.7-33.7); MCHC 33.3 g/dl (32.0-36.0); MEAN CELL VOLUME 88.2 fl (80-96); MEAN PLT VOLUME 9.8 fl (7.5-11.1); MONO % 6.6 % (3.8-10.2); NEUT % 57.8 % (42.8-82.8); PLATELET COUNT 234 K/MM3 (134-434); RBC 4.35 M/mm3 (3.60-5.2); RDW 14.6 % (11.6-15.6); WHITE BLOOD COUNT 8.7 K/mm3 (4.0-10.0)
[2018-02-15] MEDS ORDERED: METOPROLOL TARTRATE 5 MG/5 ML VIAL IVPUSH ONE (00:29)
[2018-02-15] MEDS ORDERED: METOPROLOL TARTRATE 50 MG TABLET (FP) PO ONE (00:31)
[2018-02-15 00:33] LABS: INR 1.11 (0.82-1.09); PROTHROMBIN TIME (PATIENT) 12.5 SEC (9.7-13.0)
[2018-02-15 00:42] LABS: ANION GAP 7 (8-16); BLOOD UREA NITROGEN 37 mg/dL (7-18); CALCIUM 8.9 mg/dL (8.5-10.1); CHLORIDE 103 mmol/L (98-107); CO2 31 mmol/L (21-32); CREATININE 2.3 mg/dL (0.55-1.02); GLUCOSE,RANDOM 101 mg/dL (74-106); POTASSIUM 3.8 mmol/L (3.5-5.1); SODIUM 141 mmol/L (136-145)
[2018-02-15 00:43] LABS: N-TERMINAL BNP 2088.25 pg/ml (5-125)
[2018-02-15] MEDS ORDERED: METOPROLOL TARTRATE 5 MG/5 ML VIAL ONE (00:44)
[2018-02-15] MEDS ORDERED: METOPROLOL TARTRATE 50 MG TABLET (FP) ONE (00:44)
--- NOTE | 2018-02-15 00:53 | PDOC ---
History of Present Illness - General History Source: Patient Exam Limitations: No Limitations - History of Present Illness Initial Comments: 02/15/18 00:57 The patient is a 67 year old female with a significant PMH of diabetes, hypertension, hyperlipidemia, CHF, and cardiac disease who presents to the emergency department via EMS with an irregular heartbeat since earlier today. The patient reports that she had an onset of fast heartbeat earlier today when she was at home. She denies any symptoms associated with her fast heartbeat. The patient reports that she has had an issue with black mold in her bathroom at home. She is concerned that this may be the cause of her symptom. The patient denies any chest pain, shortness of breath, headache and dizziness. She denies any fever, chills, nausea, vomit, diarrhea, constipation or urinary symptoms. The patient denies any other complaints. PCP:Dr. Erwin <Giulia Zheng - Last Filed: 02/15/18 00:57> <Angelic Matthews - Last Filed: 02/15/18 02:22> - General Chief Complaint: Irregular Heart Beat Stated Complaint: DIFF. BREATHING Time Seen by Provider: 02/14/18 23:55 Past History <Giulia Zheng - Last Filed: 02/15/18 00:57> - Past Medical History Cardiac Disorders: Yes (2 stents, CHF,[place]) COPD: No CHF: Yes Diabetes: Yes HTN: Yes - Surgical History Cardiac Surgery: Yes - Immunization History Immunization Up to Date: No - Suicide/Smoking/Psychosocial Hx Smoking History: Former smoker Have you smoked in the past 12 months: No Number of Cigarettes Smoked Daily: 10 If you are a former smoker, when did you quit?: 1month Information on smoking cessation initiated: No 'Breaking Loose' booklet given: 05/15/17 Hx Alcohol Use: No Drug/Substance Use Hx: No Substance Use Type: None Hx Substance Use Treatment: No <Angelic Matthews - Last Filed: 02/15/18 02:22> - Past Medical History Allergies/Adverse Reactions: Allergies Allergy/AdvReac Type Severity Reaction Status Date / Time acetaminophen [From Tylenol] Allergy Verified 02/14/18 23:40 diphenhydramine HCl Allergy Verified 02/14/18 23:40 [From Benadryl] Penicillins Allergy Verified 02/14/18 23:40 Sulfa (Sulfonamide Allergy Verified 02/14/18 23:40 Antibiotics) Home Medications: Ambulatory Orders Aspirin [Aspirin EC] 81 mg PO DAILY 05/05/17 Diazepam 2 mg PO BID PRN 05/05/17 Omeprazole 40 mg PO DAILY 05/05/17 Carvedilol [Coreg -] 3.125 mg PO BID 06/04/17 Clopidogrel Bisulfate [Plavix -] 75 mg PO DAILY 06/04/17 Atorvastatin Ca [Lipitor] 40 mg PO HS #30 tab 06/05/17 Torsemide [Demadex -] 20 mg PO DAILY #30 tablet 06/05/17 Amlodipine Besylate [Norvasc -] 5 mg PO DAILY 02/05/18 Losartan Potassium [Cozaar -] 50 mg PO BID 02/05/18 Metformin HCl [Metformin HCl ER] 1,000 mg PO BID 02/05/18 Metoprolol Succinate [Toprol Xl -] 100 mg PO BID 02/05/18 traZODone HCL [Desyrel -] 50 mg PO HS 02/05/18 Review of Systems - Review of Systems Able to Perform ROS?: Yes Comments:: 02/15/18 00:57 See HPI. All other systems reviewed and unremarkable <Giulia Zheng - Last Filed: 02/15/18 00:57> *Physical Exam - Vital Signs Last Vital Signs Temp Pulse Resp BP Pulse Ox 97.5 F L 156 H 22 109/91 97 02/14/18 23:42 02/14/18 23:42 02/14/18 23:42 02/14/18 23:42 02/14/18 23:42 - Physical Exam Comments: 02/15/18 00:58 General Physical Exam: NAD EOMI, KIRSTIE MMM, OP WNL NCAT, no midline cervical tenderness (+) mild crackles at base. RRR, nl s1/s2, no m/r/g CTABL, no w/r/r Soft, NTND No edema, WWP, no rash Neuro grossly intact, gait WNL, moving all 4 A&O x 3, mood/affect WNL. <Giulia Zheng - Last Filed: 02/15/18 00:57> - Vital Signs Last Vital Signs Temp Pulse Resp BP Pulse Ox 97.5 F L 156 H 22 109/91 97 02/14/18 23:42 02/14/18 23:42 02/14/18 23:42 02/14/18 23:42 02/14/18 23:42 <Angelic Matthews - Last Filed: 02/15/18 02:22> Heart Score/ECG Review - ECG Intrepretation Rhythm: Regular Rhythm - Warren Warren: Normal - P and MN Delta Wave(s) Present: No WPW: No - QRS Comment:: 02/15/18 00:49 wide complex regular tachycardia, QRS 126 seconds. regular lacking clear pwaves - ST and T Non Specific ST-T Wave changes: Yes - ECG Impressions Tachycardia: PSVT WPW: No Comment:: 02/15/18 00:51 SVT w/ aberrancy 02/15/18 00:51 <Angelic Matthews - Last Filed: 02/15/18 02:22> ED Treatment Course - LABORATORY CBC & Chemistry Diagram: 02/15/18 00:04 02/15/18 00:04 - ADDITIONAL ORDERS Additional order review: Laboratory Results 02/15/18 02/15/18 00:04 00:04 PT with INR 12.50 INR 1.11 PTT (Actin FS) 33.0 Sodium 141 Potassium 3.8 Chloride 103 Carbon Dioxide 31 Anion Gap 7 L BUN 37 H Creatinine 2.3 H Creat Clearance w eGFR 21.28 Random Glucose 101 Calcium 8.9 Creatine Kinase 92 Troponin I < 0.02 B-Natriuretic Peptide 2088.25 H 02/15/18 00:04 RBC 4.35 MCV 88.2 MCHC 33.3 RDW 14.6 MPV 9.8 Neutrophils % 57.8 Lymphocytes % 32.4 D Monocytes % 6.6 Eosinophils % 2.1 Basophils % 1.1 - Medications Given in the ED: ED Medications Discontinued Medications Generic Name Dose Route Start Last Admin Trade Name Freq PRN Reason Stop Dose Admin Sodium Chloride 1,000 mls @ 1,000 mls/hr 02/14/18 23:58 02/15/18 00:19 Normal Saline - IV 02/15/18 00:57 1,000 mls/hr ASDIR STA Administration Metoprolol Tartrate 100 mg 02/15/18 00:31 02/15/18 00:48 Lopressor - PO 02/15/18 00:32 100 mg ONCE ONE Administration <Giulia Zheng - Last Filed: 02/15/18 00:57> - LABORATORY CBC & Chemistry Diagram: 02/15/18 00:04 02/15/18 00:04 - ADDITIONAL ORDERS Additional order review: Laboratory Results 02/15/18 02/15/18 00:04 00:04 PT with INR 12.50 INR 1.11 PTT (Actin FS) 33.0 Sodium 141 Potassium 3.8 Chloride 103 Carbon Dioxide 31 Anion Gap 7 L BUN 37 H Creatinine 2.3 H Creat Clearance w eGFR 21.28 Random Glucose 101 Calcium 8.9 Creatine Kinase 92 Troponin I < 0.02 B-Natriuretic Peptide 2088.25 H 02/15/18 00:04 RBC 4.35 MCV 88.2 MCHC 33.3 RDW 14.6 MPV 9.8 Neutrophils % 57.8 Lymphocytes % 32.4 D Monocytes % 6.6 Eosinophils % 2.1 Basophils % 1.1 02/15/18 01:55 CARITO CHF exacerbation Laboratory Tests 02/05/18 02/05/18 02/15/18 04:42 04:42 00:04 BUN 32 H 37 H Creatinine 1.4 H 2.3 H Troponin I < 0.02 < 0.02 B-Natriuretic Peptide 232.64 H 2088.25 H - RADIOLOGY Radiology Studies Ordered: Category Date Time Status CHEST X-RAY PORTABLE* [RAD] Stat Radiology 02/14/18 23:58 Ordered - Medications Given in the ED: ED Medications Discontinued Medications Generic Name Dose Route Start Last Admin Trade Name Freq PRN Reason Stop Dose Admin Metoprolol Tartrate 100 mg 02/15/18 00:31 02/15/18 00:48 Lopressor - PO 02/15/18 00:32 100 mg ONCE ONE Administration <Angelic Matthews - Last Filed: 02/15/18 02:22> Medical Decision Making - Medical Decision Making 02/15/18 00:51 67yoF hx of recurrent presnetations for SVT w/ aberrancy, no hx of WPW, presnes w/ SOB all day today. Pt was surprised to learn that her HR was in the 150's. Pt is fixated on "black mold" in her bathroom causing SOB, does not believe that her tachycardia and CHF hx could be causing her SOB. After resolution of tachycardia in setting of home metoprolol administration, pt's SOB also resolved. - labs - ekg - cxr - laboratory monitor - home medications - hold IV metop for now as SVT broke - repeat EKG - likely admit 02/15/18 00:53 02/15/18 01:57 Pt w/ CARITO volume overload admit hospitalist. 02/15/18 02:08 repeat EKG after rate control: NSR, narrow complex, normal axis, normal intervals, TWI inferiorly without ischemic changes. <Angelic Matthews - Last Filed: 02/15/18 02:22> *DC/Admit/Observation/Transfer - Attestations Physician Attestion: 02/15/18 00:58 Documentation prepared by Giulia Zheng, acting as medical esthetician for Angelic Matthews MD. <Giulia Zheng - Last Filed: 02/15/18 00:57> - Discharge Dispostion Decision to Admit order: Yes <Angelic Matthews - Last Filed: 02/15/18 02:22> Diagnosis at time of Disposition: Shortness of breath, CHF (congestive heart failure), CARITO (acute kidney injury) - Referrals Referrals: Georgia Erwin MD [Primary Care Provider] - - Patient Instructions - Post Discharge Activity
[2018-02-15 00:56] LABS: URINE APPEARANCE CLEAR; URINE BILIRUBIN NEGATIVE (<2.0 mg/dL); URINE COLOR LTYELLOW; URINE GLUCOSE (UA) NEGATIVE (NEGATIVE); URINE KETONE NEGATIVE (NEGATIVE); URINE LEUK ESTERASE NEGATIVE (NEGATIVE); URINE NITRITE NEGATIVE (NEGATIVE); URINE PROTEIN NEGATIVE (NEGATIVE); URINE UROBILINOGEN NEGATIVE mg/dL (0.2-1.0)
--- NOTE | 2018-02-15 03:13 | HP ---
CHIEF COMPLAINT: Difficulty breathing x 1 day PCP: Dr Mccormick Cardiol: Dr Hess/ Dr Valdes HISTORY OF PRESENT ILLNESS: Pt is a 67 yo F with a signif PMHx of DM, HTN, HLD, CHF, and CAD (2 stents- apr 2017), BIBEMS with SOB and and racing heartbeat today. Pt does not use home oxygen, has no background lung dx, but noticed SOB after using her mouldy bathroom. She became anxious and noticed her heart racing. She has had racing heart beats in the past for which she takes metoprolol 50mg as needed. Pt usually takes metoprolol bid and as needed. She took her am dose but did not take a PRN dose prior to coming to the ED. In the ED she was noted to have an EKG showing likely SVT (154bpm) with abberancy. Prior to administration of her home metoprolol, the arrythmias broke and the patient returned to sinus bradycardia.Pt said last Au she had SOB with racing heart and ended up with 2 stents placed at [facility] in [place]. Pt denies cough, but endorses orthopnea and VALDEZ. She does not recall CHF in the past. No fevers, chest pain, dysuria or ER course was notable for: (1) (2) (3) Recent Travel: PAST MEDICAL HISTORY: PAST SURGICAL HISTORY: Social History: Smoking: Alcohol: Drugs: Family History: Allergies acetaminophen [From Tylenol] Allergy (Verified 02/14/18 23:40) diphenhydramine HCl [From Benadryl] Allergy (Verified 02/14/18 23:40) Penicillins Allergy (Verified 02/14/18 23:40) Sulfa (Sulfonamide Antibiotics) Allergy (Verified 02/14/18 23:40) HOME MEDICATIONS: Home Medications Medication Instructions Recorded Aspirin [Aspirin EC] 81 mg PO DAILY 05/05/17 Diazepam 2 mg PO BID PRN 05/05/17 Omeprazole 40 mg PO DAILY 05/05/17 Carvedilol [Coreg -] 3.125 mg PO BID 06/04/17 Clopidogrel Bisulfate [Plavix -] 75 mg PO DAILY 06/04/17 Atorvastatin Ca [Lipitor] 40 mg PO HS #30 tab 06/05/17 Torsemide [Demadex -] 20 mg PO DAILY #30 tablet 06/05/17 Amlodipine Besylate [Norvasc -] 5 mg PO DAILY 02/05/18 Losartan Potassium [Cozaar -] 50 mg PO BID 02/05/18 Metformin HCl [Metformin HCl ER] 1,000 mg PO BID 02/05/18 Metoprolol Succinate [Toprol Xl -] 100 mg PO BID 02/05/18 traZODone HCL [Desyrel -] 50 mg PO HS 02/05/18 REVIEW OF SYSTEMS CONSTITUTIONAL: Absent: fever, chills, diaphoresis, generalized weakness, malaise, loss of appetite, weight change HEENT: Absent: rhinorrhea, nasal congestion, throat pain, throat swelling, difficulty swallowing, mouth swelling, ear pain, eye pain, visual changes CARDIOVASCULAR: Absent: chest pain, syncope, palpitations, irregular heart rate, lightheadedness , peripheral edema RESPIRATORY: Absent: cough, shortness of breath, dyspnea with exertion, orthopnea, wheezing, stridor, hemoptysis GASTROINTESTINAL: Absent: abdominal pain, abdominal distension, nausea, vomiting, diarrhea, constipation, melena, hematochezia GENITOURINARY: Absent: dysuria, frequency, urgency, hesitancy, hematuria, flank pain, genital pain MUSCULOSKELETAL: Absent: myalgia, arthralgia, joint swelling, back pain, neck pain SKIN: Absent: rash, itching, pallor HEMATOLOGIC/IMMUNOLOGIC: Absent: easy bleeding, easy bruising, lymphadenopathy, frequent infections ENDOCRINE: Absent: unexplained weight gain, unexplained weight loss, heat intolerance, cold intolerance NEUROLOGIC: Absent: headache, focal weakness or paresthesias, dizziness, unsteady gait, seizure, mental status changes, bladder or bowel incontinence PSYCHIATRIC: Absent: anxiety, depression, suicidal or homicidal ideation, hallucinations. PHYSICAL EXAMINATION Vital Signs - 24 hr 02/14/18 02/14/18 02/15/18 23:38 23:42 01:14 Temperature 97.5 F L Pulse Rate 156 H Pulse Rate [ 58 L Apical] Respiratory 22 18 Rate Blood Pressure 109/91 Blood Pressure 94/60 [Right Arm] O2 Sat by Pulse 100 97 99 Oximetry (%) GENERAL: Awake, alert, and fully oriented, in no acute distress. HEAD: Normal with no signs of trauma. EYES: Pupils equal, round and reactive to light, extraocular movements intact, sclera anicteric, conjunctiva clear. No lid lag. EARS, NOSE, THROAT: Ears normal, nares patent, oropharynx clear without exudates. Moist mucous membranes. NECK: Normal range of motion, supple without lymphadenopathy, JVD, or masses. LUNGS: Breath sounds equal, clear to auscultation bilaterally. No wheezes, and no crackles. No accessory muscle use. HEART: Regular rate and rhythm, normal S1 and S2 without murmur, rub or gallop. ABDOMEN: Soft, nontender, not distended, normoactive bowel sounds, no guarding, no rebound, no masses. No hepatomegaly or splenomegaly. MUSCULOSKELETAL: Normal range of motion at all joints. No bony deformities or tenderness. No CVA tenderness. UPPER EXTREMITIES: 2+ pulses, warm, well-perfused. No cyanosis. No clubbing. No peripheral edema. LOWER EXTREMITIES: 2+ pulses, warm, well-perfused. No calf tenderness. No peripheral edema. NEUROLOGICAL: Cranial nerves II-XII intact. Normal speech. Normal gait. PSYCHIATRIC: Cooperative. Good eye contact. Appropriate mood and affect. SKIN: Warm, dry, normal turgor, no rashes or lesions noted, normal capillary refill. Laboratory Results - last 24 hr 02/15/18 02/15/18 02/15/18 00:04 00:04 00:04 WBC 8.7 RBC 4.35 Hgb 12.7 Hct 38.3 MCV 88.2 MCH 29.3 MCHC 33.3 RDW 14.6 Plt Count 234 MPV 9.8 Absolute Neuts (auto) 5.0 Neutrophils % 57.8 Lymphocytes % 32.4 D Monocytes % 6.6 Eosinophils % 2.1 Basophils % 1.1 Nucleated RBC % 0 PT with INR 12.50 INR 1.11 PTT (Actin FS) 33.0 Sodium 141 Potassium 3.8 Chloride 103 Carbon Dioxide 31 Anion Gap 7 L BUN 37 H Creatinine 2.3 H Creat Clearance w eGFR 21.28 Random Glucose 101 Calcium 8.9 Creatine Kinase 92 Troponin I < 0.02 B-Natriuretic Peptide 2088.25 H Urine Color Urine Appearance Urine pH Ur Specific [place] Urine Protein Urine Glucose (UA) Urine Ketones Urine Blood Urine Nitrite Urine Bilirubin Urine Urobilinogen Ur Leukocyte Esterase 02/15/18 00:45 WBC RBC Hgb Hct MCV MCH MCHC RDW Plt Count MPV Absolute Neuts (auto) Neutrophils % Lymphocytes % Monocytes % Eosinophils % Basophils % Nucleated RBC % PT with INR INR PTT (Actin FS) Sodium Potassium Chloride Carbon Dioxide Anion Gap BUN Creatinine Creat Clearance w eGFR Random Glucose Calcium Creatine Kinase Troponin I B-Natriuretic Peptide Urine Color Ltyellow Urine Appearance Clear Urine pH 6.0 Ur Specific [place] 1.021 Urine Protein Negative Urine Glucose (UA) Negative Urine Ketones Negative Urine Blood Negative Urine Nitrite Negative Urine Bilirubin Negative Urine Urobilinogen Negative Ur Leukocyte Esterase Negative ASSESSMENT/PLAN: Hospitalist Screening - Colonoscopy Questionnaire Colonoscopy Questionnaire: Colonoscopy Questionnaire
--- NOTE | 2018-02-15 03:23 | PDOC ---
*Physical Exam - Vital Signs Last Vital Signs Temp Pulse Resp BP Pulse Ox 97.5 F L 58 L 18 94/60 99 02/14/18 23:42 02/15/18 01:14 02/15/18 01:14 02/15/18 01:14 02/15/18 01:14 ED Treatment Course - LABORATORY CBC & Chemistry Diagram: 02/15/18 00:04 02/15/18 00:04 - ADDITIONAL ORDERS Additional order review: Laboratory Results 02/15/18 02/15/18 02/15/18 00:45 00:04 00:04 WBC RBC Hgb Hct MCV MCH MCHC RDW Plt Count MPV Absolute Neuts (auto) Neutrophils % Lymphocytes % Monocytes % Eosinophils % Basophils % Nucleated RBC % PT with INR 12.50 INR 1.11 PTT (Actin FS) 33.0 Sodium 141 Potassium 3.8 Chloride 103 Carbon Dioxide 31 Anion Gap 7 L BUN 37 H Creatinine 2.3 H Creat Clearance w eGFR 21.28 Random Glucose 101 Calcium 8.9 Creatine Kinase 92 Troponin I < 0.02 B-Natriuretic Peptide 2088.25 H Urine Color Ltyellow Urine Appearance Clear Urine pH 6.0 Ur Specific [place] 1.021 Urine Protein Negative Urine Glucose (UA) Negative Urine Ketones Negative Urine Blood Negative Urine Nitrite Negative Urine Bilirubin Negative Urine Urobilinogen Negative Ur Leukocyte Esterase Negative 02/15/18 00:04 WBC 8.7 RBC 4.35 Hgb 12.7 Hct 38.3 MCV 88.2 MCH 29.3 MCHC 33.3 RDW 14.6 Plt Count 234 MPV 9.8 Absolute Neuts (auto) 5.0 Neutrophils % 57.8 Lymphocytes % 32.4 D Monocytes % 6.6 Eosinophils % 2.1 Basophils % 1.1 Nucleated RBC % 0 PT with INR INR PTT (Actin FS) Sodium Potassium Chloride Carbon Dioxide Anion Gap BUN Creatinine Creat Clearance w eGFR Random Glucose Calcium Creatine Kinase Troponin I B-Natriuretic Peptide Urine Color Urine Appearance Urine pH Ur Specific [place] Urine Protein Urine Glucose (UA) Urine Ketones Urine Blood Urine Nitrite Urine Bilirubin Urine Urobilinogen Ur Leukocyte Esterase 02/15/18 00:04 RBC 4.35 MCV 88.2 MCHC 33.3 RDW 14.6 MPV 9.8 Neutrophils % 57.8 Lymphocytes % 32.4 D Monocytes % 6.6 Eosinophils % 2.1 Basophils % 1.1 - Medications Given in the ED: ED Medications Discontinued Medications Generic Name Dose Route Start Last Admin Trade Name Eden PRN Reason Stop Dose Admin Sodium Chloride 1,000 mls @ 1,000 mls/hr 02/14/18 23:58 02/15/18 00:19 Normal Saline - IV 02/15/18 00:57 1,000 mls/hr ASDIR STA Administration Metoprolol Tartrate 5 mg 02/15/18 00:29 02/15/18 01:11 Lopressor Injection - IVPUSH 02/15/18 00:30 Not Given ONCE ONE Metoprolol Tartrate 100 mg 02/15/18 00:31 02/15/18 00:48 Lopressor - PO 02/15/18 00:32 100 mg ONCE ONE Administration Medical Decision Making - Medical Decision Making 02/15/18 03:21 Ms Martins was admitted to the hospitalist service Pt is followed by Dr Erwin Case reviewed with dr damon Will admit to tele Clinical impression: SVT, initial presentation CHF, initial presentation CARITO, initial presentation *DC/Admit/Observation/Transfer Diagnosis at time of Disposition: Shortness of breath, CARITO (acute kidney injury) CHF (congestive heart failure) Qualifiers: Heart failure type: other Qualified Code(s): I50.9 - Heart failure, unspecified - Discharge Dispostion Condition at time of disposition: Stable Decision to Admit order: Yes - Referrals Referrals: Georgia Erwin MD [Primary Care Provider] - - Patient Instructions - Post Discharge Activity
[2018-02-15] MEDS ORDERED: diazePAM 2 MG TABLET PO PRN (03:30)
[2018-02-15 05:41] VITALS: BMI 38.4
--- NOTE | 2018-02-15 08:15 | CON.CARD ---
Consult Consult Specialty:: cardio - History of Present Illness Chief Complaint: irregular heart beat History of Present Illness: 67 yo female presented with sob. denies any palpitations (prior events she felt heart beating in her throat). just felt fairly sudden onset of sob with mild LH (no presyncope or syncope). the sob was prominent sx of prior SVT she says. no chest pain. no leg swelling initial SBP 109, dropped to 94 one to two hrs later in ER. ER tx included NS and received lopressor [address] sanz, pt's metoprolol (note: succinate = TOPROL) was increased to 50 bid early this month for SVT control pt in ER 02/05 with wide complex tach felt SVT with aberrancy, apparently broke with adenosine. per dr sanz, her previous EP study (dr landin, [facility]) showed multiple electrical substrates for arrhythmia generation. PMH: CAD ([place] and PCI) diast chf PSVT HTN HPL DM - Past Medical History Cardio/Vascular: Yes: CAD, CHF, HTN, Hyperlipdemia ...: No Endocrine: Yes: Diabetes Mellitus - Past Surgical History Past Surgical History: Yes: - Alcohol/Substance Use Hx Alcohol Use: No History of Substance Use: reports: None - Smoking History Smoking history: Former smoker Have you smoked in the past 12 months: No Aproximately how many cigarettes per day: 10 If you are a former smoker, when did you quit?: 1month - Social History ADL: Independent History of Recent Travel: No Home Medications - Allergies Allergies/Adverse Reactions: Allergies Allergy/AdvReac Type Severity Reaction Status Date / Time acetaminophen [From Tylenol] Allergy Verified 02/14/18 23:40 diphenhydramine HCl Allergy Verified 02/14/18 23:40 [From Benadryl] Penicillins Allergy Verified 02/14/18 23:40 Sulfa (Sulfonamide Allergy Verified 02/14/18 23:40 Antibiotics) - Home Medications Home Medications: Ambulatory Orders Aspirin [Aspirin EC] 81 mg PO DAILY 05/05/17 Diazepam 2 mg PO BID PRN 05/05/17 Omeprazole 40 mg PO DAILY 05/05/17 Carvedilol [Coreg -] 3.125 mg PO BID 06/04/17 Clopidogrel Bisulfate [Plavix -] 75 mg PO DAILY 06/04/17 Atorvastatin Ca [Lipitor] 40 mg PO HS #30 tab 06/05/17 Torsemide [Demadex -] 20 mg PO DAILY #30 tablet 06/05/17 Amlodipine Besylate [Norvasc -] 5 mg PO DAILY 02/05/18 Losartan Potassium [Cozaar -] 50 mg PO BID 02/05/18 Metformin HCl [Metformin HCl ER] 1,000 mg PO BID 02/05/18 Metoprolol Succinate [Toprol Xl -] 50 mg PO BID 02/05/18 traZODone HCL [Desyrel -] 50 mg PO HS 02/05/18 Family Disease History - Family Disease History Family History: Denies (no known CMP) Review of Systems - Review of Systems Constitutional: denies: Chills, Fever Eyes: denies: Eye Pain HENT: denies: Nasal Congestion Neck: denies: Stiffness Cardiovascular: denies: Palpitations Respiratory: denies: Orthopnea, PND Gastrointestinal: denies: Diarrhea, Rectal Bleeding Genitourinary: denies: Burning, Hematuria Musculoskeletal: denies: Muscle Pain Integumentary: denies: Rash Neurological: denies: Numbness, Seizure, Syncope Endocrine: denies: Excessive Sweating Hematology/Lymphatic: denies: Excessive Bleeding Vital Signs: Vital Signs Temperature 98.1 F 02/15/18 05:00 Pulse Rate 58 L 02/15/18 05:00 Respiratory Rate 18 02/15/18 05:00 Blood Pressure 137/64 02/15/18 05:00 O2 Sat by Pulse Oximetry (%) 98 02/15/18 05:00 Constitutional: Yes: No Distress, Obese Eyes: No: Sclera Icterus HENT: No: Nasal Congestion Neck: No: Decreased ROM Respiratory: Yes: CTA Bilaterally. No: Accessory Muscle Use, Rales, Wheezes Gastrointestinal: Yes: Normal Bowel Sounds. No: Distention, Hepatomegaly, Palpable Mass, Tenderness Cardiovascular: Yes: Regular Rate and Rhythm (decr intensity) JVD: Yes Carotid Bruit: No PMI: Non-Displaced Heart Sounds: Yes: S1, S2. No: Gallop Murmur: No: Systolic Murmur, Diastolic Murmur Musculoskeletal: Yes: Other (No kyphosis) Extremities: No: Cold, Cyanosis Edema: No Peripheral Pulses: 2+ Left Carotid, 2+ Right Carotid, 2+ Left Doralis Pedis, 2+ Right Dorsalis Pedis Integumentary: No: Jaundice Neurological: Yes: Alert, Oriented (x3) Psychiatric: No: Agitated - Other Data Labs, Other Data: CBC, BMP 02/15/18 00:04 02/15/18 00:04 INR, PTT INR 1.11 (0.82-1.09) 02/15/18 00:04 Troponin, BNP 02/15/18 00:04 Troponin I < 0.02 B-Natriuretic Peptide 2088.25 H Troponin, BNP 02/15/18 00:04 Troponin I < 0.02 B-Natriuretic Peptide 2088.25 H Laboratory Tests 06/05/17 02/15/18 02/15/18 05:10 00:04 00:04 WBC 8.7 Hgb 12.7 Plt Count 234 Sodium 141 Potassium 3.8 Carbon Dioxide 31 BUN 33 H 37 H Creatinine 1.1 H 2.3 H Creatine Kinase 92 Troponin I < 0.02 B-Natriuretic Peptide 2088.25 H Assessment/Plan ECG 02/14 (23:48): wide complex tachycardia, regular, left bundle morphology. similar morphology to 02/05/ ECB, ? fusion beat present then??? ECG 02/15: NSR, nons TWAs (similar to 06/18) CXR--central congestive changes stable vs prior reported. images reviewed: diffuse reticulonodular pattern c/w interstitial markings which are similar to prior films. no cephalization or lainey b lines, no effusions. Echo 05/2017: nl lv/rv, no sig valve path a/p: 67 f hx dm, htn, hld, cad s/p inferior [place] 04/2017 with pci x2 (osh in [place]), dchf, svt here due to palps. 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 - had 2 recurrences of PSVT in past 4 wks--dr sanz increased toprol to 50 bid after last episode - EKG here similar to prior--reviewed with EP who confirms this is all c/w her PSVT (not VT) - will start with incr metoprolol 100 bid - monitor tele - doubt she is a candidate for flecainide given h/o [place], on the young side for amio but not unreasonable to consider. per EP, not great candidate for curative ablation. will rec EP f/u after hosp discharge CARITO: - creat 2.3 (baseline 06/18 was 1.1) - will check EHR later today for more recent office values (? if had repeat contrast studies since 06/18) - suspect transient renal hypoperfusion during SVT, with low bp at home. - less likely decompensated chf with cardiorenal syndrome. - rec defer lasix and defer fluids for now--allow pt to equilibrate and repeat creatinine in am chronic diastolic chf: -has been well compensated on torsemide 20 mg qd as outpt -CXR here unchanged and more consistent with chronic interstitial changes than fluid/congestion -note BNP 2K is meaningless in setting of significant CARITO -possible JVD on exam though tds sec to thick neck. she is having no sx's of chf (sob only during SVT yesterday--resolved). -defer lasix, as above cad s/p mi, pci: -s/p mi/pci 04/2017 -echo 05/2017 with normal LVSF -had rpt cath 2 mo later, details not available to me--will check EHR later today -ECG here with no isch change vs prior (nonsp ST-Ts old) -trop neg x 2 -no suspected acute ischemic sx's (acute sob is typical of her prior SVT sx) -cont home regimen: asa, plavix, bb, statin -observe htn: -bp well controlled here, at times 100s -hold losartan for now, observe bp trend while uptitrating metopr dose
--- NOTE | 2018-02-15 09:22 | EKG ---
Test Reason : Blood Pressure : / mmHG Vent. Rate : 154 BPM Atrial Rate : 078 BPM P-R Int : 000 ms QRS Dur : 126 ms QT Int : 338 ms P-R-T Axes : 000 -15 151 degrees QTc Int : 541 ms WIDE COMPLEX TACHYCARDIA most likely ventricular tachycardia ABNORMAL ECG WHEN COMPARED WITH ECG OF 05-FEB-2018 05:42, WIDE COMPLEX TACHYCARDIA replaced NSR Confirmed by MAXINE ROSALES, LACEY ([id number]) on 02/15/2018 9:21:58 AM Referred By: Confirmed By:LACEY GOODMAN MD
[2018-02-15] MEDS ORDERED: FUROSEMIDE 40 MG/4 ML INJECTABLE VIAL IVPUSH SCH (10:00)
[2018-02-15] MEDS ORDERED: ENOXAPARIN NA (PORCINE) 30 MG/0.3 ML DISP.SYRIN SQ SCH (10:00)
[2018-02-15] MEDS ORDERED: METOPROLOL TARTRATE 50 MG TABLET (FP) PO SCH (10:00)
[2018-02-15] MEDS ORDERED: LOSARTAN POTASSIUM 50 MG TABLET (FP) PO SCH (10:00)
[2018-02-15] MEDS: CLOPIDOGREL BISULFATE 75 MG TABLET (FP) PO SCH (10:20)
[2018-02-15] MEDS: ASPIRIN COATED 81 MG TABLET.EC PO SCH (10:20)
[2018-02-15] MEDS: HEPARIN NA (PORCINE) 5,000 UNITS/ML 1ML VIAL SQ SCH ×2 (10:20→21:32)
[2018-02-15] MEDS: PANTOPRAZOLE 40 MG TABLET (FP) PO SCH (10:20)
--- NOTE | 2018-02-15 12:01 | HP ---
Admitting History and Physical - Admission Chief Complaint: fast heart rate History of Present Illness: 67 yo F presented to hospital with fast, irregular heart rate. Was found to have a wide complex tachycardia in ED, which seemed to slow down with adenosine. Patient does have a history of SVT, for which she was studied wth EP at [facility]. She was on toprol as outpatient, with recent increase in dose ( ED chart lists Coreg as betablocker). In ED given metoprolol IV and PO and rates overnight were in 40's sinus rhythm, narrow complex. Denies any chest pain now. Has black mold in her bathroom at home, so thought that this may be affecting her. History Source: Patient, Medical Record Limitations to Obtaining History: No Limitations - Past Medical History Cardiovascular: Yes: CAD, CHF, HTN, Hyperlipdemia ...: No Endocrine: Yes: Diabetes Mellitus - Past Surgical History Past Surgical History: Yes: - Smoking History Smoking history: Former smoker Have you smoked in the past 12 months: No Aproximately how many cigarettes per day: 10 If you are a former smoker, when did you quit?: 1month - Alcohol/Substance Use Hx Alcohol Use: No History of Substance Use: reports: None - Social History ADL: Independent History of Recent Travel: No Home Medications - Allergies Allergies/Adverse Reactions: Allergies Allergy/AdvReac Type Severity Reaction Status Date / Time acetaminophen [From Tylenol] Allergy Verified 02/14/18 23:40 diphenhydramine HCl Allergy Verified 02/14/18 23:40 [From Benadryl] Penicillins Allergy Verified 02/14/18 23:40 Sulfa (Sulfonamide Allergy Verified 02/14/18 23:40 Antibiotics) - Home Medications Home Medications: Ambulatory Orders Aspirin [Aspirin EC] 81 mg PO DAILY 05/05/17 Diazepam 2 mg PO BID PRN 05/05/17 Omeprazole 40 mg PO DAILY 05/05/17 Carvedilol [Coreg -] 3.125 mg PO BID 06/04/17 Clopidogrel Bisulfate [Plavix -] 75 mg PO DAILY 06/04/17 Atorvastatin Ca [Lipitor] 40 mg PO HS #30 tab 06/05/17 Torsemide [Demadex -] 20 mg PO DAILY #30 tablet 06/05/17 Amlodipine Besylate [Norvasc -] 5 mg PO DAILY 02/05/18 Losartan Potassium [Cozaar -] 50 mg PO BID 02/05/18 Metformin HCl [Metformin HCl ER] 1,000 mg PO BID 02/05/18 Metoprolol Succinate [Toprol Xl -] 50 mg PO BID 02/05/18 traZODone HCL [Desyrel -] 50 mg PO HS 02/05/18 Family Disease History - Family Disease History Family History: Unremarkable Review of Systems - Review of Systems Constitutional: denies: Chills, Fever Eyes: reports: No Symptoms HENT: reports: Epistaxis. denies: Difficult Swallowing Neck: denies: Decreased ROM, Stiffness, Tenderness Cardiovascular: reports: Palpitations Respiratory: denies: Cough, Hemoptysis, Wheezing Gastrointestinal: denies: Abdominal Pain, Constipation, Diarrhea Genitourinary: denies: Burning, Discharge, Dysuria Physical Examination Vital Signs: Vital Signs Temperature 98 F 02/15/18 07:35 Pulse Rate 53 L 02/15/18 07:35 Respiratory Rate 18 02/15/18 07:35 Blood Pressure 105/60 02/15/18 07:35 O2 Sat by Pulse Oximetry (%) 99 02/15/18 08:42 Constitutional: Yes: Well Nourished, No Distress, Calm Eyes: Yes: Conjunctiva Clear, EOM Intact HENT: Yes: Atraumatic, Normocephalic Neck: Yes: Supple, Trachea Midline Cardiovascular: Yes: Regular Rate and Rhythm, Murmur, S1, S2 Respiratory: Yes: Regular, CTA Bilaterally. No: Rales, Rhonchi, Wheezes Gastrointestinal: Yes: Normal Bowel Sounds, Soft, Abdomen, Obese. No: Distention, Tenderness Edema: No Neurological: Yes: Alert, Oriented Labs: CBC, BMP 02/15/18 00:04 02/15/18 00:04 Imaging - Results Chest X-ray: Report Reviewed (central chest congestion with prominent mediastinum (no change from prior)) Problem List - Problems (1) SVT (supraventricular tachycardia) Assessment/Plan: back in sinus rhythm now, to be on toprol for rate control, cardio following) Code(s): I47.1 - SUPRAVENTRICULAR TACHYCARDIA (2) CARITO (acute kidney injury) Assessment/Plan: -may have been hypoperfusing at home if BP was low -as appears to be not in CHF currently, lasix to be stopped and renal funciton followed -renal consult if creatinine remains elevated Code(s): N17.9 - ACUTE KIDNEY FAILURE, UNSPECIFIED (3) CHF (congestive heart failure) Assessment/Plan: -appears improved -may have gone in to CHF from SVT, but appears to have resolved now Code(s): I50.9 - HEART FAILURE, UNSPECIFIED Qualifiers: (4) Diabetes Assessment/Plan: -follow blood sugar, sliding scale if glucose elevates -as creatinine eleated currently will have to hold metformin Code(s): E11.9 - TYPE 2 DIABETES MELLITUS WITHOUT COMPLICATIONS Qualifiers: Diabetes mellitus type: type 2 Diabetes mellitus senior living insulin use: without senior living use Diabetes mellitus complication status: with kidney complications Diabetes mellitus complication detail: with chronic kidney disease Chronic kidney disease stage: stage 2 (mild) Qualified Code(s): E11.22 - Type 2 diabetes mellitus with diabetic chronic kidney disease (5) HLD (hyperlipidemia) Assessment/Plan: -cont statin Code(s): E78.5 - HYPERLIPIDEMIA, UNSPECIFIED (6) HTN (hypertension) Assessment/Plan: -on metoprolol Code(s): I10 - ESSENTIAL (PRIMARY) HYPERTENSION
--- NOTE | 2018-02-15 17:48 | EKG ---
Test Reason : Blood Pressure : / mmHG Vent. Rate : 057 BPM Atrial Rate : 057 BPM P-R Int : 160 ms QRS Dur : 074 ms QT Int : 424 ms P-R-T Axes : 013 030 -15 degrees QTc Int : 412 ms SINUS BRADYCARDIA NONSPECIFIC T WAVE ABNORMALITY ABNORMAL ECG WHEN COMPARED WITH ECG OF 14-FEB-2018 23:48, PREVIOUS ECG HAS UNDETERMINED RHYTHM, NEEDS REVIEW QRS DURATION HAS DECREASED ST NO LONGER DEPRESSED IN ANTEROLATERAL LEADS T WAVE INVERSION MORE EVIDENT IN INFERIOR LEADS T WAVE INVERSION NO LONGER EVIDENT IN ANTEROLATERAL LEADS Confirmed by MAXINE ROSALES, LACEY ([id number]) on 02/15/2018 5:48:19 PM Referred By: Confirmed By:LACEY GOODMAN MD
[2018-02-15] MEDS: INSULIN SLIDING SCALE (NOVOLOG) 1 VIAL SQ SCH ×2 (17:51→21:32)
[2018-02-15] MEDS ORDERED: traZODone HCL 50 MG TABLET (FP) PO SCH (22:00)
[2018-02-15] MEDS ORDERED: ATORVASTATIN CA 40 MG TABLET (FP) PO SCH (22:00)
[2018-02-16] MEDS: INSULIN SLIDING SCALE (NOVOLOG) 1 VIAL SQ SCH ×2 (06:49→11:01)
[2018-02-16 07:39] LABS: BASO % 0.3 % (0-2.0); EOS % 3.3 % (0-4.5); HEMATOCRIT 33.4 % (32.4-45.2); HEMOGLOBIN 11.2 GM/dL (10.7-15.3); LYMPH % 37.1 % (8-40); MCH 29.5 pg (25.7-33.7); MCHC 33.5 g/dl (32.0-36.0); MEAN CELL VOLUME 88.3 fl (80-96); MEAN PLT VOLUME 9.8 fl (7.5-11.1); MONO % 6.4 % (3.8-10.2); NEUT % 52.9 % (42.8-82.8); PLATELET COUNT 167 K/MM3 (134-434); RBC 3.78 M/mm3 (3.60-5.2); RDW 14.6 % (11.6-15.6); WHITE BLOOD COUNT 5.3 K/mm3 (4.0-10.0)
[2018-02-16 07:59] LABS: ALBUMIN 2.9 g/dl (3.4-5.0); ANION GAP 6 (8-16); BLOOD UREA NITROGEN 29 mg/dL (7-18); CALCIUM 8.7 mg/dL (8.5-10.1); CHLORIDE 108 mmol/L (98-107); CO2 29 mmol/L (21-32); GLUCOSE,RANDOM 99 mg/dL (74-106); POTASSIUM 4.4 mmol/L (3.5-5.1); SODIUM 143 mmol/L (136-145)
[2018-02-16 08:03] LABS: ALK PHOS 73 U/L (45-117); BILIRUBIN,TOTAL 0.3 mg/dL (0.2-1.0); CREATININE 0.9 mg/dL (0.55-1.02); SGOT/AST 14 U/L (15-37); SGPT/ALT 30 U/L (12-78); TOT PROT 5.8 g/dl (6.4-8.2)
--- NOTE | 2018-02-16 08:05 | PN ---
Progress Note, Physician Chief Complaint: sob History of Present Illness: no palpitations no sob no LH/woozy/dizzy (including walking halls) no cp ex cigs - Current Medication List Current Medications: Active Medications Aspirin (Ecotrin -) 81 mg PO DAILY [facility] Last Admin: 02/15/18 10:20 Dose: 81 mg Atorvastatin Calcium (Lipitor -) 40 mg PO HS [facility] Last Admin: 02/15/18 21:32 Dose: 40 mg Clopidogrel Bisulfate (Plavix -) 75 mg PO DAILY [facility] Last Admin: 02/15/18 10:20 Dose: 75 mg Diazepam (Valium -) 2 mg PO Q12H PRN PRN Reason: ANXEITY Heparin Sodium (Porcine) (Heparin -) 5,000 unit SQ BID [facility] Last Admin: 02/15/18 21:32 Dose: 5,000 unit Insulin Aspart (Novolog Vial Sliding Scale -) 1 vial SQ [facility]; Protocol Last Admin: 02/16/18 06:49 Dose: Not Given Metoprolol Succinate (Toprol Xl -) 75 mg PO BID [facility] Last Admin: 02/15/18 22:00 Dose: Not Given Pantoprazole Sodium (Protonix -) 40 mg PO DAILY [facility] Last Admin: 02/15/18 10:20 Dose: 40 mg Trazodone HCl (Desyrel -) 50 mg PO [facility] Last Admin: 02/15/18 21:32 Dose: 50 mg - Objective Vital Signs: Vital Signs Temperature 98.3 F 02/16/18 05:13 Pulse Rate 54 L 02/16/18 05:13 Respiratory Rate 18 02/16/18 05:13 Blood Pressure 131/73 02/16/18 05:13 O2 Sat by Pulse Oximetry (%) 97 02/15/18 22:00 Constitutional: Yes: No Distress, Calm, Obese Eyes: No: Sclera Icterus HENT: No: Nasal Congestion Cardiovascular: Yes: Regular Rate and Rhythm, S1, S2, Other (PMI non diplaced). No: Gallop, Murmur Respiratory: Yes: CTA Bilaterally. No: Accessory Muscle Use, Rales, Wheezes Gastrointestinal: Yes: Normal Bowel Sounds, Soft. No: Tenderness Musculoskeletal: Yes: Other (No kyphosis) Extremities: No: Cold Edema: No Integumentary: No: Jaundice Neurological: Yes: Alert, Oriented (x3) Psychiatric: No: Agitated Labs: CBC, BMP 02/16/18 06:00 02/16/18 06:00 INR, PTT INR 1.11 (0.82-1.09) 02/15/18 00:04 Assessment/Plan ECG 02/14 (23:48): wide complex tachycardia, regular, left bundle morphology. similar morphology to 02/05/ ECB, ? fusion beat present then??? ECG 02/15: NSR, nons TWAs (similar to 06/18) CXR--"central congestive changes stable vs prior" reported. images reviewed: diffuse reticulonodular pattern c/w interstitial markings which are similar to prior films. no cephalization or lainey b lines, no effusions. 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 she confirms to me she was in bed almost entire day. habitus very hi risk for ANA MARIA/obesity- hypoventilation with hi vagal tone. - pt ambulated along with me today in halls, felt well without dizzy/weak and manual pulse increases appropriately (78 bpm). - ok for discharge - cont toprol 75 bid. to see me in 2-4 weeks. pt advised to call office if any dizzy/LH or weakness - not a candidate for flecainide given h/o AL. she is on the young side for amio but not unreasonable to consider. could also consider PPM with higher doses of AVN blockers in future. however, if refractory PSVT, will rec AT ablation as most best first line option for efficacy vs risks CARITO: - creat 2.3 (baseline 06/18 was 1.1) - suspect erroneous value given creat down to 0.9 today, did not get signif amt of IVF chronic diastolic chf: -has been well compensated on torsemide 20 mg qd as outpt -CXR here unchanged and more consistent with chronic interstitial changes than fluid/congestion -note BNP 2K is meaningless in setting of significant CARITO -possible JVD on exam though tds sec to thick neck. she is having no sx's of chf (sob only during SVT yesterday--resolved). -creat elevation was likely spurious--normalized. -ok to resume home lasix dose cad s/p mi, pci: -s/p mi/pci 04/2017 -echo 05/2017 with normal LVSF -ECG here with no isch change vs prior (nonsp ST-Ts old) -trop neg x 2 -no suspected acute ischemic sx's (acute sob is typical of her prior SVT sx) -cont home regimen: asa, plavix, bb, statin -observe htn: -bp well controlled here, at times 100s -bb dose incr'd for SVT prophylasix -bp's mostly 110s-120s -would not resume losartan at home, as this is not indicated for DM nephropathy prevention if BP remains normal--reconsider on outpt f/u if bp trends up >130 later
[2018-02-16 09:15] VITALS: BP 114/56; PULSE 53; TEMP 97.7
[2018-02-16] MEDS: ASPIRIN COATED 81 MG TABLET.EC PO SCH (09:16)
[2018-02-16] MEDS: HEPARIN NA (PORCINE) 5,000 UNITS/ML 1ML VIAL SQ SCH (09:17)
[2018-02-16] MEDS: CLOPIDOGREL BISULFATE 75 MG TABLET (FP) PO SCH (09:18)
[2018-02-16] MEDS: PANTOPRAZOLE 40 MG TABLET (FP) PO SCH (09:18)
[2018-02-16] MEDS ORDERED: TORSEMIDE 20 MG TABLET (FP) PO SCH (10:00)
[2018-02-16] MEDS ORDERED: LOSARTAN POTASSIUM 25 MG TABLET PO SCH (10:00)
--- NOTE | 2018-02-16 11:21 | DS ---
Physical Examination Vital Signs: Vital Signs Temperature 97.7 F 02/16/18 09:15 Pulse Rate 53 L 02/16/18 09:15 Respiratory Rate 18 02/16/18 09:15 Blood Pressure 114/56 02/16/18 09:15 O2 Sat by Pulse Oximetry (%) 97 02/15/18 22:00 Constitutional: Yes: Well Nourished, No Distress Eyes: Yes: Conjunctiva Clear, EOM Intact, PERRL HENT: Yes: Atraumatic, Normocephalic Neck: Yes: Supple, Trachea Midline Cardiovascular: Yes: Regular Rate and Rhythm, S1, S2. No: Murmur Respiratory: Yes: Regular, CTA Bilaterally. No: Rales, Rhonchi, Wheezes Gastrointestinal: Yes: Normal Bowel Sounds, Soft. No: Distention, Tenderness Edema: No Neurological: Yes: Alert, Oriented Labs: CBC, BMP 02/16/18 06:00 02/16/18 06:00 Discharge Summary Reason For Visit: CHF ACUTE KIDNEY INJURY Current Active Problems CARITO (acute kidney injury) (Acute) CHF (congestive heart failure) (Acute) Shortness of breath (Acute) Hospital Course: 67 yo F, h/o SVT, presented with rapid heart rate, palpitations to ED. Found to be in SVT with abberancy. Given metoprolol (dose adjusted than from what she had gotten at home) and heart rate normalized, decreasing even into 40's. BP was low, so cozaar dose was held to tolerate higher dose metoprolol. Today patient feeling fine. She had elevated Creatinine yesterday, which then was normal today (0.9). She will be discharged on 75mg toprol and to hold off cozaar. (other medications the same). Condition: Stable - Instructions Diet, Activity, Other Instructions: diabetic Referrals: Georgia Erwin MD [Primary Care Provider] - Disposition: HOME - Home Medications Comprehensive Discharge Medication List: Ambulatory Orders Aspirin [Aspirin EC] 81 mg PO DAILY 05/05/17 Diazepam 2 mg PO BID PRN 05/05/17 Omeprazole 40 mg PO DAILY 05/05/17 Carvedilol [Coreg -] 3.125 mg PO BID 06/04/17 Clopidogrel Bisulfate [Plavix -] 75 mg PO DAILY 06/04/17 Atorvastatin Ca [Lipitor] 40 mg PO HS #30 tab 06/05/17 Torsemide [Demadex -] 20 mg PO DAILY #30 tablet 06/05/17 Amlodipine Besylate [Norvasc -] 5 mg PO DAILY 02/05/18 Losartan Potassium [Cozaar -] 50 mg PO BID 02/05/18 Metformin HCl [Metformin HCl ER] 1,000 mg PO BID 02/05/18 Metoprolol Succinate [Toprol Xl -] 50 mg PO BID 02/05/18 traZODone HCL [Desyrel -] 50 mg PO HS 02/05/18
== END 2018-02-16 12:19 | disposition home or self-care (01) | DRG 309 ==
LOC: JER 23:31 → JERBED 02-15 03:23 → J4W 02-15 05:20
PROVIDERS: ADMIT Internal Medicine; ATTEND Internal Medicine
DX: I47.1 Supraventricular tachycardia (principal); N17.9 Acute kidney failure, unspecified; I50.32 Chronic diastolic (congestive) heart failure; E11.9 Type 2 diabetes mellitus without complications; E78.5 Hyperlipidemia, unspecified; I11.0 Hypertensive heart disease with heart failure; Z88.0 Allergy status to penicillin; Z79.84 Long term (current) use of oral hypoglycemic drugs; I25.10 Atherosclerotic heart disease of native coronary artery without angina pectoris; Z98.61 Coronary angioplasty status; Z87.891 Personal history of nicotine dependence; E66.9 Obesity, unspecified; Z68.38 Body mass index [BMI] 38.0-38.9, adult
CPT/HCPCS: 36415; 71045-TC-FY; 80048; 80053; 81003; 82550; 82962; 83880; 84484; 85025; 85610; 85730; 86850; 86900; 86901; 93005; 93010; 99285-25; J1644; J7030

== ENCOUNTER 2019-05-26 18:26 | Inpatient (IN) | payer OTHER ==
--- NOTE | 2019-05-26 20:38 | PDOC ---
Attending Attestation - Resident Resident Name: Ronald Nugentian - ED Attending Attestation I have performed the following: I have examined & evaluated the patient, The case was reviewed & discussed with the resident, I agree w/resident's findings & plan - HPI HPI: 05/27/19 20:05 see resident hpi - Physicial Exam PE: 05/27/19 20:05 GENERAL: Awake, mild distress due to pain HEAD: No signs of trauma NECK: Normal ROM, LUNGS:. Normal work of breathing. HEART: Regular rate and rhythm, ABDOMEN: Soft, nondistended CHEST WALL: BACK: tenderness right PVM low lumbar region NEUROLOGICAL: Alert, SKIN: Warm, Dry 05/27/19 20:07 - Medical Decision Making 05/27/19 20:06 69-year-old female with right low back pain CT scan performed with no significant findings Urinalysis consistent with mild urinary tract infection Patient suddenly went into a rapid atrial fibrillation all in the emergency department Patient sent back for a CTA of the abdomen and pelvis which again showed no significant acute findings There is a small abdominal aneurysm which had no signs of rupture or dissection patient admitted that she forgot to take herbeta blockers, she was given her normal by mouth dose in the emergency department postmedication patient's rate was controlled Patient admitted for observation due to multiple symptoms and persistent pain
--- NOTE | 2019-05-26 20:44 | PDOC ---
History of Present Illness - General Chief Complaint: Back Pain Stated Complaint: BACK PAIN Time Seen by Provider: 05/26/19 20:36 History Source: Patient Exam Limitations: No Limitations - History of Present Illness Initial Comments: Veronica Martins is a 69 yo F w a pmh of CAD, HTN, HLD, and NIDDM who presents to the [facility] er BIBEMS with right flank pain for two days. The patient states that her pain is awful, rated 8/10, feels like a burning sensation, does not radiate to the groin, and is not associated with any fevers, chills, nausea or vomiting. Patient states that walking, bending or pushing on her lower back makes the pain much worse. PCP: Georgia Martinez PSH: Allergies: penicillins, sulfa Social Hx: Denies smoking, drinking, or other substance usage. Lives home alone and is independent in ADL. Past History - Past Medical History Allergies/Adverse Reactions: Allergies Allergy/AdvReac Type Severity Reaction Status Date / Time acetaminophen [From Tylenol] Allergy Verified 06/02/18 12:28 diphenhydramine HCl Allergy Verified 06/02/18 12:28 [From Benadryl] Penicillins Allergy Verified 06/02/18 12:28 Sulfa (Sulfonamide Allergy Verified 06/02/18 12:28 Antibiotics) Home Medications: Ambulatory Orders Aspirin [Aspirin EC] 81 mg PO DAILY 05/05/17 Diazepam 2 mg PO BID PRN 05/05/17 Omeprazole 40 mg PO DAILY 05/05/17 Clopidogrel Bisulfate [Plavix -] 75 mg PO DAILY 06/04/17 Atorvastatin Ca [Lipitor] 40 mg PO HS #30 tab 06/05/17 metFORMIN HCL [Metformin ER Osmotic] 1,000 mg PO BID 02/05/18 traZODone HCL [Desyrel -] 50 mg PO HS 02/05/18 Metoprolol Succinate [Toprol XL -] 50 mg PO BID #90 tab.sr.24h 02/16/18 Torsemide [Demadex -] 20 mg PO DAILY #30 tablet 02/16/18 Cardiac Disorders: Yes (2 stents, CHF,[place]) COPD: No CHF: Yes Diabetes: Yes HTN: Yes - Surgical History Cardiac Surgery: Yes Orthopedic Surgery: Yes (WRIST) - Immunization History Immunization Up to Date: No - Psycho Social/Smoking Cessation Hx Smoking History: Never smoked Have you smoked in the past 12 months: No Number of Cigarettes Smoked Daily: 10 If you are a former smoker, when did you quit?: 1month Information on smoking cessation initiated: No 'Breaking Loose' booklet given: 05/15/17 Hx Alcohol Use: No Drug/Substance Use Hx: No Substance Use Type: None Hx Substance Use Treatment: No Review of Systems - Review of Systems Able to Perform ROS?: Yes Comments:: CONSTITUTIONAL: Absent: fever, no chills, no fatigue EYES: Absent: visual changes ENT: Absent: ear pain, no sore throat CARDIOVASCULAR: Absent: chest pain, no palpitations RESPIRATORY: Absent: cough, no SOB GI: Absent: abdominal pain, no nausea, no vomiting, no constipation, no diarrhea GENITOURINARY: Present: frequency Absent: dysuria, no hematuria MUSKULOSKELETAL: Present: flank pain Absent: no arthralgia, no myalgia SKIN: Absent: rash NEURO: Absent: headache *Physical Exam - Vital Signs Last Vital Signs Temp Pulse Resp BP Pulse Ox 97.8 F 61 18 168/85 100 05/26/19 18:44 05/26/19 18:44 05/26/19 18:44 05/26/19 18:44 05/26/19 18:44 - Physical Exam Comments: GENERAL: Well-appearing, well-nourished. No apparent distress. HEENT: Normocephalic, atraumatic. PERRL, EOM intact. CARDIOVASCULAR: Tachycardic rate. Normal S1, S2. Regular rhythm. PULMONARY: No evidence of respiratory distress. Lungs clear to auscultation bilaterally. No wheezing, rales or rhonchi. ABDOMEN: Soft, non-distended, non-tender. BACK: There is significant right sided CVA TTP. EXTREMITIES: Normal ROM in all four extremities. No gross deformities. SKIN: Warm, dry. No rash NEUROLOGICAL: No focal neurological deficits. ED Treatment Course - LABORATORY CBC & Chemistry Diagram: 05/26/19 21:07 05/26/19 21:07 - RADIOLOGY Radiograph Interpretation: CTAP: EXAM: ABDOMEN \T\ PELVIS CT W/O CONTR HISTORY: Right flank pain COMPARISON: None. FINDINGS: There is patchy mosaic attenuation in the visualized lower lungs which may be related to air trapping. 4 mm nodule in the right middle lobe, not completely imaged The heart is mildly enlarged. There are coronary artery calcifications The kidneys are normal in size without hydronephrosis or nephrolithiasis. There are no stones seen along the course of the ureters or within the bladder. No perinephric stranding Bilateral renal cortical defects compatible with scarring with cortical calcification in the right kidney The unenhanced liver, spleen and adrenal glands are grossly normal. There are fatty changes of the pancreas Likely sludge in the gallbladder without evidence of acute cholecystitis Small infrarenal abdominal aortic aneurysm measuring 2.8 x 2.8 cm in greatest AP and transverse dimension There is no bowel distention. The appendix is normal Colonic diverticulosis predominantly left colon without evidence of acute diverticulitis No intra-abdominal free air or free fluid CTA: EXAM: ABDOMEN/PELVIS CTA W/WO CONTR HISTORY: Right ruptured aneurysm versus bowel ischemia COMPARISON: Unenhanced exam dated 05/26/19 FINDINGS: Lung bases are clear. The heart is mildly enlarged. Mild bilateral renal scarring is noted with small right renal stone. Normal liver, gallbladder, pancreas, spleen , adrenal glands . The stomach and abdominal small and large bowel are normal. There is a fusiform 2.6 cm infrarenal aortic aneurysm without dissection or leak. There is no significant retroperitoneal lymphadenopathy. The pelvic small and large bowel are normal. The appendix is normal. There is a slightly lobulated, suggesting fibroids. No adnexal masses. Urinary bladder is unremarkable. There is no pelvic free fluid. No discrete pelvic lymphadenopathy is identified. IMPRESSION: 2.6 cm infrarenal aortic aneurysm without dissection or leak. No bowel inflammation. Mild bilateral renal scarring. Probable small fibroids. Medical Decision Making - Medical Decision Making Veronica Martins is a 69 yo F w a pmh of CAD, HTN, HLD, and NIDDM who presents to the [facility] er BIB[facility]S with right flank pain for two days. The patient states that her pain is awful, rated 8/10, feels like a burning sensation, does not radiate to the groin, and is not associated with any fevers, chills, nausea or vomiting. Patient states that walking, bending or pushing on her lower back makes the pain much worse. Vital Signs Temp Pulse Resp BP Pulse Ox 97.8 F 61 18 168/85 100 05/26/19 18:44 05/26/19 18:44 05/26/19 18:44 05/26/19 18:44 05/26/19 18:44 DDx IBNLT: UTI/pylenophritis, renal colic, herniated disc/sciatica, electrolyte/ metabolic disturbance, AAA Plan: Labs, Urine, Analgesia, CT, re-assess Labs: Elevated BUN - Hydrating patient Urine: Suggests UTI - Will treat w Abx - Macrobid CT: FINDINGS: There is patchy mosaic attenuation in the visualized lower lungs which may be related to air trapping. 4 mm nodule in the right middle lobe, not completely imaged The heart is mildly enlarged. There are coronary artery calcifications The kidneys are normal in size without hydronephrosis or nephrolithiasis. There are no stones seen along the course of the ureters or within the bladder. No perinephric stranding Bilateral renal cortical defects compatible with scarring with cortical calcification in the right kidney The unenhanced liver, spleen and adrenal glands are grossly normal. There are fatty changes of the pancreas Likely sludge in the gallbladder without evidence of acute cholecystitis Small infrarenal abdominal aortic aneurysm measuring 2.8 x 2.8 cm in greatest AP and transverse dimension There is no bowel distention. The appendix is normal Colonic diverticulosis predominantly left colon without evidence of acute diverticulitis No intra-abdominal free air or free fluid Re-assessment: We have handed her a copy of her CT and told her to make sure to discuss these findings with her PCP and to schedule a follow up appointment in the next 3 to 5 days to make sure she is getting better. On re-assessment the patient is leaning over in severe pain and crying because morphine and lidoderm patches have not helped her. She states she is usually able to walk around her house and is self sufficent in her ADL. Tonight she could not even take out frozen food from the freezer. Patient noted to be tachycardic in the 140's - Given her aneurysm and AFIB we decided to obtain a CTA abdomen and pelvis to r /o AAA rupture vs mesenteric ischemia HR normalized after 75 mg of metoprolol PO Patient achieved mild analgesia after toradol but patient is very scared bc she has never felt pain like this in the past. Disposition: Admit for intractable pain. *DC/Admit/Observation/Transfer Diagnosis at time of Disposition: Intractable pain UTI (urinary tract infection) Qualifiers: Urinary tract infection type: acute cystitis Hematuria presence: without hematuria Qualified Code(s): N30.00 - Acute cystitis without hematuria - Discharge Dispostion Condition at time of disposition: Stable Decision to Admit order: Yes - Referrals - Patient Instructions - Post Discharge Activity Discharge - Discharge Information Problems reviewed: Yes Clinical Impression/Diagnosis: Intractable pain UTI (urinary tract infection) Qualifiers: Urinary tract infection type: acute cystitis Hematuria presence: without hematuria Qualified Code(s): N30.00 - Acute cystitis without hematuria Condition: Stable
[2019-05-26] MEDS ORDERED: SODIUM CHLORIDE 0.9% 500 ML INFUS.BAG IV ONE (20:46)
[2019-05-26] MEDS ORDERED: LIDOCAINE 5% TOPICAL PATCH TP ONE (20:46)
[2019-05-26] MEDS ORDERED: LIDOCAINE 5% TOPICAL PATCH ONE (20:55)
[2019-05-26 21:21] LABS: EOS % 1.3 % (0-4.5); HEMATOCRIT 39.1 % (32.4-45.2); HEMOGLOBIN 12.5 GM/dL (10.7-15.3); LYMPH % 20.8 % (8-40); MCH 27.9 pg (25.7-33.7); MEAN CELL VOLUME 87.2 fl (80-96); MEAN PLT VOLUME 10.2 fl (7.5-11.1); MONO % 5.9 % (3.8-10.2); PLATELET COUNT 209 K/MM3 (134-434); RBC 4.48 M/mm3 (3.60-5.2); RDW 16.9 % (11.6-15.6); WHITE BLOOD COUNT 9.4 K/mm3 (4.0-10.0)
[2019-05-26] MEDS ORDERED: ONDANSETRON 4 MG/2 ML VIAL IVPUSH ONE (21:36)
[2019-05-26] MEDS ORDERED: morphine CARPU-JECT 4 MG/1 ML DISP.SYRIN IVPUSH ONE (21:36)
[2019-05-26] MEDS ORDERED: morphine SULFATE 4 MG/ML VIAL ONE (21:37)
[2019-05-26] MEDS ORDERED: ONDANSETRON 4 MG/2 ML VIAL ONE (21:37)
[2019-05-26 21:55] LABS: ALBUMIN 3.6 g/dl (3.4-5.0); BILIRUBIN,TOTAL 0.5 mg/dL (0.2-1); BLOOD UREA NITROGEN 22.8 mg/dL (7-18); CALCIUM 9.5 mg/dL (8.5-10.1); CREATININE 0.9 mg/dL (0.55-1.3); TOT PROT 6.8 g/dl (6.4-8.2)
[2019-05-26 21:56] LABS: POTASSIUM 4.3 mmol/L (3.5-5.1)
[2019-05-26] MEDS ORDERED: LIDOCAINE PATCH REMOVAL MC SCH (22:00)
[2019-05-26 22:17] LABS: EPI CELLS 3.1 /HPF (0-5/HPF); HYALINE CASTS 7 /lpf (0-8); PH,URINE 5.5 (5.0-8.0); URINE APPEARANCE CLEAR; URINE BILIRUBIN NEGATIVE (NEGATIVE); URINE COLOR YELLOW; URINE GLUCOSE (UA) NEGATIVE (NEGATIVE); URINE KETONE NEGATIVE (NEGATIVE); URINE LEUK ESTERASE 1+ (NEGATIVE); URINE NITRITE NEGATIVE (NEGATIVE); URINE PROTEIN TRACE (NEGATIVE); URINE RBC 2 /hpf (0-4); URINE WBC 36 /hpf (0-5)
[2019-05-27] MEDS ORDERED: KETOROLAC TROMETHAMINE 60 MG/2 ML VIAL IM ONE (00:50)
[2019-05-27] MEDS ORDERED: KETOROLAC TROMETHAMINE 60 MG/2 ML VIAL ONE (00:51)
--- NOTE | 2019-05-27 04:56 | PN ---
Teaching Attending Note Name of Resident: Ilana Osei ATTENDING PHYSICIAN STATEMENT I saw and evaluated the patient. I reviewed the resident's note and discussed the case with the resident. I agree with the resident's findings and plan as documented. SUBJECTIVE: 69 yo F w/ cad s/p inferior CA 04/2017 with pci x2, HTN, HLD, and NIDDM BIBEMS with right flank pain for two days. Pain is 8/10, feels like burning does not radiate to the groin. Patient stated that walking, bending or pushing on her lower back makes the pain much worse. OBJECTIVE: Last Vital Signs Temp Pulse Resp BP Pulse Ox 97.8 F 52 L 18 97/62 98 05/26/19 18:44 05/27/19 03:58 05/27/19 03:58 05/27/19 03:08 05/27/19 03:58 general -nad, aaox3 heent- moist mucous membranes neck supple cv-s1+s2+rrr chest clear abd - soft ext - no pedal edema Abnormal Lab Results 05/26/19 05/26/19 05/26/19 19:55 21:07 21:07 RDW 16.9 H Anion Gap 7 L BUN 22.8 H Lactic Acid Ur Leukocyte Esterase 1+ H 05/27/19 02:32 RDW Anion Gap BUN Lactic Acid 2.1 H Ur Leukocyte Esterase imaging reviewed ct -abd/pelvis There is patchy mosaic attenuation in the visualized lower lungs which may be related to air trapping. 4 mm nodule in the right middle lobe, not completely imaged The heart is mildly enlarged. There are coronary artery calcifications The kidneys are normal in size without hydronephrosis or nephrolithiasis. There are no stones seen along the course of the ureters or within the bladder. No perinephric stranding Bilateral renal cortical defects compatible with scarring with cortical calcification in the right kidney The unenhanced liver, spleen and adrenal glands are grossly normal. There are fatty changes of the pancreas Likely sludge in the gallbladder without evidence of acute cholecystitis Small infrarenal abdominal aortic aneurysm measuring 2.8 x 2.8 cm in greatest AP and transverse dimension There is no bowel distention. The appendix is normal Colonic diverticulosis predominantly left colon without evidence of acute diverticulitis No intra-abdominal free air or free fluid ASSESSMENT AND PLAN: #right flank intractable pain -probably musculoskeletal- possible muscle spasm? No pyelo on imaging of abdomen, no evidence of diverticulitis, appendicitis, renal stone, or choelcystitis. #small infrarenal abdominal aortic aneurysm #lactic acidosis - improved #SVT? wide qrs tachycardia #CAD #HTN #DLP -med/surg -flexeril -ibuprofen prn -iv fluids -metoprolol for rate control -asa, plavix, statin metoprolol for cad -monitor infrarenal aortic anneurysm as outpatient -insulin sliding scale -dvt ppx
--- NOTE | 2019-05-27 05:03 | HP ---
CHIEF COMPLAINT: PCP: Dr. Martinez HISTORY OF PRESENT ILLNESS: 69 y/o/f here for right sided lower back pain for the last 2 days. Patient states the pain has been worsening since it started. The pain is currently a 6/ 10 and does not radiate. She denies any numbness or tingling in her leg. Patient denies any falls or trauma. The pain is worse with movement. She has been having normal bowel movements and denies any dysuria. She can normally do her own daily activities at home but today she states she had difficulty walking and cooking. She denies any chest pain, N/V/D, headache, lightheadedness , fever, cough, abd pain, SOB or other symptoms. ER course was notable for: (1) Multiple attempts at pain control, only medication with documented success was Toradol. (2) CT, CTA done. Renal stone noted on CTA. (3) Recent Travel: PAST MEDICAL HISTORY: HTN, HLD, CAD s/p stents, ?CHF, NIDDM PAST SURGICAL HISTORY: 2 c-sections, right wrist surgery Social History: Smoking: quit in 2017 Alcohol: social EtOH Drugs: denies Allergies acetaminophen [From Tylenol] Allergy (Verified 06/02/18 12:28) diphenhydramine HCl [From Benadryl] Allergy (Verified 06/02/18 12:28) Penicillins Allergy (Verified 06/02/18 12:28) Sulfa (Sulfonamide Antibiotics) Allergy (Verified 06/02/18 12:28) HOME MEDICATIONS: Home Medications Medication Instructions Recorded Aspirin [Aspirin EC] 81 mg PO DAILY 05/05/17 Diazepam 2 mg PO BID PRN 05/05/17 Omeprazole 40 mg PO DAILY 05/05/17 Clopidogrel Bisulfate [Plavix -] 75 mg PO DAILY 06/04/17 Atorvastatin Ca [Lipitor] 40 mg PO HS #30 tab 06/05/17 metFORMIN HCL [Metformin ER 1,000 mg PO BID 02/05/18 Osmotic] traZODone HCL [Desyrel -] 50 mg PO HS 02/05/18 Metoprolol Succinate [Toprol XL -] 50 mg PO BID #90 tab.sr.24h 02/16/18 Torsemide [Demadex -] 20 mg PO DAILY #30 tablet 02/16/18 REVIEW OF SYSTEMS CONSTITUTIONAL: chills Absent: fever HEENT: Absent: rhinorrhea, nasal congestion, throat pain CARDIOVASCULAR: Absent: chest pain, syncope, palpitations RESPIRATORY: Absent: cough, shortness of breath, dyspnea with exertion GASTROINTESTINAL: Absent: abdominal pain, abdominal distension, nausea, vomiting, diarrhea, constipation GENITOURINARY: Absent: dysuria, frequency, urgency, hesitancy, hematuria, flank pain, genital pain MUSCULOSKELETAL: right lower back pain Absent: myalgia, arthralgia, joint swelling SKIN: Absent: rash, itching, pallor Absent: headache, focal weakness or paresthesias, dizziness, unsteady gait, seizure, bladder or bowel incontinence PHYSICAL EXAMINATION Vital Signs - 24 hr 05/26/19 05/27/19 05/27/19 18:44 01:44 03:07 Temperature 97.8 F Pulse Rate 61 136 H Pulse Rate [ 61 126 H Apical] Respiratory 18 22 H Rate Blood Pressure 168/85 Blood Pressure 168/85 151/65 [Left Arm] O2 Sat by Pulse 100 94 L 98 Oximetry (%) 05/27/19 05/27/19 03:08 03:58 Temperature Pulse Rate Pulse Rate [ 136 H 52 L Apical] Respiratory 18 18 Rate Blood Pressure Blood Pressure 97/62 [Left Arm] O2 Sat by Pulse 98 98 Oximetry (%) GENERAL: Awake, alert, and fully oriented, in no acute distress. HEAD: Normal with no signs of trauma. EYES: extraocular movements intact EARS, NOSE, THROAT: nares patent Moist mucous membranes. NECK: Normal range of motion, supple without lymphadenopathy LUNGS: Breath sounds equal, clear to auscultation bilaterally. No wheezes, and no crackles. No accessory muscle use. HEART: Regular rate and rhythm, normal S1 and S2 without murmur, rub or gallop. ABDOMEN: Soft, nontender, not distended, normoactive bowel sounds, no guarding, no rebound, no masses. MUSCULOSKELETAL: tenderness to palpation over right iliosacral region, positive straight leg raise test on the right. Normal range of motion at all joints. No bony deformities or tenderness. No CVA tenderness. UPPER EXTREMITIES: 2+ pulses, warm, well-perfused. No cyanosis. No clubbing. No peripheral edema. LOWER EXTREMITIES: 2+ pulses, warm, well-perfused. No calf tenderness. No peripheral edema. NEUROLOGICAL: Normal speech. Normal gait. Normal sensation. Fully oriented PSYCHIATRIC: Cooperative. Good eye contact. Appropriate mood and affect SKIN: Warm, dry, normal turgor, no rashes or lesions noted, normal capillary refill. Laboratory Results - last 24 hr 05/26/19 05/26/19 05/26/19 19:55 21:07 21:07 WBC 9.4 RBC 4.48 Hgb 12.5 Hct 39.1 D MCV 87.2 MCH 27.9 MCHC 32.0 RDW 16.9 H Plt Count 209 D MPV 10.2 Absolute Neuts (auto) 6.6 Neutrophils % 71.0 D Lymphocytes % 20.8 D Monocytes % 5.9 Eosinophils % 1.3 Basophils % 1.0 D Nucleated RBC % 0 Sodium 140 Potassium 4.3 Chloride 104 Carbon Dioxide 29 Anion Gap 7 L BUN 22.8 H Creatinine 0.9 Est GFR (CKD-EPI)AfAm 76.68 Est GFR (CKD-EPI)NonAf 66.16 Random Glucose 106 Lactic Acid Calcium 9.5 Total Bilirubin 0.5 AST 20 ALT 23 Alkaline Phosphatase 78 Troponin I Total Protein 6.8 Albumin 3.6 Urine Color Yellow Urine Appearance Clear Urine pH 5.5 Ur Specific [place] 1.024 Urine Protein Trace Urine Glucose (UA) Negative Urine Ketones Negative Urine Blood Negative Urine Nitrite Negative Urine Bilirubin Negative Urine Urobilinogen 1.0 Ur Leukocyte Esterase 1+ H Urine WBC (Auto) 36 Urine RBC (Auto) 2 Urine Casts (Auto) 7 U Epithel Cells (Auto) 3.1 Urine Bacteria (Auto) 43.0 05/27/19 05/27/19 02:32 02:32 WBC RBC Hgb Hct MCV MCH MCHC RDW Plt Count MPV Absolute Neuts (auto) Neutrophils % Lymphocytes % Monocytes % Eosinophils % Basophils % Nucleated RBC % Sodium Potassium Chloride Carbon Dioxide Anion Gap BUN Creatinine Est GFR (CKD-EPI)AfAm Est GFR (CKD-EPI)NonAf Random Glucose Lactic Acid 2.1 H Calcium Total Bilirubin AST ALT Alkaline Phosphatase Troponin I < 0.02 Total Protein Albumin Urine Color Urine Appearance Urine pH Ur Specific [place] Urine Protein Urine Glucose (UA) Urine Ketones Urine Blood Urine Nitrite Urine Bilirubin Urine Urobilinogen Ur Leukocyte Esterase Urine WBC (Auto) Urine RBC (Auto) Urine Casts (Auto) U Epithel Cells (Auto) Urine Bacteria (Auto) ASSESSMENT/PLAN: 69 y/o/f with HTN, HLD, CAD s/p stents, ?CHF, NIDDM here for right sided lower back pain for the last 2 days 1) Iliosacral back pain - possibly secondary to nephrolithiasis vs. MSK pain -Flexeril, Ibuprofen for pain control -Physical therapy 2) A fib - patient has history of a fib controlled with medication -Metoprolol for rate control -Repeat EKG 3)CAD -Aspirin, plavix, Metoprolol 4)Diabetes - patient on Metformin at home -Insulin sliding scale -Will hold Metformin due to recent CT scan with contrast 5)FEN -IVF 6)Prophylaxis -Lovenox 7)Disposition -Admitted to med/surg Visit type - Emergency Visit Emergency Visit: Yes ED Registration Date: 05/27/19 Care time: The patient presented to the Emergency Department on the above date and was hospitalized for further evaluation of their emergent condition. - New Patient This patient is new to me today: Yes Date on this admission: 05/27/19 - Critical Care Critical Care patient: No ATTENDING PHYSICIAN STATEMENT I saw and evaluated the patient. I reviewed the resident's note and discussed the case with the resident. I agree with the resident's findings and plan as documented. SUBJECTIVE: OBJECTIVE: ASSESSMENT AND PLAN:
[2019-05-27] MEDS ORDERED: IBUPROFEN 400 MG TABLET (FP) PO PRN (06:10)
[2019-05-27] MEDS ORDERED: CYCLOBENZAPRINE HCL 10 MG TABLET (FP) PO PRN (06:10)
[2019-05-27] MEDS ORDERED: SODIUM CHLORIDE 1,000 ML IV SCH (06:15)
[2019-05-27] MEDS ORDERED: NITROFURANTOIN MACROCRYSTAL 50 MG CAPSULE (FP) ONE (06:21)
[2019-05-27] MEDS: NITROFURANTOIN MACROCRYSTAL 50 MG CAPSULE (FP) PO SCH (06:24)
[2019-05-27] MEDS: INSULIN SLIDING SCALE (NOVOLOG) 1 VIAL SQ SCH ×4 (07:23→23:13)
[2019-05-27 07:45] LABS: BASO % 0.8 % (0-2.0); EOS % 1.8 % (0-4.5); HEMATOCRIT 34.1 % (32.4-45.2); HEMOGLOBIN 11.2 GM/dL (10.7-15.3); LYMPH % 25.1 % (8-40); MCH 28.2 pg (25.7-33.7); MCHC 32.9 g/dl (32.0-36.0); MEAN CELL VOLUME 85.9 fl (80-96); MEAN PLT VOLUME 9.9 fl (7.5-11.1); MONO % 7.3 % (3.8-10.2); PLATELET COUNT 171 K/MM3 (134-434); RBC 3.97 M/mm3 (3.60-5.2); RDW 16.8 % (11.6-15.6); WHITE BLOOD COUNT 6.4 K/mm3 (4.0-10.0)
[2019-05-27] MEDS: PANTOPRAZOLE 40 MG TABLET (FP) PO SCH (07:50)
[2019-05-27 07:52] LABS: ALBUMIN 2.9 g/dl (3.4-5.0); ALK PHOS 64 U/L (45-117); ANION GAP 6 MMOL/L (8-16); BILIRUBIN,TOTAL 0.3 mg/dL (0.2-1); BLOOD UREA NITROGEN 24.8 mg/dL (7-18); CALCIUM 8.3 mg/dL (8.5-10.1); CHLORIDE 106 mmol/L (98-107); CO2 27 mmol/L (21-32); GLUCOSE,RANDOM 95 mg/dL (74-106); PHOSPHOROUS 4.1 mg/dL (2.5-4.9); POTASSIUM 4.2 mmol/L (3.5-5.1); SGOT/AST 10 U/L (15-37); SGPT/ALT 18 U/L (13-61); SODIUM 139 mmol/L (136-145); TOT PROT 5.4 g/dl (6.4-8.2)
[2019-05-27] MEDS ORDERED: PANTOPRAZOLE 40 MG TABLET (FP) ONE (08:00)
[2019-05-27] MEDS ORDERED: METOPROLOL TARTRATE 50 MG TABLET (FP) PO SCH (10:00)
[2019-05-27] MEDS ORDERED: PATIENT'S OWN MEDICATION (NON-FORMULARY) (Omeprazole [Omeprazole] 40 MG) PO SCH (10:00)
[2019-05-27] MEDS ORDERED: PT OWN MED DRAWER 7, Y5N ONE (10:09)
--- NOTE | 2019-05-27 11:01 | EKG ---
Test Reason : Blood Pressure : / mmHG Vent. Rate : 049 BPM Atrial Rate : 049 BPM P-R Int : 160 ms QRS Dur : 070 ms QT Int : 458 ms P-R-T Axes : -14 -21 003 degrees QTc Int : 413 ms SINUS BRADYCARDIA NONSPECIFIC T WAVE ABNORMALITY ABNORMAL ECG Confirmed by LACEY GOODMAN MD ([id number]) on 05/27/2019 11:00:58 AM Referred By: Confirmed By:LACEY GOODMAN MD
--- NOTE | 2019-05-27 11:02 | EKG ---
Test Reason : Blood Pressure : / mmHG Vent. Rate : 118 BPM Atrial Rate : 111 BPM P-R Int : 000 ms QRS Dur : 072 ms QT Int : 348 ms P-R-T Axes : 048 050 -04 degrees QTc Int : 487 ms NORMAL SINUS RHYTHM Frequent episodes of Non sustained Ventricular tachycardia ABNORMAL ECG Confirmed by MAXINE ROSALES, LACEY ([id number]) on 05/27/2019 11:02:20 AM Referred By: Confirmed By:LACEY GOODMAN MD
[2019-05-27] MEDS: ASPIRIN 81 MG CHEWABLE TABLETS PO SCH (11:24)
[2019-05-27] MEDS: TORSEMIDE 20 MG TABLET (FP) PO SCH (11:24)
[2019-05-27] MEDS: CLOPIDOGREL BISULFATE 75 MG TABLET (FP) PO SCH (11:24)
[2019-05-27] MEDS: ENOXAPARIN NA (PORCINE) 40 MG/0.4 ML DISP.SYRIN SQ SCH (13:45)
--- NOTE | 2019-05-27 15:50 | PN ---
Progress Note (short form) - Note Progress Note: HPI: 69yo F who initially presented with 2 days of worsening R lower back pain with some slight radiation down her leg. Pt denies any trauma to the area or any interspinal procedure (epidural, etc.). Pt reports the pain is better witht he medications today, however it is still present. She denies any lightheadedness, fever/chills, shortness of breath, chest pain, palpitations, abdominal pain, dysuria, hematuria, constipation, diarrhea, edema of the legs. Pt has only had previous fracture of wrist 2/2 to mechanical fall which was resolved 3 years ago Vital Signs Period Temp Pulse Resp BP Sys/Raymond Pulse Ox Last 24 Hr 97.5 F-97.8 F 52-136 18-22 97-168/51-85 94-100 CBC, BMP 05/27/19 07:00 05/27/19 07:00 Active Medications Aspirin (Asa -) 81 mg PO DAILY [facility] Last Admin: 05/27/19 11:24 Dose: 81 mg Atorvastatin Calcium (Lipitor -) 40 mg PO HS [facility] Clopidogrel Bisulfate (Plavix -) 75 mg PO DAILY [facility] Last Admin: 05/27/19 11:24 Dose: 75 mg Cyclobenzaprine HCl (Flexeril -) 10 mg PO TID PRN PRN Reason: MUSCLE SPASMS Enoxaparin Sodium (Lovenox -) 40 mg SQ DAILY [facility] Last Admin: 05/27/19 13:45 Dose: Not Given Sodium Chloride (Normal Saline -) 1,000 mls @ 75 mls/hr IV ASDIR [facility] Last Admin: 05/27/19 06:24 Dose: 75 mls/hr Ibuprofen (Motrin -) 400 mg PO Q6H PRN PRN Reason: FEVER Insulin Aspart (Novolog Vial Sliding Scale -) 1 vial SQ ACHS [facility]; Protocol Last Admin: 05/27/19 12:30 Dose: Not Given Metoprolol Tartrate (Lopressor -) 50 mg PO BID [facility] Last Admin: 05/27/19 11:24 Dose: 50 mg Miscellaneous (Lidoderm Patch Removal) 1 each MC DAILY@2200 [facility] Last Admin: 05/27/19 07:15 Dose: 1 each Nitrofurantoin Macrocrystals (Macrodantin -) 100 mg PO ONCE [facility] Last Admin: 05/27/19 06:24 Dose: 100 mg Pantoprazole Sodium (Protonix -) 40 mg PO ACBK [facility] Last Admin: 05/27/19 07:50 Dose: 40 mg Torsemide (Demadex -) 20 mg PO DAILY [facility] Last Admin: 05/27/19 11:24 Dose: Not Given PE: Gen: NAD, awake, alert, oriented x3 HEENT: NC/AT, LUIS, EOMI, sclera anicteric, MMM, Neck: No TTP of cervical spinous processes, no ROM deficits LUNGS: CTA b/l without any wheezing or rales. On RA CARD: RRR no murmurs appreciated ABD: Soft, obese, Nt/ND, normoactive BS, no hepatomegaly, no suprapubic tenderness BACK: R lower left paraspinal tenderness noted at level of L2-4. No spinous process tenderness. No erythema or skin changes. No warmth noted. No CVA tenderness EXT: No edema noted A/P Back pain likely musculoskeletal Aortic fusiform aneurysm Aortic thrombus Episode of SVT CAD s/p PCI stenting Type 2 DM --Continue with Lidocaine patch and flexeril --Avoid NSAIDS due to dual AP therapy --Physical therapy evaluation --Vascular surgery consulted due to aortic thrombus --Interval monitoring of fusiform aneurysm recommended in outpatient setting --Cardiology consulted due to SVT seen on admission by ER/Night team --Continue ASA 81mg qdaily, Plavix 75mg qdaily --Continue Lopressor 50mg BID --Can stop IVF --BGM ACHS with ISS coverage FEN: Fluids: D/c; PO Electrolyte abnormalities: None Nutrition: Sodium controlled diet PPX: DVT - Lovenox SQ daily GI - PPI already per home meds Dispo: monitor on Tele for SVT Case discussed with Dr. Efra Garduno, DO - IM PGY-3
--- NOTE | 2019-05-27 16:57 | CON.CARD ---
Cardiology Consult (text) - Consultation Consultation Note: Chief Complaint: right flank/back pain History of Present Illness: 69 yo female here with right flank pain/back pain. Present past few days. Worse when pushes on area or bends. No cp sob palps dizzy loc pnd orthopnea le edema. Sees dr orozco for cardio. PMH: CAD (CO and PCI) diast chf PSVT s/p avnrt ablation HTN HPL DM - Past Medical History Cardio/Vascular: Yes: CAD, CHF, HTN, Hyperlipdemia ...: No Endocrine: Yes: Diabetes Mellitus - Past Surgical History Past Surgical History: Yes: - Alcohol/Substance Use Hx Alcohol Use: No History of Substance Use: reports: None - Smoking History Smoking history: Former smoker Have you smoked in the past 12 months: No Aproximately how many cigarettes per day: 10 If you are a former smoker, when did you quit?: 1month - Social History ADL: Independent History of Recent Travel: No Home Medications - Allergies Allergies/Adverse Reactions: Allergies Allergy/AdvReac Type Severity Reaction Status Date / Time acetaminophen [From Tylenol] Allergy Verified 06/02/18 12:28 diphenhydramine HCl Allergy Verified 06/02/18 12:28 [From Benadryl] Penicillins Allergy Verified 06/02/18 12:28 Sulfa (Sulfonamide Allergy Verified 06/02/18 12:28 Antibiotics) - Home Medications Home Medications Medication Instructions Recorded Aspirin [Aspirin EC] 81 mg PO DAILY 05/05/17 Diazepam 2 mg PO BID PRN 05/05/17 Omeprazole 40 mg PO DAILY 05/05/17 Clopidogrel Bisulfate [Plavix -] 75 mg PO DAILY 06/04/17 Atorvastatin Ca [Lipitor] 40 mg PO HS #30 tab 06/05/17 metFORMIN HCL [Metformin ER 1,000 mg PO BID 02/05/18 Osmotic] traZODone HCL [Desyrel -] 50 mg PO HS 02/05/18 Metoprolol Succinate [Toprol XL -] 50 mg PO BID #90 tab.sr.24h 02/16/18 Torsemide [Demadex -] 20 mg PO DAILY #30 tablet 02/16/18 Amlodipine Besylate [Norvasc -] 1 tab PO DAILY 05/27/19 Losartan Potassium 50 mg PO BID 05/27/19 Family Disease History - Family Disease History Family History: Denies (no known CMP) Review of Systems - Review of Systems per hpi, all others nl Vital Signs Vital Signs Period Temp Pulse Resp BP Sys/Raymond Pulse Ox Last 24 Hr 97.5 F-97.8 F 52-136 18-22 97-168/51-85 94-100 Constitutional: Yes: No Distress, Obese Eyes: No: Sclera Icterus HENT: No: Nasal Congestion Neck: No: Decreased ROM Respiratory: Yes: CTA Bilaterally. No: Accessory Muscle Use, Rales, Wheezes Gastrointestinal: Yes: Normal Bowel Sounds. No: Distention, Hepatomegaly, Palpable Mass, Tenderness Cardiovascular: Yes: Regular Rate and Rhythm JVD: no Carotid Bruit: No PMI: Non-Displaced Heart Sounds: Yes: S1, S2. No: Gallop Murmur: No: Systolic Murmur, Diastolic Murmur Musculoskeletal: Yes: Other (No kyphosis) Extremities: No: Cold, Cyanosis Edema: No Peripheral Pulses: 2+ Left Carotid, 2+ Right Carotid, 2+ Left Doralis Pedis, 2+ Right Dorsalis Pedis Integumentary: No: Jaundice Neurological: Yes: Alert, Oriented (x3) Psychiatric: No: Agitated - Other Data Labs, Other Data: Laboratory Last Values WBC 6.4 K/mm3 (4.0-10.0) 05/27/19 07:00 RBC 3.97 M/mm3 (3.60-5.2) 05/27/19 07:00 Hgb 11.2 GM/dL (10.7-15.3) 05/27/19 07:00 Hct 34.1 % (32.4-45.2) 05/27/19 07:00 MCV 85.9 fl (80-96) 05/27/19 07:00 MCH 28.2 pg (25.7-33.7) 05/27/19 07:00 MCHC 32.9 g/dl (32.0-36.0) 05/27/19 07:00 RDW 16.8 % (11.6-15.6) H 05/27/19 07:00 Plt Count 171 K/MM3 (134-434) 05/27/19 07:00 MPV 9.9 fl (7.5-11.1) 05/27/19 07:00 Absolute Neuts (auto) 4.2 K/mm3 (1.5-8.0) 05/27/19 07:00 Neutrophils % 65.0 % (42.8-82.8) 05/27/19 07:00 Lymphocytes % 25.1 % (8-40) D 05/27/19 07:00 Monocytes % 7.3 % (3.8-10.2) 05/27/19 07:00 Eosinophils % 1.8 % (0-4.5) 05/27/19 07:00 Basophils % 0.8 % (0-2.0) 05/27/19 07:00 Nucleated RBC % 0 % (0-0) 05/27/19 07:00 Sodium 139 mmol/L (136-145) 05/27/19 07:00 Potassium 4.2 mmol/L (3.5-5.1) 05/27/19 07:00 Chloride 106 mmol/L (98-107) 05/27/19 07:00 Carbon Dioxide 27 mmol/L (21-32) 05/27/19 07:00 Anion Gap 6 MMOL/L (8-16) L 05/27/19 07:00 BUN 24.8 mg/dL (7-18) H 05/27/19 07:00 Creatinine 1.0 mg/dL (0.55-1.3) 05/27/19 07:00 Est GFR (CKD-EPI)AfAm 67.51 05/27/19 07:00 Est GFR (CKD-EPI)NonAf 58.25 05/27/19 07:00 POC Glucometer 114 UNITS (80-120) 05/27/19 16:53 Random Glucose 95 mg/dL (74-106) 05/27/19 07:00 Lactic Acid 1.3 mmol/L (0.4-2.0) 05/27/19 04:45 Calcium 8.3 mg/dL (8.5-10.1) L 05/27/19 07:00 Phosphorus 4.1 mg/dL (2.5-4.9) 05/27/19 07:00 Magnesium 2.0 mg/dL (1.8-2.4) 05/27/19 07:00 Total Bilirubin 0.3 mg/dL (0.2-1) 05/27/19 07:00 AST 10 U/L (15-37) L 05/27/19 07:00 ALT 18 U/L (13-61) 05/27/19 07:00 Alkaline Phosphatase 64 U/L (45-117) 05/27/19 07:00 Creatine Kinase 47 U/L (26-192) 05/27/19 07:00 Troponin I < 0.02 ng/ml (0.00-0.05) 05/27/19 07:00 Total Protein 5.4 g/dl (6.4-8.2) L 05/27/19 07:00 Albumin 2.9 g/dl (3.4-5.0) L 05/27/19 07:00 Urine Color Yellow 05/26/19 19:55 Urine Appearance Clear 05/26/19 19:55 Urine pH 5.5 (5.0-8.0) 05/26/19 19:55 Ur Specific [place] 1.024 (1.010-1.035) 05/26/19 19:55 Urine Protein Trace (NEGATIVE) 05/26/19 19:55 Urine Glucose (UA) Negative (NEGATIVE) 05/26/19 19:55 Urine Ketones Negative (NEGATIVE) 05/26/19 19:55 Urine Blood Negative (NEGATIVE) 05/26/19 19:55 Urine Nitrite Negative (NEGATIVE) 05/26/19 19:55 Urine Bilirubin Negative (NEGATIVE) 05/26/19 19:55 Urine Urobilinogen 1.0 mg/dL (0.2-1.0) 05/26/19 19:55 Ur Leukocyte Esterase 1+ (NEGATIVE) H 05/26/19 19:55 Urine WBC (Auto) 36 /hpf (0-5) 05/26/19 19:55 Urine RBC (Auto) 2 /hpf (0-4) 05/26/19 19:55 Urine Casts (Auto) 7 /lpf (0-8) 05/26/19 19:55 U Epithel Cells (Auto) 3.1 /HPF (0-5/HPF) 05/26/19 19:55 Urine Bacteria (Auto) 43.0 /hpf (NEGATIVE) 05/26/19 19:55 Assessment/Plan ecg: sr/sb, nl intervals, no ischemic changes ecg: sr with episodes of svt with aberrant conduction, similar to 01/2018 ecgs Echo 05/2017: nl lv/rv, no sig valve path PSVT: - per dr landin ([place] [facility]), she had complicated EP study results: (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 has been taking toprol 75 bid as outpt, cont same here -pt has hx of sinus kat 40s-50s, asymptomatic, and has tolerated toprol 75 bid in past. - EKG here similar to prior, c/w AT with aberrant conduction chronic diastolic chf: -stable, cont home po torsemide cad s/p mi, pci: -s/p mi/pci 04/2017 -echo 05/2017 with normal LVSF -no signs acs, no anginal sxs -cont home regimen: asa, plavix, bb, statin htn: -cont bb
--- NOTE | 2019-05-27 18:16 | PN ---
Progress Note (short form) - Note Progress Note: [facility] CTA images reviewed. Nomal aorta with incidental thrombus. No need for any intervention. Medical management. Tramaine Garcia DO
--- NOTE | 2019-05-27 18:18 | PN ---
Teaching Attending Note Name of Resident: Leif Garduno ATTENDING PHYSICIAN STATEMENT I saw and evaluated the patient. I reviewed the resident's note and discussed the case with the resident. I agree with the resident's findings and plan as documented with exceptions below. SUBJECTIVE: patient seen and examined. right flank/back pain x 3days, no urinary symptoms. No new leg weakness/tingling/numbness. reports sharp pain radiating down the thigh, worse with standing and ambulation. OBJECTIVE: Vital Signs Period Temp Pulse Resp BP Sys/Raymond Pulse Ox Last 24 Hr 97.5 F-97.8 F 52-136 18-22 97-168/51-85 94-100 Intake & Output 05/24/19 05/25/19 05/26/19 05/27/19 23:59 23:59 23:59 23:59 Weight 168 lb General: lying in bed in no acute distress neck: soft, supple Chest: CTAB, no rales or wheezing Abdomen: soft, obese, NT Extremities: no edema Musculoskeletal: right paraspinal spasm, LE power 5/5, SLR neg, no point spinal tenderness Home Medications Medication Instructions Recorded Aspirin [Aspirin EC] 81 mg PO DAILY 05/05/17 Diazepam 2 mg PO BID PRN 05/05/17 Omeprazole 40 mg PO DAILY 05/05/17 Clopidogrel Bisulfate [Plavix -] 75 mg PO DAILY 06/04/17 Atorvastatin Ca [Lipitor] 40 mg PO HS #30 tab 06/05/17 metFORMIN HCL [Metformin ER 1,000 mg PO BID 02/05/18 Osmotic] traZODone HCL [Desyrel -] 50 mg PO HS 02/05/18 Metoprolol Succinate [Toprol XL -] 50 mg PO BID #90 tab.sr.24h 02/16/18 Torsemide [Demadex -] 20 mg PO DAILY #30 tablet 02/16/18 Amlodipine Besylate [Norvasc -] 1 tab PO DAILY 05/27/19 Losartan Potassium 50 mg PO BID 05/27/19 Active Medications Aspirin (Asa -) 81 mg PO DAILY [facility] Last Admin: 05/27/19 11:24 Dose: 81 mg Atorvastatin Calcium (Lipitor -) 40 mg PO HS [facility] Clopidogrel Bisulfate (Plavix -) 75 mg PO DAILY [facility] Last Admin: 05/27/19 11:24 Dose: 75 mg Cyclobenzaprine HCl (Flexeril -) 10 mg PO TID PRN PRN Reason: MUSCLE SPASMS Last Admin: 05/27/19 17:18 Dose: 10 mg Enoxaparin Sodium (Lovenox -) 40 mg SQ DAILY [facility] Last Admin: 05/27/19 13:45 Dose: Not Given Sodium Chloride (Normal Saline -) 1,000 mls @ 75 mls/hr IV ASDIR [facility] Last Admin: 05/27/19 06:24 Dose: 75 mls/hr Insulin Aspart (Novolog Vial Sliding Scale -) 1 vial SQ ACHS [facility]; Protocol Last Admin: 05/27/19 17:07 Dose: Not Given Metoprolol Succinate (Toprol Xl -) 75 mg PO BID [facility] Miscellaneous (Lidoderm Patch Removal) 1 each MC DAILY@2200 [facility] Last Admin: 05/27/19 07:15 Dose: 1 each Nitrofurantoin Macrocrystals (Macrodantin -) 100 mg PO ONCE [facility] Last Admin: 05/27/19 06:24 Dose: 100 mg Pantoprazole Sodium (Protonix -) 40 mg PO ACBK [facility] Last Admin: 05/27/19 07:50 Dose: 40 mg Torsemide (Demadex -) 20 mg PO DAILY [facility] Last Admin: 05/27/19 11:24 Dose: Not Given Laboratory Results - last 24 hr 05/26/19 05/26/19 05/26/19 19:55 21:07 21:07 WBC 9.4 RBC 4.48 Hgb 12.5 Hct 39.1 D MCV 87.2 MCH 27.9 MCHC 32.0 RDW 16.9 H Plt Count 209 D MPV 10.2 Absolute Neuts (auto) 6.6 Neutrophils % 71.0 D Lymphocytes % 20.8 D Monocytes % 5.9 Eosinophils % 1.3 Basophils % 1.0 D Nucleated RBC % 0 Sodium 140 Potassium 4.3 Chloride 104 Carbon Dioxide 29 Anion Gap 7 L BUN 22.8 H Creatinine 0.9 Est GFR (CKD-EPI)AfAm 76.68 Est GFR (CKD-EPI)NonAf 66.16 POC Glucometer Random Glucose 106 Lactic Acid Calcium 9.5 Phosphorus Magnesium Total Bilirubin 0.5 AST 20 ALT 23 Alkaline Phosphatase 78 Creatine Kinase Troponin I Total Protein 6.8 Albumin 3.6 Urine Color Yellow Urine Appearance Clear Urine pH 5.5 Ur Specific [place] 1.024 Urine Protein Trace Urine Glucose (UA) Negative Urine Ketones Negative Urine Blood Negative Urine Nitrite Negative Urine Bilirubin Negative Urine Urobilinogen 1.0 Ur Leukocyte Esterase 1+ H Urine WBC (Auto) 36 Urine RBC (Auto) 2 Urine Casts (Auto) 7 U Epithel Cells (Auto) 3.1 Urine Bacteria (Auto) 43.0 05/27/19 05/27/19 05/27/19 02:32 02:32 04:45 WBC RBC Hgb Hct MCV MCH MCHC RDW Plt Count MPV Absolute Neuts (auto) Neutrophils % Lymphocytes % Monocytes % Eosinophils % Basophils % Nucleated RBC % Sodium Potassium Chloride Carbon Dioxide Anion Gap BUN Creatinine Est GFR (CKD-EPI)AfAm Est GFR (CKD-EPI)NonAf POC Glucometer Random Glucose Lactic Acid 2.1 H 1.3 Calcium Phosphorus Magnesium Total Bilirubin AST ALT Alkaline Phosphatase Creatine Kinase Troponin I < 0.02 Total Protein Albumin Urine Color Urine Appearance Urine pH Ur Specific [place] Urine Protein Urine Glucose (UA) Urine Ketones Urine Blood Urine Nitrite Urine Bilirubin Urine Urobilinogen Ur Leukocyte Esterase Urine WBC (Auto) Urine RBC (Auto) Urine Casts (Auto) U Epithel Cells (Auto) Urine Bacteria (Auto) 05/27/19 05/27/19 05/27/19 07:00 07:00 07:19 WBC 6.4 RBC 3.97 Hgb 11.2 Hct 34.1 MCV 85.9 MCH 28.2 MCHC 32.9 RDW 16.8 H Plt Count 171 MPV 9.9 Absolute Neuts (auto) 4.2 Neutrophils % 65.0 Lymphocytes % 25.1 D Monocytes % 7.3 Eosinophils % 1.8 Basophils % 0.8 Nucleated RBC % 0 Sodium 139 Potassium 4.2 Chloride 106 Carbon Dioxide 27 Anion Gap 6 L BUN 24.8 H Creatinine 1.0 Est GFR (CKD-EPI)AfAm 67.51 Est GFR (CKD-EPI)NonAf 58.25 POC Glucometer 92 Random Glucose 95 Lactic Acid Calcium 8.3 L Phosphorus 4.1 Magnesium 2.0 Total Bilirubin 0.3 AST 10 L ALT 18 Alkaline Phosphatase 64 Creatine Kinase 47 Troponin I < 0.02 Total Protein 5.4 L Albumin 2.9 L Urine Color Urine Appearance Urine pH Ur Specific [place] Urine Protein Urine Glucose (UA) Urine Ketones Urine Blood Urine Nitrite Urine Bilirubin Urine Urobilinogen Ur Leukocyte Esterase Urine WBC (Auto) Urine RBC (Auto) Urine Casts (Auto) U Epithel Cells (Auto) Urine Bacteria (Auto) 05/27/19 05/27/19 12:02 16:53 WBC RBC Hgb Hct MCV MCH MCHC RDW Plt Count MPV Absolute Neuts (auto) Neutrophils % Lymphocytes % Monocytes % Eosinophils % Basophils % Nucleated RBC % Sodium Potassium Chloride Carbon Dioxide Anion Gap BUN Creatinine Est GFR (CKD-EPI)AfAm Est GFR (CKD-EPI)NonAf POC Glucometer 84 114 Random Glucose Lactic Acid Calcium Phosphorus Magnesium Total Bilirubin AST ALT Alkaline Phosphatase Creatine Kinase Troponin I Total Protein Albumin Urine Color Urine Appearance Urine pH Ur Specific [place] Urine Protein Urine Glucose (UA) Urine Ketones Urine Blood Urine Nitrite Urine Bilirubin Urine Urobilinogen Ur Leukocyte Esterase Urine WBC (Auto) Urine RBC (Auto) Urine Casts (Auto) U Epithel Cells (Auto) Urine Bacteria (Auto) CTA Abdomen/Pelvis results reviewed ASSESSMENT AND PLAN: 69 yof with PMHx of HTN, HLD, NIDDM, CAD s/p stent placement x2 on 04/18/2017 and anxiety, SVT/AT s/p EP study admitted with right flank/back pain and incidentally found with aortic aneurysm/thrombus -Right low back pain, lumbar radiculopathy vs right paraspinal spasm, unlikely abdominal etiology -SVT with aberrancy -Abdominal aortic aneurysm with incidental thrombus -CAD s/p PCI x 2 04/2017 -HTN -HLD -NIDDM -Anxiety Plan: D/c NSAIDs. lidocaine patch/flexeril, PT eval Short trial with prednisone if fails to improve. Vascular surgery input noted. Outpatient follow up. Cardiology input noted. continue metoprolol 75 mg BID. Continue ASA/plavix/statin. resume losartan D/c IVF. No urinary symptoms, no concerns for UTi Dispo pending PT eval and clinical improvement. Discussed with patient.
[2019-05-27] MEDS: LIDOCAINE PATCH REMOVAL MC SCH (23:06)
[2019-05-27] MEDS: ATORVASTATIN CA 40 MG TABLET (FP) PO SCH (23:06)
[2019-05-27] MEDS: LOSARTAN POTASSIUM 50 MG TABLET (FP) PO SCH (23:07)
[2019-05-27 23:17] VITALS: BMI 38.7
[2019-05-28] MEDS: metoPROLOL SUCCINATE 25 MG TAB.SR.24H (FP) PO SCH ×3 (00:14→21:44)
[2019-05-28] MEDS: NITROFURANTOIN MACROCRYSTAL 50 MG CAPSULE (FP) PO SCH (04:19)
[2019-05-28] MEDS ORDERED: LOSARTAN POTASSIUM 50 MG TABLET (FP) PO ONE (06:14)
[2019-05-28] MEDS: PANTOPRAZOLE 40 MG TABLET (FP) PO SCH (06:23)
[2019-05-28] MEDS: INSULIN SLIDING SCALE (NOVOLOG) 1 VIAL SQ SCH ×4 (06:23→21:45)
--- NOTE | 2019-05-28 06:32 | PN ---
Progress Note (short form) - Note Progress Note: UPDATE: Pt noted to have better controlled BP (154/72) and pain is well improved. On monitor pt noted to have intermittent runs of wide-complex monomorphic VT and has gotten her Toprol XL for the day. Discussed with cardiology and if she has no symptoms can watch for stability. Will r/o electrolyte abnormalities at this time --Rpt BMP showing no abnormalities on electrolytes; pt remains asymptomatic HPI: Pt has increased pain, however is able to move more freely without any accompanying pain. Complaining of shortness of breath with BP elevation of 190' s systolic. Given her Cozaar morning dose (50mg) given at 0632h today. Vital Signs Period Temp Pulse Resp BP Sys/Raymond Pulse Ox Last 24 Hr 97.5 F-97.8 F 52-136 18-22 97-168/51-85 94-100 CBC, BMP 05/27/19 07:00 05/27/19 07:00 PE: Gen: NAD, awake, alert, oriented x3 HEENT: NC/AT, LUIS, sclera anicteric, MMM, Neck: No TTP of cervical spinous processes, no ROM deficits LUNGS: CTA b/l without any wheezing or rales. On RA CARD: RRR with premature beats no murmurs appreciated ABD: Soft, obese, Nt/ND, normoactive BS, no hepatomegaly BACK: Improved left paraspinal tenderness noted at level of L4. No spinous process tenderness. No erythema or skin changes. 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 with constipation patterning of tissues --Will add colace --Vascular surgery consulted due to aortic thrombus: no intervention at this time --Interval monitoring of fusiform aneurysm recommended in outpatient setting --Cardiology recommendations appreciated: bystander nodo-fascicular bypass tract --Continue ASA 81mg qdaily, Plavix 75mg qdaily --Continue Toprol XL 75mg qdaily --BGM ACHS with ISS coverage --Torsemide 10mg qdaily (pt now remembers taking only HALF a pill per day) FEN: Fluids: PO Electrolyte abnormalities: Lab vacation Nutrition: Sodium controlled diet PPX: DVT - Lovenox SQ daily GI - PPI already per home meds Dispo: Continue monitoring and f/u PT and LXR Case discussed with Dr. Efra Garduno, DO - IM PGY-3
[2019-05-28] MEDS ORDERED: hydrALAZINE HCL 25 MG TABLET (FP) PO ONE (08:51)
[2019-05-28] MEDS: TORSEMIDE 20 MG TABLET (FP) PO SCH ×2 (09:17→10:03)
[2019-05-28] MEDS: ASPIRIN 81 MG CHEWABLE TABLETS PO SCH (09:21)
[2019-05-28] MEDS: CLOPIDOGREL BISULFATE 75 MG TABLET (FP) PO SCH (09:21)
[2019-05-28] MEDS: ENOXAPARIN NA (PORCINE) 40 MG/0.4 ML DISP.SYRIN SQ SCH (09:21)
[2019-05-28] MEDS: LIDOCAINE 5% TOPICAL PATCH TP SCH (09:22)
--- NOTE | 2019-05-28 11:25 | PN ---
Progress Note (short form) - Note Progress Note: s: no cp sob palps dizzy Current Medications Generic Name Dose Route Start Last Admin Trade Name Freq PRN Reason Stop Dose Admin Aspirin 81 mg 05/27/19 10:00 05/28/19 09:21 Asa - PO 81 mg DAILY [facility] Administration Atorvastatin Calcium 40 mg 05/27/19 22:00 05/27/19 23:06 Lipitor - PO 40 mg HS [facility] Administration Clopidogrel Bisulfate 75 mg 05/27/19 10:00 05/28/19 09:21 Plavix - PO 75 mg DAILY [facility] Administration Cyclobenzaprine HCl 10 mg 05/27/19 06:10 05/27/19 17:18 Flexeril - PO 10 mg TID PRN Administration MUSCLE SPASMS Enoxaparin Sodium 40 mg 05/27/19 10:00 05/28/19 09:21 Lovenox - SQ 40 mg DAILY [facility] Administration Insulin Aspart 1 vial 05/27/19 07:00 05/28/19 06:23 Novolog Vial Sliding Scale - SQ Not Given ACHS [facility] Protocol Lidocaine 1 patch 05/28/19 10:00 05/28/19 09:22 Lidoderm Patch - TP Not Given DAILY [facility] Losartan Potassium 50 mg 05/27/19 22:00 05/27/19 23:07 Cozaar - PO 50 mg BID [facility] Administration Metoprolol Succinate 75 mg 05/27/19 22:00 05/28/19 10:03 Toprol Xl - PO 75 mg BID [facility] Administration Miscellaneous 1 each 05/27/19 22:00 05/27/19 23:06 Lidoderm Patch Removal MC Not Given DAILY@2200 [facility] Nitrofurantoin Macrocrystals 100 mg 05/27/19 04:30 05/28/19 04:19 Macrodantin - PO 100 mg ONCE [facility] Administration Pantoprazole Sodium 40 mg 05/27/19 07:00 05/28/19 06:23 Protonix - PO 40 mg ACBK [facility] Administration Torsemide 20 mg 05/27/19 10:00 05/28/19 10:03 Demadex - PO 20 mg DAILY [facility] Administration Vital Signs Period Temp Pulse Resp BP Sys/Raymond Pulse Ox Last 24 Hr 97.2 F-98.7 F 50-54 18-20 141-195/57-94 95-96 Constitutional: Yes: No Distress, Obese Eyes: No: Sclera Icterus HENT: No: Nasal Congestion Neck: No: Decreased ROM Respiratory: Yes: CTA Bilaterally. No: Accessory Muscle Use, Rales, Wheezes Gastrointestinal: Yes: Normal Bowel Sounds. No: Distention, Hepatomegaly, Palpable Mass, Tenderness Cardiovascular: Yes: Regular Rate and Rhythm JVD: no Carotid Bruit: No PMI: Non-Displaced Heart Sounds: Yes: S1, S2. 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 has been taking toprol 75 bid as outpt, cont same here -pt has hx of sinus kat 40s-50s, asymptomatic, and has tolerated toprol 75 bid in past. - EKG here similar to prior, c/w AT with aberrant conduction chronic diastolic chf: -stable, cont home po torsemide cad s/p mi, pci: -s/p mi/pci 04/2017 -echo 05/2017 with normal LVSF -no signs acs, no anginal sxs -cont home regimen: asa, plavix, bb, statin htn: -elevated this AM, now has received all home meds, monitor response later today.
--- NOTE | 2019-05-28 12:19 | PN ---
Teaching Attending Note Name of Resident: Leif Garduno ATTENDING PHYSICIAN STATEMENT I saw and evaluated the patient. I reviewed the resident's note and discussed the case with the resident. I agree with the resident's findings and plan as documented with exceptions below. SUBJECTIVE: Patient seen and examined. right back pain improved. no chest pain, headache or new concerns. Ambulating in the room. OBJECTIVE: Vital Signs Period Temp Pulse Resp BP Sys/Raymond Pulse Ox Last 24 Hr 97.2 F-98.7 F 50-54 18-20 141-195/57-94 95-96 Intake & Output 05/25/19 05/26/19 05/27/19 05/28/19 23:59 23:59 23:59 23:59 Intake Total 368 Balance 368 Weight 168 lb 178 lb 11.2 oz 170 lb 9.6 oz General: ambulating in room, no acute distress Neck: soft, supple CVS:S1S2 regular Chest: CTAB, no rales or wheezing Abdomen;Soft, obese, NT Extremities: no edema Musculoskeletal: right paraspinal spasm improved, lower extremity power 5/5, SLR upto 60 degrees, no point spinal tenderness Home Medications Medication Instructions Recorded Aspirin [Aspirin EC] 81 mg PO DAILY 05/05/17 Clopidogrel Bisulfate [Plavix -] 75 mg PO DAILY 06/04/17 metFORMIN HCL [Metformin ER 1,000 mg PO BID 02/05/18 Osmotic] traZODone HCL [Desyrel -] 100 mg PO HS 02/05/18 Metoprolol Succinate [Toprol XL -] 50 mg PO BID #90 tab.sr.24h 02/16/18 Amlodipine Besylate [Norvasc -] 1 tab PO DAILY 05/27/19 Losartan Potassium 50 mg PO BID 05/27/19 Atorvastatin Ca [Lipitor] 80 mg PO HS 05/28/19 Torsemide 10 mg PO DAILY 05/28/19 Active Medications Aspirin (Asa -) 81 mg PO DAILY [facility] Last Admin: 05/28/19 09:21 Dose: 81 mg Atorvastatin Calcium (Lipitor -) 40 mg PO [facility] Last Admin: 05/27/19 23:06 Dose: 40 mg Clopidogrel Bisulfate (Plavix -) 75 mg PO DAILY [facility] Last Admin: 05/28/19 09:21 Dose: 75 mg Cyclobenzaprine HCl (Cyclobenzaprine Hcl) 5 mg PO TID [facility] Enoxaparin Sodium (Lovenox -) 40 mg SQ DAILY [facility] Last Admin: 05/28/19 09:21 Dose: 40 mg Gabapentin (Neurontin -) 300 mg PO BID [facility] Insulin Aspart (Novolog Vial Sliding Scale -) 1 vial SQ ACHS [facility]; Protocol Last Admin: 05/28/19 11:58 Dose: Not Given Lidocaine (Lidoderm Patch -) 1 patch TP DAILY [facility] Last Admin: 05/28/19 09:22 Dose: Not Given Losartan Potassium (Cozaar -) 50 mg PO BID [facility] Last Admin: 05/27/19 23:07 Dose: 50 mg Metoprolol Succinate (Toprol Xl -) 75 mg PO BID [facility] Last Admin: 05/28/19 10:03 Dose: 75 mg Miscellaneous (Lidoderm Patch Removal) 1 each MC DAILY@2200 [facility] Last Admin: 05/27/19 23:06 Dose: Not Given Nitrofurantoin Macrocrystals (Macrodantin -) 100 mg PO ONCE [facility] Last Admin: 05/28/19 04:19 Dose: 100 mg Pantoprazole Sodium (Protonix -) 40 mg PO ACBK [facility] Last Admin: 05/28/19 06:23 Dose: 40 mg Torsemide (Demadex -) 20 mg PO DAILY [facility] Last Admin: 05/28/19 10:03 Dose: 20 mg Laboratory Results - last 24 hr 05/27/19 05/27/19 05/28/19 16:53 23:12 06:21 POC Glucometer 114 122 118 Microbiology 05/26/19 19:55 Urine - Urine Clean Catch Urine Culture - Final NO GROWTH OBTAINED ASSESSMENT AND PLAN: 69 yof with PMHx of HTN, HLD, NIDDM, CAD s/p stent placement x2 on 04/18/2017 and anxiety, SVT/AT s/p EP study admitted with right flank/back pain and incidentally found with aortic aneurysm/thrombus -Right low back pain, lumbar radiculopathy vs right paraspinal spasm, unlikely abdominal etiology -SVT with aberrancy -Abdominal aortic aneurysm with incidental thrombus -CAD s/p PCI x 2 04/2017 -Uncontrolled HTN, suspect from anxiety/pain -HLD -NIDDM -Anxiety Plan: Symptoms improved. Start flexeril/gabapentin. patient refuses lidocaine patch. Reports allergy to tylenol. LS spine xray PT eval. Vascular surgery input noted. Outpatient follow up. Cardiology input noted. continue metoprolol 75 mg BID. Continue ASA/plavix/statin/Losartan/Torsemide. Pharmacy called, home meds reconciled. No urinary symptoms, no concerns for UTi Dispo pending PT eval and clinical improvement. Discussed with patient and nursing, all questions answered. .
[2019-05-28] MEDS ORDERED: PT OWN MED DRAWER 7, Y5N ONE ×2 (13:05→20:25)
[2019-05-28 13:09] LABS: BASO % 0.8 % (0-2.0); EOS % 3.2 % (0-4.5); HEMATOCRIT 39.7 % (32.4-45.2); HEMOGLOBIN 12.5 GM/dL (10.7-15.3); LYMPH % 16.9 % (8-40); MCH 27.7 pg (25.7-33.7); MCHC 31.6 g/dl (32.0-36.0); MEAN CELL VOLUME 87.7 fl (80-96); MEAN PLT VOLUME 10.2 fl (7.5-11.1); MONO % 4.6 % (3.8-10.2); NEUT % 74.5 % (42.8-82.8); PLATELET COUNT 210 K/MM3 (134-434); RBC 4.53 M/mm3 (3.60-5.2); RDW 16.7 % (11.6-15.6); WHITE BLOOD COUNT 7.6 K/mm3 (4.0-10.0)
[2019-05-28] MEDS: GABAPENTIN 300 MG CAPSULE (FP) PO SCH ×2 (13:22→21:15)
[2019-05-28] MEDS: CYCLOBENZAPRINE HCL 5 MG TABLET PO SCH ×2 (13:22→21:45)
[2019-05-28 13:27] LABS: BLOOD UREA NITROGEN 25.1 mg/dL (7-18); CALCIUM 9.1 mg/dL (8.5-10.1); POTASSIUM 4.2 mmol/L (3.5-5.1)
[2019-05-28] MEDS: LOSARTAN POTASSIUM 50 MG TABLET (FP) PO SCH (21:44)
[2019-05-28] MEDS: ATORVASTATIN CA 40 MG TABLET (FP) PO SCH (21:44)
[2019-05-28] MEDS: LIDOCAINE PATCH REMOVAL MC SCH (21:45)
[2019-05-29] MEDS: CYCLOBENZAPRINE HCL 5 MG TABLET PO SCH ×3 (05:53→21:38)
[2019-05-29] MEDS: PANTOPRAZOLE 40 MG TABLET (FP) PO SCH (06:17)
[2019-05-29] MEDS: INSULIN SLIDING SCALE (NOVOLOG) 1 VIAL SQ SCH ×5 (06:17→21:38)
[2019-05-29] MEDS ORDERED: POLYETHYLENE GLYCOL 3350 119 GM BTL PO ONE (08:30)
[2019-05-29] MEDS ORDERED: PT OWN MED DRAWER 7, Y5N ONE ×3 (08:54→21:32)
[2019-05-29] MEDS: ENOXAPARIN NA (PORCINE) 40 MG/0.4 ML DISP.SYRIN SQ SCH (09:03)
[2019-05-29] MEDS: LIDOCAINE 5% TOPICAL PATCH TP SCH (09:04)
[2019-05-29] MEDS: ASPIRIN 81 MG CHEWABLE TABLETS PO SCH (09:05)
[2019-05-29] MEDS: metoPROLOL SUCCINATE 25 MG TAB.SR.24H (FP) PO SCH ×2 (09:05→21:39)
[2019-05-29] MEDS: CLOPIDOGREL BISULFATE 75 MG TABLET (FP) PO SCH (09:05)
[2019-05-29] MEDS: GABAPENTIN 300 MG CAPSULE (FP) PO SCH ×2 (09:05→21:37)
[2019-05-29] MEDS: LOSARTAN POTASSIUM 50 MG TABLET (FP) PO SCH ×2 (09:06→21:38)
[2019-05-29] MEDS: TORSEMIDE 10 MG TABLET PO SCH (09:06)
--- NOTE | 2019-05-29 09:55 | PN ---
Progress Note, Physician Chief Complaint: c/o palps all day yest TELE: Bursts PSVT History of Present Illness: reports being on Cardizem at home - Current Medication List Current Medications: Active Medications Aspirin (Asa -) 81 mg PO DAILY [facility] Last Admin: 05/29/19 09:05 Dose: 81 mg Atorvastatin Calcium (Lipitor -) 40 mg PO HS [facility] Last Admin: 05/28/19 21:44 Dose: 40 mg Clopidogrel Bisulfate (Plavix -) 75 mg PO DAILY [facility] Last Admin: 05/29/19 09:05 Dose: 75 mg Cyclobenzaprine HCl (Cyclobenzaprine Hcl) 5 mg PO TID [facility] Last Admin: 05/29/19 05:53 Dose: 5 mg Diltiazem HCl (Cardizem Cd -) 120 mg PO DAILY [facility] Enoxaparin Sodium (Lovenox -) 40 mg SQ DAILY [facility] Last Admin: 05/29/19 09:03 Dose: 40 mg Gabapentin (Neurontin -) 300 mg PO BID [facility] Last Admin: 05/29/19 09:05 Dose: 300 mg Insulin Aspart (Novolog Vial Sliding Scale -) 1 vial SQ [facility]; Protocol Last Admin: 05/29/19 06:17 Dose: Not Given Lidocaine (Lidoderm Patch -) 1 patch TP DAILY [facility] Last Admin: 05/29/19 09:04 Dose: 1 patch Losartan Potassium (Cozaar -) 50 mg PO BID [facility] Last Admin: 05/29/19 09:06 Dose: 50 mg Metoprolol Succinate (Toprol Xl -) 75 mg PO BID [facility] Last Admin: 05/29/19 09:05 Dose: 75 mg Miscellaneous (Lidoderm Patch Removal) 1 each MC DAILY@2200 [facility] Last Admin: 05/28/19 21:45 Dose: Not Given Pantoprazole Sodium (Protonix -) 40 mg PO ACBK [facility] Last Admin: 05/29/19 06:17 Dose: 40 mg Torsemide (Demadex -) 10 mg PO DAILY [facility] Last Admin: 05/29/19 09:06 Dose: 10 mg - Objective Vital Signs: Vital Signs Temperature 97.8 F 05/29/19 06:00 Pulse Rate 114 H 05/29/19 06:00 Respiratory Rate 18 05/29/19 09:00 Blood Pressure 118/72 05/29/19 06:00 O2 Sat by Pulse Oximetry (%) 94 L 05/29/19 09:00 Constitutional: Yes: No Distress Cardiovascular: Yes: Regular Rate and Rhythm, Tachycardia Respiratory: Yes: CTA Bilaterally Gastrointestinal: Yes: Soft Edema: No Peripheral Pulses WNL: No Neurological: Yes: Alert, Oriented ...Motor Strength: WNL Labs: CBC, BMP 05/28/19 12:46 05/28/19 12:46 - ....Imaging EKG: Image Reviewed Assessment/Plan Assessment/Plan ecg: sr/sb, nl intervals, no ischemic changes ecg: sr with episodes of svt with aberrant conduction, similar to 01/2018 ecgs Echo 05/2017: nl lv/rv, no sig valve path tele: sr, sb when sleeping, brief atrial run PSVT: - per dr landin ([place] [facility]), she had complicated EP study results: (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 has been taking toprol 75 bid as outpt, cont same here -pt has hx of sinus kat 40s-50s, asymptomatic, and has tolerated toprol 75 bid in past. -She continues to have frequent bursts of PSVT, reports being on Cardizem. Will add Cardizem and continue Tele - EKG here similar to prior, c/w AT with aberrant conduction chronic diastolic chf: -stable, cont home po torsemide cad s/p mi, pci: -s/p mi/pci 04/2017 -echo 05/2017 with normal LVSF -no signs acs, no anginal sxs -cont home regimen: asa, plavix, bb, statin htn: -stable
--- NOTE | 2019-05-29 10:57 | PN ---
Teaching Attending Note Name of Resident: Leif Garduno ATTENDING PHYSICIAN STATEMENT I saw and evaluated the patient. I reviewed the resident's note and discussed the case with the resident. I agree with the resident's findings and plan as documented with exceptions below. SUBJECTIVE: Patient seen and examined. back pain improved, feels better, ambulating in the hospital. no chest pain, palpitations, dizziness or dyspnea noted at rest or exertion inhouse. OBJECTIVE: Vital Signs Period Temp Pulse Resp BP Sys/Raymond Pulse Ox Last 24 Hr 97.7 F-98.3 F 53-119 18-19 116-161/72-107 92-94 Intake & Output 05/26/19 05/27/19 05/28/19 05/29/19 23:59 23:59 23:59 23:59 Intake Total 790 100 Balance 790 100 Weight 168 lb 178 lb 11.2 oz 170 lb 9.6 oz 171 lb 9.6 oz General: ambulating in room, no acute distress Neck: soft, supple, no JVD Chest: CTAB, no rales or wheezing Abdomen:soft, obese, NT CVS:S1s2 irregular Telemetry: HR 110s-120s (occasional) Musculoskeletal: right paraspinal spasm improved, lower extremity power 5/5, SLR upto 60 degrees, no point spinal tenderness, ambulating well Extremities: no edema Home Medications Medication Instructions Recorded Aspirin [Aspirin EC] 81 mg PO DAILY 05/05/17 Clopidogrel Bisulfate [Plavix -] 75 mg PO DAILY 06/04/17 metFORMIN HCL [Metformin ER 1,000 mg PO BID 02/05/18 Osmotic] traZODone HCL [Desyrel -] 100 mg PO HS 02/05/18 Amlodipine Besylate [Norvasc -] 1 tab PO DAILY 05/27/19 Losartan Potassium 50 mg PO BID 05/27/19 Torsemide 10 mg PO DAILY 05/28/19 Atorvastatin Ca [Lipitor] 40 mg PO HS 05/29/19 Cyclobenzaprine HCl 5 mg PO TID #18 tablet 05/29/19 Gabapentin [Neurontin -] 300 mg PO BID #60 capsule 05/29/19 Lidocaine 5% Patch [Lidoderm -] 1 patch TP DAILY #20 patch 05/29/19 Metoprolol Succinate [Toprol XL -] 75 mg PO BID tab.sr.24h 05/29/19 Active Medications Aspirin (Asa -) 81 mg PO DAILY [facility] Last Admin: 05/29/19 09:05 Dose: 81 mg Atorvastatin Calcium (Lipitor -) 40 mg PO HS [facility] Last Admin: 05/28/19 21:44 Dose: 40 mg Clopidogrel Bisulfate (Plavix -) 75 mg PO DAILY [facility] Last Admin: 05/29/19 09:05 Dose: 75 mg Cyclobenzaprine HCl (Cyclobenzaprine Hcl) 5 mg PO TID [facility] Last Admin: 05/29/19 05:53 Dose: 5 mg Diltiazem HCl (Cardizem Cd -) 120 mg PO DAILY [facility] Last Admin: 05/29/19 10:36 Dose: 120 mg Enoxaparin Sodium (Lovenox -) 40 mg SQ DAILY [facility] Last Admin: 05/29/19 09:03 Dose: 40 mg Gabapentin (Neurontin -) 300 mg PO BID [facility] Last Admin: 05/29/19 09:05 Dose: 300 mg Insulin Aspart (Novolog Vial Sliding Scale -) [address] [facility]; Protocol Last Admin: 05/29/19 06:17 Dose: Not Given Lidocaine (Lidoderm Patch -) 1 patch TP DAILY [facility] Last Admin: 05/29/19 09:04 Dose: 1 patch Losartan Potassium (Cozaar -) 50 mg PO BID [facility] Last Admin: 05/29/19 09:06 Dose: 50 mg Metoprolol Succinate (Toprol Xl -) 75 mg PO BID [facility] Last Admin: 05/29/19 09:05 Dose: 75 mg Miscellaneous (Lidoderm Patch Removal) 1 each MC DAILY@2200 [facility] Last Admin: 05/28/19 21:45 Dose: Not Given Pantoprazole Sodium (Protonix -) 40 mg PO ACBK [facility] Last Admin: 05/29/19 06:17 Dose: 40 mg Torsemide (Demadex -) 10 mg PO DAILY [facility] Last Admin: 05/29/19 09:06 Dose: 10 mg LS spine xray results reviewed ASSESSMENT AND PLAN: 69 yof with PMHx of HTN, HLD, NIDDM, CAD s/p stent placement x2 on 04/18/2017 and anxiety, SVT/AT s/p EP study admitted with right flank/back pain and incidentally found with aortic aneurysm/thrombus -Right low back pain, lumbar radiculopathy vs right paraspinal spasm, unlikely abdominal etiology -SVT with aberrancy -Abdominal aortic aneurysm with incidental thrombus -CAD s/p PCI x 2 04/2017 -Uncontrolled HTN, suspect from anxiety/pain -HLD -NIDDM -Anxiety Plan: Symptoms markedly improved, ambulating well Continue flexeril/gabapentin/lidocaine patch. Home PT arranged LS spine xray results reviewed HR noted, cardiology input noted, diltiazem added. Vascular surgery input noted. Outpatient follow up. Continue ASA/plavix/statin/Losartan/Torsemide. BP improved. No urinary symptoms, no concerns for UTi Dispo home with PT later today or in 24 hours if no concerns. Discussed with patient, nursing and social work, all questions answered.
--- NOTE | 2019-05-29 14:03 | PN ---
Progress Note (short form) - Note Progress Note: HPI: Pt with improvement of pain. Pt's monitor showing intermittent slightly more rapid (100-110) of her arrhythmia, however she denies any symptoms at time of my presentation Vital Signs Temperature 98.1 F 05/29/19 10:00 Pulse Rate 119 H 05/29/19 10:00 Respiratory Rate 05/29/19 10:00 Blood Pressure 116/83 05/29/19 10:00 O2 Sat by Pulse Oximetry (%) 94 L 05/29/19 09:00 CBC, BMP 05/28/19 12:46 05/28/19 12:46 PE: Gen: NAD, awake, alert, oriented x3 HEENT: NC/AT, LUIS, sclera anicteric, MMM, Neck: No TTP of cervical spinous processes, no ROM deficits LUNGS: CTA b/l without any wheezing or rales. On RA CARD: RRR with premature beats no murmurs appreciated ABD: Soft, obese, Nt/ND, normoactive BS, no hepatomegaly BACK: eft paraspinal tenderness noted at level of L4. No spinous process tenderness. No erythema or skin changes. 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 with constipation patterning of tissues --Will add Miralax --Vascular surgery consulted due to aortic thrombus: no intervention at this time --Interval monitoring of fusiform aneurysm recommended in outpatient setting --Cardiology recommendations appreciated: bystander nodo-fascicular bypass tract --Continue ASA 81mg qdaily, Plavix 75mg qdaily --Continue Toprol XL 75mg qdaily --BGM ACHS with ISS coverage --Torsemide 10mg qdaily (pt now remembers taking only HALF a pill per day) FEN: Fluids: PO Electrolyte abnormalities: Lab vacation Nutrition: Sodium controlled diet PPX: DVT - Lovenox SQ daily GI - PPI already per home meds Dispo: Due to initiation of AV tiffany blocking agent with hx of sinus bradycardia will need to watch telemetry Case discussed with Dr. Kraus and Dr. Mike Garduno, DO - IM PGY-3
[2019-05-29] MEDS: ATORVASTATIN CA 40 MG TABLET (FP) PO SCH (21:37)
[2019-05-29] MEDS: LIDOCAINE PATCH REMOVAL MC SCH (21:38)
[2019-05-30] MEDS: INSULIN SLIDING SCALE (NOVOLOG) 1 VIAL SQ SCH ×2 (06:29→11:57)
[2019-05-30] MEDS: PANTOPRAZOLE 40 MG TABLET (FP) PO SCH (06:29)
[2019-05-30] MEDS: CYCLOBENZAPRINE HCL 5 MG TABLET PO SCH (06:29)
[2019-05-30 08:45] VITALS: BP 142/67; PULSE 47; TEMP 98.1
--- NOTE | 2019-05-30 09:05 | PN ---
Physical Exam: SUBJECTIVE: Patient seen and examined, no complaints. No dizziness or lightheadedness, chest pain, or palpitations. Back pain improved. OBJECTIVE: Vital Signs Period Temp Pulse Resp BP Sys/Raymond Pulse Ox Last 24 Hr 97.9 F-98.9 F 44-119 16-19 95-142/47-83 94-96 Intake & Output 05/27/19 05/28/19 05/29/19 05/30/19 23:59 23:59 23:59 23:59 Intake Total 790 940 120 Balance 790 940 120 Weight 178 lb 11.2 oz 170 lb 9.6 oz 171 lb 9.6 oz General: ambulating in room, no acute distress Neck: soft, supple, no JVD Chest: CTAB, no rales or wheezing Abdomen:soft, obese, NT CVS:S1s2 irregular Telemetry: HR 40s-60s (asymptomatic) Musculoskeletal: right paraspinal spasm improved, lower extremity power 5/5, SLR upto 60 degrees, no point spinal tenderness, ambulating well Extremities: no edema Laboratory Results - last 24 hr 05/29/19 05/29/19 05/29/19 11:15 16:35 21:35 POC Glucometer 155 87 156 05/30/19 06:27 POC Glucometer 108 Active Medications Generic Name Dose Route Start Last Admin Trade Name [place] PRN Reason Stop Dose Admin Aspirin 81 mg 05/27/19 10:00 05/29/19 09:05 Asa - PO 81 mg DAILY [facility] Administration Atorvastatin Calcium 40 mg 05/27/19 22:00 05/29/19 21:37 Lipitor - PO 40 mg HS [facility] Administration Clopidogrel Bisulfate 75 mg 05/27/19 10:00 05/29/19 09:05 Plavix - PO 75 mg DAILY [facility] Administration Cyclobenzaprine HCl 5 mg 05/28/19 14:00 05/30/19 06:29 Cyclobenzaprine Hcl PO 5 mg TID [facility] Administration Enoxaparin Sodium 40 mg 05/27/19 10:00 05/29/19 09:03 Lovenox - SQ 40 mg DAILY [facility] Administration Gabapentin 300 mg 05/28/19 12:30 05/29/19 21:37 Neurontin - PO 300 mg BID [facility] Administration Insulin Aspart 1 vial 05/27/19 07:00 05/30/19 06:29 Novolog Vial Sliding Scale - SQ Not Given ACHS COUNTS INCLUDE 234 BEDS AT [facility] Protocol Lidocaine 1 patch 05/28/19 10:00 05/29/19 09:04 Lidoderm Patch - TP 1 patch DAILY [facility] Administration Losartan Potassium 50 mg 05/27/19 22:00 05/29/19 21:38 Cozaar - PO 50 mg BID [facility] Administration Metoprolol Succinate 75 mg 05/27/19 22:00 05/29/19 21:39 Toprol Xl - PO Not Given BID [facility] Miscellaneous 1 each 05/27/19 22:00 05/29/19 21:38 Lidoderm Patch Removal MC 1 each DAILY@2200 [facility] Administration Pantoprazole Sodium 40 mg 05/27/19 07:00 05/30/19 06:29 Protonix - PO 40 mg ACBK [facility] Administration Torsemide 10 mg 05/29/19 10:00 05/29/19 09:06 Demadex - PO 10 mg DAILY [facility] Administration Telemetry: HR 60-70s, overnight 40s ASSESSMENT/PLAN: 69 yof with PMHx of HTN, HLD, NIDDM, CAD s/p stent placement x2 on 04/18/2017 and anxiety, SVT/AT s/p EP study admitted with right flank/back pain and incidentally found with aortic aneurysm/thrombus -Right low back pain, lumbar radiculopathy vs right paraspinal spasm, unlikely abdominal etiology -SVT with aberrancy/bradycardia -Abdominal aortic aneurysm with incidental thrombus -CAD s/p PCI x 2 04/2017 -Uncontrolled HTN, suspect from anxiety/pain -HLD -NIDDM -Anxiety Plan: Currently doing well. Back pain improved. Overnight HR 40s-60s. Metoprolol held last night and this AM. D/c diltiazem. Continue prior home metoprolol as tolerated. Discussed with Dr. Lewis, follow up recs. Patient currently asymptomatic with no concerns at rest or ambulation. tachycardia on presentation could have been more related to her pain and anxiety. Continue flexeril/gabapentin/lidocaine patch. Home PT arranged LS spine xray results reviewed Vascular surgery input noted. Outpatient follow up. Continue ASA/plavix/statin/Losartan/Torsemide. BP improved. No urinary symptoms, no concerns for UTi Dispo plan for d/c home with PT today pending cardiology input. Discussed with patient, nursing, all questions answered. Visit type - Emergency Visit Emergency Visit: Yes ED Registration Date: 05/27/19 Care time: The patient presented to the Emergency Department on the above date and was hospitalized for further evaluation of their emergent condition. - New Patient This patient is new to me today: No - Critical Care Critical Care patient: No - Discharge Referral Referred to [facility] No
[2019-05-30] MEDS ORDERED: PT OWN MED DRAWER 7, Y5N ONE (09:27)
[2019-05-30] MEDS: ASPIRIN 81 MG CHEWABLE TABLETS PO SCH (09:29)
[2019-05-30] MEDS: GABAPENTIN 300 MG CAPSULE (FP) PO SCH (09:29)
[2019-05-30] MEDS: CLOPIDOGREL BISULFATE 75 MG TABLET (FP) PO SCH (09:30)
[2019-05-30] MEDS: TORSEMIDE 10 MG TABLET PO SCH (09:30)
[2019-05-30] MEDS: LOSARTAN POTASSIUM 50 MG TABLET (FP) PO SCH (09:30)
[2019-05-30] MEDS: LIDOCAINE 5% TOPICAL PATCH TP SCH (09:30)
[2019-05-30] MEDS: ENOXAPARIN NA (PORCINE) 40 MG/0.4 ML DISP.SYRIN SQ SCH (09:30)
[2019-05-30] MEDS: metoPROLOL SUCCINATE 25 MG TAB.SR.24H (FP) PO SCH (09:32)
--- NOTE | 2019-05-30 10:24 | DS ---
Physical Exam: SUBJECTIVE: Patient seen and examined, no complaints. No dizziness or lightheadedness, chest pain, or palpitations. Back pain improved. OBJECTIVE: Vital Signs Period Temp Pulse Resp BP Sys/Raymond Pulse Ox Last 24 Hr 97.9 F-98.9 F 44-52 16-18 95-142/47-78 96 Intake & Output 05/27/19 05/28/19 05/29/19 05/30/19 23:59 23:59 23:59 23:59 Intake Total 790 940 120 Balance 790 940 120 Weight 178 lb 11.2 oz 170 lb 9.6 oz 171 lb 9.6 oz PHYSICAL EXAM General: ambulating in room, no acute distress Neck: soft, supple, no JVD Chest: CTAB, no rales or wheezing Abdomen:soft, obese, NT CVS:S1s2 irregular Telemetry: HR 40s-60s (asymptomatic) Musculoskeletal: right paraspinal spasm improved, lower extremity power 5/5, SLR upto 60 degrees, no point spinal tenderness, ambulating well Extremities: no edema LABS Laboratory Results - last 24 hr 05/29/19 05/29/19 05/29/19 11:15 16:35 21:35 POC Glucometer 155 87 156 05/30/19 06:27 POC Glucometer 108 Laboratory Last Values WBC 7.6 K/mm3 (4.0-10.0) 05/28/19 12:46 RBC 4.53 M/mm3 (3.60-5.2) 05/28/19 12:46 Hgb 12.5 GM/dL (10.7-15.3) 05/28/19 12:46 Hct 39.7 % (32.4-45.2) D 05/28/19 12:46 MCV 87.7 fl (80-96) 05/28/19 12:46 MCH 27.7 pg (25.7-33.7) 05/28/19 12:46 MCHC 31.6 g/dl (32.0-36.0) L 05/28/19 12:46 RDW 16.7 % (11.6-15.6) H 05/28/19 12:46 Plt Count 210 K/MM3 (134-434) D 05/28/19 12:46 MPV 10.2 fl (7.5-11.1) 05/28/19 12:46 Absolute Neuts (auto) 5.7 K/mm3 (1.5-8.0) 05/28/19 12:46 Neutrophils % 74.5 % (42.8-82.8) 05/28/19 12:46 Lymphocytes % 16.9 % (8-40) D 05/28/19 12:46 Monocytes % 4.6 % (3.8-10.2) 05/28/19 12:46 Eosinophils % 3.2 % (0-4.5) 05/28/19 12:46 Basophils % 0.8 % (0-2.0) 05/28/19 12:46 Nucleated RBC % 0 % (0-0) 05/28/19 12:46 Sodium 142 mmol/L (136-145) 05/28/19 12:46 Potassium 4.2 mmol/L (3.5-5.1) 05/28/19 12:46 Chloride 105 mmol/L (98-107) 05/28/19 12:46 Carbon Dioxide 30 mmol/L (21-32) 05/28/19 12:46 Anion Gap 7 MMOL/L (8-16) L 05/28/19 12:46 BUN 25.1 mg/dL (7-18) H 05/28/19 12:46 Creatinine 1.0 mg/dL (0.55-1.3) 05/28/19 12:46 Est GFR (CKD-EPI)AfAm 67.51 05/28/19 12:46 Est GFR (CKD-EPI)NonAf 58.25 05/28/19 12:46 POC Glucometer 108 UNITS (80-120) 05/30/19 06:27 Random Glucose 131 mg/dL (74-106) H 05/28/19 12:46 Lactic Acid 1.3 mmol/L (0.4-2.0) 05/27/19 04:45 Calcium 9.1 mg/dL (8.5-10.1) 05/28/19 12:46 Phosphorus 4.1 mg/dL (2.5-4.9) 05/27/19 07:00 Magnesium 2.0 mg/dL (1.8-2.4) 05/27/19 07:00 Total Bilirubin 0.3 mg/dL (0.2-1) 05/27/19 07:00 AST 10 U/L (15-37) L 05/27/19 07:00 ALT 18 U/L (13-61) 05/27/19 07:00 Alkaline Phosphatase 64 U/L (45-117) 05/27/19 07:00 Creatine Kinase 47 U/L (26-192) 05/27/19 07:00 Troponin I < 0.02 ng/ml (0.00-0.05) 05/27/19 07:00 Total Protein 5.4 g/dl (6.4-8.2) L 05/27/19 07:00 Albumin 2.9 g/dl (3.4-5.0) L 05/27/19 07:00 Urine Color Yellow 05/26/19 19:55 Urine Appearance Clear 05/26/19 19:55 Urine pH 5.5 (5.0-8.0) 05/26/19 19:55 Ur Specific [place] 1.024 (1.010-1.035) 05/26/19 19:55 Urine Protein Trace (NEGATIVE) 05/26/19 19:55 Urine Glucose (UA) Negative (NEGATIVE) 05/26/19 19:55 Urine Ketones Negative (NEGATIVE) 05/26/19 19:55 Urine Blood Negative (NEGATIVE) 05/26/19 19:55 Urine Nitrite Negative (NEGATIVE) 05/26/19 19:55 Urine Bilirubin Negative (NEGATIVE) 05/26/19 19:55 Urine Urobilinogen 1.0 mg/dL (0.2-1.0) 05/26/19 19:55 Ur Leukocyte Esterase 1+ (NEGATIVE) H 05/26/19 19:55 Urine WBC (Auto) 36 /hpf (0-5) 05/26/19 19:55 Urine RBC (Auto) 2 /hpf (0-4) 05/26/19 19:55 Urine Casts (Auto) 7 /lpf (0-8) 05/26/19 19:55 U Epithel Cells (Auto) 3.1 /HPF (0-5/HPF) 05/26/19 19:55 Urine Bacteria (Auto) 43.0 /hpf (NEGATIVE) 05/26/19 19:55 CT A/P: Comparison: 05/26/2019. Contiguous transaxial images were obtained from the diaphragmatic domes and pubic symphysis before and after the administration of IV contrast. Sagittal and coronal reconstructions were performed. 3-D processing was also obtained. Lung bases: Cardiomegaly. Mild mosaic pattern. Precontrast images are similar to prior exam of one day ago. Postcontrast: Limited by motion. Within those limitations, physiologic arterial enhancement. 2.6 CM fusiform dilatation of the aorta without evidence of dissection or leak. There is thrombus. The bowel appears unremarkable. No evidence of aortic dissection or leak is seen. Fibroid uterus. Impression: Limitations related to motion. No evidence of dissection or abdominal aortic leak. No specific bowel abnormality seen. Other findings as above. LS spine xray: Lumbar spine x-rays, 5 views The height and alignment of the vertebral bodies appear unremarkable. Mild degenerative disc disease at L3-L4 and L4-L5 level with mild anterior spondylosis. No compression fracture or subluxation identified. The sacrum and coccyx appear unremarkable. Both sacroiliac joints appear unremarkable. Calcification of the abdominal aorta wall is noted. Visualized soft tissue appears unremarkable. There is moderate amount of fecal residue in included portion of the colon suggestive of constipation. Impression : Mild degenerative disc disease at L3-L4 and L4-L5 level Findings suggestive of constipation. CT A/P without contrast: The lung bases are clear. There are tiny nodules within the right middle lobe anteriorly that are stable since 06/30/2018. The heart is enlarged. There is no evidence of calcifications within the kidneys, ureters or urinary bladder suspicious for urinary tract calculi. There is no evidence of hydronephrosis or obstructive uropathy. There is scarring of the upper pole of the right kidney and lower pole of the left kidney. Calcification is noted in the region of the right upper pole scarring. This may be related to a prior infectious process. No significant abnormalities of the liver, spleen, pancreas, or adrenal glands are identified. There is hyperdense material within the gallbladder that most likely represents biliary sludge. No definite calculi are identified. Sonographic follow-up may be warranted. There is no evidence of intra-abdominal , retroperitoneal or pelvic mass lesions, fluid collections or lymphadenopathy. The abdominal aorta is somewhat ectatic and heavily calcified without evidence of significant aneurysmal dilatation. Widest AP diameter measures 2.8 cm. There is no evidence of pneumoperitoneum, bowel obstruction or intra-abdominal abscess There is no CT evidence of acute appendicitis. There is extensive diverticulosis of the sigmoid colon with no evidence of acute diverticulitis. The uterus is somewhat prominent and nodular in contour suggesting leiomyomata. There is no evidence of acute bony pathology. IMPRESSION: 1. Bilateral renal scarring with no evidence of calculi or obstructive uropathy. 2. Suspected gallbladder sludge. Sonographic follow-up recommended. 3. Ectatic abdominal aorta with no significant aneurysmal dilatation. 4. Sigmoid diverticulosis with no evidence of diverticulitis or acute pathology within the abdomen or pelvis. Please see above discussion. HOSPITAL COURSE: Date of Admission:05/27/19 Date of Discharge: 05/30/19 Minutes to complete discharge: 45 Discharge Summary Problems reviewed: Yes Reason For Visit: INTRACTABLE PAIN Current Active Problems -Right low back pain, lumbar radiculopathy vs right paraspinal spasm, unlikely abdominal etiology -SVT with aberrancy -Abdominal aortic aneurysm with incidental thrombus -CAD s/p PCI x 2 04/2017 -Uncontrolled HTN, suspect from anxiety/pain -HLD -NIDDM -Anxiety Hospital Course: 69 yof with PMHx of HTN, HLD, NIDDM, CAD s/p stent placement x2 on 04/18/2017 and anxiety, SVT/AT s/p EP study admitted with right flank/back pain and incidentally found with aortic aneurysm/thrombus. Her right low back pain was consistent with lumbar radiculopathy/paraspinal spasm. She was placed on flexeril/gabapentin and lidocaine patch with marked improvement. She has LS spine xray as above with no acute concerns. She was evaluated by physical therapy and will be discharged home with services. She was also noted with SVT with aberrancy, seen by cardiology. She was continued on her home metoprolol and recommended outpatient follow up with Dr. Amaya. She was found with fusiform abdominal aortic aneurysmal dilatation 2.6 cm with incidental thrombus. She was see by vascular surgery and no additional intervention was recommended. She had few episodes of uncontrolled HTN, which improved with pain control. Her hospital course and aortic findings have been discussed with PCP Dr. Erwin. She will be discharged home in stable condition with home PT and outpatient PCP/ cardiology follow up. Condition: Stable - Instructions Diet, Activity, Other Instructions: You were seen here due to your significant back pain. We gave you some medications which helped your pain. In addition we did some imaging that showed chronic arthritic changes. During your imaging we saw there is widening of your aorta with a chronic blood clot, however the vascular surgeons saw you and said that no treatment was needed. Findings have been discussed with Dr. Erwin and you will need follow up for the same. MEDICATIONS: Please continue your home medications as below: Cozaar 50mg TWICE daily Toprol XL 75mg TWICE daily Torsemide 10mg one daily Plavix 75mg daily Aspirin 81mg daily Metformin 1000mg TWICE daily Lipitor 40mg at night We will be giving you Neurontin 300mg TWICE daily for your pain In addition we will give you Flexeril 5mg every 8 hours for the first three days. After third day change to Flexeril 5mg NEEDED (max every 8 hours). [address] or operate machinery on this medication as it can make you sleepy. This medication may make you dizzy as well, however you did not have this reaction while in the hospital You are given lidocaine patch to be applied to affected back area daily as needed (please note to place patch on for 12 hours and remove for 12 hours in a 24 hour period and follow the use instructions. You can also take an over the counter laxative if you need due to constipation. You were found with found with aortic aneurysm 2.6 cm with clot that was felt to be chronic by the vascular surgeon. Findings have been discussed with Dr. Erwin and you will need monitoring for the same. It is very important that your BP is in good control. FOLLOW-UPs: Please follow-up with Dr. Erwin to update them about your hospital stay Please follow-up with your forest management teacher, Dr. Amaya regarding your heart rhythm and heart medications You will be receiving physical therapy at home to help with your back pain. If you notice worsening pain, dizziness, palpitations or any new concerns, please call 911 or come to the ED. Referrals: Ty Amaya [Other] Georgia Erwin MD [Primary Care Provider] - Disposition: VNS/HOME HEALTH CARE - Home Medications Comprehensive Discharge Medication List: Ambulatory Orders Aspirin [Aspirin EC] 81 mg PO DAILY 05/05/17 Clopidogrel Bisulfate [Plavix -] 75 mg PO DAILY 06/04/17 metFORMIN HCL [Metformin ER Osmotic] 1,000 mg PO BID 02/05/18 traZODone HCL [Desyrel -] 100 mg PO HS 02/05/18 Amlodipine Besylate [Norvasc -] 1 tab PO DAILY 05/27/19 Losartan Potassium 50 mg PO BID 05/27/19 Torsemide 10 mg PO DAILY 05/28/19 Atorvastatin Ca [Lipitor] 40 mg PO HS 05/29/19 Cyclobenzaprine HCl 5 mg PO TID #18 tablet 05/29/19 Gabapentin [Neurontin -] 300 mg PO BID #60 capsule 05/29/19 Lidocaine 5% Patch [Lidoderm -] 1 patch TP DAILY #20 patch 05/29/19 Metoprolol Succinate [Toprol Xl] 75 mg PO BID 05/30/19 This patient is new to me today: No Emergency Visit: Yes ED Registration Date: 05/27/19 Care time: The patient presented to the Emergency Department on the above date and was hospitalized for further evaluation of their emergent condition. Critical Care patient: No - Discharge Referral Referred to [facility] No
--- NOTE | 2019-05-30 11:01 | PN ---
Progress Note (short form) - Note Progress Note: s: no cp sob palps dizzy Current Medications Generic Name Dose Route Start Last Admin Trade Name Freq PRN Reason Stop Dose Admin Aspirin 81 mg 05/27/19 10:00 05/30/19 09:29 Asa - PO 81 mg DAILY BR[facility]LEY Administration Atorvastatin Calcium 40 mg 05/27/19 22:00 05/29/19 21:37 Lipitor - PO 40 mg HS [facility] Administration Clopidogrel Bisulfate 75 mg 05/27/19 10:00 05/30/19 09:30 Plavix - PO 75 mg DAILY BR[facility] Administration Cyclobenzaprine HCl 5 mg 05/28/19 14:00 05/30/19 06:29 Cyclobenzaprine Hcl PO 5 mg TID BRADLEY Administration Enoxaparin Sodium 40 mg 05/27/19 10:00 05/30/19 09:30 Lovenox - SQ 40 mg DAILY BR[facility] Administration Gabapentin 300 mg 05/28/19 12:30 05/30/19 09:29 Neurontin - PO 300 mg BID BRADLEY Administration Insulin Aspart 1 vial 05/27/19 07:00 05/30/19 06:29 Novolog Vial Sliding Scale - SQ Not Given ACHS [facility] Protocol Lidocaine 1 patch 05/28/19 10:00 05/30/19 09:30 Lidoderm Patch - TP 1 patch DAILY BR[facility]LEY Administration Losartan Potassium 50 mg 05/27/19 22:00 05/30/19 09:30 Cozaar - PO 50 mg BID BR[facility] Administration Metoprolol Succinate 75 mg 05/27/19 22:00 05/30/19 09:32 Toprol Xl - PO Not Given BID BRADLEY Miscellaneous 1 each 05/27/19 22:00 05/29/19 21:38 Lidoderm Patch Removal MC 1 each DAILY@2200 BR[facility] Administration Pantoprazole Sodium 40 mg 05/27/19 07:00 05/30/19 06:29 Protonix - PO 40 mg ACBK BR[facility] Administration Torsemide 10 mg 05/29/19 10:00 05/30/19 09:30 Demadex - PO 10 mg DAILY BRADLEY Administration Vital Signs Period Temp Pulse Resp BP Sys/Raymond Pulse Ox Last 24 Hr 97.9 F-98.9 F 44-52 16-18 95-142/47-78 96 Constitutional: Yes: No Distress, Obese Eyes: No: Sclera Icterus HENT: No: Nasal Congestion Neck: No: Decreased ROM Respiratory: Yes: CTA Bilaterally. No: Accessory Muscle Use, Rales, Wheezes Gastrointestinal: Yes: Normal Bowel Sounds. No: Distention, Hepatomegaly, Palpable Mass, Tenderness Cardiovascular: Yes: Regular Rate and Rhythm JVD: no Carotid Bruit: No PMI: Non-Displaced Heart Sounds: Yes: S1, S2. 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 has been taking toprol 75 bid as outpt, cont same here. trial of dilt here did not improve svt , has been stopped now. -pt has hx of sinus kat 40s-50s, asymptomatic, and has tolerated toprol 75 bid in past. - EKG here similar to prior, c/w AT with aberrant conduction chronic diastolic chf: -stable, cont home po torsemide cad s/p mi, pci: -s/p mi/pci 04/2017 -echo 05/2017 with normal LVSF -no signs acs, no anginal sxs -cont home regimen: asa, plavix, bb, statin htn: -cont current meds cardiac flores stable for dc
== END 2019-05-30 13:44 | disposition home health service (06) | DRG 552 ==
LOC: JER 18:26 → JERBED 05-27 04:11 → J5S 05-27 18:33 → J4S 05-28 00:04
PROVIDERS: ADMIT Internal Medicine; ATTEND Hospitalist
DX: M54.16 Radiculopathy, lumbar region (principal); E87.2 Acidosis; I47.1 Supraventricular tachycardia; I50.32 Chronic diastolic (congestive) heart failure; Z88.0 Allergy status to penicillin; I25.10 Atherosclerotic heart disease of native coronary artery without angina pectoris; E78.5 Hyperlipidemia, unspecified; E11.9 Type 2 diabetes mellitus without complications; I48.91 Unspecified atrial fibrillation; Z79.84 Long term (current) use of oral hypoglycemic drugs; I71.4 Abdominal aortic aneurysm, without rupture; Z98.61 Coronary angioplasty status; I11.0 Hypertensive heart disease with heart failure; E66.9 Obesity, unspecified; F41.9 Anxiety disorder, unspecified; Z68.37 Body mass index [BMI] 37.0-37.9, adult
CPT/HCPCS: 36415; 72100-TC-FY; 74174-TC; 74176-TC; 80048; 80053; 81003; 82550; 82962; 83605; 83735; 84100; 84484; 85025; 87086; 93005; 93010; 97116-GP; 97161-GP; 99285-25; J7030

== ENCOUNTER 2019-06-25 00:49 | Inpatient (IN) | payer OTHER ==
[2019-06-25 00:59] VITALS: BMI 36.3
[2019-06-25] MEDS ORDERED: AMIODARONE HCL 150 MG/3 ML VIAL ONE (01:03)
--- NOTE | 2019-06-25 01:11 | PDOC ---
History of Present Illness - General Chief Complaint: Irregular Heart Beat Stated Complaint: TACHYCARDIA Time Seen by Provider: 06/25/19 01:03 History Source: Patient Exam Limitations: No Limitations - History of Present Illness Initial Comments: 06/25/19 01:17 69 yo F with a hx of HTN, HLD, CAD s/p stents, diastolic CHF, arrhythmia (s/p ablation) and NIDDM presents to the emergency department with palpitations via EMS. Per EMS, they gave the patient amiodarone 150 mg in the field for perceived wide complex tachycardia. The patient stated her symptoms of palpitations began at 10:30 pm. The patient denies chest pain and SOB. She stated she felt very weak and was lightheadedness, nearly falling in her home. 06/25/19 01:28 Past History - Past Medical History Allergies/Adverse Reactions: Allergies Allergy/AdvReac Type Severity Reaction Status Date / Time acetaminophen [From Tylenol] Allergy Verified 06/25/19 00:59 diphenhydramine HCl Allergy Verified 06/25/19 00:59 [From Benadryl] Penicillins Allergy Verified 06/25/19 00:59 Sulfa (Sulfonamide Allergy Verified 06/25/19 00:59 Antibiotics) Home Medications: Ambulatory Orders Aspirin [Aspirin EC] 81 mg PO DAILY 05/05/17 Clopidogrel Bisulfate [Plavix -] 75 mg PO DAILY 06/04/17 metFORMIN HCL [Metformin ER Osmotic] 1,000 mg PO BID 02/05/18 traZODone HCL [Desyrel -] 100 mg PO HS 02/05/18 Amlodipine Besylate [Norvasc -] 1 tab PO DAILY 05/27/19 Losartan Potassium 50 mg PO BID 05/27/19 Torsemide 10 mg PO DAILY 05/28/19 Atorvastatin Ca [Lipitor] 40 mg PO HS 05/29/19 Cyclobenzaprine HCl 5 mg PO TID #18 tablet 05/29/19 Gabapentin [Neurontin -] 300 mg PO BID #60 capsule 05/29/19 Lidocaine 5% Patch [Lidoderm -] 1 patch TP DAILY #20 patch 05/29/19 Metoprolol Succinate [Toprol Xl] 75 mg PO BID 05/30/19 Cardiac Disorders: Yes (2 stents, CHF,VT 2017) COPD: No CHF: Yes Diabetes: Yes HTN: Yes - Surgical History Cardiac Surgery: Yes Orthopedic Surgery: Yes ([facility]RIST) - Immunization History Immunization Up to Date: No - Psycho Social/Smoking Cessation Hx Smoking History: Never smoked Have you smoked in the past 12 months: No Number of Cigarettes Smoked Daily: 10 If you are a former smoker, when did you quit?: 1month 'Breaking Loose' booklet given: 05/15/17 Hx Alcohol Use: No Drug/Substance Use Hx: No Substance Use Type: None Hx Substance Use Treatment: No Review of Systems - Review of Systems Able to Perform ROS?: Yes Is the patient limited Czech proficient: No Constitutional: Yes: Weakness. No: Chills, Diaphoresis, Fever HEENTM: No: Eye Pain, Ear Pain, Nose Pain, Throat Pain, Mouth Pain Respiratory: No: Cough, Shortness of Breath, Hemoptysis Cardiac (ROS): Yes: Irregular Heart Rate, Lightheadedness, Palpitations, Chest Tightness. No: Chest Pain ABD/GI: No: Constipated, Diarrhea, Nausea, Rectal Bleeding, Vomiting, Tarry Stools : No: Burning, Dysuria, Hematuria Musculoskeletal: No: Back Pain, Joint Pain, Neck Pain Integumentary: No: Bruising, Erythema, Rash Neurological: No: Headache, Numbness, Tingling, Tremors Psychiatric: No: Change in Appetite Endocrine: No: Unexplained Weight Gain Hematologic/Lymphatic: No: Anemia *Physical Exam - Vital Signs Last Vital Signs Temp Pulse Resp BP Pulse Ox 97.2 F L 54 L 24 H 107/56 L 96 06/25/19 00:51 06/25/19 00:51 06/25/19 00:51 06/25/19 00:51 06/25/19 00:51 - Physical Exam General Appearance: Yes: Nourished, Appropriately Dressed, Mild Distress. No: Intoxicated HEENT: positive: EOMI, KIRSTIE, Normal Voice, Symmetrical, Pharynx Normal, Hearing Grossly Normal. negative: Pale Conjunctivae, Scleral Icterus (R), Scleral Icterus (L), Muffled/Hoarse voice, Pharyngeal Erythema, Tonsillar Exudate, Tonsillar Erythema, Excessive drooling Neck: positive: Trachea midline, Supple. negative: Tender, Lymphadenopathy (R) , Lymphadenopathy (L), Tender lateral, Tender midline Respiratory/Chest: positive: Lungs Clear, Normal Breath Sounds. negative: Chest Tender, Respiratory Distress, Accessory Muscle Use Cardiovascular: positive: S1, S2, Tachycardia, Irregularly Irregular. negative : Systolic Murmur Gastrointestinal/Abdominal: positive: Normal Bowel Sounds, Flat, Soft. negative : Tender, Distended, Guarding, Rebound Lymphatic: negative: Adenopathy Musculoskeletal: positive: Normal Inspection. negative: CVA Tenderness, Vertebral Tenderness Extremity: positive: Normal Capillary Refill, Normal Inspection, Normal Range of Motion. negative: Tender Integumentary: positive: Dry, Warm, Pale Neurologic: positive: clerical supervisor II-XII NML intact, Fully Oriented, Alert, Normal Mood/ Affect ED Treatment Course - LABORATORY CBC & Chemistry Diagram: 06/25/19 07:44 06/25/19 07:44 Medical Decision Making - Medical Decision Making 06/25/19 01:32 69 yo F with a hx of HTN, HLD, CAD s/p stents, diastolic CHF, arrhythmia (s/p ablation) and NIDDM presents to the emergency department with palpitations via EMS. Initial vitals: Initial Vital Signs Temp Pulse Resp BP Pulse Ox 97.2 F L 54 L 24 H 107/56 L 96 06/25/19 00:51 06/25/19 00:51 06/25/19 00:51 06/25/19 00:51 06/25/19 00:51 Work up: Patient was brought to our ED after 150 mg of amiodarone. Original 12 lead via EMS shows wide QRS tachycardia in leads 1 with bundle branch block in V6 with ST depression in V2 with QRS morphology consistent with possible bifasciular block. Patient spontaneously converted to SINUS BRADYCARDIA with resolution of bundle branch blocks. Previous cardiology consultation shows that the patient has AVNRT ablation. Separate AT focus seen. Very rare bypass tract noted on the consultation. EKG is more consistent with AVNRT vs wide complex tachycardia. Laboratory Tests 06/25/19 06/25/19 06/25/19 01:00 01:00 01:00 WBC 9.0 RBC 4.78 Hgb 13.4 Hct 41.3 MCV 86.4 MCH 27.9 MCHC 32.3 RDW 17.2 H Plt Count 190 MPV 10.6 Absolute Neuts (auto) 5.8 Neutrophils % 65.0 Lymphocytes % 23.7 D Monocytes % 6.9 Eosinophils % 3.7 Basophils % 0.7 Nucleated RBC % 0 PT with INR Cancelled INR Cancelled PTT (Actin FS) Cancelled Sodium Cancelled Potassium Cancelled Chloride Cancelled Carbon Dioxide Cancelled Anion Gap Cancelled BUN Cancelled Creatinine Cancelled Est GFR (CKD-EPI)AfAm Cancelled Est GFR (CKD-EPI)NonAf Cancelled Random Glucose Cancelled Calcium Cancelled Magnesium Total Bilirubin Cancelled AST Cancelled ALT Cancelled Alkaline Phosphatase Cancelled Creatine Kinase Cancelled Troponin I Cancelled Total Protein Cancelled Albumin Cancelled 06/25/19 06/25/19 06/25/19 01:00 01:00 02:30 WBC RBC Hgb Hct MCV MCH MCHC RDW Plt Count MPV Absolute Neuts (auto) Neutrophils % Lymphocytes % Monocytes % Eosinophils % Basophils % Nucleated RBC % PT with INR Cancelled INR Cancelled PTT (Actin FS) Sodium Cancelled 140 Potassium Cancelled 3.8 Chloride Cancelled 103 Carbon Dioxide Cancelled 28 Anion Gap Cancelled 9 BUN Cancelled 31.4 H Creatinine Cancelled 1.5 H Est GFR (CKD-EPI)AfAm Cancelled 41.35 Est GFR (CKD-EPI)NonAf Cancelled 35.68 Random Glucose Cancelled 104 Calcium Cancelled 9.2 Magnesium 1.9 Total Bilirubin Cancelled 0.4 AST Cancelled 17 ALT Cancelled 32 Alkaline Phosphatase Cancelled 102 Creatine Kinase 80 Troponin I 0.02 Total Protein Cancelled 7.5 Albumin Cancelled 4.0 06/25/19 02:30 WBC RBC Hgb Hct MCV MCH MCHC RDW Plt Count MPV Absolute Neuts (auto) Neutrophils % Lymphocytes % Monocytes % Eosinophils % Basophils % Nucleated RBC % PT with INR 11.60 INR 0.98 PTT (Actin FS) 30.9 Sodium Potassium Chloride Carbon Dioxide Anion Gap BUN Creatinine Est GFR (CKD-EPI)AfAm Est GFR (CKD-EPI)NonAf Random Glucose Calcium Magnesium Total Bilirubin AST ALT Alkaline Phosphatase Creatine Kinase Troponin I Total Protein Albumin patient has an elevated creatinine consistent with CARITO. Patient has negative trops. Patient to be admitted as they need cardiology follow up in the AM and to be observed overnight for further tachyarrhythmia episodes. Dispo: Admit Discharge - Discharge Information Problems reviewed: Yes Clinical Impression/Diagnosis: CARITO (acute kidney injury), Tachyarrhythmia Condition: Guarded - Follow up/Referral - Patient Discharge Instructions - Post Discharge Activity
--- NOTE | 2019-06-25 01:12 | PDOC ---
Attending Attestation - Resident Resident Name: Martin Martinez - ED Attending Attestation I have performed the following: I have examined & evaluated the patient, The case was reviewed & discussed with the resident, I agree w/resident's findings & plan - HPI HPI: 06/25/19 03:28 see resident hpi - Physicial Exam PE: 06/25/19 03:29 agree with resident exam - Medical Decision Making 06/25/19 03:29 69-year-old female with lightheadedness and palpitations Patient found to have a possible wide-complex tachycardia and route 150 mg of amiodarone given prior to arrival Patient converted to a sinus bradycardia in the emergency department Unfortunately EKG prior to conversion was not obtained Patient will be admitted to medical service for further evaluation
[2019-06-25 01:25] LABS: BASO % 0.7 % (0-2.0); EOS % 3.7 % (0-4.5); HEMATOCRIT 41.3 % (32.4-45.2); HEMOGLOBIN 13.4 GM/dL (10.7-15.3); LYMPH % 23.7 % (8-40); MCH 27.9 pg (25.7-33.7); MCHC 32.3 g/dl (32.0-36.0); MEAN CELL VOLUME 86.4 fl (80-96); MEAN PLT VOLUME 10.6 fl (7.5-11.1); MONO % 6.9 % (3.8-10.2); PLATELET COUNT 190 K/MM3 (134-434); RBC 4.78 M/mm3 (3.60-5.2); RDW 17.2 % (11.6-15.6)
[2019-06-25 02:57] LABS: INR 0.98 (0.83-1.09); PROTHROMBIN TIME (PATIENT) 11.6 SEC (9.7-13.0)
[2019-06-25 02:59] LABS: ACTIVATED PTT 30.9 SECONDS (25.2-36.5)
[2019-06-25 03:15] LABS: BILIRUBIN,TOTAL 0.4 mg/dL (0.2-1); BLOOD UREA NITROGEN 31.4 mg/dL (7-18); CALCIUM 9.2 mg/dL (8.5-10.1); CREATININE 1.5 mg/dL (0.55-1.3); MAGNESIUM 1.9 mg/dL (1.8-2.4); POTASSIUM 3.8 mmol/L (3.5-5.1); TOT PROT 7.5 g/dl (6.4-8.2)
--- NOTE | 2019-06-25 04:42 | PN ---
Teaching Attending Note Name of Resident: Barbara Alonzo ATTENDING PHYSICIAN STATEMENT I saw and evaluated the patient. I reviewed the resident's note and discussed the case with the resident. I agree with the resident's findings and plan as documented. SUBJECTIVE: Patient is a 69 year old woman with PMH of HTN, HLD, Penicillin allergy, Inferior NE in 04/2017 (s/p 2 stents), Diastolic CHF, Arrhythmia (s/p ablation), Anxiety, Lumbar radiculopathy, Abdominal aortic aneurysm with thrombus and NIDDM presents to the ER with palpitations via EMS. Per EMS, they gave the patient amiodarone 150 mg in the field for perceived wide complex tachycardia. On arrival in the ER patient's EKG showed sinus bradycardia. The patient stated her symptoms of palpitations began at 10:30 pm. The patient denies chest pain, SOB, fever, chills, dizziness, headache, diarrhea, constipation, dysuria, frequency or hematuria. Denies tobacco, alcohol or illicit drug abuse. OBJECTIVE: Alert Vital Signs Period Temp Pulse Resp BP Sys/Raymond Pulse Ox Last 24 Hr 97.2 F 54 24 107/56 96 HEENT: No Jaundice, eye redness or discharge, PERRLA, EOMI. Normocephalic, atraumatic. External ears are normal and hearing is grossly intact. No nasal discharge. Neck: Supple, nontender. No palpable adenopathy or thyromegaly. No JVD Chest: Good effort. Clear to auscultation and percussion. Heart: Regular. No S3, rub or murmur Abdomen: Not distended, soft, nontender and no HSM. No rebound or guarding. Normal bowel sounds. Ext: Peripheral pulses intact. No leg edema. Skin: Warm and dry. No petechiae, rash or ecchymosis. Neuro: Alert. Oriented x3. CN 2-12 grossly intact. Sensation grossly intact in all four extremities and DTR are symmetric. Psych: Appropriate mood and affect. Good insight. Home Medications Medication Instructions Recorded Aspirin [Aspirin EC] 81 mg PO DAILY 05/05/17 Clopidogrel Bisulfate [Plavix -] 75 mg PO DAILY 06/04/17 metFORMIN HCL [Metformin ER 1,000 mg PO BID 02/05/18 Osmotic] traZODone HCL [Desyrel -] 100 mg PO HS 02/05/18 Amlodipine Besylate [Norvasc -] 1 tab PO DAILY 05/27/19 Losartan Potassium 50 mg PO BID 05/27/19 Torsemide 10 mg PO DAILY 05/28/19 Atorvastatin Ca [Lipitor] 40 mg PO HS 05/29/19 Cyclobenzaprine HCl 5 mg PO TID #18 tablet 05/29/19 Gabapentin [Neurontin -] 300 mg PO BID #60 capsule 05/29/19 Lidocaine 5% Patch [Lidoderm -] 1 patch TP DAILY #20 patch 05/29/19 Metoprolol Succinate [Toprol Xl] 75 mg PO BID 05/30/19 Abnormal Lab Results 06/25/19 06/25/19 01:00 02:30 RDW 17.2 H BUN 31.4 H Creatinine 1.5 H ASSESSMENT AND PLAN: 1. Symptomatic ?wide complex tachycardia - No obvious precipitating factor for her arrhythmia today. Patient known to have AVNRT and was scheduled to see her maintenance data analyst in 2 weeks at [facility] for a second ablation procedure!. Now comfortable in the ER with no complaints and EKG showing sinus bradycardia at [address]-T wave changes. Will contact her maintenance data analyst during the day and in the meantime continue her home medications including Toprol XL and monitor her on telemetry. Repeat EKG and troponin. CXR shows cardiomegaly, wide mediastinum and possible left pleural effusion. Will continue comprehensive care for all of patients comorbid conditions. 2. DM For now, we will hold the home diabetes drugs and implement sliding scale insulin regimen. Provide comprehensive diabetes care with patient teaching and counseling about the importance of adherence to prescribed diabetes regimen, euglycemia, eye care and foot care. 3. CARITO - Cause unclear. Will get kidney sonogram, urinalysis, hydrate gently and monitor urine output. Will avoid nephrotoxic agents such as NSAIDS, aminoglycosides, contrast dyes and certain Alternative medicine products. 4. Obesity Counseled on the risks associated with obesity. Will provide patient all the necessary assistance, counseling and positive reinforcement to facilitate weight loss. Consult landfill gas collection operator. 5. Hypertension - Restart suitable outpatient antihypertensive drugs when clinically appropriate. Revise regimen to ensure [id number] excellent BP control and staff counsel patient on the injurious effects of uncontrolled hypertension. Nonpharmacologic measures to control hypertension like weight loss , salt restriction and exercise discussed. Importance of adherence to treatment regimen and attainment of normotension emphasized. 6. DVT prophylaxis - Heparin 5000u sq tid. 7. Advance directives - Full code
--- NOTE | 2019-06-25 06:31 | HP ---
CHIEF COMPLAINT: palpitations PCP: Dr Erwin HISTORY OF PRESENT ILLNESS: 71 y/o M with PMH of HTN, HLD, DM, AVNRT s/p ablation (Dr Amaya at [place]) who presented to the ED because of palpitations that started yesterday evening. The palpitations were associated with dizziness but no other symptoms like LOC, visual changes or headache, chest pain, shortness of breath or n/v. Pt had the exact similar episode during an admission in may; and patient was told to follow up o/p with cardiology. However symptoms return prematurely and patient called EMS. In the field, pt was found to have perceived wide complex tachycardia and 150 of amiodarone was given. However prior to ED arrival tachycardia resolved and patient went into Bradycardia. Based on chart review, pt had similar episodes and bb was given to control rate and her episodic bradycardia isnt novel. Pt at the time had a discussion about a second ablation and to f/u with Dr Amaya. ER course was notable for: (1) CBC, CMP remarkable for cr elevation to 1.5 (baseline unsure but pt has fluctuated between o.9-1.4 in the last few years) (2) CXR showed no acute pathology, repeat ekg was remarkable sinus bradycardia at [address]-T wave changes Recent Travel: none PAST MEDICAL HISTORY: as above PAST SURGICAL HISTORY: 2 C sections Social History: Smokin/2 PPD 20-30 years but quit 2 yrs ago Alcohol: 1-2 drink a year Drugs: denies Allergies acetaminophen [From Tylenol] Allergy (Verified 06/25/19 00:59) diphenhydramine HCl [From Benadryl] Allergy (Verified 06/25/19 00:59) Penicillins Allergy (Verified 06/25/19 00:59) Sulfa (Sulfonamide Antibiotics) Allergy (Verified 06/25/19 00:59) HOME MEDICATIONS: Home Medications Medication Instructions Recorded Aspirin [Aspirin EC] 81 mg PO DAILY 05/05/17 Clopidogrel Bisulfate [Plavix -] 75 mg PO DAILY 06/04/17 metFORMIN HCL [Metformin ER 1,000 mg PO BID 02/05/18 Osmotic] traZODone HCL [Desyrel -] 100 mg PO HS 02/05/18 Amlodipine Besylate [Norvasc -] 1 tab PO DAILY 05/27/19 Losartan Potassium 50 mg PO BID 05/27/19 Torsemide 10 mg PO DAILY 05/28/19 Atorvastatin Ca [Lipitor] 40 mg PO HS 05/29/19 Cyclobenzaprine HCl 5 mg PO TID #18 tablet 05/29/19 Gabapentin [Neurontin -] 300 mg PO BID #60 capsule 05/29/19 Lidocaine 5% Patch [Lidoderm -] 1 patch TP DAILY #20 patch 05/29/19 Metoprolol Succinate [Toprol Xl] 75 mg PO BID 05/30/19 REVIEW OF SYSTEMS CONSTITUTIONAL: Absent: fever, chills, diaphoresis, generalized weakness, malaise, loss of appetite, weight change HEENT: Absent: rhinorrhea, nasal congestion, throat pain, throat swelling, difficulty swallowing, mouth swelling, ear pain, eye pain, visual changes CARDIOVASCULAR: palpitations Absent: chest pain, syncope, irregular heart rate, lightheadedness, peripheral edema RESPIRATORY: Absent: cough, shortness of breath, dyspnea with exertion, orthopnea, wheezing, stridor, hemoptysis GASTROINTESTINAL: Absent: abdominal pain, abdominal distension, nausea, vomiting, diarrhea, constipation, melena, hematochezia GENITOURINARY: Absent: dysuria, frequency, urgency, hesitancy, hematuria, flank pain, genital pain MUSCULOSKELETAL: Absent: myalgia, arthralgia, joint swelling, back pain, neck pain SKIN: Absent: rash, itching, pallor HEMATOLOGIC/IMMUNOLOGIC: Absent: easy bleeding, easy bruising, lymphadenopathy, frequent infections ENDOCRINE: Absent: unexplained weight gain, unexplained weight loss, heat intolerance, cold intolerance NEUROLOGIC: Absent: headache, focal weakness or paresthesias, dizziness, unsteady gait, seizure, mental status changes, bladder or bowel incontinence PSYCHIATRIC: Absent: anxiety, depression, suicidal or homicidal ideation, hallucinations. PHYSICAL EXAMINATION Vital Signs - 24 hr 06/25/19 06/25/19 00:51 05:20 Temperature 97.2 F L 97.3 F L Pulse Rate 54 L Pulse Rate [ 54 L Apical] Respiratory 24 H 16 Rate Blood Pressure 107/56 L Blood Pressure 104/75 [Right Arm] O2 Sat by Pulse 96 99 Oximetry (%) GENERAL: Awake, alert, and fully oriented, in no acute distress. HEAD: Normal with no signs of trauma. EYES: Pupils equal, round and reactive to light, extraocular movements intact, sclera anicteric, conjunctiva clear. No lid lag. EARS, NOSE, THROAT: oropharynx clear without exudates. Moist mucous membranes. NECK: Normal range of motion, supple without lymphadenopathy, JVD, or masses. LUNGS: Breath sounds equal, clear to auscultation bilaterally. No wheezes, and no crackles. No accessory muscle use. HEART: Regular rate and rhythm, normal S1 and S2 without murmur, rub or gallop. ABDOMEN: Soft, nontender, not distended, normoactive bowel sounds, no guarding, no rebound, no masses. No hepatomegaly or splenomegaly. MUSCULOSKELETAL: Normal range of motion at all joints. No bony deformities or tenderness. No CVA tenderness. UPPER EXTREMITIES: 2+ pulses, warm, well-perfused. No cyanosis. No clubbing. No peripheral edema. LOWER EXTREMITIES: 2+ pulses, warm, well-perfused. No calf tenderness. No peripheral edema. NEUROLOGICAL: Cranial nerves II-XII intact. Normal speech. Normal gait. PSYCHIATRIC: Cooperative. Good eye contact. Appropriate mood and affect. SKIN: Warm, dry, normal turgor, Laboratory Results - last 24 hr 06/25/19 06/25/19 06/25/19 01:00 01:00 01:00 WBC 9.0 RBC 4.78 Hgb 13.4 Hct 41.3 MCV 86.4 MCH 27.9 MCHC 32.3 RDW 17.2 H Plt Count 190 MPV 10.6 Absolute Neuts (auto) 5.8 Neutrophils % 65.0 Lymphocytes % 23.7 D Monocytes % 6.9 Eosinophils % 3.7 Basophils % 0.7 Nucleated RBC % 0 PT with INR Cancelled INR Cancelled PTT (Actin FS) Cancelled Sodium Cancelled Potassium Cancelled Chloride Cancelled Carbon Dioxide Cancelled Anion Gap Cancelled BUN Cancelled Creatinine Cancelled Est GFR (CKD-EPI)AfAm Cancelled Est GFR (CKD-EPI)NonAf Cancelled Random Glucose Cancelled Calcium Cancelled Magnesium Total Bilirubin Cancelled AST Cancelled ALT Cancelled Alkaline Phosphatase Cancelled Creatine Kinase Cancelled Troponin I Cancelled Total Protein Cancelled Albumin Cancelled 06/25/19 06/25/19 06/25/19 01:00 01:00 02:30 WBC RBC Hgb Hct MCV MCH MCHC RDW Plt Count MPV Absolute Neuts (auto) Neutrophils % Lymphocytes % Monocytes % Eosinophils % Basophils % Nucleated RBC % PT with INR Cancelled INR Cancelled PTT (Actin FS) Sodium Cancelled 140 Potassium Cancelled 3.8 Chloride Cancelled 103 Carbon Dioxide Cancelled 28 Anion Gap Cancelled 9 BUN Cancelled 31.4 H Creatinine Cancelled 1.5 H Est GFR (CKD-EPI)AfAm Cancelled 41.35 Est GFR (CKD-EPI)NonAf Cancelled 35.68 Random Glucose Cancelled 104 Calcium Cancelled 9.2 Magnesium 1.9 Total Bilirubin Cancelled 0.4 AST Cancelled 17 ALT Cancelled 32 Alkaline Phosphatase Cancelled 102 Creatine Kinase 80 Troponin I 0.02 Total Protein Cancelled 7.5 Albumin Cancelled 4.0 06/25/19 02:30 WBC RBC Hgb Hct MCV MCH MCHC RDW Plt Count MPV Absolute Neuts (auto) Neutrophils % Lymphocytes % Monocytes % Eosinophils % Basophils % Nucleated RBC % PT with INR 11.60 INR 0.98 PTT (Actin FS) 30.9 Sodium Potassium Chloride Carbon Dioxide Anion Gap BUN Creatinine Est GFR (CKD-EPI)AfAm Est GFR (CKD-EPI)NonAf Random Glucose Calcium Magnesium Total Bilirubin AST ALT Alkaline Phosphatase Creatine Kinase Troponin I Total Protein Albumin ASSESSMENT/PLAN: 71 y/o M with PMH of HTN, HLD, DM, AVNRT s/p ablation (Dr Amaya at [place]) who presented to the ED because of palpitations that started yesterday evening. Arrhythmia 2/2 AVNRT admitted to tele cardio Natasha Douglass consulted as he saw pt last admission for similar complaints day team to reach out to Dr Amaya from [place] further information about the case resumed metoprolol for rate control as pt was stable on that dose on last admission monitor CARITO Cr 1.5 baseline unsure but pt has fluctuated between o.9-1.4 in the last few years UA U/S kidneys gentle hydration monitor urine output avoid nephrotoxic agents such as NSAIDS, aminoglycosides, contrast dyes and certain Alternative medicine products. DM BGM ISS HLD resume home dose once med rec CHF resume home meds once rec FEN cardiac diet DVT Hep sub Q Visit type - Emergency Visit Emergency Visit: Yes ED Registration Date: 06/25/19 Care time: The patient presented to the Emergency Department on the above date and was hospitalized for further evaluation of their emergent condition. - New Patient This patient is new to me today: Yes Date on this admission: 06/25/19 - Critical Care Critical Care patient: No ATTENDING PHYSICIAN STATEMENT I saw and evaluated the patient. I reviewed the resident's note and discussed the case with the resident. I agree with the resident's findings and plan as documented. SUBJECTIVE: OBJECTIVE: ASSESSMENT AND PLAN:
[2019-06-25] MEDS ORDERED: SODIUM CHLORIDE 1,000 ML IV SCH (07:45)
[2019-06-25] MEDS: INSULIN SLIDING SCALE (NOVOLOG) 1 VIAL SQ SCH ×2 (07:56→11:17)
[2019-06-25] MEDS ORDERED: HEPARIN NA (PORCINE) 5,000 UNITS/ML 1ML VIAL ONE (07:57)
[2019-06-25] MEDS: HEPARIN NA (PORCINE) 5,000 UNITS/ML 1ML VIAL SQ SCH ×2 (08:00→14:18)
[2019-06-25 08:02] LABS: BASO % 0.7 % (0-2.0); EOS % 3.3 % (0-4.5); HEMATOCRIT 38.2 % (32.4-45.2); HEMOGLOBIN 12.4 GM/dL (10.7-15.3); LYMPH % 29.9 % (8-40); MCH 27.9 pg (25.7-33.7); MCHC 32.3 g/dl (32.0-36.0); MEAN CELL VOLUME 86.2 fl (80-96); MEAN PLT VOLUME 10.1 fl (7.5-11.1); MONO % 6.2 % (3.8-10.2); NEUT % 59.9 % (42.8-82.8); PLATELET COUNT 156 K/MM3 (134-434); RBC 4.43 M/mm3 (3.60-5.2); RDW 16.5 % (11.6-15.6); WHITE BLOOD COUNT 7.9 K/mm3 (4.0-10.0)
[2019-06-25 08:22] LABS: BLOOD UREA NITROGEN 29.2 mg/dL (7-18); CALCIUM 8.5 mg/dL (8.5-10.1); CREATININE 1.3 mg/dL (0.55-1.3); PHOSPHOROUS 3.5 mg/dL (2.5-4.9); POTASSIUM 3.7 mmol/L (3.5-5.1)
--- NOTE | 2019-06-25 08:30 | PN ---
Progress Note (short form) - Note Progress Note: HPI: Briefly pt well-known to me with tachycardic episode and palpitation given Amiodarone in field with conversion to sinus bradycardia upon ER presentation. Pt's follow-up with Dr. Amaya (EP Cards) was scheduled in 1.5 weeks from now so patient has not followed up just yet. Pt denies any symptoms including SOB, CP, palpitations, lightheadedness, dizziness, syncopal events since last discharge. She is still amenable for ablation therapy if indicated by cardiology Vital Signs Temperature 97.7 F 06/25/19 07:15 Pulse Rate 55 L 06/25/19 07:15 Respiratory Rate 16 06/25/19 07:15 Blood Pressure 95/65 06/25/19 07:15 O2 Sat by Pulse Oximetry (%) 95 06/25/19 07:15 PE: Gen: NAD, awake, alert, oriented x3 HEENT: NC/AT, LUIS, sclera anicteric, MMM, Neck: No JVD LUNGS: CTA b/l without any wheezing or rales. On RA CARD: RRR with premature beats no murmurs appreciated ABD: Soft, obese, Nt/ND, normoactive BS, no hepatomegaly EXT: No edema noted CBC, BMP 06/25/19 07:44 06/25/19 07:44 Active Medications Aspirin (Ecotrin -) 81 mg PO DAILY [facility] Atorvastatin Calcium (Lipitor -) 40 mg PO HS [facility] Clopidogrel Bisulfate (Plavix -) 75 mg PO DAILY [facility] Gabapentin (Neurontin -) 300 mg PO BID [facility] Heparin Sodium (Porcine) (Heparin -) 5,000 unit SQ TID [facility] Last Admin: 06/25/19 08:00 Dose: 5,000 unit Insulin Aspart (Novolog Vial Sliding Scale -) 1 vial SQ ACHS [facility]; Protocol Last Admin: 06/25/19 07:56 Dose: Not Given Metoprolol Succinate (Toprol Xl -) 75 mg PO BID [facility] Trazodone HCl (Desyrel -) 100 mg PO HS [facility] Assessment and Plan: SVT with bystander nodo-fascicular bypass tract Aortic fusiform aneurysm CAD s/p PCI stenting Type 2 DM Chronic back pain --Toprol XL 75mg BID PO for rate control --Discuss with cardiology regarding titration of medical therapy until outpatient follow-up vs. transfer for ablation during this hospitalization --Continue ASA 81mg qdaily --Continue Plavix 75mg qdaily --Holding antihypertensives for now as patient pressures relatively lower than normal --Restart as hemodynamics allow --Neurontin 300mg BID PO --BGM ACHS with ISS coverage --Trazodone 100mg PO HS FEN: Fluids: PO Electrolyte abnormalities: None Nutrition: Cardiac diet PPX: DVT - Heparin TID GI - PPI already per home meds Dispo: Outpatient follow-up vs. ablation transfer Case discussed with Dr. Albert Garduno, DO - IM PGY-3 <Leif Garduno - Last Filed: 06/25/19 10:40> - Note Progress Note: I have seen and examined the indicated patient independently/along with the resident team. I have personally verified all dumont exam findings and historical components. I have personally interpreted all diagnostics indicated per todays orders and reviewed interpretation of indicated subspecialty services. This patient meets a high level of medical complexity and warrants indicated LOC to avoid decompensation and worsening of the indicated illness. S: Agree with historical findings as outlined in resident documentation regarding history of present illness. No further events communicated to myself from overnight. 10 system ROS completed and is negative aside from indicated issues in the subjective/HPI Medication list reviewed; as documented per orders and above. O: All vital signs reviewed per ER records and are as per EMR NAD, AAO, Resting in bed NC AT EOMI PERRLA Neck supple, trachea midline, no adrianne LN RRR s1/2 Lungs CTAB, w/ sym expansion NT ND +BS No skin breakdown or rashes noted CN2-12 wnl, no new focal deficits noted Muscle tone normal, no deficits in motor function or strength noted Normal mood, appropriate behavior, average insight EKG: CXR: Other Imaging: Prior Diagnostics: A/P: <Martin Price - Last Filed: 06/30/19 00:00>
[2019-06-25] MEDS ORDERED: CLOPIDOGREL BISULFATE 75 MG TABLET (FP) PO SCH (10:00)
[2019-06-25] MEDS ORDERED: ASPIRIN COATED 81 MG TABLET.EC PO SCH (10:00)
[2019-06-25] MEDS ORDERED: GABAPENTIN 300 MG CAPSULE (FP) PO SCH (10:00)
[2019-06-25] MEDS ORDERED: TOPIRAMATE 25 MG TABLET (FP) ONE (11:00)
[2019-06-25 11:29] LABS: URINE APPEARANCE CLEAR; URINE BILIRUBIN NEGATIVE (NEGATIVE); URINE COLOR YELLOW; URINE GLUCOSE (UA) NEGATIVE (NEGATIVE); URINE KETONE NEGATIVE (NEGATIVE); URINE LEUK ESTERASE NEGATIVE (NEGATIVE); URINE NITRITE NEGATIVE (NEGATIVE); URINE PROTEIN NEGATIVE (NEGATIVE); URINE UROBILINOGEN 0.2 mg/dL (0.2-1.0)
--- NOTE | 2019-06-25 13:34 | EKG ---
Test Reason : Blood Pressure : / mmHG Vent. Rate : 053 BPM Atrial Rate : 053 BPM P-R Int : 150 ms QRS Dur : 082 ms QT Int : 412 ms P-R-T Axes : 000 006 003 degrees QTc Int : 386 ms SINUS BRADYCARDIA OTHERWISE NORMAL ECG WHEN COMPARED WITH ECG OF 27-MAY-2019 07:06, NONSPECIFIC T WAVE ABNORMALITY NO LONGER EVIDENT IN ANTEROLATERAL LEADS Confirmed by WILIAM ROSALES, MARIUSZ ([id number]) on 06/25/2019 1:33:51 PM Referred By: Confirmed By:MARIUSZ SWAIN MD
--- NOTE | 2019-06-25 14:33 | ECHO ---
Name: SLADE BAL Exam:Adult Echocardiogram Study Date: 06/25/2019 10:01 AM Age: 69 yrs Reason For Study: CARDIAC FUNCTION ASSESSMENT Height: 57 in Weight: 168 lb BSA: 1.7 m2 MMode/2D Measurements & Calculations IVSd: 0.85 cm Ao root diam: 2.6 cm LVIDd: 5.3 cm LA dimension: 3.4 cm LVIDs: 3.7 cm LVPWd: 0.71 cm EDV(Teich): 135.5 ml LVOT diam: 2.1 cm ESV(Teich): 57.9 ml Doppler Measurements & Calculations MV E max eliseo: 61.7 cm/sec Ao V2 max: 144.8 cm/sec MV A max eliseo: 23.7 cm/sec Ao max P.4 mmHg MV E/A: 2.6 MV dec time: 0.20 sec JAME(V,D): 1.7 cm2 LV V1 max P.0 mmHg MR max eliseo: 379.2 cm/sec LV V1 max: 71.4 cm/sec MR max P.5 mmHg TR max eliseo: 137.7 cm/sec PA V2 max: 104.2 cm/sec TR max P.6 mmHg PA max P.3 mmHg PI end-d eliseo: 55.4 cm/sec Med Peak E' Eliseo: 4.5 cm/sec Med E/e': 13.8 Lat Peak E' Eliseo: 3.6 cm/sec Lat E/e': 17.1 Procedure A complete two-dimensional transthoracic echocardiogram was performed (2D, M-mode, Doppler and color flow Doppler). The study was technically difficult with many images being suboptimal in quality. Left Ventricle The left ventricular size, thickness and function are normal. The left ventricular ejection fraction is normal. Ejection Fraction = 55-60%. The left ventricular wall motion is normal. Right Ventricle The right ventricle is normal in size and function. Atria Normal left and right atrial size and function. Mitral Valve There is no mitral regurgitation noted. Tricuspid Valve There is trace tricuspid regurgitation. There was insufficient TR detected to calculate RV systolic p ressure. Aortic Valve No hemodynamically significant valvular aortic stenosis. No aortic regurgitation is present. Pulmonic Valve There is no pulmonic valvular regurgitation. Great Vessels The aortic root is normal size. Pericardium/Pleura There is no pericardial effusion. Interpretation Summary The study was technically difficult with many images being suboptimal in quality. The left ventricular size, thickness and function are normal The right ventricle is normal in size and function. There is trace tricuspid regurgitation. MD John Lewis 06/25/2019 02:32 PM
--- NOTE | 2019-06-25 15:58 | CON.CARD ---
Cardiology Consult (text) - Consultation Consultation Note: Cardiology consult cc: palpitations 69 yo female here with palpitations. Started evening prior to admission, similar episode in May. She had follow up arranged in two weeks with Dr. Amaya, has h/o AVNRT s/p ablation. Per EMS WCT while in the field, amiodarone 150 mg x1 given, tracing not available. Currently no cp sob palps dizzy loc pnd orthopnea le edema. Sees dr orozco for cardio. PMH: CAD (VA and PCI) diast chf PSVT s/p avnrt ablation HTN HPL DM - Past Medical History Cardio/Vascular: Yes: CAD, CHF, HTN, Hyperlipdemia ...: No Endocrine: Yes: Diabetes Mellitus - Past Surgical History Past Surgical History: Yes: - Alcohol/Substance Use Hx Alcohol Use: No History of Substance Use: reports: None - Smoking History Smoking history: Former smoker Have you smoked in the past 12 months: No Aproximately how many cigarettes per day: 10 If you are a former smoker, when did you quit?: 1month - Social History ADL: Independent History of Recent Travel: No Home Medications - Allergies Allergies/Adverse Reactions: Allergies Allergy/AdvReac Type Severity Reaction Status Date / Time acetaminophen [From Tylenol] Allergy Verified 06/25/19 00:59 diphenhydramine HCl Allergy Verified 06/25/19 00:59 [From Benadryl] Penicillins Allergy Verified 06/25/19 00:59 Sulfa (Sulfonamide Allergy Verified 06/25/19 00:59 Antibiotics) - Home Medications Ambulatory Orders Aspirin [Aspirin EC] 81 mg PO DAILY 05/05/17 Clopidogrel Bisulfate [Plavix -] 75 mg PO DAILY 06/04/17 metFORMIN HCL [Metformin ER Osmotic] 1,000 mg PO BID 02/05/18 traZODone HCL [Desyrel -] 100 mg PO HS 02/05/18 Amlodipine Besylate [Norvasc -] 1 tab PO DAILY 05/27/19 Losartan Potassium 50 mg PO BID 05/27/19 Torsemide 10 mg PO DAILY 05/28/19 Atorvastatin Ca [Lipitor] 40 mg PO HS 05/29/19 Cyclobenzaprine HCl 5 mg PO TID #18 tablet 05/29/19 Gabapentin [Neurontin -] 300 mg PO BID #60 capsule 05/29/19 Lidocaine 5% Patch [Lidoderm -] 1 patch TP DAILY #20 patch 05/29/19 Metoprolol Succinate [Toprol Xl] 75 mg PO BID 05/30/19 Family Disease History - Family Disease History Family History: Denies (no known CMP) Review of Systems - Review of Systems per hpi, all others nl Vital Signs Period Temp Pulse Resp BP Sys/Raymond Pulse Ox Last 24 Hr 97.2 F-97.7 F 53-56 16-24 95-128/42-75 95-99 Constitutional: Yes: No Distress, Obese Eyes: No: Sclera Icterus HENT: No: Nasal Congestion Neck: No: Decreased ROM Respiratory: Yes: CTA Bilaterally. No: Accessory Muscle Use, Rales, Wheezes Gastrointestinal: Yes: Normal Bowel Sounds. No: Distention, Hepatomegaly, Palpable Mass, Tenderness Cardiovascular: Yes: Regular Rate and Rhythm JVD: no Carotid Bruit: No PMI: Non-Displaced Heart Sounds: Yes: S1, S2. No: Gallop Murmur: No: Systolic Murmur, Diastolic Murmur Musculoskeletal: Yes: Other (No kyphosis) Extremities: No: Cold, Cyanosis Edema: No Peripheral Pulses: 2+ Left Carotid, 2+ Right Carotid, 2+ Left Doralis Pedis, 2+ Right Dorsalis Pedis Integumentary: No: Jaundice Neurological: Yes: Alert, Oriented (x3) Psychiatric: No: Agitated Laboratory Last Values WBC 7.9 K/mm3 (4.0-10.0) 06/25/19 07:44 RBC 4.43 M/mm3 (3.60-5.2) 06/25/19 07:44 Hgb 12.4 GM/dL (10.7-15.3) 06/25/19 07:44 Hct 38.2 % (32.4-45.2) 06/25/19 07:44 MCV 86.2 fl (80-96) 06/25/19 07:44 MCH 27.9 pg (25.7-33.7) 06/25/19 07:44 MCHC 32.3 g/dl (32.0-36.0) 06/25/19 07:44 RDW 16.5 % (11.6-15.6) H 06/25/19 07:44 Plt Count 156 K/MM3 (134-434) 06/25/19 07:44 MPV 10.1 fl (7.5-11.1) 06/25/19 07:44 Absolute Neuts (auto) 4.7 K/mm3 (1.5-8.0) 06/25/19 07:44 Neutrophils % 59.9 % (42.8-82.8) 06/25/19 07:44 Lymphocytes % 29.9 % (8-40) D 06/25/19 07:44 Monocytes % 6.2 % (3.8-10.2) 06/25/19 07:44 Eosinophils % 3.3 % (0-4.5) 06/25/19 07:44 Basophils % 0.7 % (0-2.0) 06/25/19 07:44 Nucleated RBC % 0 % (0-0) 06/25/19 07:44 PT with INR 11.60 SEC (9.7-13.0) 06/25/19 02:30 INR 0.98 (0.83-1.09) 06/25/19 02:30 PTT (Actin FS) 30.9 SECONDS (25.2-36.5) 06/25/19 02:30 Sodium 141 mmol/L (136-145) 06/25/19 07:44 Potassium 3.7 mmol/L (3.5-5.1) 06/25/19 07:44 Chloride 105 mmol/L (98-107) 06/25/19 07:44 Carbon Dioxide 28 mmol/L (21-32) 06/25/19 07:44 Anion Gap 7 MMOL/L (8-16) L 06/25/19 07:44 BUN 29.2 mg/dL (7-18) H 06/25/19 07:44 Creatinine 1.3 mg/dL (0.55-1.3) 06/25/19 07:44 Est GFR (CKD-EPI)AfAm 49.16 06/25/19 07:44 Est GFR (CKD-EPI)NonAf 42.42 06/25/19 07:44 POC Glucometer 112 UNITS (80-120) 06/25/19 11:08 Random Glucose 108 mg/dL (74-106) H 06/25/19 07:44 Calcium 8.5 mg/dL (8.5-10.1) 06/25/19 07:44 Phosphorus 3.5 mg/dL (2.5-4.9) 06/25/19 07:44 Magnesium 1.9 mg/dL (1.8-2.4) 06/25/19 02:30 Total Bilirubin 0.4 mg/dL (0.2-1) 06/25/19 02:30 AST 17 U/L (15-37) 06/25/19 02:30 ALT 32 U/L (13-61) 06/25/19 02:30 Alkaline Phosphatase 102 U/L (45-117) 06/25/19 02:30 Creatine Kinase 80 U/L (26-192) 06/25/19 02:30 Troponin I 0.02 ng/ml (0.00-0.05) 06/25/19 02:30 Total Protein 7.5 g/dl (6.4-8.2) 06/25/19 02:30 Albumin 4.0 g/dl (3.4-5.0) 06/25/19 02:30 Urine Color Yellow 06/25/19 10:45 Urine Appearance Clear 06/25/19 10:45 Urine pH 5.0 (5.0-8.0) 06/25/19 10:45 Ur Specific [place] 1.018 (1.010-1.035) 06/25/19 10:45 Urine Protein Negative (NEGATIVE) 06/25/19 10:45 Urine Glucose (UA) Negative (NEGATIVE) 06/25/19 10:45 Urine Ketones Negative (NEGATIVE) 06/25/19 10:45 Urine Blood Negative (NEGATIVE) 06/25/19 10:45 Urine Nitrite Negative (NEGATIVE) 06/25/19 10:45 Urine Bilirubin Negative (NEGATIVE) 06/25/19 10:45 Urine Urobilinogen 0.2 mg/dL (0.2-1.0) 06/25/19 10:45 Ur Leukocyte Esterase Negative (NEGATIVE) 06/25/19 10:45 Assessment/Plan ecg: sinus bradycardia, no ischemic changes Echo 05/2017: nl lv/rv, no sig valve path echo 06/2019 tds, nl LV/RV PSVT: - per dr amaya ([facility]), she had complicated EP study results: (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 has been taking toprol 75 bid as outpt, titration limited by bradycardia -pt has hx of sinus kat 40s-50s, asymptomatic, and has tolerated toprol 75 bid in past. - d/w Dr. Amaya - would continue outpatient bb, follow up as planned as outpatient for consideration of repeat ablation, no further inpatient cardiac workup CARITO - likely prerenal, improved - manage per primary chronic diastolic chf: -stable, cont home po torsemide cad s/p mi, pci: -s/p mi/pci 04/2017 -echo 05/2017 with normal LVSF -no signs acs, no anginal sxs -cont home regimen: asa, plavix, bb, statin htn: -cont bb
[2019-06-25 16:55] VITALS: BP 119/82; PULSE 55; TEMP 97.5
[2019-06-25] MEDS ORDERED: traZODone HCL 50 MG TABLET (FP) PO SCH (22:00)
[2019-06-25] MEDS ORDERED: ATORVASTATIN CA 40 MG TABLET (FP) PO SCH (22:00)
[2019-06-26] MEDS ORDERED: PANTOPRAZOLE 40 MG TABLET (FP) PO SCH (10:00)
== END 2019-06-25 17:00 | disposition home or self-care (01) | DRG 309 ==
LOC: JER 00:49 → JERBED 04:34
PROVIDERS: ADMIT Internal Medicine; ATTEND Internal Medicine
DX: I47.1 Supraventricular tachycardia (principal); I50.30 Unspecified diastolic (congestive) heart failure; E78.5 Hyperlipidemia, unspecified; I11.0 Hypertensive heart disease with heart failure; E66.9 Obesity, unspecified; Z68.36 Body mass index [BMI] 36.0-36.9, adult; E11.9 Type 2 diabetes mellitus without complications; I25.10 Atherosclerotic heart disease of native coronary artery without angina pectoris; Z98.61 Coronary angioplasty status; M54.9 Dorsalgia, unspecified; R00.2 Palpitations; I44.69 Other fascicular block; I71.9 Aortic aneurysm of unspecified site, without rupture
CPT/HCPCS: 36415; 71045-TC-FY; 76775-TC; 80048; 80053; 81003; 82550; 82962; 83735; 84100; 84484; 85025; 85610; 85730; 93005; 93010; 93306-TC; 99285-25; J1644; J7030

== ENCOUNTER 2019-09-27 00:32 | Emergency (ER) | payer OTHER ==
[2019-09-27 01:20] VITALS: TEMP 98.5; BMI 36.6
--- NOTE | 2019-09-27 01:57 | PDOC ---
Attending Attestation - Resident Resident Name: MichelleMartin - ED Attending Attestation I have performed the following: I have examined & evaluated the patient, The case was reviewed & discussed with the resident, I agree w/resident's findings & plan - HPI HPI: 09/27/19 04:01 Pt comes with SOB and no chest pain. No palpitations and no orthopnea She has a hx of CHF; she states that she lives with her son and that she cooks for herself and that she is active. 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 - Physicial Exam PE: 09/27/19 06:36 Pt is afebrile HEENT normal Heart RRR Lungs CTA B abd obese NT nD Pt has no flank pain Pt has no extremity swelling Neurologically intact. - Medical Decision Making 09/27/19 04:07 Flu culture is negative 09/27/19 04:07 card enzyme and all labs are normal 09/27/19 20:01 Pt has a BNP of 600; but she feels well and she wants to go home. SHe will go home via medicaid cab; Signed out to the day team who will follow and make sure she is discharged
[2019-09-27 02:07] LABS: BASO % 0.2 % (0-2.0); EOS % 1.6 % (0-4.5); HEMATOCRIT 40.5 % (32.4-45.2); HEMOGLOBIN 13.3 GM/dL (10.7-15.3); MCH 28.8 pg (25.7-33.7); MCHC 32.8 g/dl (32.0-36.0); MEAN CELL VOLUME 87.9 fl (80-96); MEAN PLT VOLUME 9.6 fl (7.5-11.1); MONO % 2.1 % (3.8-10.2); NEUT % 93.1 % (42.8-82.8); PLATELET COUNT 179 K/MM3 (134-434); RBC 4.61 M/mm3 (3.60-5.2); RDW 15.9 % (11.6-15.6); WHITE BLOOD COUNT 8.2 K/mm3 (4.0-10.0)
[2019-09-27 02:15] LABS: INR 1.08 (0.83-1.09); PROTHROMBIN TIME (PATIENT) 12.8 SEC (9.7-13.0)
--- NOTE | 2019-09-27 02:42 | PDOC ---
History of Present Illness - General Chief Complaint: Shortness of Breath Stated Complaint: DIFFICULTY BREATHING/FLU LIKE SYMPTOMS Time Seen by Provider: 09/27/19 01:02 History Source: Patient Exam Limitations: No Limitations - History of Present Illness Initial Comments: 69 yo F with a hx of HTN, HLD, CAD s/p stents, diastolic CHF, arrhythmia (s/p ablation) and NIDDM presents to the emergency department with SOB that began yesterday morning. Per the patient, she began feeling short of breath gradually throughout the day and was concerned she may have caught influenza from her son who had a positive confirmation test. She denies non compliance with her medications and denies recent travels. Per the patient, she denies chest pain. She denies the following: fever, chills, ears/nose/throat pain, nausea, vomiting , dysuria, hematuria, diarrhea, melena, and hematochezia. 09/27/19 05:38 Past History - Past Medical History Allergies/Adverse Reactions: Allergies Allergy/AdvReac Type Severity Reaction Status Date / Time acetaminophen [From Tylenol] Allergy Verified 06/25/19 00:59 diphenhydramine HCl Allergy Verified 06/25/19 00:59 [From Benadryl] Penicillins Allergy Verified 06/25/19 00:59 Sulfa (Sulfonamide Allergy Verified 06/25/19 00:59 Antibiotics) Home Medications: Ambulatory Orders Aspirin [Aspirin EC] 81 mg PO DAILY 05/05/17 Clopidogrel Bisulfate [Plavix -] 75 mg PO DAILY 06/04/17 metFORMIN HCL [Metformin ER Osmotic] 1,000 mg PO BID 02/05/18 traZODone HCL [Desyrel -] 100 mg PO HS 02/05/18 Amlodipine Besylate [Norvasc -] 1 tab PO DAILY 05/27/19 Losartan Potassium 50 mg PO BID 05/27/19 Torsemide 10 mg PO DAILY 05/28/19 Atorvastatin Ca [Lipitor] 40 mg PO HS 05/29/19 Cyclobenzaprine HCl 5 mg PO TID #18 tablet 05/29/19 Gabapentin [Neurontin -] 300 mg PO BID #60 capsule 05/29/19 Lidocaine 5% Patch [Lidoderm -] 1 patch TP DAILY #20 patch 05/29/19 Metoprolol Succinate [Toprol Xl] 75 mg PO BID 05/30/19 Cardiac Disorders: Yes (2 stents, CHF,[place] 2017) COPD: No CHF: Yes Diabetes: Yes HTN: Yes - Surgical History Cardiac Surgery: Yes Orthopedic Surgery: Yes (WRIST) - Immunization History Immunization Up to Date: No - Psycho Social/Smoking Cessation Hx Smoking History: Never smoked Have you smoked in the past 12 months: No Number of Cigarettes Smoked Daily: 10 If you are a former smoker, when did you quit?: 1month 'Breaking Loose' booklet given: 05/15/17 Hx Alcohol Use: No Drug/Substance Use Hx: No Substance Use Type: None Hx Substance Use Treatment: No Review of Systems - Review of Systems Able to Perform ROS?: Yes Is the patient limited Macedonian proficient: No Constitutional: No: Chills, Diaphoresis, Fever, Weakness HEENTM: No: Eye Pain, Ear Pain, Nose Pain, Throat Pain, Mouth Pain Respiratory: Yes: Shortness of Breath. No: Cough, Hemoptysis Cardiac (ROS): Yes: Chest Tightness. No: Chest Pain, Lightheadedness, Palpitations ABD/GI: No: Blood Streaked Bowels, Constipated, Diarrhea, Nausea, Rectal Bleeding, Vomiting, Tarry Stools : No: Burning, Dysuria, Hematuria Musculoskeletal: No: Back Pain, Joint Pain, Neck Pain Integumentary: No: Bruising, Erythema, Rash Neurological: No: Headache, Numbness, Tingling, Tremors Psychiatric: No: Change in Appetite Endocrine: No: Unexplained Weight Loss Hematologic/Lymphatic: No: Anemia *Physical Exam - Vital Signs Last Vital Signs Temp Pulse Resp BP Pulse Ox 98.5 F 90 18 141/61 98 09/27/19 00:45 09/27/19 00:45 09/27/19 00:45 09/27/19 00:45 09/27/19 00:45 - Physical Exam General Appearance: Yes: Nourished, Appropriately Dressed, Obese. No: Apparent Distress, Intoxicated HEENT: positive: EOMI, KIRSTIE, Normal Voice, Symmetrical, Pharynx Normal, Hearing Grossly Normal. negative: Pale Conjunctivae, Scleral Icterus (R), Scleral Icterus (L), Muffled/Hoarse voice, Pharyngeal Erythema, Tonsillar Exudate, Tonsillar Erythema, Nasal Congestion, Rhinorrhea, Sinus Tenderness, Excessive drooling Neck: positive: Trachea midline, Supple. negative: Tender, Lymphadenopathy (R) , Lymphadenopathy (L) Respiratory/Chest: positive: Crackles (right base). negative: Chest Tender Cardiovascular: positive: Regular Rhythm, Regular Rate, S1, S2. negative: Systolic Murmur Gastrointestinal/Abdominal: positive: Normal Bowel Sounds, Flat, Soft. negative : Tender, Distended, Guarding, Rebound Lymphatic: negative: Adenopathy Musculoskeletal: positive: Normal Inspection. negative: CVA Tenderness, Vertebral Tenderness Extremity: positive: Normal Capillary Refill, Normal Range of Motion. negative : Normal Inspection (pitting edema bilaterally; at baseline), Tender Integumentary: positive: Normal Color, Dry, Warm Neurologic: positive: Fully Oriented, Alert, Normal Mood/Affect ED Treatment Course - LABORATORY CBC & Chemistry Diagram: 09/27/19 01:51 09/27/19 01:51 - ADDITIONAL ORDERS Additional order review: Laboratory Results 09/27/19 09/27/19 09/27/19 01:51 01:51 01:51 PT with INR 12.80 INR 1.08 Creatine Kinase 61 Troponin I < 0.02 B-Natriuretic Peptide 600.0 H 09/27/19 01:51 RBC 4.61 MCV 87.9 MCHC 32.8 RDW 15.9 H MPV 9.6 Neutrophils % 93.1 H D Lymphocytes % 3.0 L D Monocytes % 2.1 L Eosinophils % 1.6 Basophils % 0.2 - RADIOLOGY Radiology Studies Ordered: Category Date Time Status CHEST X-RAY PORTABLE* [RAD] Stat Radiology 09/27/19 01:29 Taken Medical Decision Making - Medical Decision Making 09/27/19 05:43 69 yo F with a hx of HTN, HLD, CAD s/p stents, diastolic CHF, arrhythmia (s/p ablation) and NIDDM presents to the emergency department with SOB that began yesterday morning. Initial vitals: Initial Vital Signs Temp Pulse Resp BP Pulse Ox 98.5 F 90 18 141/61 98 09/27/19 00:45 09/27/19 00:45 09/27/19 00:45 09/27/19 00:45 09/27/19 00:45 Work up: ddx: CHF exacerbation vs COPD. Patient presents with SOB. Will obtain cxr, ekg, and labs Laboratory Tests 09/27/19 09/27/19 09/27/19 01:51 01:51 01:51 WBC 8.2 RBC 4.61 Hgb 13.3 Hct 40.5 MCV 87.9 MCH 28.8 MCHC 32.8 RDW 15.9 H Plt Count 179 MPV 9.6 Absolute Neuts (auto) 7.7 Total Counted 100 Neutrophils % 93.1 H D Neutrophils % (Manual) 79.0 Band Neutrophils % 8.0 Lymphocytes % 3.0 L D Lymphocytes % (Manual) 9.0 Monocytes % 2.1 L Monocytes % (Manual) 0 L Eosinophils % 1.6 Eosinophils % (Manual) 4.0 Basophils % 0.2 Basophils % (Manual) 0.0 Myelocytes % (Man) 0 Promyelocytes % (Man) 0 Blast Cells % (Manual) 0 Nucleated RBC % 0 Metamyelocytes 0 PT with INR INR Sodium 139 Potassium 4.5 Chloride 105 Carbon Dioxide 26 Anion Gap 7 L BUN 29.6 H Creatinine 1.2 Est GFR (CKD-EPI)AfAm 54.16 Est GFR (CKD-EPI)NonAf 46.73 Random Glucose 152 H Calcium 8.2 L Total Bilirubin 0.3 AST 21 ALT 29 Alkaline Phosphatase 81 Creatine Kinase 61 Troponin I < 0.02 B-Natriuretic Peptide Total Protein 6.2 L Albumin 3.2 L Influenza A (Rapid) Influenza B (Rapid) 09/27/19 09/27/19 09/27/19 01:51 01:51 02:55 WBC RBC Hgb Hct MCV MCH MCHC RDW Plt Count MPV Absolute Neuts (auto) Total Counted Neutrophils % Neutrophils % (Manual) Band Neutrophils % Lymphocytes % Lymphocytes % (Manual) Monocytes % Monocytes % (Manual) Eosinophils % Eosinophils % (Manual) Basophils % Basophils % (Manual) Myelocytes % (Man) Promyelocytes % (Man) Blast Cells % (Manual) Nucleated RBC % Metamyelocytes PT with INR 12.80 INR 1.08 Sodium Potassium Chloride Carbon Dioxide Anion Gap BUN Creatinine Est GFR (CKD-EPI)AfAm Est GFR (CKD-EPI)NonAf Random Glucose Calcium Total Bilirubin AST ALT Alkaline Phosphatase Creatine Kinase Troponin I B-Natriuretic Peptide 600.0 H Total Protein Albumin Influenza A (Rapid) Negative Influenza B (Rapid) Negative 09/27/19 05:10 WBC RBC Hgb Hct MCV MCH MCHC RDW Plt Count MPV Absolute Neuts (auto) Total Counted Neutrophils % Neutrophils % (Manual) Band Neutrophils % Lymphocytes % Lymphocytes % (Manual) Monocytes % Monocytes % (Manual) Eosinophils % Eosinophils % (Manual) Basophils % Basophils % (Manual) Myelocytes % (Man) Promyelocytes % (Man) Blast Cells % (Manual) Nucleated RBC % Metamyelocytes PT with INR INR Sodium Potassium Chloride Carbon Dioxide Anion Gap BUN Creatinine Est GFR (CKD-EPI)AfAm Est GFR (CKD-EPI)NonAf Random Glucose Calcium Total Bilirubin AST ALT Alkaline Phosphatase Creatine Kinase Troponin I < 0.02 B-Natriuretic Peptide Total Protein Albumin Influenza A (Rapid) Influenza B (Rapid) patient's BNP elevated, but below her usual levels CXR is at baseline to patient's previous CXR Influenza negative trop negative x2 O2 saturation on RA is 95% consistently while the patient is talking. Symptomatically, the patient states her symptoms resolved and requests to be discharged. Will discharge patient back to home. Discharge - Discharge Information Problems reviewed: Yes Clinical Impression/Diagnosis: Shortness of breath - Admission No - Follow up/Referral Referrals: Georgia Erwin MD [Primary Care Provider] - - Patient Discharge Instructions Patient Printed Discharge Instructions: DI for Shortness of Breath Additional Instructions: You were seen for your shortness of breath. Your xray is at baseline and your lab values are not exacerbated from baseline. Please follow up with your primary medical doctor within 1 week after discharge for follow up care and management. Please return if you have worsening or new concerning symptoms. Thank you. - Post Discharge Activity
[2019-09-27 03:04] LABS: ALBUMIN 3.2 g/dl (3.4-5.0); BILIRUBIN,TOTAL 0.3 mg/dL (0.2-1); BLOOD UREA NITROGEN 29.6 mg/dL (7-18); CALCIUM 8.2 mg/dL (8.5-10.1); CREATININE 1.2 mg/dL (0.55-1.3); POTASSIUM 4.5 mmol/L (3.5-5.1); TOT PROT 6.2 g/dl (6.4-8.2)
[2019-09-27 06:26] VITALS: BP 149/64; PULSE 94
--- NOTE | 2019-09-27 12:23 | EKG ---
Test Reason : Blood Pressure : / mmHG Vent. Rate : 079 BPM Atrial Rate : 079 BPM P-R Int : 158 ms QRS Dur : 074 ms QT Int : 372 ms P-R-T Axes : -07 -06 044 degrees QTc Int : 426 ms NORMAL SINUS RHYTHM NONSPECIFIC T WAVE ABNORMALITY ABNORMAL ECG WHEN COMPARED WITH ECG OF 25-JUN-2019 00:52, VENT. RATE HAS INCREASED BY 26 BPM NONSPECIFIC T WAVE ABNORMALITY NOW EVIDENT IN ANTEROLATERAL LEADS Confirmed by TRAVIS WAYNE MD ([id number]) on 09/27/2019 12:22:38 PM Referred By: Confirmed By:TRAVIS WAYNE MD
== END 2019-09-27 08:14 | disposition home or self-care (01) ==
LOC: JER 00:32
DX: R06.02 Shortness of breath (principal); I25.10 Atherosclerotic heart disease of native coronary artery without angina pectoris; I11.0 Hypertensive heart disease with heart failure; I50.30 Unspecified diastolic (congestive) heart failure; Z95.5 Presence of coronary angioplasty implant and graft; I25.2 Old myocardial infarction; I49.8 Other specified cardiac arrhythmias; E11.9 Type 2 diabetes mellitus without complications; Z79.84 Long term (current) use of oral hypoglycemic drugs; E78.5 Hyperlipidemia, unspecified; Z79.02 Long term (current) use of antithrombotics/antiplatelets; Z79.82 Long term (current) use of aspirin; Z88.0 Allergy status to penicillin; Z88.2 Allergy status to sulfonamides; Z88.6 Allergy status to analgesic agent; Z88.8 Allergy status to other drugs, medicaments and biological substances
CPT/HCPCS: 36415; 71045-TC-FY; 80053; 82550; 83880; 84484; 85025; 85610; 87804; 93005; 93010; 99283-25

== ENCOUNTER 2020-03-31 00:26 | Emergency (ER) | payer OTHER ==
--- NOTE | 2020-03-31 00:39 | PDOC ---
History of Present Illness - General Chief Complaint: Pain, Acute Stated Complaint: PAIN,LT ARM Time Seen by Provider: 03/31/20 00:38 History Source: Patient Exam Limitations: No Limitations - History of Present Illness Initial Comments: 03/31/20 00:39 Veronica Martins is a left-handed 69F with PMH [place] s/p stenting in 2017, HTN, HLD, CHF, NIDDM, COPD on PM oxygen, presenting with acute onset left elbow pain. 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 No associated chest pain, SOB, cough, abd pain, dizziness. No trauma. No prior injury to RUE or surgery. No prior episodes. Left-handed, does all bid manager with left arm. Denies heavy usage or exercise. Called EMS for concern for new pain. Pain has resolved to just pain in elbow at this time, no other symptoms. No sick contacts at home. Lives with 2 sons. Did not have any symptoms when she had prior IA, no chest pain or arm pain, felt off ER discovered STEMI and sent to senior laboratory technician. Former 1 ppd smoker, quit 2017, chronic cough, sees Pulm, home OM O2. Denies alcohol and drugs. Alleged allergy to acetaminophen but not children's Tylenol, PCN, Sulfa. Cards: [facility] Past History - Medical History Allergies/Adverse Reactions: Allergies Allergy/AdvReac Type Severity Reaction Status Date / Time acetaminophen [From Tylenol] Allergy Verified 03/31/20 00:32 diphenhydramine HCl Allergy Verified 03/31/20 00:32 [From Benadryl] Penicillins Allergy Verified 03/31/20 00:32 Sulfa (Sulfonamide Allergy Verified 03/31/20 00:32 Antibiotics) Home Medications: Ambulatory Orders Aspirin [Aspirin EC] 81 mg PO DAILY 05/05/17 Clopidogrel Bisulfate [Plavix -] 75 mg PO DAILY 06/04/17 metFORMIN HCL [Metformin ER Osmotic] 1,000 mg PO BID 02/05/18 traZODone HCL [Desyrel -] 100 mg PO HS 02/05/18 Amlodipine Besylate [Norvasc -] 1 tab PO DAILY 05/27/19 Losartan Potassium 50 mg PO BID 05/27/19 Torsemide 10 mg PO DAILY 05/28/19 Atorvastatin Ca [Lipitor] 80 mg PO HS 05/29/19 Cyclobenzaprine HCl 5 mg PO TID #18 tablet 05/29/19 Gabapentin [Neurontin -] 300 mg PO BID #60 capsule 05/29/19 Lidocaine 5% Patch [Lidoderm -] 1 patch TP DAILY #20 patch 05/29/19 Metoprolol Succinate [Toprol Xl] 75 mg PO BID 05/30/19 Azithromycin 250 mg PO DAILY #3 tablet 11/14/19 Oseltamivir Phosphate [Tamiflu -] 75 mg PO BID #5 capsule 11/14/19 Cardiac Disorders: Yes (2 stents, CHF,[place] 2017) COPD: No CHF: Yes Diabetes: Yes HTN: Yes - Surgical History Cardiac Surgery: Yes Orthopedic Surgery: Yes (WRIST) - Immunization History Immunization Up to Date: No - Psycho-Social/Smoking History Smoking History: Former smoker Have you smoked in the past 12 months: No Number of Cigarettes Smoked Daily: 10 If you are a former smoker, when did you quit?: 1month 'Breaking Loose' booklet given: 05/15/17 Review of Systems - Review of Systems Constitutional: No: Symptoms Reported HEENTM: No: Symptoms Reported Respiratory: No: Symptoms reported Cardiac (ROS): No: Symptoms Reported ABD/GI: No: Symptoms Reported : No: Symptoms Reported Musculoskeletal: Yes: Joint Pain Integumentary: No: Symptoms Reported Neurological: No: Symptoms reported Endocrine: No: Symptoms Reported Hematologic/Lymphatic: No: Symptoms Reported All Other Systems: Reviewed and Negative *Physical Exam - Physical Exam General Appearance: Yes: Nourished, Appropriately Dressed, Obese, Other (resting in bed in NAD, nursing L arm, morbidly obese, poor hygiene) HEENT: positive: EOMI, KIRSTIE, Normal ENT Inspection, Normal Voice, Symmetrical, Pharynx Normal. negative: Scleral Icterus (R), Scleral Icterus (L), Pharyngeal Erythema, Tonsillar Exudate, Tonsillar Erythema Neck: positive: Trachea midline, Normal Thyroid, Supple. negative: Tender, Rigid, Lymphadenopathy (R), Lymphadenopathy (L), Rigidity, Tender lateral, T felicia midline Respiratory/Chest: positive: Lungs Clear, Normal Breath Sounds. negative: Chest Tender, Respiratory Distress, Accessory Muscle Use, Crackles, Rales, Rhonchi, St ridor, Wheezing Cardiovascular: positive: Regular Rhythm, Regular Rate. negative: Murmur Gastrointestinal/Abdominal: positive: Normal Bowel Sounds, Flat, Soft. negative: Tender, Organomegaly, Pulsatile Mass, Guarding, Rebound Musculoskeletal: positive: Normal Inspection. negative: CVA Tenderness Extremity: positive: Normal Capillary Refill, Normal Inspection, Tender (lateral epicondyle). negative: Normal Range of Motion (unable to extend to 180, unable to supinate/pronate without elbow pain), Pedal Edema, Swelling, Calf Tenderness Integumentary: positive: Normal Color, Dry, Warm. negative: Cyanotic, Erythema, Diaphoresis Neurologic: positive: Fully Oriented, Alert, Normal Mood/Affect, Normal Response ED Treatment Course - LABORATORY CBC & Chemistry Diagram: 03/31/20 01:31 03/31/20 01:31 Medical Decision Making - Medical Decision Making 03/31/20 01:57 Patient has extensive cardiac history and atypical chest pain now with L elbow pain, reproducible lateral epicondyle with decreased ROM. VSS. High suspicion of ACS given history, eval via CMP/CBC/CP/ECG/CXR. Also XR L elbow for eval fracture. Most likely lateral epicondylitis, if ACS evaluation is negative can recommend NSAIDs and ortho f/u as needed. ECG shows sinus bradycardia with HR 55, QTc 399, no VAL/D or TWI. Labs notable for: - CBC WNL - CMP WNL - trop negative CXR unremarkable XR L elbow no evidence of fracture Getting 3 hours troponin at 04:30 for further stratification. Likely discharge home with [place] and Ortho follow-up. 03/31/20 06:36 Patient's arm pain improved. 2nd trop negative. No chest pain at this time. VSS. Stable for discharge home with orthopedics follow-up as needed. Discharge - Discharge Information Problems reviewed: Yes Clinical Impression/Diagnosis: Left elbow pain Lateral epicondylitis of elbow Qualifiers: Laterality: left Qualified Code(s): M77.12 - Lateral epicondylitis, left elbow Condition: Stable Disposition: HOME - Admission No - Follow up/Referral Referrals: Desmond Hale MD [Staff Physician] - Georgia Erwin MD [Primary Care Provider] - Fausto Douglass MD [Staff Physician] - - Patient Discharge Instructions Patient Printed Discharge Instructions: DI for Lateral Epicondylitis (Tennis Elbow) Additional Instructions: Today you were evaluated for elbow pain. Your labs and X-rays are all normal. You have a condition called tennis elbow, inflammation in the elbow. We gave you ibuprofen and your pain improved. At home, take ibuprofen as needed, exercise your elbow and use ice as needed, and see an orthopedic surgeon as needed. A referral has been given. If you have worsening pain, chest pain, or any other new or concerning symptoms, please return to the emergency room. - Post Discharge Activity
[2020-03-31 01:10] VITALS: BMI 35.5
--- NOTE | 2020-03-31 01:30 | PDOC ---
Documentation entered by Gallo Aviles SCRIBE, acting as scribe for Bridget Dominguez DO. Bridget Dominguez DO: This documentation has been prepared by the Stefan dumont Xhesika, SCRIBE, under my direction and personally reviewed by me in its entirety. I confirm that the documentation accurately reflects all work, treatment, procedures, and medical decision making performed by me. Attending Attestation - Resident Resident Name: Werner Tony - ED Attending Attestation I have performed the following: I have examined & evaluated the patient, The case was reviewed & discussed with the resident, I agree w/resident's findings & plan, Exceptions are as noted - HPI HPI: 03/31/20 01:04 The patient is a 69Y/O F with a PMH of HTN, HLD, CAD (s/p cardiac stenting x2), [place] (2017), diastolic CHF, arrhythmia (s/p ablation) and NIDDM who presents to the ED with L arm and L elbow pain. Pt states she was sitting watching TV, when she endorsed sudden onset L arm and L elbow pain, worse when extending her arm. Pt denies numbness and tingling to her upper extremities. Pt denies chest pain, SOB, fevers, chills, nausea, vomiting, diarrhea. Allergies: As per nursing notes. Primary Care Physician: Dr. Erwin - Physicial Exam PE: 03/31/20 01:08 GENERAL: Awake, alert, and fully oriented, in no acute distress HEAD: No signs of trauma NECK: Normal ROM, supple, no lymphadenopathy, JVD, or masses LUNGS: Breath sounds equal, clear to auscultation bilaterally. No wheezes, and no crackles HEART: Regular rate and rhythm, normal S1 and S2, no murmurs, rubs or gallops ABDOMEN: Soft, nontender, normoactive bowel sounds. No guarding, no rebound. No masses EXTREMITIES: +L elbow tenderness at lateral epicondyle, that reproduces her pain. Pain with supination of L arm. no edema. No clubbing or cyanosis. No cords. NEUROLOGICAL: Cranial nerves II through XII grossly intact. SKIN: Warm, Dry, normal turgor, no rashes lesions noted. - Medical Decision Making 03/31/20 01:28 a/p: 69yo female with hx of cad with 2 stents with L elbow pain today -pt denies cp/sob -denies abd thomas, no n/v/d -pt with reproducible L elbow ttp over the lateral epicondyles -given asymptomatic FL in the past requiring 2 stents will send labs, ekg, trop -will xray elbow, pt denies trauma -suspect lateral epicodylitis -will monitor and reassess 03/31/20 02:20 trop neg mild increase in Cr 1-1.4 will order gentle ivf hyration will repeat trop, if neg stable for dc to home with lateral epicondylitis and follow up with her pmd and will give orthopedics Heart Score/ECG Review - ECG Intrepretation Comment:: 03/31/20 01:27 sinus kat at 55, nl axis, nl interval, low voltage, t wave inversions III which are nonspecific, no acute st changes Discharge - Discharge Information Problems reviewed: Yes Clinical Impression/Diagnosis: Left elbow pain, Lateral epicondylitis of elbow Condition: Stable - Follow up/Referral Referrals: Georgia Erwin MD [Primary Care Provider] - Desmond Hale MD [Staff Physician] - - Patient Discharge Instructions - Post Discharge Activity
[2020-03-31 01:44] LABS: BASO % 1.2 % (0-2.0); EOS % 4.4 % (0-4.5); HEMATOCRIT 36.3 % (32.4-45.2); HEMOGLOBIN 11.7 GM/dL (10.7-15.3); LYMPH % 23.6 % (8-40); MCH 28.6 pg (25.7-33.7); MCHC 32.3 g/dl (32.0-36.0); MEAN CELL VOLUME 88.4 fl (80-96); MEAN PLT VOLUME 9.6 fl (7.5-11.1); NEUT % 63.8 % (42.8-82.8); PLATELET COUNT 193 K/MM3 (134-434); RBC 4.11 M/mm3 (3.60-5.2); RDW 15.5 % (11.6-15.6); WHITE BLOOD COUNT 7.6 K/mm3 (4.0-10.0)
[2020-03-31 02:14] LABS: ALBUMIN 3.2 g/dl (3.4-5.0); ALK PHOS 88 U/L (45-117); ANION GAP 2 MMOL/L (8-16); BILIRUBIN,TOTAL 0.2 mg/dL (0.2-1); BLOOD UREA NITROGEN 22.2 mg/dL (7-18); CALCIUM 8.7 mg/dL (8.5-10.1); CHLORIDE 105 mmol/L (98-107); CO2 35 mmol/L (21-32); CREATININE 1.4 mg/dL (0.55-1.3); GLUCOSE,RANDOM 92 mg/dL (74-106); N-TERMINAL BNP 125.4 pg/ml (5-125); SGOT/AST 17 U/L (15-37); SGPT/ALT 23 U/L (13-61); SODIUM 141 mmol/L (136-145); TOT PROT 6.6 g/dl (6.4-8.2)
[2020-03-31] MEDS ORDERED: LACTATED RINGERS SOLUTION 1000 ML INFUS.BAG IV ONE (02:21)
[2020-03-31] MEDS ORDERED: IBUPROFEN 600 MG TABLET (FP) PO ONE ×2 (02:22→02:41)
[2020-03-31 06:21] VITALS: BP 168/84; PULSE 66; TEMP 97.5
--- NOTE | 2020-03-31 11:27 | EKG ---
Test Reason : Blood Pressure : / mmHG Vent. Rate : 055 BPM Atrial Rate : 055 BPM P-R Int : 172 ms QRS Dur : 074 ms QT Int : 418 ms P-R-T Axes : 018 -09 022 degrees QTc Int : 399 ms POOR DATA QUALITY, INTERPRETATION MAY BE ADVERSELY AFFECTED SINUS BRADYCARDIA WITH SINUS ARRHYTHMIA LOW VOLTAGE QRS CANNOT RULE OUT ANTERIOR INFARCT (CITED ON OR BEFORE 11-NOV-2019) ABNORMAL ECG WHEN COMPARED WITH ECG OF 13-NOV-2019 08:56, T WAVE INVERSION NO LONGER EVIDENT IN INFERIOR LEADS Confirmed by MARIUSZ SWAIN MD ([id number]) on 03/31/2020 11:27:18 AM Referred By: Confirmed By:MARIUSZ SWAIN MD
== END 2020-03-31 06:28 | disposition home or self-care (01) ==
LOC: JER 00:26
DX: M77.12 Lateral epicondylitis, left elbow (principal)
CPT/HCPCS: 36415; 71046-TC-FY; 71250-TC; 73070-TC-LT-FY; 80053; 82550; 83880; 84484; 85025; 93005; 93010; 99285-25

== ENCOUNTER 2021-07-28 14:13 | Observation (INO) | payer OTHER ==
[2021-07-28 15:34] LABS: VENOUS BASE EXCESS 1.3 mmol/L (-2-2); VENOUS O2 SATURATION 22.2 % (70-80); VENOUS PCO2 60.2 mmHg (38-52); VENOUS PH 7.302 (7.310-7.410)
[2021-07-28 15:47] LABS: BASO % 0.3 % (0-2.0); EOS % 2.4 % (0-4.5); HEMATOCRIT 39.4 % (32.4-45.2); LYMPH % 20.1 % (8-40); MCH 29.3 pg (25.7-33.7); MCHC 32.9 g/dl (32.0-36.0); MEAN PLT VOLUME 10.3 fl (7.5-11.1); MONO % 4.3 % (3.8-10.2); NEUT % 72.9 % (42.8-82.8); PLATELET COUNT 210 10^3/uL (134-434); RBC 4.43 M/mm3 (3.60-5.2); RDW 15.8 % (11.6-15.6)
[2021-07-28] MEDS ORDERED: OSELTAMIVIR PHOSPHATE 75 MG CAPSULE PO ONE (16:16)
[2021-07-28 17:13] LABS: ALBUMIN 3.5 g/dl (3.4-5.0); ALK PHOS 81 U/L (45-117); ANION GAP 6 MMOL/L (8-16); BILIRUBIN,TOTAL 0.4 mg/dL (0.2-1); BLOOD UREA NITROGEN 24.2 mg/dL (7-18); CALCIUM 9.2 mg/dL (8.5-10.1); CHLORIDE 105 mmol/L (98-107); CO2 32 mmol/L (21-32); CREATININE 1.3 mg/dL (0.55-1.3); GLUCOSE,RANDOM 106 mg/dL (74-106); N-TERMINAL BNP 1071.6 pg/ml (5-125); SGOT/AST 27 U/L (15-37); SGPT/ALT 60 U/L (13-61); SODIUM 143 mmol/L (136-145)
[2021-07-28] MEDS ORDERED: ALBUTEROL SO4 2.5/IPRATROPIUM 0.5 INH SOL 3 ML VIAL.NEB. NEB PRN (17:37)
[2021-07-28] MEDS: GABAPENTIN 300 MG CAPSULE PO SCH (22:45)
[2021-07-28] MEDS: traZODone HCL 100 MG TABLET (FP) PO SCH (22:45)
[2021-07-28] MEDS: LOSARTAN POTASSIUM 50 MG TABLET PO SCH (22:46)
[2021-07-28] MEDS: ATORVASTATIN CA 80 MG TABLET (FP) PO SCH (22:46)
[2021-07-28] MEDS ORDERED: LOSARTAN POTASSIUM 50 MG TABLET ONE (23:38)
[2021-07-28] MEDS ORDERED: ATORVASTATIN CA 80 MG TABLET (FP) ONE (23:38)
[2021-07-28] MEDS ORDERED: metoPROLOL SUCCINATE 25 MG TAB.SR.24H (FP) ONE (23:38)
[2021-07-28] MEDS ORDERED: GABAPENTIN 100 MG CAPSULE ONE (23:39)
[2021-07-29] MEDS ORDERED: ASPIRIN COATED 81 MG TABLET.EC ONE (08:03)
[2021-07-29] MEDS ORDERED: CLOPIDOGREL BISULFATE 75 MG TABLET (FP) ONE (08:04)
[2021-07-29] MEDS ORDERED: LOSARTAN POTASSIUM 50 MG TABLET ONE (08:04)
[2021-07-29] MEDS ORDERED: GABAPENTIN 100 MG CAPSULE ONE (08:04)
[2021-07-29] MEDS ORDERED: metoPROLOL SUCCINATE 25 MG TAB.SR.24H (FP) ONE (08:04)
[2021-07-29] MEDS ORDERED: amLODIPine BESYLATE 5 MG TABLET (FP) ONE (08:04)
[2021-07-29] MEDS: LOSARTAN POTASSIUM 50 MG TABLET PO SCH ×2 (09:33→22:50)
[2021-07-29] MEDS: TORSEMIDE 10 MG TABLET PO SCH (09:33)
[2021-07-29] MEDS: OSELTAMIVIR PHOSPHATE 30 MG CAPSULE PO SCH ×2 (09:33→22:50)
[2021-07-29] MEDS: CLOPIDOGREL BISULFATE 75 MG TABLET (FP) PO SCH (09:33)
[2021-07-29] MEDS: TIOTROPIUM BROMIDE 2.5 MCG (SPIRIVA) RESPIMAT INHALER IH SCH (09:33)
[2021-07-29] MEDS: ASPIRIN COATED 81 MG TABLET.EC PO SCH (09:33)
[2021-07-29] MEDS: GABAPENTIN 300 MG CAPSULE PO SCH ×2 (09:33→22:50)
[2021-07-29] MEDS: amLODIPine BESYLATE 5 MG TABLET (FP) PO SCH (09:33)
[2021-07-29] MEDS: LIDOCAINE 5% TOPICAL PATCH TP SCH (13:05)
[2021-07-29 14:18] VITALS: BMI 34.5
[2021-07-29] MEDS ORDERED: LIDOCAINE 5% TOPICAL PATCH TP PRN (14:28)
[2021-07-29] MEDS: INSULIN SLIDING SCALE (NOVOLOG) 1 VIAL SQ SCH (17:46)
[2021-07-29] MEDS ORDERED: LIDOCAINE PATCH REMOVAL MC SCH (22:00)
[2021-07-29] MEDS: traZODone HCL 100 MG TABLET (FP) PO SCH (22:50)
[2021-07-29] MEDS: metoPROLOL SUCCINATE 25 MG TAB.SR.24H (FP) PO SCH (22:50)
[2021-07-29] MEDS: ATORVASTATIN CA 80 MG TABLET (FP) PO SCH (22:50)
[2021-07-29] MEDS: LIDOCAINE PATCH REMOVAL MC SCH (22:51)
[2021-07-30] MEDS: INSULIN SLIDING SCALE (NOVOLOG) 1 VIAL SQ SCH ×3 (06:55→17:45)
[2021-07-30] MEDS ORDERED: PT OWN MED DRAWER 7, Y5N ONE ×2 (09:48→14:42)
[2021-07-30] MEDS: OSELTAMIVIR PHOSPHATE 30 MG CAPSULE PO SCH (09:57)
[2021-07-30] MEDS: LOSARTAN POTASSIUM 50 MG TABLET PO SCH ×2 (09:57→21:47)
[2021-07-30] MEDS: TORSEMIDE 10 MG TABLET PO SCH (09:57)
[2021-07-30] MEDS: CLOPIDOGREL BISULFATE 75 MG TABLET (FP) PO SCH (09:57)
[2021-07-30] MEDS: amLODIPine BESYLATE 5 MG TABLET (FP) PO SCH (09:57)
[2021-07-30] MEDS: ASPIRIN COATED 81 MG TABLET.EC PO SCH (09:57)
[2021-07-30] MEDS: LIDOCAINE 5% TOPICAL PATCH TP SCH (09:57)
[2021-07-30] MEDS: GABAPENTIN 300 MG CAPSULE PO SCH (09:57)
[2021-07-30] MEDS: metoPROLOL SUCCINATE 25 MG TAB.SR.24H (FP) PO SCH ×2 (10:07→21:48)
[2021-07-30] MEDS ORDERED: metoPROLOL SUCCINATE 25 MG TAB.SR.24H (FP) PO SCH (10:11)
[2021-07-30] MEDS ORDERED: INSULIN (NOVOLOG) ASPART 100 UNITS/ML 10ML VIAL ONE (12:05)
[2021-07-30] MEDS: TIOTROPIUM BROMIDE 2.5 MCG (SPIRIVA) RESPIMAT INHALER IH SCH (12:22)
[2021-07-30] MEDS ORDERED: OSELTAMIVIR PHOSPHATE 30 MG CAPSULE PO ONE (12:59)
[2021-07-30] MEDS: OSELTAMIVIR PHOSPHATE 75 MG CAPSULE PO SCH (21:47)
[2021-07-30] MEDS: ATORVASTATIN CA 80 MG TABLET (FP) PO SCH (21:47)
[2021-07-30] MEDS: traZODone HCL 100 MG TABLET (FP) PO SCH (21:47)
[2021-07-30] MEDS: LIDOCAINE PATCH REMOVAL MC SCH (21:48)
[2021-07-31] MEDS: INSULIN SLIDING SCALE (NOVOLOG) 1 VIAL SQ SCH ×3 (07:32→16:58)
[2021-07-31] MEDS: ASPIRIN COATED 81 MG TABLET.EC PO SCH (10:45)
[2021-07-31] MEDS: GABAPENTIN 300 MG CAPSULE PO SCH (10:46)
[2021-07-31] MEDS: metoPROLOL SUCCINATE 25 MG TAB.SR.24H (FP) PO SCH ×2 (10:46→22:18)
[2021-07-31] MEDS: LOSARTAN POTASSIUM 50 MG TABLET PO SCH ×2 (10:46→22:18)
[2021-07-31] MEDS: OSELTAMIVIR PHOSPHATE 75 MG CAPSULE PO SCH ×2 (10:46→22:18)
[2021-07-31] MEDS: CLOPIDOGREL BISULFATE 75 MG TABLET (FP) PO SCH (10:46)
[2021-07-31] MEDS: TIOTROPIUM BROMIDE 2.5 MCG (SPIRIVA) RESPIMAT INHALER IH SCH (10:47)
[2021-07-31] MEDS: amLODIPine BESYLATE 5 MG TABLET (FP) PO SCH (10:47)
[2021-07-31] MEDS: TORSEMIDE 10 MG TABLET PO SCH (10:50)
[2021-07-31] MEDS: ATORVASTATIN CA 80 MG TABLET (FP) PO SCH (22:18)
[2021-07-31] MEDS: traZODone HCL 100 MG TABLET (FP) PO SCH (22:18)
[2021-07-31] MEDS: LIDOCAINE PATCH REMOVAL MC SCH (22:18)
[2021-08-01] MEDS: INSULIN SLIDING SCALE (NOVOLOG) 1 VIAL SQ SCH ×2 (06:14→12:15)
[2021-08-01 06:17] VITALS: PULSE 58
[2021-08-01 08:41] LABS: HEMATOCRIT 35.1 % (32.4-45.2); HEMOGLOBIN 11.7 GM/dL (10.7-15.3); MCH 29.5 pg (25.7-33.7); MCHC 33.3 g/dl (32.0-36.0); MEAN CELL VOLUME 88.4 fl (80-96); MEAN PLT VOLUME 9.8 fl (7.5-11.1); PLATELET COUNT 175 10^3/uL (134-434); RBC 3.97 M/mm3 (3.60-5.2); RDW 15.9 % (11.6-15.6)
[2021-08-01 09:18] LABS: BLOOD UREA NITROGEN 31.5 mg/dL (7-18)
[2021-08-01 09:19] LABS: BILIRUBIN,TOTAL 0.4 mg/dL (0.2-1); TOT PROT 5.9 g/dl (6.4-8.2)
[2021-08-01 09:20] LABS: CALCIUM 8.7 mg/dL (8.5-10.1)
[2021-08-01 09:21] LABS: CREATININE 1.2 mg/dL (0.55-1.3)
[2021-08-01] MEDS ORDERED: PT OWN MED DRAWER 7, Y5N ONE (09:38)
[2021-08-01] MEDS: LOSARTAN POTASSIUM 50 MG TABLET PO SCH (09:44)
[2021-08-01] MEDS: ASPIRIN COATED 81 MG TABLET.EC PO SCH (09:45)
[2021-08-01] MEDS: GABAPENTIN 300 MG CAPSULE PO SCH (09:45)
[2021-08-01] MEDS: metoPROLOL SUCCINATE 25 MG TAB.SR.24H (FP) PO SCH (09:45)
[2021-08-01] MEDS: TORSEMIDE 10 MG TABLET PO SCH (09:45)
[2021-08-01] MEDS: amLODIPine BESYLATE 5 MG TABLET (FP) PO SCH (09:45)
[2021-08-01] MEDS: OSELTAMIVIR PHOSPHATE 75 MG CAPSULE PO SCH (09:46)
[2021-08-01] MEDS: TIOTROPIUM BROMIDE 2.5 MCG (SPIRIVA) RESPIMAT INHALER IH SCH (09:49)
[2021-08-01 11:27] VITALS: BP 120/60; TEMP 97.8
== END 2021-08-01 16:18 | disposition home or self-care (01) ==
LOC: JER 14:13 → JERBED 16:06 → J8W 07-29 10:38
PROVIDERS: ADMIT Internal Medicine
DX: J10.1 Influenza due to other identified influenza virus with other respiratory manifestations (principal); J44.9 Chronic obstructive pulmonary disease, unspecified; I25.10 Atherosclerotic heart disease of native coronary artery without angina pectoris; R09.02 Hypoxemia; Z29.9 Encounter for prophylactic measures, unspecified; E66.9 Obesity, unspecified; Z68.36 Body mass index [BMI] 36.0-36.9, adult; Z88.8 Allergy status to other drugs, medicaments and biological substances; Z88.0 Allergy status to penicillin; I11.0 Hypertensive heart disease with heart failure; I50.9 Heart failure, unspecified; E11.9 Type 2 diabetes mellitus without complications; I47.1 Supraventricular tachycardia; Z87.891 Personal history of nicotine dependence; E78.5 Hyperlipidemia, unspecified; Z99.81 Dependence on supplemental oxygen
CPT/HCPCS: 36415; 71045-TC-FY; 80053; 82550; 82803; 82962; 83880; 84484; 85025; 85027; 87804; 93005; 93010; 94010; 97116-GP; 97161-GP; 99285-25; C9803; G0378; U0003; U0005

== ENCOUNTER 2022-01-18 12:20 | Emergency (ER) | payer OTHER ==
[2022-01-18 12:41] VITALS: TEMP 97.8; BMI 35.9
[2022-01-18] MEDS ORDERED: METOPROLOL TARTRATE 5 MG/5 ML VIAL IVPUSH ONE (13:14)
[2022-01-18] MEDS ORDERED: METOPROLOL TARTRATE 5 MG/5 ML VIAL ONE (13:18)
[2022-01-18 13:47] LABS: BASO % 0.6 % (0-2.0); EOS % 2.1 % (0-4.5); LYMPH % 28.9 % (8-40); MCH 29.2 pg (25.7-33.7); MCHC 33.4 g/dl (32.0-36.0); MEAN CELL VOLUME 87.4 fl (80-96); MEAN PLT VOLUME 9.9 fl (7.5-11.1); MONO % 6.5 % (3.8-10.2); NEUT % 61.9 % (42.8-82.8); PLATELET COUNT 227 10^3/uL (134-434); RBC 4.81 M/mm3 (3.60-5.2); RDW 15.8 % (11.6-15.6); WHITE BLOOD COUNT 8.5 K/mm3 (4.0-10.0)
[2022-01-18 13:53] LABS: INR 1.13 (0.83-1.09)
[2022-01-18 13:56] LABS: ACTIVATED PTT 26.4 SECONDS (25.2-36.5)
[2022-01-18 14:09] LABS: ALBUMIN 3.6 g/dl (3.4-5.0); MAGNESIUM 1.9 mg/dL (1.8-2.4)
[2022-01-18 14:12] LABS: CREATININE 1.3 mg/dL (0.55-1.3)
[2022-01-18 14:13] LABS: BILIRUBIN,TOTAL 0.4 mg/dL (0.2-1)
[2022-01-18 14:14] LABS: TOT PROT 6.9 g/dl (6.4-8.2)
[2022-01-18 15:10] VITALS: BP 114/89; PULSE 56
[2022-01-18] MEDS ORDERED: SODIUM CHLORIDE 0.9% 500 ML INFUS.BAG IV ONE (15:11)
== END 2022-01-18 18:23 | disposition home or self-care (01) ==
LOC: JER 12:20
PROC: 3E033GC Introduction of Other Therapeutic Substance into Peripheral Vein, Percutaneous Approach (ICD-10-PCS; principal; 2022-01-18)
DX: R00.0 Tachycardia, unspecified (principal)
CPT/HCPCS: 0241U-QW; 36415; 71045-TC-FY; 74176-TC; 80053; 83735; 84484; 85025; 85610; 85730; 93005; 93010; 96374; 99285-25